=== PATIENT | female | born 1990 | race Caucasian/White ===

== ENCOUNTER → 2018-08-03 14:08 | Outpatient (CLI) | payer OTHER, SELFPAY ==
[2018-08-03 19:04] LABS: Chlamydia Trachomatis by PCR Negative (Negative); Neisserai gonorrhoeae by PCR Negative (Negative); Probe Check PASS; Sample Adequacy Control PASS; Specimen Processing Control PASS
[2018-08-06 15:42] LABS: HPV Reflexed? NOT INDICATED
== END ==
PROVIDERS: Visit Provider Obstetrics & Gynecology
DX: Z12.4 Encounter for screening for malignant neoplasm of cervix (principal); Z11.3 Encounter for screening for infections with a predominantly sexual mode of transmission; Z32.01 Encounter for pregnancy test, result positive
CPT/HCPCS: 87491; 87591; 88175; G0145

== ENCOUNTER → 2018-08-17 | Outpatient (CLI) | payer OTHER, SELFPAY ==
[2018-08-17 17:42] LABS: Absolute Lymphocyte Count 2.14 X10^3/ul (0.83-4.51); Absolute Neutrophil Count 7.2 X10^3/uL (2.0-7.7); Basophil# 0.02 X10^3/uL; Basophil% 0.2 % (0-1); Eosinophil# 0.11 X10^3/uL; Eosinophils% 1.1 % (0-5); Hematocrit 40.8 % (37-47); Hemoglobin 13.2 g/dl (12.0-15.0); Lymphocyte # 2.14 X10^3/ul (4.0); Lymphocyte % 21.1 % (19-41); Mean Corp Hgb Conc 32.4 g/gl (32-36); Mean Corpuscular Hgb 25.4 pg (27.0-32.0); Mean Corpuscular Volume 78.5 fL (81-99); Monocyte# 0.65 X10^3/uL; Monocyte% 6.4 % (0-10); Neutrophil # 7.22 X10^3/uL (2.7-7.7); Platelet Count 295 K/mm3 (150-450); RBC Distribution Width CV 13.6 % (11.6-14.6); RBC Distribution Width SD 38.3 fl (35.1-43.9); White Blood Count 10.2 K/mm3 (4.4-11.0)
[2018-08-17 17:46] LABS: POSITIVE COUNT NO; POSITIVE DIFFERENTIAL NO; POSITIVE MORPHOLOGY NO
[2018-08-17 17:52] LABS: Amphetamine Urine VISTA NEGATIVE (<1000 ng/mL); Barbiturate Urine VISTA NEGATIVE (< 200 ng/mL); Benzodiazepine Urine VISTA NEGATIVE (< 200 ng/mL); Cocaine Urine VISTA NEGATIVE (< 300 ng/mL); Ecstacy Urine VISTA NEGATIVE (< 500 ng/mL); Methadone Urine VISTA NEGATIVE (< 300 ng/mL); PCP Urine VISTA NEGATIVE (< 25 ng/mL); THC Urine VISTA NEGATIVE (< 50 ng/mL); Vista UDS pH Range 6
[2018-08-17 17:57] LABS: Thyroid Stim Hormone (TSH) 2.07 uIU/mL (0.358-3.74)
[2018-08-17 18:07] LABS: Color, Urine Yellow (Yellow); Glucose, Dipstick Normal (Normal); Ketone-Dipstick Negative (Negative); Leukocyte Esterase-Dipstick Negative /ul (Negative); Nitrite-Dipstick Negative (Negative); Occult Blood-Urine Negative /ul (Negative); Protein-Dipstick Negative (Negative); Specific Gravity, Urine 1.005 (1.002-1.030); Urine Bilirubin Dipstick Negative (Negative); Urine Clarity Clear (Clear); Urine Urobilinogen Normal (Normal); Urine pH 6.5 (5.0 - 8.0)
[2018-08-17 18:38] LABS: HIV - WCH Non-Reactive (Nonreactive)
[2018-08-20 08:37] LABS: Anti-Cardiolipin Ab, IgG, Qn < 9 GPL U/mL (0-14); Anti-Cardiolipin Ab, IgM, Qn 31 MPL U/mL (0-12); HEPATITIS B SURFACE AG Negative (Negative); Hep C Antibodies <0.1 s/co ratio (0.0-0.9)
[2018-08-24 07:50] LABS: Prenatal RPR REACTIVE (NONREACTIVE)
== END | disposition home or self-care (01) ==
LOC: LABSPEC 15:37
PROVIDERS: Visit Provider Obstetrics & Gynecology
DX: Z34.81 Encounter for supervision of other normal pregnancy, first trimester (principal)
CPT/HCPCS: 36415; 80307; 81002; 84443; 85025; 86147; 86703; 86762; 86803; 87340

== ENCOUNTER → 2019-01-05 14:28 | Outpatient (CLI) | payer OTHER, SELFPAY ==
[2019-01-05 15:41] LABS: Hematocrit 36.6 % (37-47); Hemoglobin 11.4 g/dL (12.0-15.0); Mean Corp Hgb Conc 31.1 g/dL (32-36); Mean Corpuscular Hgb 26.3 pg (27.0-32.0); Mean Corpuscular Volume 84.3 fL (81-99); Mean Platelet Vol. 9.5 fl (6.2-12.0); Platelet Count 257 K/mm3 (150-450); RBC Distribution Width CV 13.7 % (11.6-14.6); RBC Distribution Width SD 42.5 fl (35.1-43.9); Red Blood Count 4.34 M/mm3 (4.2-5.4); White Blood Count 9.2 K/mm3 (4.4-11.0)
[2019-01-05 15:47] LABS: Glucose Challenge Gest 1H 50g 106 mg/dL (70-140)
== END ==
PROVIDERS: Visit Provider Obstetrics & Gynecology
DX: Z34.82 Encounter for supervision of other normal pregnancy, second trimester (principal)
CPT/HCPCS: 36415; 82950; 85027

== ENCOUNTER → 2019-03-08 16:20 | Outpatient (CLI) | payer OTHER, SELFPAY ==
[2016-09-26 19:23] VITALS: BMI 27.8
== END ==
PROVIDERS: Visit Provider Obstetrics & Gynecology
DX: Z34.83 Encounter for supervision of other normal pregnancy, third trimester (principal); Z36.85 Encounter for antenatal screening for Streptococcus B
CPT/HCPCS: 87081

== ENCOUNTER 2019-03-30 00:05 | Inpatient (IN) | payer OTHER, SELFPAY ==
[2016-09-26 19:23] VITALS: BMI 27.8
[2019-03-29 21:34] VITALS: BMI 29.4
--- NOTE | 2019-03-29 22:24 | OB.TRI.NOTE ---
History of Present Illness Date of Service: 03/29/19 Was patient seen by the physician?: Yes Reason For Visit: R/O Labor Final LINA Source: US <20 weeks Allergies amoxicillin trihydrate [From Amoxil] Allergy (Verified 03/29/19 21:34) Rash Physical Exam Cervix Dilation (cm): 1.5 - Exam per RN at 2140 Station: -3 Effacement (%): 50
[2019-03-30] MEDS: Lactated Ringers 1,000 ML 50 ML IV (00:25)
--- NOTE | 2019-03-30 00:41 | HP.PCM_ITS ---
History and Physical Date of Admission: 03/30/19 ACOG ANTEPARTUM RECORD - HISTORY AND PHYSICAL (03/30/2019) Name: KENDALL RICE OB Physician: [facility] Physician: PED SLOT TECHNICIAN and then to Charo Bland ...................................................................... : 1990 Age: 28 Address: [address] [place] [address] Phone: H) [phone] (O) [phone] Insurance Carrier: [employer] [id number] Emergency Contact: ONEYDA RICE [phone] ...................................................................... Kendall is a 28kyo admitted for labor at 39w6d gestation by 7w5d US; she states she began antonia yesterday afternoon about every 15 minutes. Contractions became stronger over time and interval decreased to approximately 10 minutes, and she was unable to walk or talk through them; after speaking with this provider over the telephone, she decided to come in to triage for evaluation; upon her arrival around 2130 last night her cervix was 1/50/-2; two hours later she had progressed to 3/75/-2; both exams were performed by the same RN;this has been remarkable for a positive RPR which was negative upon FTA testing; She is group B negative and O pos; she is planning an epidural, and prefers an MD for delivery. Final LINA: 03/31/19 By Ultrasound: 7w5d PARITY: (G-Total Pregnancies P-Fullterm,Premature,Induced AB,Spont AB, Ectopics, Multiple,Living) LINA CONFIRMATION: By LMP: 06/15/18 Final LINA: 03/31/19 OB PROBLEM LIST: O Positive Declines genetic and CF testing Epidural planned ECHO wnl Had Tdap and Influenza, 02/02 Prefers MD for delivery RPR positive, FTA negative ALLERGIES: No Known Drug Allergies MEDICATIONS: aspirin 81 mg chewable tablet 1 tab PO daily 28 mg-800 mcg tablet 1 PO QD SOCIAL HISTORY: Smoking - denies smoking Alcohol Use - RARELY not while Diet - balanced Diet Lifestyle - Exercise - minimal Employer - [employer] 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, 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 Illicit Drug Use - denies use of street drugs Sexual Activity - single sexual partner Residence - owns a home Hours Worked - 40 hours per week Spouse-Sig Other Name - Panfilo Rice Spouse-Sig Other Occupation - [employer] Spouse-Sig Other Phone No - [phone] Children Name(s) - Azam PRIOR DELIVERY HISTORY ___ DEL DATE GEST LAB WT LB WT OZ TYPE ANES LABOR TX 14 Sep 30 40 24 7 7 Vag Epidural No ANTEPARTUM FLOW CHART VISIT GE RTC FU F F CA U U DATE WK MD WKS HT PN HR M SS BP ED WT CA GL D EF ST __ ____ ___ __ __ ___ __ __ __ ___ __ __ __ ___ __ 09 Mar SHM 2 37 V + + 130/86 sl 206 - - Mar SHM 1 36 V + + 114/70 sl 204 tr - 1+ 50 -3 Feb SHM 1 35 V + + 110/70 sl 203 tr - 0 0 -5 Feb ELB 1 35 V + + 112/66 0 201 Jan SHM 3 32 V + + 114/66 0 196 - - Feb 13 SHM 2 30 + + 110/72 0 195 tr - Jan 10 SHM 4 28 V + + 110/60 0 190 - - Dec 07 SHM 4 23 ? + + 120/62 0 182 tr - Nov 02 SHM 4 19 ? + + 102/64 0 175 tr - Oct 31 SHM 2 17 ? + + 108/60 0 170 - tr Sep 28 SHM 4 15 + + 114/70 0 166 - - Sep 24 ELB 4 - - U+ O 110/70 0 164 - - Aug 21 ELB 4 - - U+ O 112/60 0 160 - - ANTEPARTUM NOTE(S): Mar 25 2019: none Mar 19 2019: feeling well. Cervix check. Mar 08 2019: achy in am, GBS today Feb 26 2019: GBS next visit. EB Feb 09 2019: doing well Jan 26 2019: see note Jan 05 2019: doing well, glucola today Dec 07 2019: doing well, glucola inst given and reviewed Nov 10 2019: comp u/s today Oct 26 2019: see note Oct 12 2018: doing well, declines AFP. jlb Sep 14 2018: feeling well, still having nausea. Aug 17 2018: 7w5d sono EDC COMPREHENSIVE ANTEPARTUM NOTE(S): Mar 25 2019: Kendall is here for a appt. She is feeling good with slight edema in hands and feet. Urine --. No complaints. Thinking about names for her baby boy. MK Mar 19 2019: Reports decreased FM x 3 days. BPP 8/10 (-2 for gross movement). Kick counts reviewed. Mar 15 2019: H taken to OB. tkg Mar 11 2019: GBS NEGATIVE. EB Mar 08 2019: Kendall reports more aches in the am. Hands slightly swollen in am. Reviewed normal changes at this point in . FM, SROM, and labor reviewed. LARC declined, GBS today. LMT Mar 08 2019: GBS obtained, reviewed labor, ROM, FM precautions. LARC declined. Fetus CEPHALIC on US. Feb 26 2019: Kendall is here for visit at 35.2 weeks. Continues to have some nausea. Taking Pepcid with moderate relief. Concerned about weight gain- 40 # today. Trying to make good food choices. Talking about first baby being transferred to [facility] for 7 days due to cyanosis during a feed with no etiology found. States knows what questions to ask this time. DRC. Jan 26 2019: Discussed epidural r/b. Jan 26 2019: Kendall is here for vist. She has several concerns today. She is having nausea q pm. Asking for nausea med. She was advised prior to try Pepcid and strongly encouraged her to start this as directed. Stay upright after eating for at least 30 minutes after eating, avoid fried, spicy foods. She also notes this terrible taste in her mouth and throws up with the toothpaste taste. Advised to try just using water and Biotene mouth rinse. FM, PTL reviewed. Had Infuenza and Tdap injections. LMT Jan 05 2019: PTL, ROM, FM precautions. APLS studies with MFM negative initially. Dec 07 2018: Long dip of urine done in office today leuk, nitrite, urobilingen-neg, protein-trace, pH-5, blood-neg, sp gravity-1025, ketones-+, bilirubin-neg, glucose-neg. jlb Nov 10 2018: Kendall is here for comp u/s. Wants to discuss Anticardiolipin AB. LMT Nov 10 2018: MFM consultation next week. Will f/u. Reviewed with her my suspicion is low however important to complete w/u. Anatomy scan wnl, MALE. Oct 26 2018: Kendall called nurse web applications architect over the weekend with a rash that is very itchy, it is on jawline and on lower abdomen and legs. She states it started 5 days ago and a week prior to that she started a baby aspirin. AM Oct 26 2018: Urticaria with linear cicatrix in patches on neck, abdomen, thig hs. Denies chest pain, SOB, wheezing, cough. Rx hydrocortisone topical. ASA discontinued over weekend. Following discussion, pt with concern about risks for APLS and inquires about risk modification in absence of ASA. Will refer to MFM. Oct 12 2018: Declines msAFP, Quad screen. Discussed movement, round ligament pain. Reviewed slightly high Anticardiolipin IgM at 31 (APLS usually dx'd at 40). In 2016, slightly high Anti-beta 2 glycoprotein Ab at 28 with normal Anticardiolipin. Following discussion, pt to take ASA 81mg PO daily and will repeat APLS studies in 12 weeks with 28w labs. Aug 21 2018: RPR positive FTA to be checked. Anticardiolipin antibodies sl high IgM at 31 (Low-Med Positive: >20 - 80 ) EB Aug 18 2018: O positive RI, Hgb 13.2 g/dl. EB Aug 17 2018: Pap wnl. EDC by 7w5d sveta is 03/31/2019 EDC changed by sveta today. Advised of this. She states had FP RPR with last . Advised will recheck this today and possible to have repeat FP.. if positive RPR, then to FTAbs. States father had a stroke requiring surgery and PT/OT to recover on his honeymoon. Thrombophilia? NOT sure if he had a dx given.. She was testing for coagulopathies. Only Anticardiolipin IgM showed... 26 then 20 on recheck. Will add this Anticardiolipin ABs, IgG and IgM to labs to be done today. EB Aug 17 2018: Kendall is a 28 yr old Gr2, P1 here for US, PNV and NOB today. Prior VAVD Induction Post Dates @ 40 wks 6 days. She is and lives w/her and their son. Some nausea, no vomiting, some constipation and intermittent looser stools. Offered antiemetic, Colace. She does not like to take meds. Tolerating po fluids well. Reviewed importance of hydration. Recommended eating small amounts including protein apprx q 3-4 hrs. Rather than Colace, can eat prunes, which she likes, and take Miralax if needed. Reviewed importance of avoiding constipation. Taking a daily PNV. Non-smoker. No use of street drugs and has never been a smoker. No STD's. No abdominal surgeries. Hx Depression in her early 20's--she feels this has resolved. PHQ-9 completed today showing . Re: genetics -- states her father had a stroke in his 20's. She is not sure what caused this; she will ask if he was Dx'd w/any clotting disorders. Kendall is not interested in CF or genetics testing. Plans delivery @ [facility], Epidural and Breast Feeding. Aug 03 2018: Kendall is here today for missed menses appointment. Patient is a . Positive upt in office today. She states that lmp is 06/15/2018 making her 7 wks with Lina of 03/22/2019. Patient states that she has had no bleeding or spotting since lmp. She states that she has mild nausea, breast tenderness, and fatigue. She will try the vitamin B6 with Unisom for nausea. Patient has h/o normal pap's with most recent pap in 2016. Pap and Gc/Ct cultures today. Patient denies any other questions or concerns at this time. jlb Aug 03 2018: GC and chlamydia cultures NEG EB REVIEW OF SYSTEMS: GENERAL - Denies fever, or chills SKIN - Denies rash, new skin lesions, or change in moles EYES - Denies blurred vision, or change in visual acuity EARS - Denies ear pain, or difficulty hearing NOSE - Denies nasal congestion, discharge, or bleeding MOUTH - Denies sore throat, or difficulty swallowing NECK - Denies pain or swelling RESPIRATORY - Denies shortness of breath, cough, wheezing CARDIOVASCULAR - Denies palpitations, chest pain, orthopnea, PND, peripheral edema, syncope or claudication GASTROINTESTINAL - Denies nausea, vomiting, diarrhea, constipation, Denies abdominal pain, melena and or bright red blood GENITOURINARY - Denies dysuria, frequency of urination, urgency, or hesitancy MUSCULOSKELETAL - Denies joint or muscle pain, or back pain NEUROLOGICAL - Denies localized numbness, weakness, or tingling PSYCHIATRIC - Denies depression, anxiety, substance abuse or suicide attempts ENDOCRINE - Denies heat or cold intolerance, weight loss or gain, increasing thirst HEMATO-IMMUNOLOGIC - Denies easy bruising, bleeding, oral ulcerations or recurrent infections GENETICS SCREENING: Age 35+ years: No Thalassemia: No Neural Tube Defect: No Down Syndrome: No MEGHAN-SACHS: No Sickle Cell Disease: No Hemophilia: No Musc. Dystrophy: No Cystic Fibrosis: No-declines screening [place] Chorea: No Mental Retardation: No Fragile X: No Other genetic: No Other defects: No SABs/still births: No Drugs since LMP: No INFECTION HISTORY: High risk AIDS: No High risk Hepatitis: No Exposed to TB: No Exposed to Herpes: No Rash/viral illness since LMP: No History of STD: No MENSTRUAL HISTORY: *Menses Amount/Duration: 5 daysMenses Regularity: regularFrequency: monthlyMenarche (Age Onset): 13* PAST SUMMARY: PARITY: 1. Total Pregnancies............ 2 2. Full Term Pregnancies........ 1 3. Premature.................... 0 4. Abortions - Induced.......... 0 5. Abortions - Spontaneous...... 0 6. Ectopics..................... 0 7. Multiple Births.............. 0 8. Living Children.............. 1 PAST #1: Date of :.................. 07/14/17 Gestation Weeks:................ 40 Length of labor(hours):......... 24 Sex:............................ M Weight-lbs:............... 7 Weight-oz:................ 7 Type of Delivery:............... Vag Type of Anesthesia:............. Epidural Place of Delivery:.............. [place] Treatment of Labor?:.... No Comment: INDUCTION 40 WKS 6 DAYS Labs for : KENDALL RICE since 07/04/2018 ORDER DATEIN DESCRIPTION VALUE UNITS RANGE A+ COMMENT CULTURE, GROUP B STREPTOCOCCUS 03/08/19 NOTE Original Ordering Provider: Kai Aguilar Comments: VAGINAL/RECTAL JOHN Culture Group B Beta Streptococcus is not isolated. Reviewed by JANET GLUCOSE CHALLENGE GEST 1H 50G 01/05/19 NOTE Original Ordering Provider: Kai Aguilar GLU GEST 50G 1H 106 mg/dL 70-140 Reviewed by KAI CBC-COMPLETE BLOOD CNT NO DIFF 01/05/19 NOTE Original Ordering Provider: Kai Aguilar WBC 9.2 K/mm3 4.4-11.0 RBC 4.34 M/mm3 4.2-5.4 HGB 11.4 g/dL 12.0-15.0 L HCT 36.6 % 37-47 L w MCV 84.3 fL 81-99 MCH 26.3 pg 27.0-32.0 L MCHC 31.1 g/dL 32-36 L RDW CV 13.7 % 11.6-14.6 RDW SD 42.5 fl 35.1-43.9 PLT 257 K/mm3 150-450 MPV 9.5 fl 6.2-12.0 Reviewed by KAI [facility] 08/17/18 NOTE Original Ordering Provider: Janet Goode [facility] LAB TEST TEST RESULT UNITS REF INTERVAL RPR, Rfx Qn RPR/Confirm TP RPR REACTIVE ABNORMAL NON REACTIVE RPR, Quant 1:2 HIGH NONREA <1:1 Treponema Pallidum Antibodies NEGATIVE NEGATIVE TESTING PERFORMED AT [facility]. ORIGINAL REPORT ON FILE IN LAB CONTAINS ADDITIONAL TEST SITE INFORMATION. Reviewed by JANET DALTON RPR 08/17/18 NOTE Original Ordering Provider: Janet Goode RPR REACTIVE NONREACTIVE H Reviewed by JANET ANTICARDIOLIPIN IGG, IGM 08/17/18 NOTE Original Ordering Provider: Janet Goode ANTICARDIO IGG < 9 GPL U/mL 0-14 Negative: <15 Indeterminate: 15 - 20 Low-Med Positive: >20 - 80 High Positive: >80 ANTICARDIO IGM 31 MPL U/mL 0-12 H Negative: <13 Indeterminate: 13 - 20 Low-Med Positive: >20 - 80 High Positive: >80 Reviewed by JANET HEPATITIS C ANTIBODIES 08/17/18 NOTE Original Ordering Provider: Janet Goode HEP C AB <0.1 s/co ratio 0.0-0.9 Negative: < 0.8 Indeterminate: 0.8 - 0.9 Positive: > 0.9 The CDC recommends that a positive HCV antibody result be followed up with a HCV Nucleic Acid Amplification test (466699). Reviewed by JANET mcmanus HEPATITIS B SURFACE AG 08/17/18 NOTE Original Ordering Provider: Janet Goode HB SURF AG Negative Negative Performed at: [address] [id number] Machine Filler Servicer: Joel Box PhD, Phone: [phone] Reviewed by JANET DALTON T AND S-NO CHARGE W/PNP 08/17/18 Reason for Type AND Screen/Red Cells: Surgery? N [facility]~[address] [place], [address]~ BLOOD TYPE GEL O POSITIVE N AB SCREEN GEL NEGATIVE N Reviewed by JANET HIV - H 08/17/18 NOTE Original Ordering Provider: Janet Goode HIV - [facility] Non-Reactive Nonreactive Reviewed by JANET RUBELLA IGG 08/17/18 NOTE Original Ordering Provider: Janet Goode RUBELLA IGG 33.0 IU/mL Antibody results Interpretation of Immune Status < 5 IU/ml Presumed Non-immune 5 - < 10 IU/ml Equivocal > or = 10 IU/ml Presumed Immune Reviewed by JANET URINALYSIS, ROUTINE (DIPSTICK) 08/17/18 NOTE Original Ordering Provider: Janet Goode COLOR Yellow Yellow CLARITY Clear Clear GLUCOSE, UR Normal mg/dl Normal BILIRUBIN URINE Negative mg/dL Negative KETONE UR Negative mg/dl Negative SP.GR. DIPSTX 1.005 1.002-1.030 PH UR 6.5 5.0 - 8.0 PROT DIPSTX Negative mg/dl Negative UROBILI Normal mg/dl Normal NITRITE UR Negative Negative OCCULT BLOOD-UR Negative /ul Negative LEUK ESTERASE Negative /ul Negativew Reviewed by JANET THYROID STIM HORMONE (TSH) 08/17/18 NOTE Original Ordering Provider: Janet Goode TSH 2.07 uIU/mL 0.358-3.74 Reviewed by JANET URINE DRUG SCREEN (VISTA) 08/17/18 NOTE Original Ordering Provider: Janet Goode TO BE CONFIRMED CONFIRMATORY TESTING FOR ALL POSITIVE URINE DRUG SCREEN RESULTS WILL ONLY BE SENT OUT UPON PHYSICIAN ORDER. VISTA Urine Drug Screen methods provide only preliminary analytical test results. A more specific alternate chemical method must be used in order to obtain a confirmed analytical result. Gas chromatography/mass spectrometery (GC/MS) is the preferred confirmatory method. Clinical consideration and professional judgement should be applied to any drug of abuse test result, particularly when preliminary positive results are used. URINE TCA TESTING MUST BE ORDERED SEPARATELY. USE TEST MNEMONIC: [facility]IST[facility] UDS PH 6 AMPHETAMINES NEGATIVE <1000 ng/mL BARBITIURATES NEGATIVE < 200 ng/mL BENZODIAZIPINE NEGATIVE < 200 ng/mL COCAINE NEGATIVE < 300 ng/mL ECSTACY NEGATIVE < 500 ng/mL METHADONE NEGATIVE < 300 ng/mL OPIATES NEGATIVE < 300 ng/mL PCP NEGATIVE < 25 ng/mL THC NEGATIVE < 50 ng/mL Reviewed by JANET CBC W/DIFF, AUTOMATED 08/17/18 NOTE Original Ordering Provider: Janet Goode WBC 10.2 K/mm3 4.4-11.0 RBC 5.20 M/mm3 4.2-5.4 HGB 13.2 g/dl 12.0-15.0 HCT 40.8 % 37-47 MCV 78.5 fL 81-99 L MCH 25.4w pg 27.0-32.0 L MCHC 32.4 g/gl 32-36 RDW CV 13.6 % 11.6-14.6 RDW SD 38.3 fl 35.1-43.9 PLT 295 K/mm3 150-450 MPV 9.0 fl 6.2-12.0 NEUT% 71.0 % 47-70 H LY% 21.1 % 19-41 MONO% 6.4 % 0-10 EO% 1.1 % 0-5 BASO% 0.2 % 0-1 IM GRAN % 0.200 % 0.0-0.9 IG% - Immature Granulocytes (promyelocytes, myelocytes and metamyelocytes) > 1% indicates that a LEFT SHIFT is Present. ABSOLUTE NEUT 7.2 X10 3/uL 2.0-7.7 ABSOLUTE LYMPH 2.14 X10 3/ul 0.83-4.51 Reviewed by JANET Reviewed by JANET PAP I-G W/RFX HRHPV 08/03/18 NOTE Original Ordering Provider: Janet Goode DIAGN . NEGATIVE FOR INTRAEPITHELIAL LESION OR MALIGNANCY. ADEQ . Satisfactory for evaluation. Endocervical and/or squamous metaplastic cells (endocervical component) are present. w PERFORM . Kendrick Crum Sailing Instructor (ASCP) TEST METHOD . This liquid based ThinPrep(R) pap test was screened with the use of an image guided system. COMM . . PAPSMR . The Pap smear is a screening test designed to aid in the detection of premalignant and malignant conditions of the uterine cervix. It is not a diagnostic procedure and should not be used as the sole means of detecting cervical cancer. Both false-positive and false-negative reports do occur. HPV RFLX . The HPV DNA reflex criteria were not met with this specimen result therefore, no HPV testing was performed. Performed at: [address], [place] [id number] Machine Filler Servicer: Asha Olsen MD, Phone: [phone] Reviewed by JANET SCALES/SEKOU [facility] BY PCR 08/03/18 NOTE Original Ordering Provider: Janet MIGUEL [facility] PCR Negative Negative NG BY PCR Negative Negative Reviewed by JANET PROVIDER SIGNATURE ( REQUIRED) PHYSICAL EXAMINATION General Appearence: 28 yo female in no acute distress Vital Signs: AF, VSS Heart: RRR without rubs or gallops Lungs: CTA x 2 Breasts: deferred Abdomen: gravid Pelvis: Cervix: 3/75/-2 per RN at 2358 03/29/2019 Presentation: cephalic Fetus: Size: AGA per Leopolds Movement: present Heart: 135 baseline, mod variability, + accels, no decels UCs: Q 3-4 minutes Impression: 28yo admitted for labor at 39w6d gestation by 7w5d US Latent vs. Early labor with cervical change Group B neg, O pos blood type Cat 1 FHTs Plan: Admit for labor Expectant management Call MD for delivery Anticipate vaginal delivery
[2019-03-30 00:42] LABS: Absolute Lymphocyte Count 2.12 X10^3/uL (0.83-4.51); Absolute Neutrophil Count 7.5 X10^3/uL (2.0-7.7); Basophil# 0.01 X10^3/uL; Basophil% 0.1 % (0-1); Eosinophils% 0.9 % (0-5); Hematocrit 33.2 % (37-47); Hemoglobin 10.6 g/dL (12.0-15.0); Lymphocyte # 2.12 X10^3/ul (4.0); Lymphocyte % 19.7 % (19-41); Mean Corp Hgb Conc 31.9 g/dL (32-36); Mean Corpuscular Hgb 25.5 pg (27.0-32.0); Mean Platelet Vol. 9.9 fl (6.2-12.0); Monocyte# 1.04 X10^3/uL; Monocyte% 9.6 % (0-10); NRBC Flagged by Analyzer 0 % (0-5); Neutrophil # 7.45 X10^3/uL (2.7-7.7); Neutrophil % 69.1 % (47-70); Platelet Count 217 K/mm3 (150-450); RBC Distribution Width CV 14.9 % (11.6-14.6); Red Blood Count 4.15 M/mm3 (4.2-5.4); White Blood Count 10.8 K/mm3 (4.4-11.0)
[2019-03-30] MEDS: Lactated Ringers 500 ML 999 ML IV (03:43)
[2019-03-30] MEDS: fentaNYL-bupivacaine (epidural) 100 ML BAG EPIDURAL ×2 (04:45→10:50)
[2019-03-30] MEDS: Ondansetron 4 MG/2 ML Vial IV (06:04)
--- NOTE | 2019-03-30 06:35 | PCM.PN.BLA ---
Progress Note S: Chay comfortably with epidural; did experience a drop in blood pressure after epidural and became symptomatic O: Hypotensive post epidural FHTs: 130 baseline with moderate variability after a 7 minute deceleration down to 70bpm over 3 minutes then back to baseline over 5 minutes UCs: Approx Q 8 minutes per palpation by RN, tracing inconsistent A: Early labor Cat 2 FHTs P: Anesthesia notified and at bedside to address epidural related hypotension Dr. Aguilar updated Close observation Anticipate AROM/IUPC/Pitocin augmentation, Dr. Aguilar to determine and discuss w/patient
[2019-03-30] MEDS: Lactated Ringers 1,000 ML 200 ML IV ×2 (06:45→10:48)
[2019-03-30] MEDS: Oxytocin 30 units/NS 500 ml 30 UNITS/500 ML IV.SOLN IV (09:19)
--- NOTE | 2019-03-30 12:23 | PCM.PN.BLA ---
Progress Note LABOR PROGRESS NOTE no complaints. Comfortable with epidural. AVSS GEN - NAD, AAO x 3 FHR 135, moderate variability, + accelerations, no decelerations TOCO 4/10 min SVE FD/+1 station, cephalic A/P: 28yo @ 39 6/7wga in labor, Cat I FHR -Anticipate -Maternal and statuses reassuring
[2019-03-30] MEDS: Oxytocin 30 units/NS 500 ml 30 UNITS/500 ML IV.SOLN 334 UNITS IV (12:40)
--- NOTE | 2019-03-30 12:49 | PCM.OPRPT ---
Problem List (1) 39 weeks gestation of Status: Acute (2) (spontaneous vaginal delivery) Status: Acute Report of Operation Date of Procedure: 03/30/19 Pre-Operative Diagnosis: 39 6/7wga, labor Post-Operative Diagnosis: 39 6/7wga, labor Surgery/Procedure Performed:: Type of Anesthesia:: Epidural Anesthesiologist: Rodolfo Zheng Estimated Blood Loss (mL): 250 Vaginal Delivery Maternal Presentation: Active Labor Method of Induction: Pitocin, Amniotomy Amniotic Membrane Rupture Type: Artificial Rupture of Membrane time: 03/30/19 0809h Amniotic Fluid Description: Clear Final LINA: 03/31/19 Gestational age: 39 Weeks and 6 Days Date of Procedure: 03/30/19 Surgery/ Procedure Performed: Spontaneous Vaginal Delivery Type of Anesthesia: Epidural Description of Procedure: Patient was FD/+3 station and pushed to deliver vigorous male infant over and intact perineum. The infant was placed on the maternal abdomen and further attended by nursery personnel. Cord blood specimen was obtained. The placenta delivered spontaneously and appeared intact on inspection. IV pitocin started. Perineum intact. Sponge count correct x 2. Presentation: Vertex Placental Delivery Description: Spontaneous Placenta Disposition: [facility] Cord Vessel Description: 3 Vessels Nuchal Cord Compression: Without compression Cord Entanglement: None Drain: Gamez to straight drain Estimated Blood Loss: 250 A gender: Male (1 minute): 8 (5 minute): 9 Episiotomy Description: None Laceration: None Medications given after delivery: IV Pitocin Complications: None
[2019-03-30 19:41] VITALS: BP 120/58; PULSE 78; RESP 14; TEMP 36.4; O2SAT 97
[2019-03-30] MEDS: Ibuprofen 600 MG Tablet PO (20:02)
[2019-03-30 23:05] VITALS: BP 113/63; PULSE 85; RESP 18; TEMP 36.2
[2019-03-30] MEDS: Acetaminophen 500 MG Tablet 1000 MG PO (23:34)
[2019-03-31 03:48] VITALS: BP 107/62; PULSE 73; RESP 14; TEMP 36.6
[2019-03-31] MEDS: Ibuprofen 600 MG Tablet PO (03:57)
--- NOTE | 2019-03-31 07:08 | PCM.PN.OB ---
Patient Problems: Active and Suspected Problems 39 weeks gestation of (Acute) (spontaneous vaginal delivery) (Acute) Subjective: Reports heavy lochia, but needs to change pad every 3-4 hours and it is not saturated. Has mild cramping. Appetite good. No complaints. nursing well. Objective: AVSS - Physical Exam Vitals/I&O's: Vital Signs Temp Pulse Resp BP Pulse Ox 97.8 F 73 14 107/62 97 03/31/19 03:48 03/31/19 03:48 03/31/19 03:48 03/31/19 03:48 03/30/19 19:41 Oxygen Delivery Method Room Air Weight: 92.986 kg Body Mass Index (BMI) 29.4 Intake and Output for Last 24 Hours 03/29/19 03/30/19 03/31/19 23:59 23:59 23:59 Intake Total 3199.45 / 3199.45 Output Total 1000 / 1000 Balance 2199.45 / 2199.45 General: Alert, Oriented x3, Cooperative, No apparent distress HEENT: Atraumatic, Normocephalic Lungs: Clear to auscultation, Normal air movement Cardiovascular: Regular rate, Regular Rhythm, Normal S1, Normal S2 Abdomen: Soft, Non Tender, Non-Distended, - - Fundus firm and nontender, lochia moderate Extremities: No edema, No Calf Tenderness Neurological: Neuro grossly intact Psych/Mental Status: Normal Affect, Appropriate, Alert and oriented to time, place, person, mood and affect Current Medications Acetaminophen (Tylenol) 1,000 mg PO Q8H PRN PRN PRN Reason: Pain Score 1-310 Last Admin: 03/30/19 23:34 Dose: 1,000 mg Documented by: Bisacodyl (Dulcolax) 10 mg RECTAL UD PRN PRN Reason: If no BM Dibucaine (Dibucaine) 1 applic TOPICAL TID PRN PRN; Protocol PRN Reason: Discomfort Hydrocortisone (Hytone) 1 applic TOPICAL TID PRN PRN; Protocol PRN Reason: Discomfort Ibuprofen (Motrin) 600 mg PO Q6H PRN PRN PRN Reason: Pain Score 1-310 Last Admin: 03/31/19 03:57 Dose: 600 mg Documented by: Methylergonovine Maleate (Methergine) 0.2 mg IM X1 PRN PRN Reason: Excess bleeding/uterine atony Ondansetron HCl (Zofran) 4 mg IV Q4H PRN PRN PRN Reason: NAUSEA Last Admin: 03/30/19 06:04 Dose: 4 mg Documented by: Multivit/Folic Acid/Iron (Prenatabs Fa) 1 tablet PO DAILY@1200 LAUREANO Senna/Docusate Sodium (Senokot-S, Siobhan-Colace) 1 - 2 tablet PO DAILY PRN PRN PRN Reason: Constipation Simethicone (Mylicon) 80 mg PO PCHS PRN PRN Reason: Indigestion/Stomach pain Sodium Chloride () 5 - 15 ml IV UD PRN PRN Reason: SALINE FLUSH Medical Necessity - Tobacco Use Smoking Status: Never smoker Assessment/Plan All Active Problems 39 weeks gestation of (Acute) (spontaneous vaginal delivery) (Acute) 40 weeks gestation of (Acute) 28yo PPD#1 s/p doing well. -O positive, Rubella immune -Routine care - -Male for circ -Plan for dc home later today
--- NOTE | 2019-03-31 07:16 | DCINST_ITS ---
Discharge Diet: No Restrictions Discharge Activity: Return to Normal Activity May resume sexual activity in: 6 weeks Additional Instructions: If you experience any of the following, contact your healthcare provider. * Bleeding that soaks a pad every hour for 2 hours * Fever 100.4 or higher * Unrelieved incision or abdominal pain * Swelling, redness, discharge or bleeding from your incision or episiotomy site * Your incision begins to separate * Problems urinating (including inability to urinate or burning while urinating). * Visual changes * Severe headache * Flu-like symptoms * Pain or redness in one of both of your breasts * Pain, warmth, tenderness or swelling in your legs, especially the calf area * Frequent nausea and vomiting * Symptoms of depression or anxiety If you experience any of the following, call 911 or go to the nearest Emergency Room. * Chest pain * Problems breathing * Seizure activity * Partial or complete paralysis of a body part, slurred speech, weakness or drooping of the face, or a sudden inability to walk or hold your balance Allergies/Adverse Reactions: Allergies amoxicillin trihydrate [From Amoxil] Allergy (Verified 03/29/19 21:34) Rash Medications to take at Discharge RX: Vits [Prenatabs FA ] 1 tablet PO DAILY 09/26/16 RX: Docusate Sodium [Colace] 100 mg PO BID PRN PRN #60 capsule 09/27/16 RX: Ferrous Sulfate 325 mg PO BID #60 tab 03/31/19 RX: Ibuprofen [Motrin] 600 mg PO Q8H PRN PRN #30 tab 03/31/19 The following prescriptions were given: RX: Ferrous Sulfate 325 mg PO BID #60 tab Transmission Status: Pending to [facility] RX: Ibuprofen [Motrin] 600 mg PO Q8H PRN PRN #30 tab PRN Reason: Pain Or Fever Transmission Status: Pending to [facility] Please Follow Up With: Starla Aguilar MD When: 6 weeks Primary Care Physician: Keyon Arias DO [Primary Care Provider] - Test Results: Test results from this visit will be discussed in further detail at your follow- up appointment, if applicable.
--- NOTE | 2019-03-31 07:16 | PCM.DCVAG ---
Discharge Diet: No Restrictions Discharge Activity: Return to Normal Activity May resume sexual activity in: 6 weeks Additional Instructions: If you experience any of the following, contact your healthcare provider. Bleeding that soaks a pad every hour for 2 hours Fever 100.4 or higher Unrelieved incision or abdominal pain Swelling, redness, discharge or bleeding from your incision or episiotomy site Your incision begins to separate Problems urinating (including inability to urinate or burning while urinating). Visual changes Severe headache Flu-like symptoms Pain or redness in one of both of your breasts Pain, warmth, tenderness or swelling in your legs, especially the calf area Frequent nausea and vomiting Symptoms of depression or anxiety If you experience any of the following, call 911 or go to the nearest Emergency Room. Chest pain Problems breathing Seizure activity Partial or complete paralysis of a body part, slurred speech, weakness or drooping of the face, or a sudden inability to walk or hold your balance Allergies/Adverse Reactions: Allergies amoxicillin trihydrate [From Amoxil] Allergy (Verified 03/29/19 21:34) Rash Medications to take at Discharge RX: Vits [Prenatabs FA ] 1 tablet PO DAILY 09/26/16 RX: Docusate Sodium [Colace] 100 mg PO BID PRN PRN #60 capsule 09/27/16 RX: Ferrous Sulfate 325 mg PO BID #60 tab 03/31/19 RX: Ibuprofen [Motrin] 600 mg PO Q8H PRN PRN #30 tab 03/31/19 The following prescriptions were given: RX: Ferrous Sulfate 325 mg PO BID #60 tab Transmission Status: Pending to [facility] RX: Ibuprofen [Motrin] 600 mg PO Q8H PRN PRN #30 tab PRN Reason: Pain Or Fever Transmission Status: Pending to [facility] Please Follow Up With: Starla Aguilar MD When: 6 weeks Primary Care Physician: Keyon Arias DO [Primary Care Provider] - Test Results: Test results from this visit will be discussed in further detail at your follow-up appointment, if applicable.
[2019-03-31 08:21] VITALS: BP 121/75; PULSE 83; RESP 16; TEMP 36.3
[2019-03-31 15:14] VITALS: BP 125/66; PULSE 88; RESP 16; TEMP 36.9
--- NOTE | 2019-03-31 16:37 | CASEMGMT ---
Social Work - Brief Assessment Labor and Delivery Unit Patient Address: [address] [place] [address] Phone number:[phone] Date of Referral/Notification: 03.30.2019 Time of Referral: 2241 Referred By: Dr. Aguilar Reason for Referral: Maternal history of depression in early 20?s. Date of Intervention: 03.31.2019 Time of Intervention: 145 Informant: Medical record and mother of baby (MOB) Marielle Rice; father of baby (FOB) Saurabhmaddy Rice also present. History: LAINA is a 28-year-old female, to FOB. They now have 2 children together: Azam (born 09.[birth year].2016) and Sohan (born 03.[birth year].2019). MOB with adequate care which started in the first trimester. Sohan delivered weighing 7 pounds 3 ounces. Apgars 8 and 9. MOB reports this delivery went much smoother compared to first delivery. First child had was transferred to [place] for several days after delivery. 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 FOB works as [employer]. MOB reports FOB is helpful at home and then has support from MOB's mother and sister. MOB reports her [id number] would be another support as well, if able to come to the house (she is [place] and does not drive). No reports of or indication of any safety issues or abuse at home. No reports of any substance use issues. LAINA with history of some depression in her early 20?s. Endorses the thought that may have had the baby blues after Azam was born, reports crying for a couple of weeks and then this just went away. Assessment: MOB and FOB both engaging in conversation. MOB with bright and smiling affect, pleasant, good eye contact. MOB denies any depression or anxiety currently. Did become tearful a few times but were appropriate to discussion at hand and quickly resolved. MOB reports to love the baby and that she feels she is getting to know the baby, is excited to go home. FOB will be off work for the next week to help and then MOB reports will have help available from family. MOB and FOB listened attentively to discussion on depression and anxiety. MOB asked appropriate questions and seemed interested in having the information. At this time however, no needs are requested or identified. No concerns have been voiced by the nursing staff. Observed MOB to handle baby well. MOB reports to have needed baby supplies and adequate support at home. Plan: MOB and baby to home with support from FOB. depression packet given which includes local, national, online, and texting support options for mood and anxiety issues. No further needs requested or indicated. -STEVEN Preston, PEARL MAKER
== END 2019-03-31 15:30 | disposition home or self-care (01) | DRG 806 ==
LOC: WPOUT 00:16 → WP 00:16
PROVIDERS: Advanced Practice Midwife; Admitting Provider Obstetrics & Gynecology; Family Provider Preventive Medicine Occupational Medicine; PCP Preventive Medicine Occupational Medicine; Referring Provider Obstetrics & Gynecology; Visit Provider Obstetrics & Gynecology
DX: O26.53 Maternal hypotension syndrome, third trimester (principal); O99.12 Other diseases of the blood and blood-forming organs and certain disorders involving the immune mechanism complicating childbirth; D68.61 Antiphospholipid syndrome; Z37.0 Single live birth; Z3A.39 39 weeks gestation of pregnancy; Z82.3 Family history of stroke; Z79.82 Long term (current) use of aspirin
CPT/HCPCS: 59025; 59050; 85025; 86850; 86900; 86901; 99218; J7120; G0378; J2405

== ENCOUNTER → 2019-04-03 09:30 | Outpatient (CLI) | payer OTHER, SELFPAY ==
[2019-03-29 21:34] VITALS: BMI 29.4
== END ==
PROVIDERS: PCP Preventive Medicine Occupational Medicine; Referring Provider Obstetrics & Gynecology; Visit Provider Obstetrics & Gynecology
DX: Z39.1 Encounter for care and examination of lactating mother (principal)
CPT/HCPCS: 96152

== ENCOUNTER → 2019-08-02 19:45 | Outpatient (CLI) | payer OTHER, SELFPAY ==
[2019-03-29 21:34] VITALS: BMI 29.4
== END ==
PROVIDERS: PCP Preventive Medicine Occupational Medicine; Referring Provider Obstetrics & Gynecology; Visit Provider Obstetrics & Gynecology
DX: Z39.1 Encounter for care and examination of lactating mother (principal)
CPT/HCPCS: 96158

== ENCOUNTER → 2020-07-18 13:10 | Outpatient (CLI) | payer OTHER, SELFPAY ==
[2019-03-29 21:34] VITALS: BMI 29.4
[2020-07-20 03:07] LABS: Chlamydia By Nucleic Acid AMP Negative (Negative)
[2020-07-20 09:27] LABS: Gonococcus By Nucleic Acid AMP Negative (Negative)
== END ==
PROVIDERS: PCP Preventive Medicine Occupational Medicine; Visit Provider Student in an Organized Health Care Education/Training Program
DX: Z11.3 Encounter for screening for infections with a predominantly sexual mode of transmission (principal); Z32.01 Encounter for pregnancy test, result positive
CPT/HCPCS: 87491; 87591

== ENCOUNTER → 2020-07-24 15:32 | Outpatient (CLI) | payer OTHER, SELFPAY ==
[2019-03-29 21:34] VITALS: BMI 29.4
[2020-07-24 16:52] LABS: Absolute Lymphocyte Count 1.69 X10^3/uL (0.83-4.51); Basophil# 0.03 X10^3/uL; Basophil% 0.3 % (0-1); Eosinophil# 0.07 X10^3/uL; Eosinophils% 0.7 % (0-5); Hematocrit 43.3 % (37-47); Hemoglobin 13.7 g/dL (12.0-15.0); Lymphocyte # 1.69 X10^3/ul (0.83-4.51); Lymphocyte % 17.7 % (19-41); Mean Corp Hgb Conc 31.6 g/dL (32-36); Mean Corpuscular Hgb 25.7 pg (27.0-32.0); Mean Corpuscular Volume 81.2 fL (81-99); Mean Platelet Vol. 9.4 fl (6.2-12.0); Monocyte# 0.75 X10^3/uL; Monocyte% 7.9 % (0-10); NRBC Flagged by Analyzer 0 % (0-5); Neutrophil # 6.95 X10^3/uL (2.7-7.7); Platelet Count 303 K/mm3 (150-450); RBC Distribution Width CV 13.4 % (11.6-14.6); RBC Distribution Width SD 39.3 fl (35.1-43.9); Red Blood Count 5.33 M/mm3 (4.2-5.4); White Blood Count 9.5 K/mm3 (4.4-11.0)
[2020-07-25 08:52] LABS: HIV - WCH Non-Reactive (Nonreactive); Hepatitis B Surface Antigen Non-Reactive (Nonreactive); Hepatitis C Antibody Non-Reactive (Nonreactive); Rubella IgG Reactive (Nonreactive); Syphilis Antibodies Non-reactive
== END ==
PROVIDERS: PCP Preventive Medicine Occupational Medicine; Visit Provider Student in an Organized Health Care Education/Training Program
DX: Z34.81 Encounter for supervision of other normal pregnancy, first trimester (principal)
CPT/HCPCS: 85025; 86703; 86762; 86780; 86803; 87086; 87088; 87340

== ENCOUNTER → 2020-11-14 14:44 | Outpatient (CLI) | payer OTHER, SELFPAY ==
[2020-11-14 17:50] LABS: Hematocrit 39.8 % (37-47); Hemoglobin 12.5 g/dL (12.0-15.0); Mean Corp Hgb Conc 31.4 g/dL (32-36); Mean Corpuscular Hgb 26.5 pg (27.0-32.0); Mean Corpuscular Volume 84.3 fL (81-99); Mean Platelet Vol. 9.7 fl (6.2-12.0); Platelet Count 258 K/mm3 (150-450); RBC Distribution Width CV 13.8 % (11.6-14.6); RBC Distribution Width SD 42.9 fl (35.1-43.9); Red Blood Count 4.72 M/mm3 (4.2-5.4); White Blood Count 9.4 K/mm3 (4.4-11.0)
[2020-11-14 18:10] LABS: Glucose Challenge Gest 1H 50g 96 mg/dL (70-140)
== END ==
PROVIDERS: PCP Preventive Medicine Occupational Medicine; Visit Provider Obstetrics & Gynecology
DX: Z34.82 Encounter for supervision of other normal pregnancy, second trimester (principal)
CPT/HCPCS: 36415; 82950; 85027

== ENCOUNTER → 2021-02-02 11:58 | Outpatient (CLI) | payer OTHER, SELFPAY ==
[2021-02-05 22:06] LABS: Chlamydia By Nucleic Acid AMP Negative (Negative)
[2021-02-06 07:37] LABS: Gonococcus By Nucleic Acid AMP Negative (Negative)
== END ==
PROVIDERS: PCP Preventive Medicine Occupational Medicine; Visit Provider Obstetrics & Gynecology
DX: Z36.85 Encounter for antenatal screening for Streptococcus B (principal)
CPT/HCPCS: 87491; 87591

== ENCOUNTER → 2021-02-14 15:48 | Outpatient (CLI) | payer OTHER, SELFPAY | PROVIDERS: PCP Preventive Medicine Occupational Medicine; Visit Provider Obstetrics & Gynecology | DX: Z36.85 Encounter for antenatal screening for Streptococcus B (principal) | CPT/HCPCS: 87081 ==

== ENCOUNTER 2021-02-18 16:25 | Inpatient (IN) | payer OTHER, SELFPAY ==
[2021-02-18] VITALS (27 sets, daily range): BP systolic 117–137; BP diastolic 69–88; PULSE 70–82; TEMP 36.7–37.1; O2SAT 97–100; BMI 29.1
[2021-02-18] MEDS: Lactated Ringers 1,000 ML 50 ML IV (17:50)
[2021-02-18 18:34] LABS: Absolute Lymphocyte Count 1.67 X10^3/uL (0.83-4.51); Absolute Neutrophil Count 5.7 X10^3/uL (2.0-7.7); Basophil# 0.02 X10^3/uL; Basophil% 0.2 % (0-1); Eosinophil# 0.05 X10^3/uL; Eosinophils% 0.6 % (0-5); Hematocrit 40.7 % (37-47); Lymphocyte # 1.67 X10^3/ul (0.83-4.51); Lymphocyte % 20.7 % (19-41); Mean Corp Hgb Conc 31.9 g/dL (32-36); Mean Corpuscular Hgb 26.1 pg (27.0-32.0); Mean Corpuscular Volume 81.6 fL (81-99); Mean Platelet Vol. 9.8 fl (6.2-12.0); Monocyte# 0.61 X10^3/uL; Monocyte% 7.6 % (0-10); NRBC Flagged by Analyzer 0 % (0-5); Neutrophil # 5.67 X10^3/uL (2.7-7.7); Neutrophil % 70.5 % (47-70); Platelet Count 234 K/mm3 (150-450); RBC Distribution Width CV 14.2 % (11.6-14.6); RBC Distribution Width SD 41.2 fl (35.1-43.9); Red Blood Count 4.99 M/mm3 (4.2-5.4); White Blood Count 8.1 K/mm3 (4.4-11.0)
[2021-02-18] MEDS: Oxytocin 30 units/NS 500 ml 30 UNITS/500 ML IV.SOLN IV (19:28)
--- NOTE | 2021-02-18 20:53 | PCM.HP.BLA ---
History and Physical Date of Admission: 02/18/21 HPI: at 39/0w, LINA 02/25/21 by 9w US, admitted for term induction of labor. Patient arrived to labor and delivery with decreased movement. Upon arrival she felt some movement however was still not normal for her. Denies regular contractions, leakage of fluid, vaginal bleeding. Denies headache, vision changes, chest pain, shortness of breath, nausea or vomiting, fevers or chills, diarrhea or constipation. 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 Vacuum delivery (Male) G2: 03/30/2019 (Male) Medical History: Denies Surgical History: WTE Medications: PNV Allergies: Amoxicillin (rash) Family History: noncontributory Social History: denies tobacco, alcohol, drug use ROS: negative aside from otherwise stated above Physical Exam: Vitals: BP 128/75 //pulse 76 //temperature 98.7 ?F//pulse ox 99% on room air General: No acute distress, on peanut ball at bedside HEENT: Normocephalic/atraumatic, pupils equally round reactive to light and accommodation Cardiorespiratory: No increased effort, regular heart rate Abdomen: Soft, nontender, gravid Extremities: Minimal edema Neurological: Cranial nerves II through XII grossly intact Cervical exam: 3/50/-3, AROM clear fluid heart rate: 145/mod yvan/+accel/no decel [place]: q3 Labs: WBC 8.1//hemoglobin 13//hematocrit 40.7//platelets 234 panel: Blood type O+ GBS neg 02/14 HIV/hepatitis B/hepatitis C negative/negative/negative Syphilis nonreactive Gonorrhea/chlamydia negative Assessment/Plan: at 39/0w, LINA 02/25/21 by 9w US, admitted for term induction of labor. Plan for induction based on decreased movement at term. uncomplicated. -Admit to labor and delivery -GBS negative -Pitocin induction with AROM Assessment & Plan Assessment/Plan (1) 39 weeks gestation of :
[2021-02-18] MEDS: Lactated Ringers 500 ML 999 ML IV ×2 (22:18→22:55)
[2021-02-18] MEDS: fentaNYL-bupivacaine (epidural) 100 ML BAG EPIDURAL (23:40)
[2021-02-19] VITALS (76 sets, daily range): BP systolic 84–133; BP diastolic 51–84; PULSE 63–102; RESP 16–18; TEMP 36.1–37; O2SAT 90–100
[2021-02-19] MEDS: Lactated Ringers 500 ML 999 ML IV (01:05)
[2021-02-19] MEDS: Lactated Ringers 1,000 ML 200 ML IV (02:13)
[2021-02-19] MEDS: Ondansetron 4 MG/2 ML Vial IV (03:10)
[2021-02-19] MEDS: 0.9% Saline Lock 10 ML Syringe IV (03:11)
[2021-02-19] MEDS: Oxytocin 30 units/NS 500 ml 30 UNITS/500 ML IV.SOLN 334 UNITS IV (06:07)
--- NOTE | 2021-02-19 06:18 | EX.PCM.OBRPT ---
Maternal Data Information Final LINA: 02/25/21 Final LINA Source: US <20 weeks Vaginal Delivery Operative Information Date of Procedure: 02/19/21 Pre-Operative Diagnosis: Lee intrauterine Post-Operative Diagnosis: Lee intrauterine Surgery / Procedure Performed: Spontaneous Vaginal Delivery Type of Anesthesia: Epidural Estimated Blood Loss: 250cc Findings Description of Procedure: Spontaneous vaginal delivery viable infant male. Nuchal cord x1, loose. Not reduced due to FSE being in place. Baby to mom. Cord clamped and cut. 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 Baby back to mom. Spontaneous delivery of placenta. Periurethral abrasion, perineal abrasion. Hemostatic. Venous cord gases sent. Apgars pending per nursery team.
--- NOTE | 2021-02-19 12:54 | NURSING ---
1230:Report given to GRABIEL Woodward. Kaylan assuming care at this time.
[2021-02-19] MEDS: Acetaminophen 500 MG Tablet 1000 MG PO (20:13)
--- NOTE | 2021-02-19 23:00 | PCM.DC ---
Discharge Instructions Diet Discharge Diet: No restrictions Activity Discharge Activity: Return to Normal Activity and May Shower May resume sexual activity in: 4-6 weeks Weight Bearing Status: Weight bearing as tolerated Lifting Restrictions: No greater than 25 pounds Dressing / Incision Call your doctor if you observe: Fever of 101 or Higher, Change in Color, Inability to urinate, Using more than 1 pad per hour, Shortness of breath, Dizziness, Swelling in the ankles, Chest pain and Calf discomfort Follow Up Care Please Follow Up With: Starla Quiroga MD When: 2-week telehealth appointment and 6-week visit Test Results: Test results from this visit will be discussed in further detail at your follow-up appointment, if applicable. Discharge Plan Admission Admit Date/Time: 02/18/21 16:25 Primary Reason for Your Visit: Labor Attending Provider: Megan Roy Primary Care Provider: Keyon Arias Instructions Forms: Information Patient Instructions: After a Vaginal Discharge Orders/Prescriptions Prescriptions: No Action Prenatabs FA 1 TABLET tablet 1 tab PO DAILY RF: 0 Referrals / Follow Up: Keyon Arias DO [Primary Care Provider] - Disposition Disposition (needs filled in before D/C Order can be placed): Home, Self Care
--- NOTE | 2021-02-19 23:01 | PN.OBGYN_ITS ---
Subjective Subjective day 0 status post . Patient feeling well, lochia minimal. Pain controlled. Baby is being transported to [place] and patient desires discharge at this time. Objective Data Objective Data Vital Signs: Vital Signs Temp Pulse Resp BP Pulse Ox 97.6 F L 75 16 121/57 H 98 02/19/21 19:59 02/19/21 20:00 02/19/21 19:59 02/19/21 20:00 02/19/21 08:42 Oxygen Delivery Method Room Air Weight: 92.2 kg Body Mass Index (BMI) 29.1 Intake & Output: Intake and Output for Last 24 Hours 02/17/21 02/18/21 02/19/21 23:59 23:59 23:59 Intake Total 1249.43 / 1249.43 2741.73 / 2741.73 Output Total 1700 / 1700 Balance 1249.43 / 1249.43 1041.73 / 1041.73 Lab / Micro Data Result Diagrams: 02/18/21 17:55 Micro: Microbiology 02/18/21 17:25 Nasal Secretion SARS-CoV-2 Antigen (Rapid) - Final Physical Exam Const alert, oriented x3 and no apparent distress HEENT normocephalic Head and Scalp: atraumatic Neck full ROM Resp normal respiratory effort Cardio regular rate GI normal to inspection, nondistended, normoactive bowel sounds GI Narrative: Uterus 2 cm below umbilicus Back/Spine normal ROM Extremity normal to inspection Extremity Narrative: Minimal pedal edema Neuro no focal motor deficits and no sensory deficits noted Psych mental status grossly normal and affect normal Assessment & Plan (1) Vaginal delivery: PLAN: day 0. Patient is greater than 12 hours . Vitals are stable. Baby is being transported to [place] patient desires discharge home. Precautions reviewed. Will discharge home. 2-week telehealth and 6-week visit.
[2021-02-20] MEDS: Ibuprofen 600 MG Tablet PO (00:15)
== END 2021-02-20 01:40 | disposition home or self-care (01) | DRG 807 ==
LOC: WPOUT 02-20 10:09
PROVIDERS: Admitting Provider Student in an Organized Health Care Education/Training Program; PCP Preventive Medicine Occupational Medicine; Visit Provider Student in an Organized Health Care Education/Training Program
DX: O36.8130 Decreased fetal movements, third trimester, not applicable or unspecified (principal); Z37.0 Single live birth; O69.81X0 Labor and delivery complicated by cord around neck, without compression, not applicable or unspecified; S30.814A Abrasion of vagina and vulva, initial encounter; Z3A.39 39 weeks gestation of pregnancy
CPT/HCPCS: 59025; 59050; 85025; 86850; 86900; 86901; 87426; 99218; J7120; A4216; G0378; J2405

== ENCOUNTER 2021-04-06 13:53 | Outpatient (CLI) | payer OTHER, SELFPAY ==
[2021-04-11 12:09] LABS: Chlamydia By Nucleic Acid AMP Negative (Negative)
[2021-04-11 12:51] LABS: Gonococcus By Nucleic Acid AMP Negative (Negative)
[2021-04-12 21:59] LABS: HPV Reflexed? NOT INDICATED
== END 2021-04-06 23:59 | disposition short-term general hospital (02) ==
LOC: LABSPEC 14:01
PROVIDERS: PCP Preventive Medicine Occupational Medicine; Visit Provider Obstetrics & Gynecology
DX: Z12.4 Encounter for screening for malignant neoplasm of cervix (principal)
CPT/HCPCS: 87491; 87591; 88142

== ENCOUNTER 2022-08-16 09:03 | Emergency (ER) | payer OTHER, SELFPAY ==
[2022-08-16 09:03] VITALS: BP 114/74; PULSE 65; RESP 16; TEMP 36.4; O2SAT 100; BMI 23.3
[2022-08-16 09:07] VITALS: BP 115/73; PULSE 62; RESP 12
--- NOTE | 2022-08-16 09:11 | EKG12_ITS ---
Test Reason : CP Blood Pressure : / mmHG Vent. Rate : 063 BPM Atrial Rate : 063 BPM P-R Int : 152 ms QRS Dur : 082 ms QT Int : 394 ms P-R-T Axes : 073 073 067 degrees QTc Int : 403 ms Normal sinus rhythm Normal ECG Confirmed by LUPE GOULD, LUCY ([id number]), acquisitions editor HAL HASSAN ([id number]) on 08/20/2022 8:42:26 AM Referred By: CYN Confirmed By:LUCY ANDRADE MD
--- NOTE | 2022-08-16 09:11 | RAD_ITS ---
STUDY: X-RAY CHEST REASON FOR EXAM: Female, 32 years old. Central chest pain . History of asthma. TECHNIQUE: PA and lateral views of the chest. COMPARISON: None. FINDINGS: EKG electrodes are seen. The lungs are clear and expanded. There is no demonstrated pleural abnormality. Normal size heart. Normal mediastinum and ondina. Normal visualized pulmonary arteries. Normal visualized aortic arch and descending thoracic aorta. Normal visualized thoracic spine. Normal visualized ribs, clavicles, and shoulders. There is no demonstrated abnormality of the visualized soft tissue structures of the upper abdomen. RAD/Chest PA and Lateral IMPRESSION: Normal x-ray examination of the chest. Electronically Signed: Garcia Padilla MD at 10:00 EDT ,
--- NOTE | 2022-08-16 09:15 | ED.VIS.CHEST ---
HPI History of Present Illness Chief Complaint: Chest Pain Detail of Chief Complaint: Central chest pain Informant: patient Onset/Context/Timing Onset: Today and Hours (0630) Activity at onset: sudden Timing: Continuous Quality: Positive for - (Pain unable to describe) Location: - (Anterior structural upper chest) Current Severity: Mild Maximum Severity: Moderate Worsened By: Nothing Relieved By: Nothing Associated Symptoms: Positive for - (There is no radiation); Negative for Nausea, Vomiting, Diaphoresis, Dyspnea, Cough, Fever, Lightheadedness, Acid Reflux or Palpitations Narrative Narrative: Patient presents with anterior central upper chest pain. She is unable to describe. There is no radiation. There is no associated symptoms. There is no alleviating, precipitating or exacerbating factors. There is no history of VTE. She denies leg pain, swelling discoloration. She has no risk factors for VTE. She has not been well since May. Initially started with sore throat and fatigue and aches. Patient's primary care provider recently performed blood work on her that would indicate she has mononucleosis and lupus. She states her renal function was normal. Father had a stroke in his 20s. There is a strong family history of cholelithiasis; however, she denies intolerance to greasy or fried foods. Prior Similar Symptoms: Yes Recent Illness/Hospitalization: Yes (Per HPI) CVD Risk Factors: Negative for Hypertension, Diabetes, Hypercholesterolemia, Family History 1' </=55 or Smoking PE Risk Factors: Negative for Recent Travel/Surgery, Recent Immobilization, Prior DVT or PE, Cancer or OCP + Smoking + >/=35 TAD Risk Factors: Negative for Marfan's Syndrome, Hypertension or Family History PFSH PFS Home Medications vits,calcium no.78-iron fumarate-folic acid 29 mg-1 mg tablet (Prenatabs FA) 1 tab PO DAILY 09/26/16 [History Last Taken 02/18/21 06:00] Allergy/AdvReac Type Severity Reaction Status Date / Time amoxicillin trihydrate Allergy Rash Verified 08/16/22 09:05 [From Amoxil] Family History (Updated 08/16/22 @ 09:[address] Bryson Diaz MD) Other Cholelithiasis Surgical History [place] teeth removed Social History (Updated 08/16/22 @ 09:[address] Bryson Diaz MD) household members: spouse and children Smoking Status: Never smoker substance use type: does not use ROS ROS ED Constitutional Constitutional ED: Denies chills, fever(s), subjective, sweats or weight loss Eyes Eyes: Reports none ENT ENT ED: Denies ear pain, rhinorrhea or sore throat Cardiovascular Cardiovascular: Reports as per HPI; Denies orthopnea or paroxysmal nocturnal dyspnea Respiratory/Chest Respiratory/Chest: Denies cough, dyspnea, dyspnea on exertion, orthopnea or paroxysmal nocturnal dyspnea Gastrointestinal Gastrointestinal: Denies abdominal pain, nausea or vomiting Genitourinary Genitourinary ED: Denies dysuria, hematuria or urinary frequency Musculoskeletal Musculoskeletal: Reports arthralgias; Denies back pain, myalgias or neck pain Integumentary Denies rash Neurologic Neurologic: Denies headache(s), paresthesias or other Psychiatric Psychiatric: Reports anxiety Endocrine Endocrinology: Denies cold intolerance or heat intolerance Hematologic/Lymphatic Hematologic/Lymphatic: Denies easy bleeding or easy bruising EXAM Physical Exam Const Vital Signs: 08/16/22 09:03 08/16/22 09:07 08/16/22 09:09 Temperature 97.6 F L Temperature Source Temporal Pulse Rate 65 62 Respiratory Rate 16 12 Respiratory Pattern Normal Blood Pressure 114/74 115/73 Blood Pressure Mean 87 87 Pulse Ox 100 Oxygen Delivery Method Room Air Positive well nourished and well developed Constitutional Narrative: Patient is slightly anxious. General Appearance ED: well developed; Negative for pallor HEENT Reports moist mucous membranes HEENT Narrative: Nares patent. Posterior pharynx out erythema or exudate. Uvula is midline. normocephalic and atraumatic Eyes PERRL and EOMs intact bilaterally General Eye ED: Negative for pale conjunctiva or scleral icterus Neck no lymphadenopathy, supple and no JVD Chest Wall palpation of chest normal Resp normal respiratory effort Cardio regular rate, regular rhythm, S1 normal heart sound and S2 normal heart sound GI normal to inspection, nondistended, normoactive bowel sounds, soft to palpation, non-tender, non-distended and no masses; Negative for hepatosplenomegaly GI Narrative: Negative Vann sign Back/Spine no CVA tenderness Extremity normal to inspection Extremity Narrative: There is no asymmetry, swelling, discoloration, leg vein distention, palpable cords or tenderness along the distribution of the deep venous system. Neuro oriented x3, CN's II-XII intact bilaterally, no sensory deficits noted and gait normal Sensorium / Orientation: awake and alert Psych Mood & Affect: anxious Skin no rashes or lesions noted and no wounds General Skin Exam: Negative for jaundice or pallor Heart Score History: Slightly/Non-Suspicious ECG: Normal Age: </= 45 years Risk Factors: No Risk Factors Score: 0 MDM MDM MDM Narrative Medical decision making narrative: Patient presents with anterior central chest pain. She had several episodes of the past week. Pain is nondescript and no associated symptoms or radiation. This may be related to lupus or mononucleosis. EKG was obtained to assess for ischemia as well as as well as evidence of pericarditis. Chest x-ray to assess cardiac silhouette and size as well as lung parenchyma. Troponin was ordered. With the 9 number of incidents that occurred over the past week in duration if this is cardiac would suspect the first troponin to be elevated. CBC was obtained to assess for anemia since she complains of fatigue suspect this is most likely due to the fact that she has mononucleosis. History & Record Review Discussion w/independent historian: Patient Additional record(s) reviewed:: Prior labs Lab Data Attestation: I reviewed the patient's lab results. Lab results narrative: CBC is unremarkable. Troponin is less than 3. With troponin less than 3 days of pain cardiac etiology has been ruled out. Labs: Laboratory Results - last 24 hr 08/16/22 08/16/22 09:20 09:20 WBC 4.8 RBC 5.18 Hgb 13.1 Hct 41.3 MCV 79.7 L MCH 25.3 L MCHC 31.7 L RDW Std Deviation 40.4 RDW Coeff of Jim 13.9 Plt Count 262 MPV 8.5 Immature Gran % (Auto) 0.200 Neut % (Auto) 48.4 Lymph % (Auto) 37.4 Becker % (Auto) 11.3 H Eos % (Auto) 2.1 Baso % (Auto) 0.6 Absolute Neuts (auto) 2.3 Absolute Lymphs (auto) 1.79 Nucleated RBC % 0 Troponin I High Sens < 3 L Radiography Chest X-Ray - ED: 2 View and Read by ED Physician (Chest x-ray is normal. Cardiac silhouette and size normal. Perihilar region normal. Lung parenchyma is normal. Osseous structures are normal. There is no evidence of hiatal hernia.) EKG Initial EKG: Attestation: I personally reviewed and interpreted this EKG as follows: Interpretation: Sinus Rhythm (Rate is 63 and the EKG is normal. NC interval is 102 ms. Cures duration 82 ms. QT duration 394 ms. 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, pneumonia Reason(s) pneumonia less likely: Positive for no infiltrate on CXR, no elevation in WBC count, no noted fever and symptoms not consistent with acute infection, aortic dissection Reason(s) Aortic dissection less likely:: Positive for normal vascular exam, no history of HTN, normal neurological exam, no significant risk factors for dissection, no widened mediastinum on CXR, pain not sudden onset, no ripping/tearing pain, no pain to back and blood pressure appropriate in ED and COPD Reason(s) COPD less likely: Positive for no significant wheezing on exam, no tachypnea, no conversational dyspnea, normal air movement noted on auscultation on lungs and other (Does not smoke and no history of COPD) Treatment and Re-Evaluation :: Patient was informed of her results. She was instructed to follow-up with her doctor. Discharge Plan Triage Chief Complaint: Chest Pain ED Provider: Bryson Diaz Dx/Rx/DC Orders Clinical Impression: Anterior chest wall pain, Mononucleosis, SLE (systemic lupus erythematosus related syndrome) Instructions: ED Chest Pain, Noncardiac Prescriptions: No Action Prenatabs FA 1 TABLET tablet 1 tab PO DAILY Primary Care Provider: Keyon Arias Referrals: Keyon Arias DO [Primary Care Provider] - As Needed Disposition Disposition: Home, Self Care
[2022-08-16 09:27] LABS: Absolute Lymphocyte Count 1.79 X10^3/uL (0.83-4.51); Absolute Neutrophil Count 2.3 X10^3/uL (2.0-7.7); Basophil# 0.03 X10^3/uL; Basophil% 0.6 % (0-1); Eosinophils% 2.1 % (0-5); Hematocrit 41.3 % (37-47); Hemoglobin 13.1 g/dL (12.0-15.0); Lymphocyte # 1.79 X10^3/ul (0.83-4.51); Lymphocyte % 37.4 % (19-41); Mean Corp Hgb Conc 31.7 g/dL (32-36); Mean Corpuscular Hgb 25.3 pg (27.0-32.0); Mean Corpuscular Volume 79.7 fL (81-99); Mean Platelet Vol. 8.5 fl (6.2-12.0); Monocyte# 0.54 X10^3/uL; Monocyte% 11.3 % (0-10); NRBC Flagged by Analyzer 0 % (0-5); Neutrophil # 2.32 X10^3/uL (2.7-7.7); Neutrophil % 48.4 % (47-70); Platelet Count 262 K/mm3 (150-450); RBC Distribution Width CV 13.9 % (11.6-14.6); RBC Distribution Width SD 40.4 fl (35.1-43.9); Red Blood Count 5.18 M/mm3 (4.2-5.4); White Blood Count 4.8 K/mm3 (4.4-11.0)
[2022-08-16 09:45] LABS: Troponin-I HS < 3 pg/mL (3.0-54.0)
[2022-08-16 10:08] VITALS: PULSE 68; RESP 12
== END 2022-08-16 10:08 | disposition home or self-care (01) ==
PROVIDERS: Emergency Provider Emergency Medicine; PCP Preventive Medicine Occupational Medicine; Visit Provider Emergency Medicine
DX: R07.89 Other chest pain (principal); M32.9 Systemic lupus erythematosus, unspecified
CPT/HCPCS: 71046; 84484; 85025; 93005; 99284; A4216

== ENCOUNTER → 2022-08-21 | Outpatient (CLI) | payer OTHER, SELFPAY ==
[2022-08-21 10:59] LABS: EXAGEN MAILED SPECIMEN
[2022-08-21 12:57] LABS: Absolute Lymphocyte Count 1.72 X10^3/uL (0.83-4.51); Basophil# 0.04 X10^3/uL; Basophil% 0.7 % (0-1); Eosinophil# 0.09 X10^3/uL; Eosinophils% 1.7 % (0-5); Hematocrit 43.9 % (37-47); Hemoglobin 13.7 g/dL (12.0-15.0); Lymphocyte # 1.72 X10^3/ul (0.83-4.51); Lymphocyte % 32.2 % (19-41); Mean Corp Hgb Conc 31.2 g/dL (32-36); Mean Corpuscular Hgb 25.5 pg (27.0-32.0); Mean Corpuscular Volume 81.6 fL (81-99); Monocyte# 0.53 X10^3/uL; Monocyte% 9.9 % (0-10); NRBC Flagged by Analyzer 0 % (0-5); Neutrophil # 2.95 X10^3/uL (2.7-7.7); Neutrophil % 55.3 % (47-70); Platelet Count 297 K/mm3 (150-450); RBC Distribution Width CV 14.1 % (11.6-14.6); RBC Distribution Width SD 41.7 fl (35.1-43.9); Red Blood Count 5.38 M/mm3 (4.2-5.4); White Blood Count 5.3 K/mm3 (4.4-11.0)
[2022-08-21 13:07] LABS: Prothrombin Time (Protime)PT. 13.6 SECONDS (11.7-14.9)
[2022-08-21 13:11] LABS: ALB/GLOB Ratio 1.1 RATIO (0.9-2.4); AST(SGOT) 14 U/L (15-37); Alanine Aminotransfer ALT/SGPT 21 U/L (13-56); Albumin, Serum 4.2 g/dL (3.2-5.0); Alkaline Phosphatase 53 U/L (45-117); Anion Gap 5 (5-15); BUN 10 mg/dL (7-18); BUN/Creat Ratio 13.3 RATIO (10-20); Calcium,Total 9.4 mg/dL (8.5-10.1); Chloride 108 mmol/L (98-107); Creatinine, Serum 0.75 mg/dL (0.55-1.02); EST Glomerular Filtration Rate 95 mL/min (>60); Est Glom Filt Rate - Afr Amer 116 mL/min (>60); Globulin 3.7 g/dL (2.2-4.2); Glucose 83 mg/dL (74-106); Potassium 4.1 mmol/L (3.5-5.1); Protein, Total 7.9 g/dL (6.4-8.2); Sodium Level 139 mmol/L (136-145)
[2022-08-21 13:13] LABS: Protein, Urine (Random) 10.2 mg/dL (<11.9); Protein:Creat Ratio 59 mg/g CRE (0-200)
[2022-08-21 13:31] LABS: Color, Urine Yellow (Yellow); Glucose, Dipstick Normal (Normal); Ketone-Dipstick Negative (Negative); Leukocyte Esterase-Dipstick 100 /ul (Negative); Nitrite-Dipstick Negative (Negative); Occult Blood-Urine 10 /ul (Negative); Protein-Dipstick Negative (Negative); Urine Bilirubin Dipstick Negative (Negative); Urine Clarity Clear (Clear); Urine Urobilinogen Normal (Normal)
[2022-08-21 13:49] LABS: Hepatitis B Surface Antibody Non-Reactive; Hepatitis B Surface Antigen Non-Reactive (Nonreactive); Hepatitis C Antibody Non-Reactive (Nonreactive)
[2022-08-23 16:09] LABS: Thrombin Time 17.8 sec (0.0-23.0)
[2022-08-24 02:07] LABS: Dilute Prothrombin Time (dPT) 44.9 sec (0.0-47.6); Dilute Russell Viper Venom 35.9 sec (0.0-47.0); Hexagonal Phase Phospholipid 6 sec (0-11); Interpretation Comment: (.); PTT-LA 38.6 sec (0.0-43.5); Thrombin Time 16.4 sec (0.0-23.0); dPT Confirm Ratio 1.03 Ratio (0.00-1.34)
== END | disposition home or self-care (01) ==
PROVIDERS: PCP Preventive Medicine Occupational Medicine; Referring Provider Internal Medicine Rheumatology; Visit Provider Internal Medicine Rheumatology
DX: M06.4 Inflammatory polyarthropathy (principal); R76.8 Other specified abnormal immunological findings in serum; G43.909 Migraine, unspecified, not intractable, without status migrainosus; J45.909 Unspecified asthma, uncomplicated; F41.9 Anxiety disorder, unspecified
CPT/HCPCS: 36415; 80053; 81002; 82570; 84156; 85025; 85598; 85610; 85670; 85730; 86706; 86803; 87340

== ENCOUNTER → 2022-11-08 | Outpatient (CLI) | payer OTHER, SELFPAY ==
[2022-11-11 20:07] LABS: Chlamydia By Nucleic Acid AMP Negative (Negative); Gonococcus By Nucleic Acid AMP Negative (Negative)
== END | disposition home or self-care (01) ==
LOC: LABSPEC 16:50
PROVIDERS: PCP Preventive Medicine Occupational Medicine; Referring Provider Advanced Practice Midwife; Visit Provider Advanced Practice Midwife
DX: Z34.90 Encounter for supervision of normal pregnancy, unspecified, unspecified trimester (principal)
CPT/HCPCS: 87086; 87491; 87591

== ENCOUNTER → 2022-11-28 | Outpatient (CLI) | payer OTHER, SELFPAY ==
[2022-11-28 17:48] LABS: Absolute Lymphocyte Count 1.44 X10^3/uL (0.83-4.51); Absolute Neutrophil Count 5.5 X10^3/uL (2.0-7.7); Basophil# 0.03 X10^3/uL; Basophil% 0.4 % (0-1); Eosinophil# 0.08 X10^3/uL; Hematocrit 40.7 % (37-47); Hemoglobin 12.9 g/dL (12.0-15.0); Lymphocyte # 1.44 X10^3/ul (0.83-4.51); Lymphocyte % 18.8 % (19-41); Mean Corp Hgb Conc 31.7 g/dL (32-36); Mean Corpuscular Hgb 25.7 pg (27.0-32.0); Mean Corpuscular Volume 81.2 fL (81-99); Monocyte# 0.58 X10^3/uL; Monocyte% 7.6 % (0-10); NRBC Flagged by Analyzer 0 % (0-5); Neutrophil # 5.52 X10^3/uL (2.7-7.7); Neutrophil % 71.8 % (47-70); Platelet Count 270 K/mm3 (150-450); RBC Distribution Width CV 13.8 % (11.6-14.6); RBC Distribution Width SD 40.5 fl (35.1-43.9); Red Blood Count 5.01 M/mm3 (4.2-5.4); White Blood Count 7.7 K/mm3 (4.4-11.0)
[2022-11-28 18:22] LABS: AST(SGOT) 14 U/L (15-37); Alanine Aminotransfer ALT/SGPT 23 U/L (13-56); Albumin, Serum 3.8 g/dL (3.2-5.0); Alkaline Phosphatase 45 U/L (45-117); Anion Gap 5 (5-15); BUN 11 mg/dL (7-18); BUN/Creat Ratio 18.7 RATIO (10-20); Calcium,Total 8.9 mg/dL (8.5-10.1); Chloride 105 mmol/L (98-107); Creatinine, Serum 0.59 mg/dL (0.55-1.02); EST Glomerular Filtration Rate 126 mL/min (>60); Est Glom Filt Rate - Afr Amer 153 mL/min (>60); Glucose 100 mg/dL (74-106); Potassium 3.5 mmol/L (3.5-5.1); Protein, Total 7.8 g/dL (6.4-8.2); Sodium Level 136 mmol/L (136-145)
[2022-11-28 18:58] LABS: HIV - WCH Non-Reactive (Nonreactive); Hepatitis B Surface Antigen Non-Reactive (Nonreactive); Hepatitis C Antibody Non-Reactive (Nonreactive); Rubella IgG Reactive (Nonreactive); Syphilis Antibodies Non-reactive
[2022-12-01 17:07] LABS: Anti-Cardiolipin Ab, IgA, Qn < 9 APL U/mL (0-11); Anti-Cardiolipin Ab, IgG, Qn < 9 GPL U/mL (0-14); Anti-Cardiolipin Ab, IgM, Qn 33 MPL U/mL (0-12); Beta-2-Glycoprotein I IgA <9 (0-25); Beta-2-Glycoprotein I IgG <9 (0-20); Beta-2-Glycoprotein I IgM 54 (0-32); Dilute Prothrombin Time (dPT) 37.4 sec (0.0-47.6); Dilute Russell Viper Venom 36.3 sec (0.0-47.0); Interpretation Comment: (.); PTT-LA 33.1 sec (0.0-43.5); Thrombin Time 15.5 sec (0.0-23.0)
== END | disposition home or self-care (01) ==
LOC: MTLAB 16:31
PROVIDERS: Advanced Practice Midwife; PCP Preventive Medicine Occupational Medicine; Visit Provider Internal Medicine Rheumatology
DX: M06.4 Inflammatory polyarthropathy (principal); Z79.899 Other long term (current) drug therapy; R76.8 Other specified abnormal immunological findings in serum; G43.909 Migraine, unspecified, not intractable, without status migrainosus; J45.909 Unspecified asthma, uncomplicated; M21.41 Flat foot [pes planus] (acquired), right foot; N96 Recurrent pregnancy loss
CPT/HCPCS: 36415; 80053; 85025; 86146; 86147; 86703; 86762; 86780; 86803; 86850; 86900; 86901; 87340

== ENCOUNTER → 2023-02-27 | Outpatient (CLI) | payer OTHER, SELFPAY ==
[2023-02-27 13:12] LABS: Absolute Lymphocyte Count 1.27 X10^3/uL (0.83-4.51); Absolute Neutrophil Count 6.4 X10^3/uL (2.0-7.7); Basophil# 0.02 X10^3/uL; Basophil% 0.2 % (0-1); Eosinophil# 0.09 X10^3/uL; Eosinophils% 1.1 % (0-5); Hematocrit 36.6 % (37-47); Hemoglobin 11.8 g/dL (12.0-15.0); Lymphocyte # 1.27 X10^3/ul (0.83-4.51); Lymphocyte % 15.1 % (19-41); Mean Corp Hgb Conc 32.2 g/dL (32-36); Mean Corpuscular Hgb 26.5 pg (27.0-32.0); Mean Corpuscular Volume 82.1 fL (81-99); Mean Platelet Vol. 8.7 fl (6.2-12.0); Monocyte# 0.62 X10^3/uL; Monocyte% 7.4 % (0-10); NRBC Flagged by Analyzer 0 % (0-5); Neutrophil # 6.38 X10^3/uL (2.7-7.7); Neutrophil % 75.6 % (47-70); Platelet Count 236 K/mm3 (150-450); RBC Distribution Width CV 13.5 % (11.6-14.6); RBC Distribution Width SD 40.5 fl (35.1-43.9); Red Blood Count 4.46 M/mm3 (4.2-5.4); White Blood Count 8.4 K/mm3 (4.4-11.0)
[2023-02-27 13:31] LABS: ALB/GLOB Ratio 0.8 RATIO (0.9-2.4); AST(SGOT) 15 U/L (15-37); Alanine Aminotransfer ALT/SGPT 19 U/L (13-56); Albumin, Serum 2.9 g/dL (3.2-5.0); Alkaline Phosphatase 52 U/L (45-117); Anion Gap 7 (5-15); BUN 8 mg/dL (7-18); BUN/Creat Ratio 13.6 RATIO (10-20); Calcium,Total 8.6 mg/dL (8.5-10.1); Chloride 109 mmol/L (98-107); Creatinine, Serum 0.59 mg/dL (0.55-1.02); EST Glomerular Filtration Rate 126 mL/min (>60); Est Glom Filt Rate - Afr Amer 153 mL/min (>60); Globulin 3.8 g/dL (2.2-4.2); Glucose 113 mg/dL (74-106); Glucose Challenge Gest 1H 50g 113 mg/dL (70-140); Potassium 3.7 mmol/L (3.5-5.1); Protein, Total 6.7 g/dL (6.4-8.2); Sodium Level 139 mmol/L (136-145)
[2023-02-27 13:52] LABS: HIV - WCH Non-Reactive (Nonreactive); Syphilis Antibodies Non-reactive
== END | disposition home or self-care (01) ==
PROVIDERS: PCP Preventive Medicine Occupational Medicine; Referring Provider Obstetrics & Gynecology; Visit Provider Obstetrics & Gynecology
DX: O09.90 Supervision of high risk pregnancy, unspecified, unspecified trimester (principal); M06.4 Inflammatory polyarthropathy; Z79.899 Other long term (current) drug therapy; R76.8 Other specified abnormal immunological findings in serum; Z3A.00 Weeks of gestation of pregnancy not specified; Z13.1 Encounter for screening for diabetes mellitus
CPT/HCPCS: 36415; 80053; 82950; 85025; 86703; 86780

== ENCOUNTER → 2023-04-02 | Outpatient (CLI) | payer OTHER, SELFPAY ==
--- OUTSIDE RECORDS SUMMARY | 2023-04-02 16:22 | XMS RPT_ITS | CCD ---
Author Name Unknown Address [address] [place] [address] Organization [facility] Care Team Providers Care Break Up Worker Name Role Phone HOLLY MCGHEE Primary Care Physi teofilo HOLLY MCGHEE Attending Un available HOLLY MCGHEE Primary Care Un available ALVIN VALENCIA Referring UnavailLIDA Vang Attending Unavailable JOCELYN HARRELL Primary Care Unavailable LIDA KIRKLAND Attending Unavailable JOCELYN HARRELL Primary Care Unavailable ALVIN VALENCIA Referring UnavailLIDA Vang Attending Unavailable JOCELYN HARRELL Primary Care Unavailable ALVIN VALENCIA Referring Unavailgianfranco e Allergies Allergy Classification Reported Allergen(s) Allergy Type Date of Onset Reaction(s) Facility (1 source) Amoxicillin; Translations: [amoxicillin] Drug Allergy Eruption of skin (disorder) [facility] [place] Medications Current Medications Medication Drug Class(es) Dates Sig (Normalized) Sig (Original) diphenhydrAMINE hydrochloride 25 mg oral capsule (1 source) Histamine-1 Receptor Antagonist Start: 10-29-2018 Benadryl 25 mg oral capsule Dose : 25 mg = 1 cap(s), Oral, TID, PRN for itching, 0 Refill(s) Start Date: 10/29/18 Status: Ordered Multivitamins (1 source) Start: 09-20-2020 take 1 tablet by mouth once daily Multivitamins Dose = 1 tab(s), Oral, qDay, # 90 tab(s), 0 Refill(s) Start Date: 09/20/20 Status: Ordered Problems Problem Classification Problem Date Documented Da te Episodic/Chronic Nonspecific chest pain (1 source) Chest discomfort 07-26-2022 Episodic Other upper respiratory disease (1 source) Chronic laryngitis 07-26-2022 Chronic Other upper respiratory disease (1 source) Hoarse 07-26-2022 Episodic Other upper respiratory infections (1 source) Laryngitis 07-26-2022 Episodic Unclassified (1 source) Patient encounter status 07-26-2022 Results Test Name Value Interpretation Reference Range Facil ity Encounters Encounter Date Encounter Type Care Provider Facility Start: 03-13-2023 End: 03-13-2023 ambulatory ALVIN VALENCIA [facility] Start: 01-23-2023 End: 01-23-2023 ambulatory [facility] Start: 01-07-2023 End: 01-07-2023 ambulatory [facility] Start: 07-27-2022 End: 07-28-2022 ambulatory HOLLY THOMPSON APRN-FOOD CONCESSION MANAGER Facility:B Start: 07-27-2022 End: 07-27-2022 Patient encounter procedure HOLLY THOMPSON APRN-FOOD CONCESSION MANAGER [facility] Payers Date Payer Category Payer Unknown [id number] 1990 Unknown [id number] 1990 Unknown [id number]. [id number] 1990 Unknown [id number]. [id number] 1990 Unknown [id number] [id number]. [id number] Social History Date Type Detail Facility Start: 10-28-2018 Tobacco smoking status Never s moked tobacco (finding) [facility] Sex Assigned At Female [facility] Evaluation + Plan note 07-27-2022 Note Date & Type Note Facility 07-27-2022 Evaluation + Plan note Diagnostic Tests PendingCirculating Anticoagulants - Panel 07/27/22Antinuclear Antibody Screen, Serum 07/27/22Cardiolipin IgG Antibodies 07/27/22Beta 2 Glycoprot IgG and IgM 07/27/22 [facility] Hospital course Narrative Note Date & Type Note Facility Hospital course Narrative No data available for this section [facility] Hospital Discharge instructions Note Date & Type Note Facility Hospital Discharge instructions No data available for this section [facility] Progress note Note Date & Type Note Facility Progress note No data available for this section [facility] Summary Purpose Family History No Family History Records FoundNo Family History Records Found Advance Directives No Advanced Directives Records FoundNo Advanced Directives Records Found Additional Source Comments Patient Care team informatio n (unrecognized section and content) Care Team Personnel Name: HOLLY THOMPSON Position: P4 Advanced Cannon Pinion Adjuster Member Role: Primary Care Physician Address: Address: [address] [facility] [address] Care Team Related Persons Name: ONEYDA GONZALEZ INFORMATION SOURCE (unrecogn ized section and content) DATE CREATED AUTHOR AUTHOR'S ORGANIZ ATION 03/15/2023 [facility] FOR RECORDS PERTAINING TO PATIENTS WHO ARE OR HAVE BEEN ENROLLED IN A CHEMICAL DEPENDENCY/SUBSTANCEABUSE PROGRAM, SOME INFORMATION MAY BE OMITTED. This clinical summary was aggregated from multiple sources. Caution should be exercised in using it in the provision of clinical care. This summary normalizes information from multiple sources, and as a consequence, information in this document may materially change the coding, format and clinical context of patient data. In addition, data may be omitted in some cases. CLINICAL DECISIONS SHOULD BE BASED ON THE PRIMARY CLINICAL RECORDS. [employer] [facility]. provides no warranty or guarantee of the accuracy or completeness of information in this document.
[2023-04-04 11:08] LABS: SJOGREN'S Anti-SS-A test < 0.2 AI (0.0-0.9); SJOGREN'S Anti-SS-B test < 0.2 AI (0.0-0.9)
== END | disposition home or self-care (01) ==
LOC: LAB 16:02
PROVIDERS: Obstetrics & Gynecology; PCP Preventive Medicine Occupational Medicine; Referring Provider Obstetrics & Gynecology; Visit Provider Obstetrics & Gynecology
DX: O99.119 Other diseases of the blood and blood-forming organs and certain disorders involving the immune mechanism complicating pregnancy, unspecified trimester (principal); M32.9 Systemic lupus erythematosus, unspecified; D68.61 Antiphospholipid syndrome; O99.891 Other specified diseases and conditions complicating pregnancy; Z3A.00 Weeks of gestation of pregnancy not specified
CPT/HCPCS: 36415; 86235

== ENCOUNTER → 2023-05-12 | Outpatient (CLI) | payer OTHER, SELFPAY | END | disposition home or self-care (01) | PROVIDERS: PCP Preventive Medicine Occupational Medicine; Visit Provider Obstetrics & Gynecology | DX: O09.90 Supervision of high risk pregnancy, unspecified, unspecified trimester (principal); Z3A.00 Weeks of gestation of pregnancy not specified | CPT/HCPCS: 87081 ==

== ENCOUNTER 2023-06-01 06:50 | Inpatient (IN) | payer OTHER, SELFPAY ==
[2023-06-01] VITALS (20 sets, daily range): BP systolic 99–126; BP diastolic 54–76; PULSE 73–85; RESP 16; TEMP 36.2–37; O2SAT 98; BMI 27.9
[2023-06-01] MEDS: Lactated Ringers 1,000 ML 50 ML IV (07:45)
[2023-06-01 07:58] LABS: Absolute Lymphocyte Count 1.59 X10^3/uL (0.83-4.51); Absolute Neutrophil Count 3.6 X10^3/uL (2.0-7.7); Basophil# 0.03 X10^3/uL; Basophil% 0.5 % (0-1); Eosinophil# 0.06 X10^3/uL; Hematocrit 37.5 % (37-47); Hemoglobin 11.9 g/dL (12.0-15.0); Lymphocyte # 1.59 X10^3/ul (0.83-4.51); Lymphocyte % 26.8 % (19-41); Mean Corp Hgb Conc 31.7 g/dL (32-36); Mean Corpuscular Hgb 25.8 pg (27.0-32.0); Mean Corpuscular Volume 81.2 fL (81-99); Mean Platelet Vol. 8.8 fl (6.2-12.0); Monocyte# 0.61 X10^3/uL; Monocyte% 10.3 % (0-10); NRBC Flagged by Analyzer 0 % (0-5); Neutrophil # 3.61 X10^3/uL (2.7-7.7); Neutrophil % 60.9 % (47-70); Platelet Count 202 K/mm3 (150-450); RBC Distribution Width CV 14.3 % (11.6-14.6); RBC Distribution Width SD 41.3 fl (35.1-43.9); Red Blood Count 4.62 M/mm3 (4.2-5.4); White Blood Count 5.9 K/mm3 (4.4-11.0)
[2023-06-01 08:49] LABS: Syphilis Antibodies Non-reactive
[2023-06-01] MEDS: 0.9% Normal Saline Single 100 ML IV.SOLN. INTRA-UTER (09:14)
[2023-06-01] MEDS: Oxytocin 15 Units/NS 250ml 15 UNITS/250 ML IV.SOLN 2 UNITS IV (09:19)
--- NOTE | 2023-06-01 10:07 | HP.PCM.OB_ITS ---
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 She took her last dose of lovenox yesterday. Maternal Data Information LINA Calculator Estimated Delivery Date Method Current WG Current Estimate 06/08/23 Ultrasound #1 39w 0d Other Estimates 06/01/23 LMP (Certain) 40w 0d PFSH PFS Medical History 40 weeks gestation of COVID-19 (spontaneous vaginal delivery) Vaginal delivery Home Medications vits,calcium no.78-iron fumarate-folic acid 29 mg-1 mg tablet (Prenatabs FA) 1 tab PO DAILY 09/26/16 [History Last Taken 02/18/21 06:00] hydroxychloroquine 200 mg tablet (Plaquenil) 200 mg PO DAILY AUTO IMMUNE 11/08/22 [History Last Taken 06/01/23] pyridoxine (vitamin B6) 25 mg tablet 25 mg PO DAILY 11/08/22 [History Last Taken 05/31/23] aspirin 81 mg tablet,delayed release 81 mg PO DAILY PREVENTATIVE 03/20/23 [History Last Taken 05/31/23] enoxaparin 40 mg/0.4 mL subcutaneous syringe (Lovenox) 40 mg (0.4 mL) subcut QDAY PREVENTATIVE 30 days #12 mL 03/20/23 [Rx Last Taken 05/31/23] Allergy/AdvReac Type Severity Reaction Status Date / Time amoxicillin trihydrate Allergy Rash Verified 05/27/23 16:15 [From Amoxil] Family History Other Cholelithiasis Surgical History [place] teeth removed Social History (Updated 06/01/23 @ 07:38 by Sindy Elliott) adopted: No household members: spouse and children number of children: 3 current occupational status: unemployed current occupation: [employer] current occupational exposures/hazards: No pets and animals: No history of recent travel: No sexually active: Yes Smoking Status: Never smoker alcohol intake: never substance use type: does not use caffeine: No seatbelt use: always do you feel safe at home: Yes additional social history: -[place]wat- [employer] History 4 Elective abortions Hx Para 3 Spontaneous abortions Hx # Term Pregnancies Ectopic pregnancies Hx # Pregnancies Multiple births # of living children 3 Past Pregnancies Del. Date Name GA/Weeks Outcome Route Bth Weight Infant Gen Labor Lgth Anesthesia Del Locatn Provider FOB 09/27/16 Azam 41 live - full term 7lbs 7oz Male epidural [facility] Sharif Delgado 03/30/19 Sohan 40 live - full term 7lb 3 oz Male ep idural [facility] Sharif Delgado 02/19/21 Rad 38 live - full term 6lbs 14 oz Male [facility] Sharif Delgado Visit Details Expected Delivery Route/Plan Labor Preferences- CB/BF classes: no labor support person: Sarwat labor intervention preferences: [] pain management options preferred: Limited intervention but ok with epidural cut cord/dad catch: yes : yes PP control planned: discussed discussed possible routes of delivery and associated risks: [] special requests: [] Plans Covid status: vaccinated, not booster Flu vaccine: given Tdap vaccine: [] Rhogam: na LARC form signed: yes movement and labor precautions reviewed. Problem list reviewed and updated with the most current plan of care details and appropriate orders placed. Relevant counseling for the gestational age provided. Continue routine care and follow up unless otherwise noted in visit notes/problem list details OB Flowsheet Initial Weight: Not Recorded Date -?-?-?-?-?-?-?-?-?-?-?-?- EGA Weight BP Urine Prot -?-?-?-?-?-?-?-?-?-?-?-?- Glucose FHR FuHt Pres Dilation -?-?-?-?-?-?-?-?-?-?-?-?- Effaced St Visit Note 11/08/22 -?-?-?-?-?-?-?-?-?-?-?-?- 9w 5d 169 lb 112/72 -?-?-?-?-?-?-?-?-?-?-?-?- 185 -?-?-?-?-?-?-?-?-?-?-?-?- KW-CRL NOT cons with dates. dates changes. JV scanned 12/06/22 -?-?-?-?-?-?-?-?-?-?-?-?- 13w 5d 172 lb 2 oz 114/72 -?-?-?-?-?-?-?-?--?-?-?-?- 153 -?-?-?-?-?-?-?-?-?-?-?-?- Lc- no vb/crampi ng. discussed and declines afp. anatomy with mfm for unknow autoimmune disorder on Plaquenil. 12/31/22 -?-?-?-?-?-?-?-?-?-?-?-?- 17w 2d 178 lb 2 oz 118/74 Nega tive -?-?-?-?-?-?-?-?-?-?-?-?- Negative 151 -?-?-?-?-?-?-?-?-?-?-?-?- Mh-No VB, crampi ng. Some nausea persists. Eager for anatomy scan next week- last son with nasal defect. 01/29/23 -?-?-?-?-?-?-?-?-?-?-?-?- 21w 3d 182 lb 2 oz 110/71 Nega tive -?-?-?-?-?-?-?-?-?-?-?-?- Negative 140 -?-?-?-?-?-?-?-?-?-?-?-?- JV- no lof, vagi nal bleeding, or cramping. has low lying placenta but does not say how close to cx. recommend avoidance of intercourse until we can know more. message sent to [facility]. Rpt scan at 28 weeks 02/27/23 -?-?-?-?-?-?-?-?-?-?-?-?- 25w 4d 183 lb 4 oz 110/66 Nega tive -?-?-?-?-?-?-?-?-?-?-?-?- Negative 136 -?-?-?-?-?-?-?-?-?-?-?-?- MH-No VB, LOF. G ood FM. Patient w covid last week, will start 81mg asa daily. Fallon questionable audible PVC and Sm confirms. Will recheck 1 week. Reviewed irene cts. 03/05/23 -?-?-?-?-?-?-?-?-?-?-?-?- 26w 3d 186 lb 6 oz 108/66 Nega tive -?-?-?-?-?-?-?-?-?-?-?-?- Negative 146 -?-?-?-?-?-?-?-?-?-?-?-?- -No Vb, LOF. G ood Fm. Follow up after hearing irreg HR and this was not noted today 03/20/23 -?-?-?-?-?-?-?-?-?-?-?-?- 28w 4d 187 lb 109/69 Negative -?-?-?-?-?-?-?-?-?-?-?-?- Negative 145 29 -?-?-?-?-?-?-?-?-?-?-?-?- SM- extensive di scussion about antibodies and autoimmune history. decision to start lovenox therapy due to high risk history. denies vb lof admits good fm no regular ctx. 04/02/23 -?-?-?-?-?-?-?-?-?-?-?-?- 30w 3d 190 lb 4 oz 123/81 Nega tive -?-?-?-?-?-?-?-?-?-?-?-?- Negative 140 30 -?-?-?-?-?-?-?-?-?-?-?-?- JV- ro and la le vels ordered today. start nsts next visit. no lof, vaginal bleeding, or dec fm. JV- ro and la levels ordered today. start nsts next visit. no lof, vaginal bleeding, or dec fm. Pt has a low risk thrombophilia without a h/o VTE (antiphospholipid elevation) but has a first degree relative with a VTE. ACOG gives option to use or not to use lovenox. She has chosen to use lovenox. 04/17/23 -?-?-?-?-?-?-?-?-?-?-?-?- 32w 4d 192 lb 101/69 Negative -?-?-?-?-?-?-?-?-?-?-?-?- Negative 140 -?-?-?-?-?-?-?-?-?-?-?-?- SM- no vb lof go od fm no regular ctx nst reactive 04/23/23 -?-?-?-?-?-?-?-?-?-?-?-?- 33w 3d 193 lb 122/74 Negative -?-?-?-?-?-?-?-?-?-?-?-?- Negative 140 -?-?-?-?-?-?-?-?-?-?-?-?- MH-NST only reac tive 04/29/23 -?-?-?-?-?-?-?-?-?-?-?-?- 34w 2d 193 lb 105/70 -?-?-?-?-?-?-?-?-?-?-?-?- Negative 130 -?-?-?-?-?-?-?-?-?-?-?-?- Sm- no vb lof go od fm no regular ctx 05/12/23 -?-?-?-?-?-?-?-?-?-?-?-?- 36w 1d 196 lb 4 oz 112/68 Nega tive -?-?-?-?-?-?-?-?-?-?-?-?- Negative 130 35 Cephalic -?-?-?-?-?-?-?-?-?-?-?-?- JV- nst reactive . normal growth and normal bpp on 05/06. GBS collected but does not want exam due to varicose veins plan 39 week IOL. 05/20/23 -?-?-?-?-?-?-?-?-?-?-?-?- 37w 2d 195 lb 108/71 Negative -?-?-?-?-?-?-?-?-?-?-?-?- Negative 145 37 Cephalic -?-?-?-?-?-?-?-?-?-?-?-?- JV- NST reactive . JV- NST reactive. planning I OL 39 nweek 05/27/23 -?-?-?-?-?-?-?-?-?-?-?-?- 38w 2d 197 lb 8 oz 114/75 -?-?-?-?-?-?-?-?-?-?-?-?- 130 38 Cephalic -?-?-?-?-?-?-?-?-?-?-?-?- SM- no vb lof go od fm but moving somewhat less. reveiwed fm precautions, lovenox instructions. no regular ctx ROS Constitutional Constitutional: Denies change in weight, fatigue, fever(s), headache(s), poor appetite or weakness Eyes Eyes: Denies blurry vision, change in vision, seeing flashes or spots in vision ENT HEENT: Denies dizziness, headache(s), loss taste/smell or sore throat Cardiovascular Cardiovascular: Denies chest pain, dizziness, dyspnea, irregular heart rhythm, leg edema, palpitations, rapid heart rate or vomiting Respiratory/Chest Respiratory/Chest: Denies chest tightness, cough, dyspnea or breast pain Gastrointestinal Gastrointestinal: Denies abdominal pain, anorexia, constipation, cramping, diarrhea, hemorrhoids, vomiting or weight changes Genitourinary Genitourinary: Denies dysuria, flank pain, genital lesions, genital pain, urinary frequency or urinary urgency Musculoskeletal Musculoskeletal: Denies back pain, difficulty walking, joint pain, limited range of motion, muscle cramps or numbness Integumentary Integumentary: Denies lesions or unusual bruising Neurologic Neurologic: Denies abnormal movements, abnormal speech, dizziness, numbness, seizure-like activity or syncope Psychiatric Psychiatric: Denies anxiety, behavioral changes, change in appetite, change in libido, cognitive impairment, confusion, depression, difficulty concentrating, hallucinations or suicidal thoughts Endocrine Endocrinology: Denies excessive sweating, polydipsia or polyuria Hematologic/Lymphatic Hematologic/Lymphatic: Denies easy bleeding, easy bruising or lymphadenopathy Allergic/Immunologic Allergic/Immunologic: Denies itchy eyes, lip swelling, seasonal rhinorrhea, rhinitis, throat swelling, tongue swelling, eczemia, wheezing or asthma Vital Signs Vital Signs Vital Signs: 06/01/23 08:15 06/01/23 08:15 06/01/23 08:15 Temperature Temperature Source Temporal Pulse Rate 80 Respiratory Rate 16 Blood Pressure BP Systolic BP Diastolic Pulse Ox 06/01/23 08:15 06/01/23 08:15 06/01/23 08:16 Temperature 98.6 F Temperature Source Pulse Rate Respiratory Rate Blood Pressure 112/69 BP Systolic 112 BP Diastolic 69 Pulse Ox 98 06/01/23 08:16 Temperature Temperature Source Pulse Rate 81 Respiratory Rate Blood Pressure BP Systolic BP Diastolic Pulse Ox Weight Weight: 197 lb 8.547 oz Body Mass Index (BMI) 27.9 Physical Exam Const alert, oriented x3, no apparent distress and healthy appearing General Appearance: cooperative; Negative for anxious HEENT normocephalic Face and Sinus: normal facial exam Eyes EOMs intact bilaterally and no scleral icterus General Eye: normal appearance of both eyes Neck full ROM and supple Lymph Lymphatic: no lymphadenopathy noted Chest Chest: abnormal inspection of the chest Resp normal respiratory effort Effort and Inspection: able to speak in complete sentences Cardio regular rate GI soft to palpation and non-tender Inspection: gravid Palpation: soft; Negative for tender Manual OB Exam: other cox inserted into the cervix and inflated with 50cc ns. Back/Spine no CVA tenderness Extremity normal to inspection, full ROM and no clubbing, cyanosis or edema General Extremity: Negative for calf tenderness or edema Skin Lesions: no lesions Rashes: no rashes Psych mental status grossly normal Labs Labs Labs: Blood Type O POSITIVE Antibody Screen NEGATIVE Hct 37.5 % (37-47) Hgb 11.9 g/dL (12.0-15.0) L Syphilis Total Ab Non-reactive Rubella IgG Antibody Reactive (Nonreactive) Hep Bs Antigen Non-Reactive (Nonreactive) Hepatitis C Antibody Non-Reactive (Nonreactive) Hepatitis C Ab (EIA) <0.1 s/co ratio (0.0-0.9) Chlamydia DNA (EDILMA) Negative (Negative) N.gonorrhoeae DNA (EDILMA) Negative (Negative) HIV 1&2 Antibody Non-Reactive (Nonreactive) Glucose 1 Hr 50 gm 113 mg/dL (70-140) Group B Strep DNA Negative (Negative) Rhogam given: No Miscellaneous Test Assessment & Plan (1) Antiphospholipid antibody syndrome complicating : COMMENT: Antiphospholipid antibody syndrome is considered low risk thrombophilia. However she has a first degree relative with a h/o VTE. ACOG gives option to treat or not treat with prophylactic lovenox. Due to persistently elevated and increasing titers, (no clots or loss) but discussed risks vs benefits and decision for lovenox, ASA, and growth q 4, weekly nsts after 33. s/p mfm consult. plan 6 weeks PP anticoagulation also. (2) COVID-19: COMMENT: 81 asa daily (3) History of abnormality in previous , currently : COMMENT: 3rd son with pyriform apreture stenosis(nasal bone defect)-caused respiratory distress after , went to [facility], had surgery. (4) : QUALIFIERS: Weeks of gestation: 38 weeks Qualified Code(s): Z3A.38 - 38 weeks gestation of COMMENT: IOL scheduled for 05/31 @ 7am with JV, GBS neg, DOC ONLY. denies NIPT, carrier, and ntd screen. nl anatomy. (5) Supervision of high risk , antepartum: COMMENT: [id number] LINA 06/08/23 boy Sohan Parr Sampson. Spouse Sarwat (6) SLE (systemic lupus erythematosus related syndrome): COMMENT: RO and LA ordered 04/02/2023 related syndrome-not SLE. rheum following. hydroxychloroquine. anti ro and anti la ordered PLAN: Plan Patient presents IOL, plan management for with cox/pitocin/AROM. Pain management: plans epidural. GBS negative. Management of any complications: APL I have reviewed the [facility] and made any clinically relevant updates.
--- NOTE | 2023-06-01 12:50 | PN_ITS ---
Progress Note patient consents to AROM. Her cox has been out now for almost 2 hours. current tracing: FHT: 140 Moderate variability reactive no decelerations category I tracing [place] Ii: q 2-3 min Contractions cx: 5/80/-1, membranes ruptured and clear fluid returned. reviewed tracing abnormalities since last note:no changes A/P: continue pitocin pt undecided about epidural
[2023-06-01] MEDS: LACTATED RINGERS 500 ML 999 ML IV ×2 (14:07→15:59)
--- NOTE | 2023-06-01 16:23 | EX.PCM.OBRPT ---
Assessment & Plan (1) Antiphospholipid antibody syndrome complicating : COMMENT: Antiphospholipid antibody syndrome is considered low risk thrombophilia. However she has a first degree relative with a h/o VTE. ACOG gives option to treat or not treat with prophylactic lovenox. Due to persistently elevated and increasing titers, (no clots or loss) but discussed risks vs benefits and decision for lovenox, ASA, and growth q 4, weekly nsts after 33. s/p mfm consult. plan 6 weeks PP anticoagulation also. (2) COVID-19: COMMENT: 81 asa daily (3) History of abnormality in previous , currently : COMMENT: 3rd son with pyriform apreture stenosis(nasal bone defect)-caused respiratory distress after , went to [facility], had surgery. (4) : QUALIFIERS: Weeks of gestation: 38 weeks Qualified Code(s): Z3A.38 - 38 weeks gestation of COMMENT: IOL scheduled for 05/31 @ 7am with JV, GBS neg, DOC ONLY. denies NIPT, carrier, and ntd screen. nl anatomy. (5) Supervision of high risk , antepartum: COMMENT: [id number] LINA 06/08/23 boy Sohan Parr Sampson. Spouse Sarwat (6) SLE (systemic lupus erythematosus related syndrome): COMMENT: RO and LA ordered 04/02/2023 related syndrome-not SLE. rheum following. hydroxychloroquine. anti ro and anti la ordered Maternal Data Information LINA Calculator Estimated Delivery Date Method Current WG Current Estimate 06/08/23 Ultrasound #1 39w 0d Other Estimates 06/01/23 LMP (Certain) 40w 0d Final LINA: 06/08/23 Final LINA Source: US <20 weeks Gestational age: 39 weeks 0 days Vaginal Delivery Maternal Presentation Maternal Presentation: Medically Indicated Induction Type of Induction: Pitocin, Gamez Bulb and Amniotomy Operative Information Date of Procedure: 06/01/23 Pre-Operative Diagnosis: 33 y/o @ 39 weeks 0 days, APL syndrome Post-Operative Diagnosis: 33 y/o @ 39 weeks 0 days, APL syndrome Type of Anesthesia: None Estimated Blood Loss: 100cc Time of Delivery: 16:09 Findings Description of Procedure: Patient began pushing and delivered the head in the RADHA presentation with the patient in the hands/knees position. The head was delivered atraumatically. The anterior and posterior shoulders delivered without complication followed by the rest of the infant and the infant was placed on the maternal abdomen after she was flipped over. Delayed cord clamping was employed for approximately 60 seconds. Cord was clamped and cut and gentle traction was applied to the cord and the placenta delivered spontaneously immediately following it was noted to be intact with three-vessel cord. The perineum and vagina were inspected and noted to be intact. EBL was 100 cc. Patient and infant tolerated delivery well. Presentation: Vertex Amniotic Membrane Rupture Type: Spontaneous Amniotic Fluid Description: Clear Placental Delivery Description: Spontaneous Placenta Disposition: [facility] Cord Vessel Description: 3 Vessels Cord Entanglement: None A Gender: Male (1 minute): 8 (5 minute): 9 Delayed Cord Clamping: Yes Post Vaginal Delivery Medications Given After Delivery: IV Pitocin Episiotomy Description: None Laceration: None Complication Complications: None Multi Select Codes Urinary/Genital Urinary/Genital CPT Codes: 65026 Vaginal Delivery [facility]
--- NOTE | 2023-06-01 16:27 | DCINST_ITS ---
Discharge Instructions Diet Discharge Diet: No restrictions Activity Discharge Activity: Return to Normal Activity, May Not Drive (while taking narcotic pain medications.) and May Shower May resume sexual activity in: 4-6 weeks Dressing / Incision Call your doctor if your incision/area has: Continuous Slow Oozing, Sudden Increased Bleeding, Increased Pain/ Swelling, Increased Redness and Foul Smelling Discharge Follow Up Care Please Follow Up With: Janet Cardoza DO When: Call [phone] to make an appointment with your doctor in 6 weeks. If you had elevated blood pressure or 4th degree laceration, you will need to be seen in 2 weeks. Test Results: Test results from this visit will be discussed in further detail at your follow- up appointment, if applicable. Discharge Plan Admission Admit Date/Time: 06/01/23 06:50 Primary Reason for Your Visit: vaginal delivery Attending Provider: Janet Cardoza Primary Care Provider: Keyon Arias Discharge Orders/Prescriptions Prescriptions: Continued hydroxychloroquine [Plaquenil] 200 mg tablet 200 mg PO DAILY pyridoxine (vitamin B6) 25 mg tablet 25 mg PO DAILY enoxaparin [Lovenox] 40 mg/0.4 mL syringe 40 mg subcut QDAY 30 Days Qty: 12 12RF Prenatabs FA 1 TABLET tablet 1 tab PO DAILY Discontinued aspirin 81 mg tablet,delayed release (DR/EC) 81 mg PO DAILY Referrals / Follow Up: Keyon Arias DO [Primary Care Provider] - Disposition Disposition (needs filled in before D/C Order can be placed): Home, Self Care
[2023-06-01] MEDS: Oxytocin 15 Units/NS 250ml 15 UNITS/250 ML IV.SOLN 83 UNITS IV (16:53)
[2023-06-01] MEDS: Acetaminophen 500 MG Tablet PO (18:00)
[2023-06-01] MEDS: Ibuprofen 600 MG Tablet PO (21:11)
[2023-06-01] MEDS: Acetaminophen 500 MG Tablet 1000 MG PO (23:58)
[2023-06-01] MEDS: Enoxaparin 40 MG/0.4 ML Syringe SC (23:59)
[2023-06-02] VITALS (10 sets, daily range): BP systolic 102–118; BP diastolic 58–72; PULSE 71–83; RESP 16; TEMP 36.2–36.8; O2SAT 97–98
[2023-06-02] MEDS: Ibuprofen 600 MG Tablet PO ×2 (06:28→17:57)
[2023-06-02] MEDS: Hydroxychloroquine 200 MG Tablet PO (08:26)
--- NOTE | 2023-06-02 09:00 | PN.OBGYN_ITS ---
Subjective Subjective Patient doing well without complaints. Tolerating PO. Ambulating and voiding without difficulty. Feeding well, infant with lip tie, but latching well. Denies chest pain, shortness of breath, calf pain/swelling, fevers, chills, lightheadedness. Objective Data Objective Data Vital Signs: Vital Signs Temp Pulse Resp BP Pulse Ox O2 Del Method 97.3 F L 83 16 109/64 98 Room Air 06/02/23 08:24 06/02/23 08:24 06/02/23 08:24 06/02/23 08:24 06/02/23 04:26 06/02/23 08:24 Oxygen Delivery Method Room Air Weight: 197 lb 8.547 oz Body Mass Index (BMI) 27.9 Intake & Output: Intake and Output for Last 24 Hours 05/31/23 06/01/23 06/02/23 23:59 23:59 23:59 Intake Total 1929.17 / 1929.17 Output Total 100 / 100 Balance 1829.17 / 1829.17 Lab / Micro Data 06/01/23 07:45 Physical Exam Const alert, oriented x3 and no apparent distress Eyes PERRL Neck full ROM Lymph Lymphatic: no lymphadenopathy noted Chest inspection of chest normal Resp normal respiratory effort and normal air movement Cardio regular rate and regular rhythm Uterus Palpation: uterus fundus firm (no clots, normal lochia) Extremity normal to inspection, full ROM, no calf tenderness and no pedal edema Skin no rashes or lesions noted Psych mental status grossly normal Assessment & Plan (1) Antiphospholipid antibody syndrome complicating : COMMENT: Antiphospholipid antibody syndrome is considered low risk thrombophilia. However she has a first degree relative with a h/o VTE. ACOG gives option to treat or not treat with prophylactic lovenox. Due to persistently elevated and increasing titers, (no clots or loss) but discussed risks vs benefits and decision for lovenox, ASA, and growth q 4, weekly nsts after 32. s/p mfm consult. plan 6 weeks PP anticoagulation also. (2) History of abnormality in previous , currently : COMMENT: 3rd son with pyriform apreture stenosis(nasal bone defect)-caused respiratory distress after , went to [facility], had surgery. (3) SLE (systemic lupus erythematosus related syndrome): COMMENT: RO and LA ordered 04/02/2023 related syndrome-not SLE. rheum following. hydroxychloroquine. anti ro and anti la ordered PLAN: Plan s/p PPD # 1 1. routine post delivery care 2. breast feeding- support given 3. rh positive 4. rubella immune 5. plan d/c tomorrow, infant under bili lights. 6. has lovenox at home with refills, discussed continuing until 6 weeks pp.
[2023-06-02] MEDS: Enoxaparin 40 MG/0.4 ML Syringe SC (22:37)
[2023-06-03 02:23] VITALS: BP 103/51; PULSE 60
[2023-06-03 02:30] VITALS: BP 103/51; PULSE 60; RESP 16; TEMP 36.4; O2SAT 99
--- NOTE | 2023-06-03 08:01 | PN.OBGYN_ITS ---
Subjective Subjective Patient doing well without complaints. Tolerating PO. Ambulating and voiding without difficulty. Feeding well. Denies chest pain, shortness of breath, calf pain/swelling, fevers, chills, lightheadedness. Objective Data Objective Data Vital Signs: Vital Signs Temp Pulse Resp BP Pulse Ox O2 Del Method 97.6 F L 60 16 103/51 L 99 Room Air 06/03/23 02:30 06/03/23 02:30 06/03/23 02:30 06/03/23 02:30 06/03/23 02:30 06/03/23 02:30 Oxygen Delivery Method Room Air Weight: 197 lb 8.547 oz Body Mass Index (BMI) 27.9 Intake & Output: Intake and Output for Last 24 Hours 06/01/23 06/02/23 06/03/23 23:59 23:59 23:59 Intake Total 1929.17 / 1929.17 Output Total 100 / 100 Balance 1829.17 / 1829.17 Lab / Micro Data Attestation: I reviewed the patient's lab results. 06/01/23 07:45 ROS Constitutional Constitutional: Reports systems reviewed and no addt'l complaints, except as documented; Denies anorexia or headache(s) Cardiovascular Cardiovascular: Reports systems reviewed and no addt'l complaints, except as documented; Denies dizziness, dyspnea, nausea or tachypnea Respiratory/Chest Respiratory/Chest: Reports systems reviewed and no addt'l complaints, except as documented; Denies cough, dyspnea, shortness of breath at rest or tachypnea Gastrointestinal Gastrointestinal: Reports systems reviewed and no addt'l complaints, except as documented; Denies abdominal pain, constipation or nausea Genitourinary Genitourinary: Reports systems reviewed and no addt'l complaints, except as documented; Denies burning urination, difficulty urinating, dysuria, urinary frequency or urinary incontinence Musculoskeletal Musculoskeletal: Reports systems reviewed and no addt'l complaints, except as documented Integumentary Integumentary: Reports systems reviewed and no addt'l complaints, except as documented Neurologic Neurologic: Reports systems reviewed and no addt'l complaints, except as doc umented; Denies abnormal speech, dizziness or headache(s) Psychiatric Psychiatric: Reports systems reviewed and no addt'l complaints, except as documented Endocrine Endocrinology: Reports systems reviewed and no addt'l complaints, except as documented Hematologic/Lymphatic Hematologic/Lymphatic: Reports systems reviewed and no addt'l complaints, except as documented Physical Exam Const alert, oriented x3 and no apparent distress Neck full ROM Resp normal respiratory effort, normal air movement and no retractions Effort and Inspection: able to speak in complete sentences and symmetric chest movement GI soft to palpation Bladder / Kidney Exam: bladder normal to palpation Uterus Palpation: uterus fundus firm Extremity normal to inspection and full ROM Psych mental status grossly normal, thought process normal and cooperative Assessment & Plan (1) COVID-19: COMMENT: 81 asa daily (2) SLE (systemic lupus erythematosus related syndrome): COMMENT: RO and LA ordered 04/02/2023 related syndrome-not SLE. rheum following. hydroxychloroquine. anti ro and anti la ordered (3) Vaginal delivery: PLAN: s/p PPD # 2 1. routine post delivery care 2. breast feeding- support given 3. rh positive 4. rubella immune 5. Discharge to hotel status Charges/Coding Multi Select Codes Urinary/Genital Urinary/Genital CPT Codes: No Charge
[2023-06-03] MEDS: Ibuprofen 600 MG Tablet PO (08:04)
[2023-06-03] MEDS: Hydroxychloroquine 200 MG Tablet PO (08:04)
[2023-06-03 08:10] VITALS: BP 111/58; PULSE 68; PULSE 71; RESP 16; TEMP 36.7; O2SAT 98
[2023-06-03 11:54] VITALS: BP 125/66; PULSE 80; PULSE 81; RESP 16; TEMP 36.8; O2SAT 98
== END 2023-06-03 14:21 | disposition home or self-care (01) | DRG 806 ==
PROVIDERS: Admitting Provider Obstetrics & Gynecology; PCP Preventive Medicine Occupational Medicine; Visit Provider Obstetrics & Gynecology
DX: O9A.12 Malignant neoplasm complicating childbirth (principal); Z37.0 Single live birth; D68.61 Antiphospholipid syndrome; C92.40 Acute promyelocytic leukemia, not having achieved remission; M32.9 Systemic lupus erythematosus, unspecified; O99.12 Other diseases of the blood and blood-forming organs and certain disorders involving the immune mechanism complicating childbirth; Z79.01 Long term (current) use of anticoagulants; Z79.82 Long term (current) use of aspirin; O99.892 Other specified diseases and conditions complicating childbirth; Z86.16 Personal history of COVID-19; O26.23 Pregnancy care for patient with recurrent pregnancy loss, third trimester; Z3A.38 38 weeks gestation of pregnancy
CPT/HCPCS: 59025; 59050; 85025; 86780; 86850; 86900; 86901; 99221; J7120; G0378

== ENCOUNTER → 2023-06-20 | Outpatient (CLI) | payer OTHER, SELFPAY ==
[2023-06-20 10:16] LABS: Absolute Lymphocyte Count 1.75 X10^3/uL (0.83-4.51); Absolute Neutrophil Count 3.2 X10^3/uL (2.0-7.7); Basophil# 0.03 X10^3/uL; Basophil% 0.5 % (0-1); Eosinophils% 1.8 % (0-5); Hematocrit 43.9 % (37-47); Hemoglobin 13.6 g/dL (12.0-15.0); Lymphocyte # 1.75 X10^3/ul (0.83-4.51); Mean Corpuscular Hgb 25.5 pg (27.0-32.0); Mean Corpuscular Volume 82.4 fL (81-99); Mean Platelet Vol. 9.1 fl (6.2-12.0); Monocyte# 0.54 X10^3/uL; Monocyte% 9.6 % (0-10); NRBC Flagged by Analyzer 0 % (0-5); Neutrophil % 56.7 % (47-70); Platelet Count 294 K/mm3 (150-450); RBC Distribution Width CV 14.1 % (11.6-14.6); RBC Distribution Width SD 42.3 fl (35.1-43.9); Red Blood Count 5.33 M/mm3 (4.2-5.4); White Blood Count 5.6 K/mm3 (4.4-11.0)
[2023-06-20 10:53] LABS: AST(SGOT) 22 U/L (15-37); Alanine Aminotransfer ALT/SGPT 46 U/L (13-56); Albumin, Serum 3.8 g/dL (3.2-5.0); Alkaline Phosphatase 63 U/L (45-117); Anion Gap 5 (5-15); BUN 16 mg/dL (7-18); BUN/Creat Ratio 19.3 RATIO (10-20); Chloride 108 mmol/L (98-107); Creatinine, Serum 0.83 mg/dL (0.55-1.02); EST Glomerular Filtration Rate 85 mL/min (>60); Est Glom Filt Rate - Afr Amer 102 mL/min (>60); Globulin 3.7 g/dL (2.2-4.2); Glucose 92 mg/dL (74-106); Protein, Total 7.5 g/dL (6.4-8.2); Sodium Level 139 mmol/L (136-145)
== END | disposition home or self-care (01) ==
LOC: MTLAB 08:50
PROVIDERS: PCP Preventive Medicine Occupational Medicine; Referring Provider Internal Medicine Rheumatology; Visit Provider Internal Medicine Rheumatology
DX: M06.4 Inflammatory polyarthropathy (principal); Z79.899 Other long term (current) drug therapy; R76.8 Other specified abnormal immunological findings in serum; G43.909 Migraine, unspecified, not intractable, without status migrainosus; J45.909 Unspecified asthma, uncomplicated; M21.41 Flat foot [pes planus] (acquired), right foot
CPT/HCPCS: 36415; 80053; 85025

== ENCOUNTER → 2024-04-21 | Outpatient (CLI) | payer OTHER, SELFPAY ==
[2024-04-21 12:34] LABS: Absolute Lymphocyte Count 1.39 X10^3/uL (0.83-4.51); Absolute Neutrophil Count 2.6 X10^3/uL (2.0-7.7); Basophil# 0.04 X10^3/uL; Basophil% 0.9 % (0-1); Eosinophil# 0.09 X10^3/uL; Eosinophils% 1.9 % (0-5); Hematocrit 44.6 % (37-47); Hemoglobin 13.6 g/dL (12.0-15.0); Lymphocyte # 1.39 X10^3/ul (0.83-4.51); Lymphocyte % 29.8 % (19-41); Mean Corp Hgb Conc 30.5 g/dL (32-36); Mean Corpuscular Hgb 24.9 pg (27.0-32.0); Mean Corpuscular Volume 81.7 fL (81-99); Mean Platelet Vol. 9.1 fl (6.2-12.0); Monocyte# 0.53 X10^3/uL; Monocyte% 11.4 % (0-10); NRBC Flagged by Analyzer 0 % (0-5); Neutrophil % 55.8 % (47-70); Platelet Count 275 K/mm3 (150-450); RBC Distribution Width CV 13.6 % (11.6-14.6); RBC Distribution Width SD 40.3 fl (35.1-43.9); Red Blood Count 5.46 M/mm3 (4.2-5.4); White Blood Count 4.7 K/mm3 (4.4-11.0)
[2024-04-21 12:55] LABS: ALB/GLOB Ratio 1.2 RATIO (0.9-2.4); AST(SGOT) 16 U/L (15-37); Alanine Aminotransfer ALT/SGPT 29 U/L (13-56); Albumin, Serum 4.3 g/dL (3.2-5.0); Alkaline Phosphatase 66 U/L (45-117); Anion Gap 5 (5-15); BUN 16 mg/dL (7-18); BUN/Creat Ratio 21.3 RATIO (10-20); Calcium,Total 9.7 mg/dL (8.5-10.1); Chloride 107 mmol/L (98-107); Creatinine, Serum 0.75 mg/dL (0.55-1.02); EST Glomerular Filtration Rate 94 mL/min (>60); Est Glom Filt Rate - Afr Amer 114 mL/min (>60); Globulin 3.6 g/dL (2.2-4.2); Glucose 82 mg/dL (74-106); Potassium 4.2 mmol/L (3.5-5.1); Protein, Total 7.9 g/dL (6.4-8.2); Sodium Level 141 mmol/L (136-145)
== END | disposition home or self-care (01) ==
LOC: MTLAB 09:43
PROVIDERS: PCP Preventive Medicine Occupational Medicine; Referring Provider Internal Medicine Rheumatology; Visit Provider Internal Medicine Rheumatology
DX: M06.4 Inflammatory polyarthropathy (principal); Z79.899 Other long term (current) drug therapy
CPT/HCPCS: 36415; 80053; 85025

== ENCOUNTER → 2024-07-12 | Outpatient (CLI) | payer OTHER, SELFPAY ==
[2024-07-12 13:26] LABS: Absolute Lymphocyte Count 1.31 X10^3/uL (0.83-4.51); Absolute Neutrophil Count 2.2 X10^3/uL (2.0-7.7); Basophil# 0.03 X10^3/uL; Basophil% 0.7 % (0-1); Eosinophil# 0.07 X10^3/uL; Eosinophils% 1.7 % (0-5); Hematocrit 41.5 % (37-47); Hemoglobin 13.1 g/dL (12.0-15.0); Lymphocyte # 1.31 X10^3/ul (0.83-4.51); Lymphocyte % 32.3 % (19-41); Mean Corp Hgb Conc 31.6 g/dL (32-36); Mean Corpuscular Hgb 25.4 pg (27.0-32.0); Mean Corpuscular Volume 80.6 fL (81-99); Mean Platelet Vol. 9.3 fl (6.2-12.0); Monocyte# 0.46 X10^3/uL; Monocyte% 11.3 % (0-10); NRBC Flagged by Analyzer 0 % (0-5); Neutrophil # 2.18 X10^3/uL (2.7-7.7); Neutrophil % 53.8 % (47-70); Platelet Count 272 K/mm3 (150-450); RBC Distribution Width CV 13.2 % (11.6-14.6); RBC Distribution Width SD 38.6 fl (35.1-43.9); Red Blood Count 5.15 M/mm3 (4.2-5.4); White Blood Count 4.1 K/mm3 (4.4-11.0)
[2024-07-12 14:44] LABS: ALB/GLOB Ratio 1.6 RATIO (0.9-2.4); AST(SGOT) 24 U/L (<=31); Alanine Aminotransfer ALT/SGPT 28 U/L (<=34); Albumin, Serum 4.3 g/dL (3.5-5.0); Alkaline Phosphatase 71 U/L (35-104); Anion Gap 9 (5-15); BUN 10 mg/dL (4-19); BUN/Creat Ratio 14.1 RATIO (10-20); Calcium,Total 9.5 mg/dL (7.6-11.0); Carbon Dioxide 27.1 mmol/L (21.0-32.0); Chloride 104 mmol/L (98-108); Creatinine, Serum 0.68 mg/dL (0.70-1.20); EST Glomerular Filtration Rate 118 (>60); Globulin 2.7 g/dL (2.2-4.2); Glucose 72 mg/dL (70-99); Potassium 4.2 mmol/L (3.3-5.1); Sodium Level 141 mmol/L (133-145); Total Bilirubin 0.27 mg/dL (0.00-1.30)
== END | disposition home or self-care (01) ==
LOC: MTLAB 09:32
PROVIDERS: PCP Preventive Medicine Occupational Medicine; Referring Provider Internal Medicine Rheumatology; Visit Provider Internal Medicine Rheumatology
DX: M06.4 Inflammatory polyarthropathy (principal); Z79.899 Other long term (current) drug therapy; R76.8 Other specified abnormal immunological findings in serum
CPT/HCPCS: 36415; 80053; 85025

== ENCOUNTER → 2024-07-14 | Outpatient (CLI) | payer OTHER, SELFPAY ==
[2024-07-19 10:08] LABS: HPV APTIMA, High Risk Negative (Negative)
== END | disposition home or self-care (01) ==
LOC: LABSPEC 16:30
PROVIDERS: PCP Preventive Medicine Occupational Medicine; Referring Provider Nurse Practitioner Family; Visit Provider Nurse Practitioner Family
DX: Z12.4 Encounter for screening for malignant neoplasm of cervix (principal)
CPT/HCPCS: 87624; 88175; G0145

== ENCOUNTER → 2024-10-01 | Outpatient (CLI) | payer OTHER, SELFPAY ==
[2024-10-01 10:41] LABS: Hematocrit 40.1 % (37-47); Hemoglobin 12.6 g/dL (12.0-15.0); Immature Granulocytes Count 0.010 X10^3/uL (0.0-0.0); Mean Corp Hgb Conc 31.4 g/dL (32-36); Mean Corpuscular Volume 80.8 fL (81-99); Mean Platelet Vol. 9.0 fl (6.2-12.0); NRBC Flagged by Analyzer 0 % (0-5); Platelet Count 256 K/mm3 (150-450); RBC Distribution Width CV 13.6 % (11.6-14.6); RBC Distribution Width SD 39.8 fl (35.1-43.9); Red Blood Count 4.96 M/mm3 (4.2-5.4); White Blood Count 4.4 K/mm3 (4.4-11.0)
[2024-10-01 10:59] LABS: AST(SGOT) 19 U/L (<=31); Alanine Aminotransfer ALT/SGPT 15 U/L (<=34); Albumin, Serum 4.3 g/dL (3.5-5.0); Alkaline Phosphatase 52 U/L (35-104); Anion Gap 10 (5-15); BUN 11 mg/dL (4-19); BUN/Creat Ratio 15.2 RATIO (10-20); Calcium,Total 9.4 mg/dL (7.6-11.0); Carbon Dioxide 24.6 mmol/L (21.0-32.0); Chloride 105 mmol/L (98-108); Globulin 2.5 g/dL (2.2-4.2); Glucose 85 mg/dL (70-99); Potassium 4.2 mmol/L (3.3-5.1)
== END | disposition home or self-care (01) ==
LOC: MTLAB 08:48
PROVIDERS: PCP Preventive Medicine Occupational Medicine; Referring Provider Internal Medicine Rheumatology; Visit Provider Internal Medicine Rheumatology
DX: M06.4 Inflammatory polyarthropathy (principal); R76.8 Other specified abnormal immunological findings in serum; Z79.899 Other long term (current) drug therapy
CPT/HCPCS: 36415; 80053; 85025

== ENCOUNTER → 2024-11-19 | Outpatient (CLI) | payer OTHER, SELFPAY ==
[2024-11-19 17:16] LABS: hCG Titer Quant., Serum 7817 mIU/mL (<9 non-preg)
== END | disposition home or self-care (01) ==
PROVIDERS: PCP Preventive Medicine Occupational Medicine; Referring Provider Nurse Practitioner Family; Visit Provider Nurse Practitioner Family
DX: N91.2 Amenorrhea, unspecified (principal)
CPT/HCPCS: 36415; 84702

== ENCOUNTER → 2024-11-21 | Outpatient (CLI) | payer OTHER, SELFPAY ==
--- OUTSIDE RECORDS SUMMARY | 2024-11-21 14:42 | XMS RPT_ITS | CCD ---
Author Organization [facility] CliniSyvt Care Team Providers Care Coffee Grower Name Role Phone DONNA GAN-[employer] TESTHOLLY Primary Care Physi teofilo DONNA GAN-HOLLY CASTILLO Attending Un available HOLLY MCGHEE Primary Care Un available Dr. Jocelyn Arias Primary Care Provider Dr. Jocelyn Arias Referring Provider [phone] DAV Fonseca Attending Provider [phone] Dr. Jocelyn Arias Primary Care Provider Dr. Jocelyn Arias Referring Provider DAV Fonseca Attending Provider DAV Wong Attending Provider Rashad SHELTON, SOO Gibson Attending Provider [phone] Dr. Janet Cardoza Attending Provider [phone] Dr. Jocelyn Arias Primary Care Provider Dr. Jocelyn Arias Referring Provider [phone] Dr. Mariely Valencia Attending Provider [phone] MARIELY VALENCIA Referring UnavailJOCELYN Martinez Primary Care Unavailable LIDA KIRKLAND Attending Unavailable MARIELY VALENCIA Referring UnavailJOCELYN Martinez Primary Care Unavailable LIDA KIRKLAND Attending Unavailable JOCELYN ARIAS Primary Care Unavailable LIDA KIRKLAND Attending Unavailable MARIELY VALENCIA Referring UnavailJOCELYN Martinez Primary Care Unavailable LIDA KIRKLAND Attending Unavailable MARIELY VALENCIA Referring UnavailJOCELYN Martinez Primary Care Unavailable LIDA KIRKLAND Attending Unavailable MARIELY VALENCIA Referring UnavailJOCELYN Martinez Primary Care Unavailable LIDA KIRKLAND Attending Unavailable MARIELY VALENCIA Referring UnavailDr. Jocelyn Martinez Primary Care Provider Dr. Jocelyn Arias Referring Provider [phone] Rashad AUTO BODY REPAIR ESTIMATOR, AUTO BODY REPAIR ESTIMATOR-C Paige Attending Provider [phone] Dr. Jocelyn Arias Primary Care Provider Dr. Jocelyn Arias Referring Provider [phone] Rashad AUTO BODY REPAIR ESTIMATOR, AUTO BODY REPAIR ESTIMATOR-C Paige Attending Provider [phone] Dr. Mariely Valencia Attending Provider [phone] Dr. Janet Cardoza Attending Provider [phone] Dr. Janet Cardoza Admit Provider Dr. Janet Cardoza Other Provider DAV Wong Attending Provider [phone] DAV Fonseca Attending Provider [phone] Dr. Jocelyn Arias DO Primary Care Provider [phone] Dr. Mariana Raphael MD Attending Provider Dr. Mariana Raphael MD Referring Provider Dr. Jocelyn Arias DO Referring Provider Barbara Salomon Attending Provider [phone] Dhruv SHELTON-Barbara Conner Referring Provider Dr. Jocelyn Arias DO Primary Care Provider [phone] Dr. Mariana Raphael MD Attending Provider Dr. Mariana Raphael MD Referring Provider Jocelyn Arias Primary Care Unavailable Mariana Raphael Referring Unavailable Mariana Raphael Attending Unavailable Barbara Bartlett Referring Unavailable Barbara Bartlett Attending Unavailable Jocelyn Arias Primary Care Unavailable Mariana Raphael Referring Unavailable Mariana Raphael Attending Unavailable Jocelyn Arias Primary Care Unavailable Barbara Bartlett Attending Unavailable Jocelyn Arias Referring Unavailable Jocelyn Arias Primary Care Unavailable Mariana Raphael Referring Unavailable Mariana Raphael Attending Unavailable Jocelyn Arias Primary Care Unavailable DR CHATO WYATT DO Attending Unavailable DONNA GAN-HOLLY CASTILLO Primary Care Un available Allergies Allergy Classification Reported Allergen(s) Allergy Type Date of Onset Reaction(s) Facility (3 sources) Amoxicillin; Translations: [amoxicillin] Drug Allergy 3 Eruption of skin (disorder) [facility] (2 sources) Amoxicillin; Translations: [amoxicillin trihydrate] Drug Allergy 3 [facility] Medications Current Medications Medication Drug Class(es) Dates Sig (Normalized) Sig (Original) aspirin 81 mg delayed release oral tablet (8 sources) Platelet Aggregation Inhibitor, Nonsteroidal Anti-inflammatory Drug Start: 07-14-2023 take 1 tablet by mouth once daily Aspirin 81 mg tablet,delayed release (DR/EC) Active 81 mg PO DAILY July 14, 2023 12:00am Start: 03-20-2023 End: 06-01-2023 take 1 tablet by mouth once daily Aspirin 81 mg tablet,delayed release (DR/EC) Discontinued 81 mg PO DAILY March 20, 2023 1:00am June 01, 2023 4:26pm PREVENTATIVE diphenhydrAMINE hydrochloride 25 mg oral capsule (1 source) Histamine-1 Receptor Antagonist Start: 10-29-2018 Benadryl 25 mg oral capsule Dose : 25 mg = 1 cap(s), Oral, TID, PRN for itching, 0 Refill(s) Start Date: 10/29/18 Status: Ordered herbal/nutritional product (1 source) Start: 11-12-2024 take 1 dose by mouth once daily herbal/nutritional product Oral, qDay, 0 Refill(s) Start Date: 11/12/24 Status: Ordered Medication Dispense Status: Completed Total Allowed Fills: 1 Fills Dispensed: 0 hydroxychloroquine sulfate 200 mg oral tablet (9 sources) Antimalarial, Antirheumatic Agent Start: 11-08-2022 End: 05-14-2025 Plaquenil 200 mg oral tablet Dose : 300 mg = 1.5 tab(s), Oral, qDay, # 135 tab(s), 3 Refill(s), other reason (Rx) Start Date: 05/19/24 Stop Date: 05/14/25 Status: Ordered Medication Dispense Status: Completed Quantity: 135.0 Unit: tab(s) Total Allowed Fills: 4 Fills Dispensed: 0 Multivitamins (1 source) Start: 09-20-2020 take 1 tablet by mouth once daily Multivitamins Dose = 1 tab(s), Oral, qDay, # 90 tab(s), 0 Refill(s) Start Date: 09/20/20 Status: Ordered Vit,[id number]-Wzge-Enecc (Prenatabs Fa) 1 TABLET tablet (9 sources) Start: 09-26-2016 take 1 tablet by mouth once daily Vit,[id number]-Df lic (Prenatabs Fa) 1 TABLET tablet Active 1 {tbl} PO DAILY September 26, 2016 12:00am Start: 09-26-2016 take 1 tablet by zoey th once daily Vit,Wlan29-Vypv-Cnpdb (Prenatab s Fa) 1 TABLET tablet Active 1 {tbl} PO DAILY September 26, 2016 12:00am Start: 09-26-2016 take 1 tablet by zoey th once daily Vit,Fiij19-Vhxe-Wneet (Prenatab s Fa) 1 TABLET tablet Active 1 TABLET PO DAILY September 25, 2016 11:00pm Start: 09-26-2016 take 1 tablet by zoey th once daily Vit,Yygj32-Hmtk-Cpfda (Prenatab s Fa) 1 TABLET tablet Active 1 TABLET PO DAILY September 26, 2016 12:00am Completed/Discontinued Medications Medication Drug Class(es) Dates Sig (Normalized) Sig (Original) Aspirin, Baby (9 sources) Start: 03-29-2019 End: 03-31-2019 Aspirin, Baby Discontinued 1 {tbl} PO DAILY March 29, 2019 1:00am March 31, 2019 8:13am Start: 03-29-2019 End: 03-31-2019 Aspirin, Baby Discontinued 1 {tbl} PO DAILY March 29, 2019 1:00am March 31, 2019 8:13am Start: 03-29-2019 End: 03-31-2019 take 1 tablet by mouth once daily Aspirin, Baby Discontinued 1 TABLET PO DAILY March 29, 2019 12:00am March 31, 2019 7:13am Start: 03-29-2019 End: 03-31-2019 take 1 tablet by mouth once daily Aspirin, Baby Discontinued 1 TABLET PO DAILY March 29, 2019 1:00am March 31, 2019 8:13am cephalexin 500 mg oral capsule (2 sources) Cephalosporin Antibacterial Start: 07-02-2023 End: 07-14-2023 take 1 tablet by mouth every six hours Cephalexin 500 mg capsule Discontinued 500 mg PO EVERY 6 HOURS 40 0 July 02, 2023 12:00am July 14, 2023 3:16pm Take 1 tablet PO q 6 hours for 10 days doxylamine succinate 25 mg oral tablet (8 sources) Start: 11-08-2022 End: 06-01-2023 take 1 tablet by mouth at bedtime as needed Doxylamine Succinate (Unisom (Doxylamine)) 25 mg tablet Discontinued 25 mg PO AT BEDTIME as needed November 08, 2022 12:00am June 01, 2023 7:44am 0.4 ml enoxaparin sodium 100 mg/ml prefilled syringe (6 sources) Low Molecular Weight Heparin Start: 03-20-2023 End: 07-14-2024 Enoxaparin (Lovenox) 40 mg/0.4 mL syringe Discontinued 40 mg SC daily 03 15 12March 20, 2023 1:00am July 14, 2024 2:59pm PREVENTATIVE fluconazole 150 mg oral tablet (1 source) Azole Antifungal Start: 11-12-2024 End: 11-12-2024 Diflucan 150 mg oral tablet Dose : 150 mg = 1 tab(s), Oral, qDay, # 1 tab(s), 1 Refill(s), Pharmacy: [facility]/pharmacy #[id number], 175.7, cm, 11/12/24 14:08:00 EDT, Height, 80.4, kg, 11/12/24 14:08:00 EDT, Dosing Weight Start Date: 11/12/24 Stop Date: 11/12/24 Status: Ordered Medication Dispense Status: Completed Quantity: 1.0 Unit: tab(s) Total Allowed Fills: 2 Fills Dispensed: 0 pyridoxine hydrochloride 25 mg oral tablet (8 sources) Start: 11-08-2022 End: 07-14-2023 take 1 tablet by mouth once daily Pyridoxine (Vitamin B6) 25 mg tablet Discontinued 25 mg PO DAILY November 08, 2022 12:00am July 14, 2023 3:21pm Problems Active Problems Problem Classification Problem Date Documented Date Episodic/Chronic Coagulation and hemorrhagic disorders (1 source) Antiphospholipid syndrome 05-19-2024 Chronic Hemorrhage during ; abruptio placenta; placenta previa (20 sources) Low lying placenta; Translations: [Low lying placenta NOS or without hemorrhage, unspecified trimester] 01-31-2023 Episodic Comment on above: Repeat US at 28 wk, may resume safe intercourse placenta 1.4cm away from cervix Nonspecific chest pain (11 sources) Chest discomfort; Translations: [Anterior chest wall pain] 07-26-2022 Episodic Other complications of (8 sources) High risk ; Translations: [Supervision of high risk , unspecified, unspecified trimester] 11-08-2022 Episodic Comment on above: [id number] LINA 06/08/[birth year] boy Sohan Parr Sampson. Spouse Sarwat Other complications of (20 sources) Supervision of high risk , unspecified, unspecified trimester; Translations: [Supervision of unspecified high-risk ] 11-08-2022 Episodic Other complications of (20 sources) Supervision of with other poor reproductive or obstetric history, unspecified trimester; Translations: [History of anomaly in prior , currently ] 12-31-2022 Episodic Comment on above: 3rd son with pyrifor m apreture stenosis(nasal bone defect)- caused respiratory distress after , went to [facility], had surgery. Other complications of (6 sources) Complication of , childbirth and/or the puerperium; Translations: [Other diseases of the blood and blood-forming organs and certain disorders involving the immune mechanism complicating , unspecified trimester] 04-02-2023 Episodic Comment on above: Antiphospholipid ant ibody syndrome is considered low risk thrombophilia. However she has a first degree relative with a h/o VTE. ACOG gives option to treat or not treat with prophylactic lovenox. Due to persistently elevated and increasing titers, (no clots or loss) but discussed risks vs benefits and decision for lovenox, ASA, and growth q 4, weekly nsts after 32. s/p mfm consult. plan 6 weeks PP anticoagulation also. Other complications of (8 sources) Other diseases of the blood and blood-forming organs and certain disorders involving the immune mechanism complicating , unspecified trimester; Translations: [Other current conditions classifiable elsewhere of mother, unspecified as to episode of care or not applicable] 03-20-2023 Episodic Other female genital disorders (2 sources) Other specified noninflammatory disorders of vagina; Translations: [Other specified noninflammatory disorders of vagina] Onset: 11-12-2024 Episodic Other conditions (2 sources) dysrhythmia 03-20-2023 Episodic Comment on above: Question infrequent PVC with doppler. SM reevaluated. Recheck 1 wk:MFM eval if recurs1 week recheck and no HR irregularity notedrepeta 03/20 nl, anti ro and la ordered due to APL history Other and delivery including normal (20 sources) Vaginal delivery; Translations: [Encounter for full-term uncomplicated delivery] 02-19-2021 Episodic Comment on above: IOL scheduled for @ 7am with JV, GBS neg, DOC ONLY. denies NIPT, carrier, and ntd screen. nl anatomy. Other screening for suspected conditions (not mental disorders or infectious disease) (2 sources) Encounter for screening for malignant neoplasm of cervix; Translations: [Encounter for screening for lipoid disorders] Onset: 07-14-2024 Episodic Other upper respiratory disease (2 sources) Chronic laryngitis 07-26-2022 Chronic Other upper respiratory disease (2 sources) Hoarse 07-26-2022 Episodic Other upper respiratory infections (2 sources) Laryngitis 07-26-2022 Episodic Residual codes; unclassified (9 sources) Gestation period, 39 weeks; Translations: [39 weeks gestation of ] 02-28-2021 Episodic Residual codes; unclassified (9 sources) Gestation period, 40 weeks; Translations: [40 weeks gestation of ] 03-29-2019 Episodic Rheumatoid arthritis and related disease (2 sources) Inflammatory polyarthropathy; Translations: [Inflammatory polyarthropathy] Onset: 10-07-2024 05-19-2024 Chronic Systemic lupus erythematosus and connective tissue disorders (20 sources) Systemic lupus erythematosus-related syndrome; Translations: [Systemic lupus erythematosus, unspecified] 08-16-2022 Chronic Comment on above: RO and LA ordered 4related syndrome-not SLE. rheum following. hydroxychloroquine. anti ro and anti la ordered Unclassified (2 sources) Patient encounter status 07-26-2022 Viral infection (20 sources) Infectious mononucleosis; Translations: [Infectious mononucleosis, unspecified without complication] 08-16-2022 Episodic Comment on above: 81 asa daily Past or Other Problems Problem Classification Problem Date Documented Da te Episodic/Chronic Unclassified (18 sources) dysrhythmia; Translations: [ cardiac dysrhythmia] 02-27-2023 Results Test Name Value Interpretation Reference Range Facility BVPCRon 11-16-2024 Bacterial Vaginosis Negative Normal Negative [facility] Comment on above: Result Comment: Marlon cular methodology performed on the [employer]. Performed By: #### C VTV, BVPCR #### [place] [address] CVTVon 11-16-2024 Noemi glabrata Negative Normal Negative [facility] Comment on above: Performed By: #### C VTV, BVPCR #### [place] [address] Noemi Species Positive Abnormal Negative [facility] Comment on above: Result Comment: Mole cular methodology performed on the [employer]. Performed By: #### C VTV, BVPCR #### [place] [address] Trichomonas vaginalis Negative Normal Negative [facility] Comment on above: Performed By: #### C VTV, BVPCR #### [place] [address] LABORATORYOrdered By: SYSTEM SYSTEM on 11-12-2024 Bacterial Vaginosis Negative 2 (11/12/24 4:26 PM) Normal [facility] Comment on above: Interpretive Data: M olecular methodology performed on the [employer]. Noemi glabrata PCR Negative (11/12/24 4:26 PM) Normal AH Auto Viro/Sero SS Noemi Species Positive 1 *ABN* (11/12/24 4:26 PM) Invalid Interpretation Code AH [facility] Comment on above: Interpretive Data: M mayralar methodology performed on the [employer]. Trichomonas vaginalis Negative (11/12/24 4:26 PM) Normal Auto Viro/Sero SS Absolute lymphocyte countOrd ered By: Mariana Raphael on 10-01-2024 Lymphocytes Auto (Unsp spec) [#/Vol] 1.41 10*3/uL 0.83-4.51 [facility] Absolute neutrophil countOrd ered By: Mariana Raphael on 10-01-2024 Neutrophils (Bld) [#/Vol] 2.3 10*3/uL 2.0-7.7 [facility] Anion gap in Serum or Plasma Ordered By: Mariana Raphael on 10-01-2024 Anion gap [Moles/Vol] 10 mmol/L 5- [facility] Automated lymphocyte count a s percentage of total leukocytesOrdered By: Mariana Raphael on 10-01-2024 Lymphocytes/100 WBC Auto (Unsp spec) 31.8 % 19- [facility] BUN/creatinine ratioOrdered By: Marianaherb Raphael on 10-01-2024 Urea nitrogen/Creatinine [Mass ratio] 15.2 mg/mg 10- [facility] Basophil percentageOrdered B y: Mariana Raphael on 10-01-2024 Basophils/100 WBC (Bld) 0.9 % 0-1 [facility] Bilirubin, totalOrdered By: Mariana Raphael on 10-01-2024 Bilirubin [Mass/Vol] 0.46 mg/dL 0.00-1.30 [facility] CBC W/Diff, Automatedon 09-14 Absolute Lymph 1.41 X10 3/uL Normal 0.83-4.51 [facility] Comment on above: Performed By: #### L 500.4050, L100.0100 #### [facility] [address] [place], [place], [id number] Absolute Neut 2.3 X10 3/uL Normal 2.0-7.7 [facility] Comment on above: Performed By: #### L 500.4050, L100.0100 #### [facility] [address] [place], [address] Basophils/100 WBC (Bld) 0.9 % Normal 0-1 [facility] Comment on above: Performed By: #### L 500.4050, L100.0100 #### [facility] [address] [place], [address] Eosinophils/100 WBC (Bld) 2.5 % Normal 0-5 [facility] Comment on above: Performed By: #### L 500.4050, L100.0100 #### [facility] [address] [place], [address] Erythrocyte distribution width (RBC) [Ratio] 13.6 % Normal 11.6-14.6 [facility] Comment on above: Performed By: #### L 500.4050, L100.0100 #### [facility] [address] [place], [address] Hematocrit (Bld) [Volume fraction] 40.1 % Normal 37-47 [facility] Comment on above: Performed By: #### L 500.4050, L100.0100 #### [facility] [address] [place], [address] Hemoglobin (Bld) [Mass/Vol] 12.6 g/dL Normal 12.0-15.0 [facility] Comment on above: Performed By: #### L 500.4050, L100.0100 #### [facility] [address] [place], [address] IG% 0.200 Normal 0.0-0.9 [facility] Comment on above: Result Comment: IG% - Immature Granulocytes (promyelocytes, myelocytes and metamyelocytes) > 1% indicates that a LEFT SHIFT is Present. Performed By: #### L 500.4050, L100.0100 #### [facility] [address] [place], [address] Lymphocytes/100 WBC (Bld) 31.8 % Normal 19-41 [facility] Comment on above: Performed By: #### L 500.4050, L100.0100 #### [facility] [address] [place], [address] MCH (RBC) [Entitic mass] 25.4 pg Low 27.0-32.0 [facility] Comment on above: Performed By: #### L 500.4050, L100.0100 #### [facility] [address] [place], [address] MCHC (RBC) [Mass/Vol] 31.4 g/dL Low 32-36 [facility] Comment on above: Performed By: #### L 500.4050, L100.0100 #### [facility] [address] [place], [address] MCV (RBC) [Entitic vol] 80.8 fL Low 81-99 [facility] Comment on above: Performed By: #### L 500.4050, L100.0100 #### [facility] [address] [place], [address] Monocytes/100 WBC (Bld) 11.9 % High 0-10 [facility] Comment on above: Performed By: #### L 500.4050, L100.0100 #### [facility] [address] [place], [address] Neutrophils/100 WBC (Bld) 52.7 % Normal 47-70 [facility] Comment on above: Performed By: #### L 500.4050, L100.0100 #### [facility] [address] [place], [address] Nucleated RBC (Bld) [#/Vol] 0 10*3/uL Normal 0-5 [facility] Comment on above: Performed By: #### L 500.4050, L100.0100 #### [facility] [address] [place], [address] Platelet mean volume (Bld) [Entitic vol] 9.0 fL Normal 6.2-12.0 [facility] Comment on above: Performed By: #### L 500.4050, L100.0100 #### [facility] [address] [place], [address] Platelets (Bld) [#/Vol] 256 10*3/uL Normal 150-450 [facility] Comment on above: Performed By: #### L 500.4050, L100.0100 #### [facility] [address] [place], [address] RBC (Bld) [#/Vol] 4.96 10*6/uL Normal 4.2-5.4 [facility] Comment on above: Performed By: #### L 500.4050, L100.0100 #### [facility] [address] [place], [address] RDW SD 39.8 fl Normal 35.1-43.9 [facility] Comment on above: Performed By: #### L 500.4050, L100.0100 #### [facility] [address] [place], [address] WBC (Bld) [#/Vol] 4.4 10*3/uL Normal 4.4-11.0 [facility] Comment on above: Performed By: #### L 500.4050, L100.0100 #### [facility] [address] [place], [address] Carbon dioxide, total [Moles /volume] in Central venous bloodOrdered By: Mariana Raphael on 10-01-2024 CO2 [Moles/Vol] 24.6 mmol/L 21.0-32.0 [facility] Chloride assayOrdered By: Msoes Raphael on 10-01-2024 Chloride [Moles/Vol] 105 mmol/L 98-108 [facility] Comprehensive Metabolic Prof ilon 10-01-2024 Albumin [Mass/Vol] 4.3 g/dL Normal 3.5-5.0 [facility] Comment on above: Performed By: #### L 500.4050, L100.0100 #### [facility] [address] [place], [address] Albumin/Globulin [Mass ratio] 1.7 {ratio} Normal 0.9-2.4 [facility] Comment on above: Performed By: #### L 500.4050, L100.0100 #### [facility] [address] [place], [address] ALK PHOS 52 U/L Normal 35-104 [facility] Comment on above: Performed By: #### L 500.4050, L100.0100 #### [facility] [address] [place], [address] ALT [Catalytic activity/Vol] 15 U/L Normal <=34 [facility] Comment on above: Performed By: #### L 500.4050, L100.0100 #### [facility] [address] [place], [address] AST [Catalytic activity/Vol] 19 U/L Normal <=31 [facility] Comment on above: Performed By: #### L 500.4050, L100.0100 #### [facility] [address] [place], [address] Bilirubin [Mass/Vol] 0.46 mg/dL Normal 0.00-1.30 [facility] Comment on above: Performed By: #### L 500.4050, L100.0100 #### [facility] [address] [place], [address] BUN/CRE 15.2 RATIO Normal 10-20 [facility] Comment on above: Performed By: #### L 500.4050, L100.0100 #### [facility] [address] [place], [address] Calcium [Mass/Vol] 9.4 mg/dL Normal 7.6-11.0 [facility] Comment on above: Performed By: #### L 500.4050, L100.0100 #### [facility] [address] [place], [address] Chloride [Moles/Vol] 105 mmol/L Normal 98-108 [facility] Comment on above: Performed By: #### L 500.4050, L100.0100 #### [facility] [address] [place], [address] CO2 [Moles/Vol] 24.6 mmol/L Normal 21.0-32.0 [facility] Comment on above: Performed By: #### L 500.4050, L100.0100 #### [facility] [address] [place], [address] Creatinine [Mass/Vol] 0.72 mg/dL Normal 0.70-1.20 [facility] Comment on above: Performed By: #### L 500.4050, L100.0100 #### [facility] [address] [place], [address] GAP 10 Normal 5-15 [facility] Comment on above: Performed By: #### L 500.4050, L100.0100 #### [facility] [address] [place], [address] GFR/1.73 sq M.predicted among non-blacks MDRD (S/P/Bld) [Vol rate/Area] 113 mL/min/{1.73_m2} Normal >60 [facility] Comment on above: Result Comment: mL/m in/1.73m2 CKD-EPI Creatinine Equation (2020) Performed By: #### L 500.4050, L100.0100 #### [facility] [address] [place], [address] Globulin (S) [Mass/Vol] 2.5 g/dL Normal 2.2-4.2 [facility] Comment on above: Performed By: #### L 500.4050, L100.0100 #### [facility] [address] [place], [address] Glucose [Mass/Vol] 85 mg/dL Normal 70-99 [facility] Comment on above: Performed By: #### L 500.4050, L100.0100 #### [facility] [address] [place], [address] Potassium [Moles/Vol] 4.2 mmol/L Normal 3.3-5.1 [facility] Comment on above: Performed By: #### L 500.4050, L100.0100 #### [facility] [address] [place], [address] Sodium [Moles/Vol] 139 mmol/L Normal 133-145 [facility] Comment on above: Performed By: #### L 500.4050, L100.0100 #### [facility] [address] [place], [address] T PROT 6.8 g/dL Normal 5.9-8.4 [facility] Comment on above: Performed By: #### L 500.4050, L100.0100 #### [facility] [address] [place], [address] Urea nitrogen [Mass/Vol] 11 mg/dL Normal 4-19 [facility] Comment on above: Performed By: #### L 500.4050, L100.0100 #### [facility] [address] [place], [address] Eosinophil percentageOrdered By: Mariana Raphael on 10-01-2024 Eosinophils/100 WBC (Bld) 2.5 % 0-5 [facility] Erythrocyte distribution wid th ratioOrdered By: Mariana Raphael on 10-01-2024 Erythrocyte distribution width (RBC) [Ratio] 13.6 % 11.6-14.6 [facility] Erythrocyte distribution wid th standard deviationOrdered By: Mariana Raphael on 10-01-2024 Erythrocyte distribution width (RBC) [Ratio] 39.8 fl 35.1-43.9 [facility] Glomerular filtration rate ( GFR) estimation/1.73 sq m using serum, plasma, or whole bOrdered By: Mariana Raphael on 10-01-2024 GFR/1.73 sq M.predicted among non-blacks MDRD (S/P/Bld) [Vol rate/Area] 113 mL/min/{1.73_m2} >60 [facility] Comment on above: mL/min/1.73m2 CKD-EP I Creatinine Equation (2020) Hematocrit Auto (Bld) [Volum e fraction]Ordered By: Mariana Raphael on 10-01-2024 Hematocrit (Bld) [Volume fraction] 40.1 % 37-47 [facility] Hemoglobin measurementOrdere d By: Mariana Raphael on 10-01-2024 Hemoglobin (Bld) [Mass/Vol] 12.6 g/dL 12.0-15.0 [facility] Immature granulocytes/100 WB C Auto (Bld)Ordered By: Mariana Raphael 10-01-2024 Immature granulocytes/100 WBC (Bld) 0.200 % 0.0-0.9 [facility] Comment on above: IG% - Immature Granu locytes (promyelocytes, myelocytes and metamyelocytes) > 1% indicates that a LEFT SHIFT is Present. Laboratory - Chemistry and C hemistry - challengeOrdered By: Mariana Raphael on 10-01-2024 AST [Catalytic activity/Vol] 19 U/L <32 [facility] MCV (mean corpuscular volume ) determinationOrdered By: Mariana Raphael 10-01-2024 MCV (RBC) [Entitic vol] 80.8 fL Low 81-99 [facility] Mean corpuscular hemoglobin (MCH) determinationOrdered By: Mariana Raphael on 10-01-2024 MCH (RBC) [Entitic mass] 25.4 pg Low 27.0-32.0 [facility] Mean corpuscular hemoglobin concentration (MCHC) determinationOrdered By: Mariana Raphael on 10-01-2024 MCHC (RBC) [Mass/Vol] 31.4 g/dL Low 32-36 [facility] Mean platelet volume determi nationOrdered By: Mariana Raphael on 10-01-2024 Platelet mean volume (Bld) [Entitic vol] 9.0 fL 6.2-12.0 [facility] Monocyte percentageOrdered B y: Mariana Raphael on 10-01-2024 Monocytes/100 WBC (Bld) 11.9 % High 0-10 [facility] Neutrophil percentageOrdered By: Mariana Raphael on 10-01-2024 Neutrophils/100 WBC (Bld) 52.7 % 47-70 [facility] Nucleated red blood cell per centageOrdered By: Mariana Raphael on 10-01-2024 Nucleated RBC/100 WBC (Bld) [Ratio] 0 % 0-5 [facility] Platelet countOrdered By: Moses Raphael on 10-01-2024 Platelets (Bld) [#/Vol] 256 10*3/uL 150-450 [facility] Potassium measurement (mass/ volume)Ordered By: Mariana Raphael on 10-01-2024 Potassium (Unsp spec) [Mass/Vol] 4.2 mmol/L 3.3-5.1 [facility] RBC Auto (Bld) [#/Vol]Ordere d By: Mariana Raphael on 10-01-2024 RBC (Bld) [#/Vol] 4.96 10*6/uL 4.2-5.4 [facility] Serum creatinine measurement (mass/volume)Ordered By: Mariana Raphael on 10-01-2024 Creatinine [Mass/Vol] 0.72 mg/dL 0.70-1.20 [facility] Serum globulin measurementOr dered By: Mariana Raphael on 10-01-2024 Globulin (S) [Mass/Vol] 2.5 g/dL 2.2-4.2 [facility] Serum glucose measurement (m ass/volume)Ordered By: Mariana Raphael on 10-01-2024 Glucose [Mass/Vol] 85 mg/dL 70-99 [facility] Serum or plasma alanine temple otransferase (ALT) measurementOrdered By: Mariana Raphael on 10-01-2024 ALT [Catalytic activity/Vol] 15 U/L <35 [facility] Serum or plasma albumin andrew urement (mass/volume)Ordered By: Mariana Raphael on 10-01-2024 Albumin [Mass/Vol] 4.3 g/dL 3.5-5.0 [facility] Serum or plasma albumin/glob ulin mass ratioOrdered By: Mariana Raphael on 10-01-2024 Albumin/Globulin [Mass ratio] 1.7 {ratio} 0.9-2.4 [facility] Serum or plasma alkaline peter sphatase measurementOrdered By: Mariana Raphael on 10-01-2024 ALP [Catalytic activity/Vol] 52 U/L 35-104 [facility] Serum or plasma calcium andrew urement (mass/volume)Ordered By: Mariana Raphael on 10-01-2024 Calcium [Mass/Vol] 9.4 mg/dL 7.6-11.0 [facility] Serum or plasma urea nitroge n measurement (mass/volume)Ordered By: Mariana Raphael on 10-01-2024 Urea nitrogen [Mass/Vol] 11 mg/dL 4-19 [facility] Sodium levelOrdered By: Leah Raphael on 10-01-2024 Sodium [Moles/Vol] 139 mmol/L 133-145 [facility] Total proteinOrdered By: Laura Raphael on 10-01-2024 Protein [Mass/Vol] 6.8 g/dL 5.9-8.4 [facility] White blood cell (WBC) count Ordered By: Mariana Raphael on 10-01-2024 WBC (Bld) [#/Vol] 4.4 10*3/uL 4.4-11.0 [facility] PAP IG HPV APTIMA 16/,45on 07-19-2024 ADEQ Comment Normal . [facility] Comment on above: Order Comment: Speci men Comment: [id number] Specimen Comment: No. of containers..01 ThinPrep Vial Result Comment: Sati sfactory for evaluation. No endocervical component is identified. Performed By: #### L 7400.0280 #### [facility] [address] [place], [address] COMM . Normal . [facility] Comment on above: Order Comment: Speci men Comment: [id number] Specimen Comment: No. of containers..01 ThinPrep Vial Performed By: #### L 7400.0280 #### [facility] [address] [place], [address] COMMENT Comment Normal . [facility] Comment on above: Order Comment: Speci men Comment: [id number] Specimen Comment: No. of containers..01 ThinPrep Vial Result Comment: This liquid based ThinPrep(R) pap test was screened with the use of an image guided system. Performed By: #### L 7400.0280 #### [facility] [address] [place], [address] DIAG Comment Normal . [facility] Comment on above: Order Comment: Speci men Comment: [id number] Specimen Comment: No. of containers..01 ThinPrep Vial Result Comment: NEGA TIVE FOR INTRAEPITHELIAL LESION OR MALIGNANCY. Performed By: #### L 7400.0280 #### [facility] [address] [place], [address] HPV APTIMA, HR Negative Normal Negative [facility] Comment on above: Order Comment: Speci men Comment: [id number] Specimen Comment: No. of containers..01 ThinPrep Vial Result Comment: This nucleic acid amplification test detects fourteen high- risk HPV types (16,18,31,33,35,39,45,51,52,56,58,59,66,68) without differentiation. Performed By: #### L 7400.0280 #### [facility] [address] [place], [place], [id number] HPV Steffany Rfx Comment Normal . [facility] Comment on above: Order Comment: Speci men Comment: [id number] Specimen Comment: No. of containers..01 ThinPrep Vial Result Comment: Crit eria not met, HPV Genotype not performed. Performed at: WB - [facility] [id number] Company Controller: Asha Olsen MD, Phone: [phone] Performed at: =G - [facility] [address] [id number] Company Controller: Asha Olsne MD, Phone: [phone] Performed By: #### L 7400.0280 #### [facility] [address] [place], [place], [id number] PAPSMR Comment Normal . [facility] Comment on above: Order Comment: Speci men Comment: [id number] Specimen Comment: No. of containers..01 ThinPrep Vial Result Comment: The Pap smear is a screening test designed to aid in the detection of premalignant and malignant conditions of the uterine cervix. It is not a diagnostic procedure and should not be used as the sole means of detecting cervical cancer. Both false-positive and false-negative reports do occur. Performed By: #### L 7400.0280 #### [facility] [address] [place], [place], [address] PERFORM Comment Normal . [facility] Comment on above: Order Comment: Speci men Comment: [id number] Specimen Comment: No. of containers..01 ThinPrep Vial Result Comment: Satya Dewey Aws Software Development Engineer (ASCP) Performed By: #### L 7400.0280 #### [facility] [address] [place], [place], [address] Cervical or vaginal specimen microscopic examination by liquid based cytology (reportOrdered By: Barbara Bartlett on 07-14-2024 Cytology report Cyto stain.thin prep Doc (Cvx/Vag) Comment . [facility] Comment on above: Criteria not met, HP V Genotype not performed.Performed at: - [facility] [place], [place] [id number] Director: Asha Olsen MD, Phone: [phone] at: = - [facility] [place], [place] [id number] Director: Asha Olsen MD, Phone: [phone] Cervical or vagninal specime n microscopic examination by cytology stain (reported asOrdered By: Barbara Bartlett on 07-14-2024 Cytology report Cyto stain Doc (Cvx/Vag) Comment . [facility] Comment on above: The Pap smear is a s creening test designed to aid in thedetection of premalignant and malignant conditions of theuterine cervix. It is not a diagnostic procedure andshould not be used as the sole means of detecting cervicalcancer. Both false-positive and false-negative reports dooccur. Detection in cervical specim en of any of human papilloma virus (HPV) 16, 18, 31, 33,Ordered By: Barbara Bartlett on 07-14-2024 HPV 16+18+31+33+35+39+45+51 +52+56+58+59+66+68 DNA Probe+sig amp Ql (Cvx) Negative Negative [facility] Comment on above: This nucleic acid am plification test detects fourteen high-risk HPV types (16,18,31,33,35,39,45,51,52,56,58,59,66,68)without differentiation. Laboratory - CytologyOrdered By: Barbara Bartlett on 07-14-2024 Aws Software Development Engineer Cyto stain Nom (Cvx/Vag) [ID] Comment . [facility] Comment on above: Derek Dewey, Cyto logist (ASCP) Laboratory - Miscellaneous t estsOrdered By: Barbara Bartlett on 07-14-2024 Service comment (Unsp spec) [Interp] . . [facility] No Panel InformationOrdered By: Barbara Bartlett on 07-14-2024 Pap Smear Specimen Adequacy Comment . [facility] Comment on above: Satisfactory for stan luation. No endocervical component is identified. 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 Is patient in pain?: No Allergies amoxicillin trihydrate (From Amoxil) Allergy (Verified 07/14/24 14:40) Rash Medications ???Medication ???Instructions ???Recorded ???Confirmed ???Type vits,calcium no.78-iron 1 tab PO DAILY 09/26/16 07/14/24 History fumarate-folic acid 29 mg-1 mg tablet (Prenatabs FA) hydroxychloroquine 200 mg tablet 200 mg PO DAILY AUTO IMMUNE 07/14/24 History (Plaquenil) aspirin 81 mg tablet,delayed 81 mg PO DAILY 07/14/23 07/14/24 H istory release [facility] Medical History 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 of abnormality in previous , currently Vaginal delivery (spontaneous vaginal delivery) 40 weeks gestation of Surgical History Sayre teeth removed Family History Other Cholelithiasis Social History adopted: No household members: spouse and children number of children: 4 current occupational status: unemployed 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 Date Name GA/Weeks Outcome Route Bth Weight Infant Gen Labor Lgth Anesthesia Del Locatn Provider FOB 09/27/16 Azam 41 live - full term 7lbs 7oz Male epidural [facility] Olguin Danny 03/30/19 Sohan 40 live - full term 7lb 3 oz Male epidural [facility] olmes Danny 02/19/21 Rad 38 live - full term 6lbs 14 oz Male [facility] Olguin -Danny 06/01/23 Shadiana 39 live - full term 6lbs 15oz Male [facility] nde Ryan Fam [facility] Encounter for routine gynecological examination Details: KENDALL RICE is a 34 year old who presents for annual exam. She reports more incidence of moles showing up on her skin with skin tags. Otherwise no issues or concerns; continues to breastfeed and doing well with this. Last PAP: 2021; normal; no HPV ran History of abnormal PAP: no. Last mammogram: age 41 History of abnormal mammogram: n/a Colon cancer screening: age 46. Other preventative health care screenings: Jocelyn Arias; PCP. Female Reproductive History Associated symptoms: still . ROS Const Constitutional: Denies chills, fatigue, fever(s), headache(s) or weight loss Eyes Eyes: Denies change in vision ENT ENT: Denies dizziness Resp Resp: Denies cough GI GI: Denies abdominal pain, constipation or nausea : Denies difficulty voiding, dysuria, hematuria, pelvic pain, prolapse symptoms, urinary incontinence, vaginal discharge, vaginal dryness, vaginal odor or vaginal pruritus Skin Skin/Breast: Denies alopecia or rash Neuro Neuro: Denies dizziness Psych Psych: Denies anxiety or depression Endo Endo: Denies cold intolerance, excessive sweating or heat intolerance Exam Const General: cooperative, healthy appearing, comfortable, no acute distress, well groomed and well hydrated Nutritional Appearance: well nourished Orientation: alert, awake and oriented x3 HENMT Head: normal to inspection and normocephalic Ears: hearing grossly normal bilaterally and external ears normal Nose: external nose normal Face and sinus: normal facial exam Eyes General: appearance normal, both eyes and all related structures Neck Neck: normal visual inspection, full ROM and no lymphadenopathy Thyroid: thyroid normal Chest Chest palpation inspection: normal inspection of the chest Breast inspection: normal inspection of the breasts and normal inspection of the axillae Breast palpation: normal palpation of the breasts, normal palpation of the axillae (more content not included)... Normal [facility] Absolute lymphocyte countOrd ered By: Mariana Raphael on 07-12-2024 Lymphocytes Auto (Unsp spec) [#/Vol] 1.31 10*3/uL 0.83-4.51 [facility] Absolute neutrophil countOrd ered By: Marianaherb Raphael on 07-12-2024 Neutrophils (Bld) [#/Vol] 2.2 10*3/uL 2.0-7.7 [facility] Anion gap in Serum or Plasma Ordered By: Mariana Raphael on 07-12-2024 Anion gap [Moles/Vol] 9 mmol/L 5-15 [facility] Automated lymphocyte count a s percentage of total leukocytesOrdered By: Mariana Raphael on 07-12-2024 Lymphocytes/100 WBC Auto (Unsp spec) 32.3 % 19-41 [facility] BUN/creatinine ratioOrdered By: Mariana Raphael on 07-12-2024 Urea nitrogen/Creatinine [Mass ratio] 14.1 mg/mg 10-20 [facility] Basophil percentageOrdered B y: Mariana Raphael on 07-12-2024 Basophils/100 WBC (Bld) 0.7 % 0-1 [facility] Bilirubin, totalOrdered By: Mariana Raphael on 07-12-2024 Bilirubin [Mass/Vol] 0.27 mg/dL 0.00-1.30 [facility] CBC W/Diff, Automatedon 06-16 Absolute Lymph 1.31 X10 3/uL Normal 0.83-4.51 [facility] Comment on above: Performed By: #### L 100.0100, L500.4050 #### [facility] [address] [place], [address] Absolute Neut 2.2 X10 3/uL Normal 2.0-7.7 [facility] Comment on above: Performed By: #### L 100.0100, L500.4050 #### [facility] [address] [place], [address] Basophils/100 WBC (Bld) 0.7 % Normal 0-1 [facility] Comment on above: Performed By: #### L 100.0100, L500.4050 #### [facility] [address] [place], [address] Eosinophils/100 WBC (Bld) 1.7 % Normal 0-5 [facility] Comment on above: Performed By: #### L 100.0100, L500.4050 #### [facility] [address] [place], [address] Erythrocyte distribution width (RBC) [Ratio] 13.2 % Normal 11.6-14.6 [facility] Comment on above: Performed By: #### L 100.0100, L500.4050 #### [facility] [address] [place], [address] Hematocrit (Bld) [Volume fraction] 41.5 % Normal 37-47 [facility] Comment on above: Performed By: #### L 100.0100, L500.4050 #### [facility] [address] [place], [address] Hemoglobin (Bld) [Mass/Vol] 13.1 g/dL Normal 12.0-15.0 [facility] Comment on above: Performed By: #### L 100.0100, L500.4050 #### [facility] [address] [place], [address] IG% 0.200 Normal 0.0-0.9 [facility] Comment on above: Result Comment: IG% - Immature Granulocytes (promyelocytes, myelocytes and metamyelocytes) > 1% indicates that a LEFT SHIFT is Present. Performed By: #### L 100.0100, L500.4050 #### [facility] [address] [place], [address] Lymphocytes/100 WBC (Bld) 32.3 % Normal 19-41 [facility] Comment on above: Performed By: #### L 100.0100, L500.4050 #### [facility] [address] [place], [address] MCH (RBC) [Entitic mass] 25.4 pg Low 27.0-32.0 [facility] Comment on above: Performed By: #### L 100.0100, L500.4050 #### [facility] [address] [place], [address] MCHC (RBC) [Mass/Vol] 31.6 g/dL Low 32-36 [facility] Comment on above: Performed By: #### L 100.0100, L500.4050 #### [facility] [address] [place], [address] MCV (RBC) [Entitic vol] 80.6 fL Low 81-99 [facility] Comment on above: Performed By: #### L 100.0100, L500.4050 #### [facility] [address] [place], [address] Monocytes/100 WBC (Bld) 11.3 % High 0-10 [facility] Comment on above: Performed By: #### L 100.0100, L500.4050 #### [facility] [address] [place], [address] Neutrophils/100 WBC (Bld) 53.8 % Normal 47-70 [facility] Comment on above: Performed By: #### L 100.0100, L500.4050 #### [facility] [address] [place], [address] Nucleated RBC (Bld) [#/Vol] 0 10*3/uL Normal 0-5 [facility] Comment on above: Performed By: #### L 100.0100, L500.4050 #### [facility] [address] [place], [address] Platelet mean volume (Bld) [Entitic vol] 9.3 fL Normal 6.2-12.0 [facility] Comment on above: Performed By: #### L 100.0100, L500.4050 #### [facility] [address] [place], [address] Platelets (Bld) [#/Vol] 272 10*3/uL Normal 150-450 [facility] Comment on above: Performed By: #### L 100.0100, L500.4050 #### [facility] [address] [place], [address] RBC (Bld) [#/Vol] 5.15 10*6/uL Normal 4.2-5.4 [facility] Comment on above: Performed By: #### L 100.0100, L500.4050 #### [facility] [address] [place], [address] RDW SD 38.6 fl Normal 35.1-43.9 [facility] Comment on above: Performed By: #### L 100.0100, L500.4050 #### [facility] [address] [place], [address] WBC (Bld) [#/Vol] 4.1 10*3/uL Low 4.4-11.0 [facility] Comment on above: Performed By: #### L 100.0100, L500.4050 #### [facility] [address] [place], [address] Carbon dioxide, total [Moles /volume] in Central venous bloodOrdered By: Mariana Raphael on 07-12-2024 CO2 [Moles/Vol] 27.1 mmol/L 21.0-32.0 [facility] Chloride assayOrdered By: Moses Raphael on 07-12-2024 Chloride [Moles/Vol] 104 mmol/L 98-108 [facility] Comprehensive Metabolic Prof ilon 07-12-2024 Albumin [Mass/Vol] 4.3 g/dL Normal 3.5-5.0 [facility] Comment on above: Performed By: #### L 100.0100, L500.4050 #### [facility] [address] [place], [address] Albumin/Globulin [Mass ratio] 1.6 {ratio} Normal 0.9-2.4 [facility] Comment on above: Performed By: #### L 100.0100, L500.4050 #### [facility] [address] [place], [address] ALK PHOS 71 U/L Normal 35-104 [facility] Comment on above: Performed By: #### L 100.0100, L500.4050 #### [facility] [address] [place], [address] ALT [Catalytic activity/Vol] 28 U/L Normal <=34 [facility] Comment on above: Performed By: #### L 100.0100, L500.4050 #### [facility] [address] [place], [address] AST [Catalytic activity/Vol] 24 U/L Normal <=31 [facility] Comment on above: Performed By: #### L 100.0100, L500.4050 #### [facility] [address] [place], [address] Bilirubin [Mass/Vol] 0.27 mg/dL Normal 0.00-1.30 [facility] Comment on above: Performed By: #### L 100.0100, L500.4050 #### [facility] [address] [place], [address] BUN/CRE 14.1 RATIO Normal 10-20 [facility] Comment on above: Performed By: #### L 100.0100, L500.4050 #### [facility] [address] [place], [address] Calcium [Mass/Vol] 9.5 mg/dL Normal 7.6-11.0 [facility] Comment on above: Performed By: #### L 100.0100, L500.4050 #### [facility] [address] [place], [address] Chloride [Moles/Vol] 104 mmol/L Normal 98-108 [facility] Comment on above: Performed By: #### L 100.0100, L500.4050 #### [facility] [address] [place], [address] CO2 [Moles/Vol] 27.1 mmol/L Normal 21.0-32.0 [facility] Comment on above: Performed By: #### L 100.0100, L500.4050 #### [facility] [address] [place], [address] Creatinine [Mass/Vol] 0.68 mg/dL Low 0.70-1.20 [facility] Comment on above: Performed By: #### L 100.0100, L500.4050 #### [facility] [address] [place], [address] GAP 9 Normal 5-15 [facility] Comment on above: Performed By: #### L 100.0100, L500.4050 #### [facility] [address] [place], [address] GFR/1.73 sq M.predicted among non-blacks MDRD (S/P/Bld) [Vol rate/Area] 118 mL/min/{1.73_m2} Normal >60 [facility] Comment on above: Result Comment: mL/m in/1.73m2 CKD-EPI Creatinine Equation (2020) Performed By: #### L 100.0100, L500.4050 #### [facility] [address] [place], [address] Globulin (S) [Mass/Vol] 2.7 g/dL Normal 2.2-4.2 [facility] Comment on above: Performed By: #### L 100.0100, L500.4050 #### [facility] [address] [place], [address] Glucose [Mass/Vol] 72 mg/dL Normal 70-99 [facility] Comment on above: Performed By: #### L 100.0100, L500.4050 #### [facility] [address] [place], [address] Potassium [Moles/Vol] 4.2 mmol/L Normal 3.3-5.1 [facility] Comment on above: Performed By: #### L 100.0100, L500.4050 #### [facility] [address] [place], [address] Sodium [Moles/Vol] 141 mmol/L Normal 133-145 [facility] Comment on above: Performed By: #### L 100.0100, L500.4050 #### [facility] [address] [place], [address] T PROT 7.0 g/dL Normal 5.9-8.4 [facility] Comment on above: Performed By: #### L 100.0100, L500.4050 #### [facility] [address] [place], [place], [id number] Urea nitrogen [Mass/Vol] 10 mg/dL Normal 4-19 [facility] Comment on above: Performed By: #### L 100.0100, L500.4050 #### [facility] [address] [place], [place], [id number] Eosinophil percentageOrdered By: Mariana Raphael on 07-12-2024 Eosinophils/100 WBC (Bld) 1.7 % 0-5 [facility] Erythrocyte distribution wid th ratioOrdered By: [facility] Erythrocyte distribution width (RBC) [Ratio] 13.2 % 11.6-14.6 [facility] Erythrocyte distribution wid th standard deviationOrdered By: [facility] on 07-12-2024 Erythrocyte distribution width (RBC) [Ratio] 38.6 fl 35.1-43.9 [facility] Glomerular filtration rate ( GFR) estimation/1.73 sq m using serum, plasma, or whole bOrdered By: Marianaherb Raphael on 07-12-2024 GFR/1.73 sq M.predicted among non-blacks MDRD (S/P/Bld) [Vol rate/Area] 118 mL/min/{1.73_m2} >60 [facility] Comment on above: mL/min/1.73m2 CKD-EP I Creatinine Equation (2020) Hematocrit Auto (Bld) [Volum e fraction]Ordered By: [facility] Donavon on 07-12-2024 Hematocrit (Bld) [Volume fraction] 41.5 % 37-47 [facility] Hemoglobin measurementOrdere d By: Mariana Raphael on 07-12-2024 Hemoglobin (Bld) [Mass/Vol] 13.1 g/dL 12.0-15.0 [facility] Immature granulocytes/100 WB C Auto (Bld)Ordered By: Mariana Raphael on 07-12-2024 Immature granulocytes/100 WBC (Bld) 0.200 % 0.0-0.9 [facility] Comment on above: IG% - Immature Granu locytes (promyelocytes, myelocytes and metamyelocytes) > 1% indicates that a LEFT SHIFT is Present. Laboratory - Chemistry and C hemistry - challengeOrdered By: Mariana Raphael on 07-12-2024 AST [Catalytic activity/Vol] 24 U/L <32 [facility] MCV (mean corpuscular volume ) determinationOrdered By: Mariana Raphael on 07-12-2024 MCV (RBC) [Entitic vol] 80.6 fL Low 81-99 [facility] Mean corpuscular hemoglobin (MCH) determinationOrdered By: Mariana Raphael on 07-12-2024 MCH (RBC) [Entitic mass] 25.4 pg Low 27.0-32.0 [facility] Mean corpuscular hemoglobin concentration (MCHC) determinationOrdered By: Mariana Raphael on 07-12-2024 MCHC (RBC) [Mass/Vol] 31.6 g/dL Low 32-36 [facility] Mean platelet volume determi nationOrdered By: Mairana Raphael on 07-12-2024 Platelet mean volume (Bld) [Entitic vol] 9.3 fL 6.2-12.0 [facility] Monocyte percentageOrdered B y: Mariana Raphael on 07-12-2024 Monocytes/100 WBC (Bld) 11.3 % High 0-10 [facility] Neutrophil percentageOrdered By: Mariana Raphael on 07-12-2024 Neutrophils/100 WBC (Bld) 53.8 % 47-70 [facility] Nucleated red blood cell per centageOrdered By: Mariana Raphael on 07-12-2024 Nucleated RBC/100 WBC (Bld) [Ratio] 0 % 0-5 [facility] Platelet countOrdered By: Moses Raphael on 07-12-2024 Platelets (Bld) [#/Vol] 272 10*3/uL 150-450 [facility] Potassium measurement (mass/ volume)Ordered By: Mariana Raphael on 07-12-2024 Potassium (Unsp spec) [Mass/Vol] 4.2 mmol/L 3.3-5.1 [facility] RBC Auto (Bld) [#/Vol]Ordere d By: Mariana Raphael on 07-12-2024 RBC (Bld) [#/Vol] 5.15 10*6/uL 4.2-5.4 [facility] Serum creatinine measurement (mass/volume)Ordered By: Mariana Raphael on 07-12-2024 Creatinine [Mass/Vol] 0.68 mg/dL Low 0.70-1.20 [facility] Serum globulin measurementOr dered By: Mariana Raphael on 07-12-2024 Globulin (S) [Mass/Vol] 2.7 g/dL 2.2-4.2 [facility] Serum glucose measurement (m ass/volume)Ordered By: Mariana Raphael on 07-12-2024 Glucose [Mass/Vol] 72 mg/dL 70-99 [facility] Serum or plasma alanine temple otransferase (ALT) measurementOrdered By: Mariana Raphael on 07-12-2024 ALT [Catalytic activity/Vol] 28 U/L <35 [facility] Serum or plasma albumin andrew urement (mass/volume)Ordered By: Mariana Raphael on 07-12-2024 Albumin [Mass/Vol] 4.3 g/dL 3.5-5.0 [facility] Serum or plasma albumin/glob ulin mass ratioOrdered By: Mariana Raphael on 07-12-2024 Albumin/Globulin [Mass ratio] 1.6 {ratio} 0.9-2.4 [facility] Serum or plasma alkaline peter sphatase measurementOrdered By: Mariana Raphael on 07-12-2024 ALP [Catalytic activity/Vol] 71 U/L 35-104 [facility] Serum or plasma calcium andrew urement (mass/volume)Ordered By: Mariana Raphael on 07-12-2024 Calcium [Mass/Vol] 9.5 mg/dL 7.6-11.0 [facility] Serum or plasma urea nitroge n measurement (mass/volume)Ordered By: Mariana Raphael on 07-12-2024 Urea nitrogen [Mass/Vol] 10 mg/dL 4-19 [facility] Sodium levelOrdered By: Leah Raphale on 07-12-2024 Sodium [Moles/Vol] 141 mmol/L 133-145 [facility] Total proteinOrdered By: Laura Raphael on 07-12-2024 Protein [Mass/Vol] 7.0 g/dL 5.9-8.4 [facility] White blood cell (WBC) count Ordered By: Mariana Raphael on 07-12-2024 WBC (Bld) [#/Vol] 4.1 10*3/uL Low 4.4-11.0 [facility] Absolute lymphocyte countOrd ered By: [facility] Donavon on 04-21-2024 Lymphocytes Auto (Unsp spec) [#/Vol] 1.39 10*3/uL 0.83-4.51 [facility] Absolute neutrophil countOrd ered By: [facility] Don[facility]on on 04-21-2024 Neutrophils (Bld) [#/Vol] 2.6 10*3/uL 2.0-7.7 [facility] Albumin to globulin ratioOrd ered By: [facility] Albumin/Globulin [Mass ratio] 1.2 {ratio} 0.9-2.4 [facility] Automated lymphocyte count a s percentage of total leukocytesOrdered By: Mariana Raphael on 04-21-2024 Lymphocytes/100 WBC Auto (Unsp spec) 29.8 % 19-41 [facility] Basophil percentageOrdered B y: Mariana Raphael on 04-21-2024 Basophils/100 WBC (Bld) 0.9 % 0-1 [facility] Bilirubin, totalOrdered By: [facility] on 04-21-2024 Bilirubin [Mass/Vol] 0.60 mg/dL 0.20-1.00 [facility] Comment on above: For patients on eltr ombopag therapy, use of Dimension [place] TBIL is not recommended. Blood urea nitrogen (BUN)/cr eatinine ratioOrdered By: [facility] Don[facility] on 04-21-2024 Urea nitrogen/Creatinine [Mass ratio] 21.3 mg/mg High 10-20 [facility] CBC W/Diff, Automatedon Absolute Lymph 1.39 X10 3/uL Normal 0.83-4.51 [facility] Comment on above: Performed By: #### L 100.0100, L500.4050 #### [facility] [address] [place], [place] [address], [address] Absolute Neut 2.6 X10 3/uL Normal 2.0-7.7 [facility] Comment on above: Performed By: #### L 100.0100, L500.4050 #### [facility] [address] [place], [address] Basophils/100 WBC (Bld) 0.9 % Normal 0-1 [facility] Comment on above: Performed By: #### L 100.0100, L500.4050 #### [facility] [address] [place], [address] Eosinophils/100 WBC (Bld) 1.9 % Normal 0-5 [facility] Comment on above: Performed By: #### L 100.0100, L500.4050 #### [facility] [address] [place], [address] Erythrocyte distribution width (RBC) [Ratio] 13.6 % Normal 11.6-14.6 [facility] Comment on above: Performed By: #### L 100.0100, L500.4050 #### [facility] [address] [place], [address] Hematocrit (Bld) [Volume fraction] 44.6 % Normal 37-47 [facility] Comment on above: Performed By: #### L 100.0100, L500.4050 #### [facility] [address] [place], [address] Hemoglobin (Bld) [Mass/Vol] 13.6 g/dL Normal 12.0-15.0 [facility] Comment on above: Performed By: #### L 100.0100, L500.4050 #### [facility] [address] [place], [address] IG% 0.200 Normal 0.0-0.9 [facility] Comment on above: Result Comment: IG% - Immature Granulocytes (promyelocytes, myelocytes and metamyelocytes) > 1% indicates that a LEFT SHIFT is Present. Performed By: #### L 100.0100, L500.4050 #### [facility] [address] [place], [address] Lymphocytes/100 WBC (Bld) 29.8 % Normal 19-41 [facility] Comment on above: Performed By: #### L 100.0100, L500.4050 #### [facility] [address] [place], [address] MCH (RBC) [Entitic mass] 24.9 pg Low 27.0-32.0 [facility] Comment on above: Performed By: #### L 100.0100, L500.4050 #### [facility] [address] [place], [address] MCHC (RBC) [Mass/Vol] 30.5 g/dL Low 32-36 [facility] Comment on above: Performed By: #### L 100.0100, L500.4050 #### [facility] [address] [place], [address] MCV (RBC) [Entitic vol] 81.7 fL Normal 81-99 [facility] Comment on above: Performed By: #### L 100.0100, L500.4050 #### [facility] [address] [place], [address] Monocytes/100 WBC (Bld) 11.4 % High 0-10 [facility] Comment on above: Performed By: #### L 100.0100, L500.4050 #### [facility] [address] [place], [address] Neutrophils/100 WBC (Bld) 55.8 % Normal 47-70 [facility] Comment on above: Performed By: #### L 100.0100, L500.4050 #### [facility] [address] [place], [address] Nucleated RBC (Bld) [#/Vol] 0 10*3/uL Normal 0-5 [facility] Comment on above: Performed By: #### L 100.0100, L500.4050 #### [facility] [address] [place], [address] Platelet mean volume (Bld) [Entitic vol] 9.1 fL Normal 6.2-12.0 [facility] Comment on above: Performed By: #### L 100.0100, L500.4050 #### [facility] [address] [place], [address] Platelets (Bld) [#/Vol] 275 10*3/uL Normal 150-450 [facility] Comment on above: Performed By: #### L 100.0100, L500.4050 #### [facility] [address] [place], [address] RBC (Bld) [#/Vol] 5.46 10*6/uL High 4.2-5.4 [facility] Comment on above: Performed By: #### L 100.0100, L500.4050 #### [facility] [address] [place], [address] RDW SD 40.3 fl Normal 35.1-43.9 [facility] Comment on above: Performed By: #### L 100.0100, L500.4050 #### [facility] [address] [place], [address] WBC (Bld) [#/Vol] 4.7 10*3/uL Normal 4.4-11.0 [facility] Comment on above: Performed By: #### L 100.0100, L500.4050 #### [facility] [address] [place], [address] Carbon dioxide measurementOr dered By: Mariana Raphael on 04-21-2024 CO2 [Moles/Vol] 29.0 mmol/L 21.0-32.0 [facility] Chloride measurementOrdered By: Mariana Raphael on 04-21-2024 Chloride [Moles/Vol] 107 mmol/L 98-107 [facility] Comprehensive Metabolic Prof ilon 04-21-2024 Albumin [Mass/Vol] 4.3 g/dL Normal 3.2-5.0 [facility] Comment on above: Performed By: #### L 100.0100, L500.4050 #### [facility] [address] [place], [address] Albumin/Globulin [Mass ratio] 1.2 {ratio} Normal 0.9-2.4 [facility] Comment on above: Performed By: #### L 100.0100, L500.4050 #### [facility] [address] [place], [address] ALK P 66 U/L Normal 45-117 [facility] Comment on above: Performed By: #### L 100.0100, L500.4050 #### [facility] [address] [place], [address] ALT [Catalytic activity/Vol] 29 U/L Normal 13-56 [facility] Comment on above: Performed By: #### L 100.0100, L500.4050 #### [facility] [address] [place], [address] AST [Catalytic activity/Vol] 16 U/L Normal 15-37 [facility] Comment on above: Performed By: #### L 100.0100, L500.4050 #### [facility] [address] [place], [address] Bilirubin [Mass/Vol] 0.60 mg/dL Normal 0.20-1.00 [facility] Comment on above: Result Comment: For patients on eltrombopag therapy, use of Dimension [place] TBIL is not recommended. Performed By: #### L 100.0100, L500.4050 #### [facility] [address] [place], [address] BUN/CRE 21.3 RATIO High 10-20 [facility] Comment on above: Performed By: #### L 100.0100, L500.4050 #### [facility] [address] [place], [address] CA,Total 9.7 mg/dL Normal 8.5-10.1 [facility] Comment on above: Performed By: #### L 100.0100, L500.4050 #### [facility] [address] [place], [address] Chloride [Moles/Vol] 107 mmol/L Normal 98-107 [facility] Comment on above: Performed By: #### L 100.0100, L500.4050 #### [facility] [address] [place], [address] CO2 [Moles/Vol] 29.0 mmol/L Normal 21.0-32.0 [facility] Comment on above: Performed By: #### L 100.0100, L500.4050 #### [facility] [address] [place], [address] Creatinine [Mass/Vol] 0.75 mg/dL Normal 0.55-1.02 [facility] Comment on above: Result Comment: The validity of the calculated GFR GFRAA in patients over 70 years has not been determined. Clinical correlation is essential. Performed By: #### L 100.0100, L500.4050 #### [facility] [address] [place], [address] EST GFR - AA 114 mL/min Normal >60 [facility] Comment on above: Result Comment: Afri can Somali GFR Calc Performed By: #### L 100.0100, L500.4050 #### [facility] [address] [place], [address] GAP 5 Normal 5-15 [facility] Comment on above: Performed By: #### L 100.0100, L500.4050 #### [facility] [address] [place], [address] GFR/1.73 sq M.predicted among non-blacks MDRD (S/P/Bld) [Vol rate/Area] 94 mL/min/{1.73_m2} Normal >60 [facility] Comment on above: Result Comment: Non- GFR Calc Performed By: #### L 100.0100, L500.4050 #### [facility] [address] [place], [address] Globulin (S) [Mass/Vol] 3.6 g/dL Normal 2.2-4.2 [facility] Comment on above: Performed By: #### L 100.0100, L500.4050 #### [facility] [address] [place], [address] Glucose [Mass/Vol] 82 mg/dL Normal 74-106 [facility] Comment on above: Performed By: #### L 100.0100, L500.4050 #### [facility] [address] [place], [address] Potassium [Moles/Vol] 4.2 mmol/L Normal 3.5-5.1 [facility] Comment on above: Performed By: #### L 100.0100, L500.4050 #### [facility] [address] [place], [address] Sodium [Moles/Vol] 141 mmol/L Normal 136-145 [facility] Comment on above: Performed By: #### L 100.0100, L500.4050 #### [facility] [address] [place], [address] T PROT 7.9 g/dL Normal 6.4-8.2 [facility] Comment on above: Performed By: #### L 100.0100, L500.4050 #### [facility] [address] [place], [address] Urea nitrogen [Mass/Vol] 16 mg/dL Normal 7-18 [facility] Comment on above: Performed By: #### L 100.0100, L500.4050 #### [facility] [address] [place], [address] Eosinophil percentageOrdered By: Mariana Raphael on 04-21-2024 Eosinophils/100 WBC (Bld) 1.9 % 0-5 [facility] Erythrocyte distribution wid th ratioOrdered By: Mariana Raphael on 04-21-2024 Erythrocyte distribution width (RBC) [Ratio] 13.6 % 11.6-14.6 [facility] Erythrocyte distribution wid th standard deviationOrdered By: Mariana Raphael on 04-21-2024 Erythrocyte distribution width (RBC) [Ratio] 40.3 fl 35.1-43.9 [facility] Glomerular filtration rate ( GFR) estimationOrdered By: Mariana Raphael on 04-21-2024 GFR/1.73 sq M.predicted among non-blacks MDRD (S/P/Bld) [Vol rate/Area] 94 mL/min/{1.73_m2} >60 [facility] Comment on above: Non- GFR Calc Glucose measurementOrdered B y: Mariana Raphael on 04-21-2024 Glucose [Mass/Vol] 82 mg/dL 74-106 [facility] Hematocrit Auto (Bld) [Volum e fraction]Ordered By: Mariana Raphael on 04-21-2024 Hematocrit (Bld) [Volume fraction] 44.6 % 37-47 [facility] Hemoglobin measurementOrdere d By: Mariana Raphael on 04-21-2024 Hemoglobin (Bld) [Mass/Vol] 13.6 g/dL 12.0-15.0 [facility] Immature granulocytes/100 WB C Auto (Bld)Ordered By: Mariana Raphael on 04-21-2024 Immature granulocytes/100 WBC (Bld) 0.200 % 0.0-0.9 [facility] Comment on above: IG% - Immature Granu locytes (promyelocytes, myelocytes and metamyelocytes) > 1% indicates that a LEFT SHIFT is Present. Laboratory - Chemistry and C hemistry - challengeOrdered By: Mariana Raphael on 04-21-2024 AST [Catalytic activity/Vol] 16 U/L 15-37 [facility] MCV (mean corpuscular volume ) determinationOrdered By: Mariana Raphael on 04-21-2024 MCV (RBC) [Entitic vol] 81.7 fL 81-99 [facility] Mean corpuscular hemoglobin (MCH) determinationOrdered By: Mariana Raphael on 04-21-2024 MCH (RBC) [Entitic mass] 24.9 pg Low 27.0-32.0 [facility] Mean corpuscular hemoglobin concentration (MCHC) determinationOrdered By: Mariana Raphael on 04-21-2024 MCHC (RBC) [Mass/Vol] 30.5 g/dL Low 32-36 [facility] Mean platelet volume determi nationOrdered By: Mariana Raphael on 04-21-2024 Platelet mean volume (Bld) [Entitic vol] 9.1 fL 6.2-12.0 [facility] Monocyte percentageOrdered B y: Mariana Raphael on 04-21-2024 Monocytes/100 WBC (Bld) 11.4 % High 0-10 [facility] Neutrophil percentageOrdered By: Mariana Raphael on 04-21-2024 Neutrophils/100 WBC (Bld) 55.8 % 47-70 [facility] Nucleated red blood cell per centageOrdered By: Mariana Raphael on 04-21-2024 Nucleated RBC/100 WBC (Bld) [Ratio] 0 % 0-5 [facility] Platelet countOrdered By: Moses Raphael on 04-21-2024 Platelets (Bld) [#/Vol] 275 10*3/uL 150-450 [facility] Potassium measurementOrdered By: Mariana Raphael on 04-21-2024 Potassium [Moles/Vol] 4.2 mmol/L 3.5-5.1 [facility] RBC Auto (Bld) [#/Vol]Ordere d By: Mariana Raphael on 04-21-2024 RBC (Bld) [#/Vol] 5.46 10*6/uL High 4.2-5.4 [facility] Serum anion gap measurementO rdered By: Mariana Raphael on 04-21-2024 Anion gap [Moles/Vol] 5 mmol/L 5-15 [facility] Serum globulin measurementOr dered By: Mariana Raphael on 04-21-2024 Globulin (S) [Mass/Vol] 3.6 g/dL 2.2-4.2 [facility] Serum or plasma alanine temple otransferase (ALT) measurementOrdered By: Mariana Raphael on 04-21-2024 ALT [Catalytic activity/Vol] 29 U/L 13-56 [facility] Serum or plasma albumin andrew urement (mass/volume)Ordered By: Mariana Raphael on 04-21-2024 Albumin [Mass/Vol] 4.3 g/dL 3.2-5.0 [facility] Serum or plasma alkaline peter sphatase measurementOrdered By: Mariana Raphael on 04-21-2024 ALP [Catalytic activity/Vol] 66 U/L 45-117 [facility] Serum or plasma calcium andrew urement (mass/volume)Ordered By: Mariana Raphael on 04-21-2024 Calcium [Mass/Vol] 9.7 mg/dL 8.5-10.1 [facility] Serum or plasma creatinine m easurement (mass/volume)Ordered By: Mariana Raphael on 04-21-2024 Creatinine [Mass/Vol] 0.75 mg/dL 0.55-1.02 [facility] Comment on above: The validity of the calculated GFR & GFRAA in patients over 70 years has not been determined. Clinical correlation is essential. Serum or plasma urea nitroge n measurement (mass/volume)Ordered By: Mariana Raphael on 04-21-2024 Urea nitrogen [Mass/Vol] 16 mg/dL 7-18 [facility] Sodium levelOrdered By: Leah Raphael on 04-21-2024 Sodium [Moles/Vol] 141 mmol/L 136-145 [facility] Total proteinOrdered By: Laura Raphael on 04-21-2024 Protein [Mass/Vol] 7.9 g/dL 6.4-8.2 [facility] White blood cell (WBC) count Ordered By: Mariana Raphael on 04-21-2024 WBC (Bld) [#/Vol] 4.7 10*3/uL 4.4-11.0 [facility] Absolute lymphocyte countOrd ered By: Mariana Raphael on 06-20-2023 Lymphocytes Auto (Unsp spec) [#/Vol] 1.75 10*3/uL 0.83-4.51 [facility] Automated lymphocyte count a s percentage of total leukocytesOrdered By: Mariana Raphael on 06-20-2023 Lymphocytes/100 WBC Auto (Unsp spec) 31.0 % 19-41 [facility] Basophil percentageOrdered B y: Mariana Raphael on 06-20-2023 Basophils/100 WBC (Bld) 0.5 % 0-1 [facility] Bilirubin [Mass/Vol] 0.30 mg/dL 0.20-1.00 [facility] Comment on above: For patients on eltr ombopag therapy, use of Dimension [place] TBIL is not recommended. Chloride [Moles/Vol] 108 mmol/L 98-107 [facility] Eosinophils/100 WBC (Bld) 1.8 % 0-5 [facility] Glucose [Mass/Vol] 92 mg/dL 74-106 [facility] Hemoglobin (Bld) [Mass/Vol] 13.6 g/dL 12.0-15.0 [facility] Monocytes/100 WBC (Bld) 9.6 % 0-10 [facility] Neutrophils (Bld) [#/Vol] 3.2 10*3/uL 2.0-7.7 [facility] Neutrophils/100 WBC (Bld) 56.7 % 47-70 [facility] Potassium [Moles/Vol] 4.0 mmol/L 3.5-5.1 [facility] Protein [Mass/Vol] 7.5 g/dL 6.4-8.2 [facility] Sodium [Moles/Vol] 139 mmol/L 136-145 [facility] WBC (Bld) [#/Vol] 5.6 10*3/uL 4.4-11.0 [facility] Determination of erythrocyte mean corpuscular volume (MCV)Ordered By: Mariana Raphael on 06-20-2023 MCV (RBC) [Entitic vol] 82.4 fL 81-99 [facility] Erythrocyte distribution wid th ratioOrdered By: Mariana Raphael on 06-20-2023 Erythrocyte distribution width (RBC) [Ratio] 14.1 % 11.6-14.6 [facility] Erythrocyte distribution wid th standard deviationOrdered By: Mariana Raphael on 06-20-2023 Erythrocyte distribution width (RBC) [Entitic vol] 42.3 fL 35.1-43.9 [facility] Hematocrit Auto (Bld) [Volum e fraction]Ordered By: Mariana Raphael on 06-20-2023 Hematocrit (Bld) [Volume fraction] 43.9 % 37-47 [facility] Immature granulocytes/100 WB C Auto (Bld)Ordered By: Mariana Raphael on 06-20-2023 Immature granulocytes/100 WBC (Bld) 0.400 % 0.0-0.9 [facility] Comment on above: IG% - Immature Granu locytes (promyelocytes, myelocytes and metamyelocytes) > 1% indicates that a LEFT SHIFT is Present. Laboratory - Chemistry and C hemistry - challengeOrdered By: Mariana Raphael on 06-20-2023 Albumin/Globulin [Mass ratio] 1.0 {ratio} 0.9-2.4 [facility] ALP [Catalytic activity/Vol] 63 U/L 45-117 [facility] ALT [Catalytic activity/Vol] 46 U/L 13-56 [facility] CO2 [Moles/Vol] 26.0 mmol/L 21.0-32.0 [facility] Globulin (S) [Mass/Vol] 3.7 g/dL 2.2-4.2 [facility] Urea nitrogen/Creatinine [Mass ratio] 19.3 mg/mg 10-20 [facility] Laboratory - Hematology and Cell countsOrdered By: Mariana Raphael on 06-20-2023 MCH (RBC) [Entitic mass] 25.5 pg 27.0-32.0 [facility] MCHC (RBC) [Mass/Vol] 31.0 g/dL 32-36 [facility] Nucleated RBC/100 WBC (Bld) [Ratio] 0 % 0-5 [facility] Platelet mean volume (Bld) [Entitic vol] 9.1 fL 6.2-12.0 [facility] Platelets (Bld) [#/Vol] 294 10*3/uL 150-450 [facility] No Panel InformationOrdered By: Mariana Raphael on 06-20-2023 Estimated GFR (MDRD) Amer 102 mL/min >60 [facility] Comment on above: GFR Calc Estimated GFR (MDRD) Non-Af Amer 85 mL/min >60 [facility] Comment on above: Non- GFR Calc RBC Auto (Bld) [#/Vol]Ordere d By: Mariana Raphael on 06-20-2023 RBC (Bld) [#/Vol] 5.33 10*6/uL 4.2-5.4 [facility] Serum or plasma calcium andrew urement (mass/volume)Ordered By: Mariana Raphael on 06-20-2023 Calcium [Mass/Vol] 9.0 mg/dL 8.5-10.1 [facility] Serum or plasma creatinine m easurement (mass/volume)Ordered By: Mariana Raphael on 06-20-2023 Creatinine [Mass/Vol] 0.83 mg/dL 0.55-1.02 [facility] Comment on above: The validity of the calculated GFR & GFRAA in patients over 70 years has not been determined. Clinical correlation is essential. Serum or plasma urea nitroge n measurement (mass/volume)Ordered By: Mariana Raphael on 06-20-2023 Urea nitrogen [Mass/Vol] 16 mg/dL 7-18 [facility] Thin prep Papanicolaou smear with manual screeningOrdered By: Mariana Raphael on 06-20-2023 Thin prep Papanicolaou smear with manual screening 3.8 g/dL 3.2-5.0 [facility] Thin prep Papanicolaou smear with manual screening 22 U/L 15-37 [facility] Thin prep Papanicolaou smear with manual screening 5 5-15 [facility] Absolute lymphocyte countOrd ered By: Janet Davis on 06-01-2023 Lymphocytes Auto (Unsp spec) [#/Vol] 1.59 10*3/uL 0.83-4.51 [facility] Automated lymphocyte count a s percentage of total leukocytesOrdered By: Janet Davis on 06-01-2023 Lymphocytes/100 WBC Auto (Unsp spec) 26.8 % 19-41 [facility] Basophil percentageOrdered B y: Janet Davis on 06-01-2023 Basophils/100 WBC (Bld) 0.5 % 0-1 [facility] Eosinophils/100 WBC (Bld) 1.0 % 0-5 [facility] Hemoglobin (Bld) [Mass/Vol] 11.9 g/dL 12.0-15.0 [facility] Monocytes/100 WBC (Bld) 10.3 % 0-10 [facility] Neutrophils (Bld) [#/Vol] 3.6 10*3/uL 2.0-7.7 [facility] Neutrophils/100 WBC (Bld) 60.9 % 47-70 [facility] WBC (Bld) [#/Vol] 5.9 10*3/uL 4.4-11.0 [facility] Determination of erythrocyte mean corpuscular volume (MCV)Ordered By: Janet Davis on 06-01-2023 MCV (RBC) [Entitic vol] 81.2 fL 81-99 [facility] Erythrocyte distribution wid th ratioOrdered By: Janet Davis on 06-01-2023 Erythrocyte distribution width (RBC) [Ratio] 14.3 % 11.6-14.6 [facility] Erythrocyte distribution wid th standard deviationOrdered By: Janet Davis on 06-01-2023 Erythrocyte distribution width (RBC) [Entitic vol] 41.3 fL 35.1-43.9 [facility] Hematocrit Auto (Bld) [Volum e fraction]Ordered By: Janet Davis on 06-01-2023 Hematocrit (Bld) [Volume fraction] 37.5 % 37-47 [facility] Immature granulocytes/100 WB C Auto (Bld)Ordered By: Janet Davis on 06-01-2023 Immature granulocytes/100 WBC (Bld) 0.500 % 0.0-0.9 [facility] Comment on above: IG% - Immature Granu locytes (promyelocytes, myelocytes and metamyelocytes) > 1% indicates that a LEFT SHIFT is Present. Laboratory - Hematology and Cell countsOrdered By: Janet Davis on 06-01-2023 MCH (RBC) [Entitic mass] 25.8 pg 27.0-32.0 [facility] MCHC (RBC) [Mass/Vol] 31.7 g/dL 32-36 [facility] Nucleated RBC/100 WBC (Bld) [Ratio] 0 % 0-5 [facility] Platelet mean volume (Bld) [Entitic vol] 8.8 fL 6.2-12.0 [facility] Platelets (Bld) [#/Vol] 202 10*3/uL 150-450 [facility] RBC Auto (Bld) [#/Vol]Ordere d By: Janet Davis on 06-01-2023 RBC (Bld) [#/Vol] 4.62 10*6/uL 4.2-5.4 [facility] Serum Treponema species anti body detectionOrdered By: Janet Davis on 06-01-2023 Treponema sp Ab Ql (S) Non-Reactive [facility] Laboratory - Chemistry and C hemistry - challengeon 05-20-2023 Glucose Ql (U) Negative [facility] Laboratory - Urinalysison Protein Ql (U) Negative [facility] Laboratory - Chemistry and C hemistry - challengeon 05-12-2023 Glucose Ql (U) Negative [facility] Laboratory - Urinalysison Protein Ql (U) Negative [facility] No Panel InformationOrdered By: Janet Davis on 05-12-2023 Group B Streptococcus Culture Group B Beta Streptococcus is not isolated. [facility] Group B Streptococcus Culture Group B Beta Streptococcus is not isolated. [facility] Laboratory - Chemistry and C hemistry - challengeon 04-29-2023 Glucose Ql (U) Negative [facility] Laboratory - Chemistry and C hemistry - challengeon 04-23-2023 Glucose Ql (U) Negative [facility] Laboratory - Urinalysison Protein Ql (U) Negative [facility] Laboratory - Chemistry and C hemistry - challengeon 04-17-2023 Glucose Ql (U) Negative [facility] Laboratory - Urinalysison Protein Ql (U) Negative [facility] Progress Noteon 04-07-2023 [employer] Authentication Interface Message Text [facility] MATERNAL- MEDICINE CONSULT Referring/Requesting Provider: Mariely Valencia MD PCP: Jocelyn Arias DO This is a telemedicine video visit requested by the patient/guardian that was performed with the patient's location at home and the provider's location at remote office. INDICATION FOR CONSULT: Autoimmune disorder, possible antiphospholipid antibody syndrome HISTORY OF PRESENT ILLNESS: Patient is a 32 y.o. at 31w1d who presents for consultation regarding autoimmune disorder and possible antiphospholipid antibody syndrome (APLAS). Ms. Rice reports 3 prior full term vaginal deliveries without any complications- no prior history of preeclampsia, FGR, miscarriage, stillbirth or early delivery. She denies any personal history of thrombosis. 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 She denies any symptoms and has been doing well on her medications. In the workup of her disorder she had antiphospholipid antibodies drawn. Beta 2 glycoprotein IgM was positive on two occasions: 54 on 11/28/22 and 81 on 07/27/22. Her Anticardiolipin antibody IgM was mildly elevated at 33 on 11/28/22 but no over the threshold of 40mpL. Lupus anticoagulant is negative. In reviewing her chart, her Beta 2 Glycoprotein IgM was also positive back in 2019 but unsure why this was tested at that time. She was undergoing a workup for inherited thrombophilias at the time due to family history of VTE. She recently saw Dr. Valencia who reviewed the labs and started Lovenox 40mg daily. She is already taking bASA since early due to her autoimmune disorder for preeclampsia risk reduction. Of note, her last son was born with isolated nasal bone abnormality that required corrective surgery for airway issues. 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 Today the patient denies any OB complaints. She denies abdominal pain,vaginal bleeding, preeclampsia symptoms, leakage of fluid and reports good movement. OB History Para Term AB Living 4 3 3 3 SAB IAB Ectopic Multiple Live Births 3 # Outcome Date GA Lbr Gee/2nd Weight Sex Delivery Anes PTL Lv 4 Current 3 Term 02/19/21 38w0d 3.118 kg M Vag-Spont EPI RUSSELL Comments: IOL for DFM and nonreactive NST, baby admitted for 1.5 months at [facility] 2 Term 03/30/19 40w0d 3.26 kg M Vag-Spont EPI RUSSELL Comments: [place] 1 Term 09/27/16 40w6d 3.374 kg M Vag-Spont EPI N RUSSELL Comments: Baby in [facility] NICU for 1 week (turned blue while , all testing normal per pt) Past Medical History: Diagnosis Date Autoimmune disease Per OB noted, following with rhuematology. On Plaquenil 200mg Childhood asthma Depression Stable currently, no medications Low-lying placenta Positive RPR test RPR positive prior with a negative FTA. RPR also positive this . FTA Past Surgical History: Procedure Laterality Date WISDOM TOOTH EXTRACTION PERTINENT FAMILY HISTORY: Family History Problem Relation Age of Onset DVT Mother dvt after of pt's sister at 28 weeks;she had a C/S High Blood Pressure Mother during Stroke Father age: 20's-may have been due to a blood clot Seizures Father occurred after stroke; he was about 33 years old at first seizure;had grand mal seizures; Premature Sister 28 weeks Diabetes Mellitus II Paternal Grandmother type 2 Autism Spectrum Disorder Neg Hx Defects Neg Hx Blindness Neg Hx Hearing Loss Neg Hx Anxiety Disorder Neg Hx Anesth Problems Neg Hx Cancer Neg Hx Cystic Fibrosis Neg Hx Clotting Disorder Neg Hx Heart Disease Neg Hx Learning Disabilities Neg Hx Mental Illness Neg Hx Mental Retardation Neg Hx Miscarriages / Stillbirths Neg Hx Pulmonary Embolism Neg Hx Sickle Cell Anemia Neg Hx Spina Bifida Neg Hx Von Willebrand Disease Neg Hx Anemia Neg Hx Sudden Neg Hx Diabetes Mellitus I Neg Hx MEDS: Current Outpatient Medications Medication Sig Dispense Refill Last Dispense Assistance Program Adherence Comment aspirin 81 MG chewable tablet Unknown (patient-reported) . Refill history: . ENOXAPARIN SODIUM IJ Inject 40 mg into the skin daily Unknown (patient-reported) . Refill history: . hydroxychloroquine (PLAQUENIL) 200 MG TABS tablet Take 1.5 Tablets (300 mg) by mouth daily Pt taking 1.5 tabs of 200mg tablets Unknown (patient-reported) . Refill history: . Vit-Fe Fumarate-FA ( VITAMIN PO) Take 1 Tab by mouth daily Unknown (patient-reported) . Refill history: . UNKNOWN TO PATIENT Over the counter antifungal cream for athletes foot (Patient not taking: Reported on 04/07/2023) Unknown (patient-reported) . Refill history: . ALLERGY: Allergies Allergen Reactions Amoxicillin Hives and Rash PHYSICAL EXA (more content not included)... Normal [facility] Laboratory - Chemistry and C hemistry - challengeon 04-02-2023 Glucose Ql (U) Negative [facility] Laboratory - Urinalysison Protein Ql (U) Negative [facility] SS-B IgG antibody assayOrder ed By: Janet Davis on 04-02-2023 Sjogrens syndrome-B extractable nuclear IgG Qn (S) < 0.2 AI 0.0-0.9 [facility] Comment on above: Performed at: [address] Director: Joel Box PhD, Phone: [phone] Laboratory - Chemistry and C hemistry - challengeon 03-20-2023 Glucose Ql (U) Negative [facility] Laboratory - Urinalysison Protein Ql (U) Negative [facility] Laboratory - Chemistry and C hemistry - challengeon 03-05-2023 Glucose Ql (U) Negative [facility] Laboratory - Urinalysison Protein Ql (U) Negative [facility] Absolute lymphocyte countOrd ered By: Janet Davis on 02-27-2023 Lymphocytes Auto (Unsp spec) [#/Vol] 1.27 10*3/uL 0.83-4.51 [facility] Basophil percentageOrdered B y: Janet Davis on 02-27-2023 Basophils/100 WBC (Bld) 0.2 % 0-1 [facility] Bilirubin [Mass/Vol] 0.20 mg/dL 0.20-1.00 [facility] Comment on above: For patients on eltr ombopag therapy, use of Dimension [place] TBIL is not recommended. Chloride [Moles/Vol] 109 mmol/L 98-107 [facility] Eosinophils/100 WBC (Bld) 1.1 % 0-5 [facility] Glucose [Mass/Vol] 113 mg/dL 74-106 [facility] Comment on above: Fasting Glucose resu lt from 100 to 125 mg/dL suggests IMPAIRED HOMEOSTASIS per A.D.A. criteria. Neutrophils (Bld) [#/Vol] 6.4 10*3/uL 2.0-7.7 [facility] Neutrophils/100 WBC (Bld) 75.6 % 47-70 [facility] Potassium [Moles/Vol] 3.7 mmol/L 3.5-5.1 [facility] Protein [Mass/Vol] 6.7 g/dL 6.4-8.2 [facility] Sodium [Moles/Vol] 139 mmol/L 136-145 [facility] WBC (Bld) [#/Vol] 8.4 10*3/uL 4.4-11.0 [facility] Blood erythrocytes count (nu mber/volume)Ordered By: Janet Davis on 02-27-2023 RBC (Bld) [#/Vol] 4.46 10*6/uL 4.2-5.4 [facility] Blood hemoglobin measurement (mass/volume)Ordered By: Janet Davis on 02-27-2023 Hemoglobin (Bld) [Mass/Vol] 11.8 g/dL 12.0-15.0 [facility] Blood lymphocytes/100 leukoc ytesOrdered By: Janet Davis on 02-27-2023 Lymphocytes/100 WBC (Bld) 15.1 % 19-41 [facility] Blood monocytes/100 leukocyt esOrdered By: Janet Davis on 02-27-2023 Monocytes/100 WBC (Bld) 7.4 % 0-10 [facility] Blood platelet mean volumeOr dered By: Janet Davis on 02-27-2023 Platelet mean volume (Bld) [Entitic vol] 8.7 fL 6.2-12.0 [facility] Determination of erythrocyte mean corpuscular volume (MCV)Ordered By: Janet Davis on 02-27-2023 MCV (RBC) [Entitic vol] 82.1 fL 81-99 [facility] Gestational diabetes screen 1-hour screen with 50g oral glucose loadOrdered By: Janet Davis on 02-27-2023 Glucose 1 Hr post 50 g glucose PO [Mass/Vol] 113 mg/dL 70-140 [facility] HIV 1 and HIV-2 antibody ass ay with HIV-1 p24 antigen detectionOrdered By: Janet Davis on 02-27-2023 HIV 1+2 Ab+HIV1 p24 Ag IA Ql Non-Reactive Nonreactive [facility] Hematocrit Auto (Bld) [Volum e fraction]Ordered By: Janet Davis on 02-27-2023 Hematocrit (Bld) [Volume fraction] 36.6 % 37-47 [facility] Laboratory - Chemistry and C hemistry - challengeon 02-27-2023 Glucose Ql (U) Negative [facility] Laboratory - Chemistry and C hemistry - challengeOrdered By: Janet Davis on 02-27-2023 ALP [Catalytic activity/Vol] 52 U/L 45-117 [facility] ALT [Catalytic activity/Vol] 19 U/L 13-56 [facility] CO2 [Moles/Vol] 23.0 mmol/L 21.0-32.0 [facility] Globulin (S) [Mass/Vol] 3.8 g/dL 2.2-4.2 [facility] Urea nitrogen/Creatinine [Mass ratio] 13.6 mg/mg 10-20 [facility] Laboratory - Hematology and Cell countsOrdered By: Janet Davis on 02-27-2023 Erythrocyte distribution width (RBC) [Entitic vol] 40.5 fL 35.1-43.9 [facility] Erythrocyte distribution width (RBC) [Ratio] 13.5 % 11.6-14.6 [facility] Immature granulocytes/100 WBC (Bld) 0.600 % 0.0-0.9 [facility] Comment on above: IG% - Immature Granu locytes (promyelocytes, myelocytes and metamyelocytes) > 1% indicates that a LEFT SHIFT is Present. MCH (RBC) [Entitic mass] 26.5 pg 27.0-32.0 [facility] Nucleated RBC/100 WBC (Bld) [Ratio] 0 % 0-5 [facility] Laboratory - Urinalysison Protein Ql (U) Negative [facility] MCHC Auto (RBC) [Mass/Vol]Or dered By: Janet Davis on 02-27-2023 MCHC (RBC) [Mass/Vol] 32.2 g/dL 32-36 [facility] No Panel InformationOrdered By: Janet Davis on 02-27-2023 Estimated GFR (MDRD) Amer 153 mL/min >60 [facility] Comment on above: GFR Calc Estimated GFR (MDRD) Non-Af Amer 126 mL/min >60 [facility] Comment on above: Non- GFR Calc Platelets bldOrdered By: Anastasiya Davis on 02-27-2023 Platelets (Bld) [#/Vol] 236 10*3/uL 150-450 [facility] Serum Treponema species anti body detectionOrdered By: Janet Davis on 02-27-2023 Treponema sp Ab Ql (S) Non-Reactive [facility] Serum or plasma albumin andrew urement (mass/volume)Ordered By: Janet Davis on 02-27-2023 Albumin [Mass/Vol] 2.9 g/dL 3.2-5.0 [facility] Serum or plasma albumin/glob ulin mass ratioOrdered By: Janet Davis on 02-27-2023 Albumin/Globulin [Mass ratio] 0.8 {ratio} 0.9-2.4 [facility] Serum or plasma calcium andrew urement (mass/volume)Ordered By: Janet Davis on 02-27-2023 Calcium [Mass/Vol] 8.6 mg/dL 8.5-10.1 [facility] Serum or plasma creatinine m easurement (mass/volume)Ordered By: Janet Davis on 02-27-2023 Creatinine [Mass/Vol] 0.59 mg/dL 0.55-1.02 [facility] Comment on above: The validity of the calculated GFR & GFRAA in patients over 70 years has not been determined. Clinical correlation is essential. Serum or plasma urea nitroge n measurement (mass/volume)Ordered By: Janet Davis on 02-27-2023 Urea nitrogen [Mass/Vol] 8 mg/dL 7-18 [facility] Thin prep Papanicolaou smear with manual screeningOrdered By: Janet Davis on 02-27-2023 Thin prep Papanicolaou smear with manual screening 15 U/L 15-37 [facility] Thin prep Papanicolaou smear with manual screening 7 5-15 [facility] Laboratory - Chemistry and C hemistry - challengeon 01-29-2023 Glucose Ql (U) Negative [facility] Laboratory - Urinalysison Protein Ql (U) Negative [facility] Laboratory - Chemistry and C hemistry - challengeon 12-31-2022 Glucose Ql (U) Negative [facility] Laboratory - Urinalysison Protein Ql (U) Negative [facility] Absolute lymphocyte countOrd ered By: Yovana Fonseca on 11-28-2022 Lymphocytes Auto (Unsp spec) [#/Vol] 1.44 10*3/uL 0.83-4.51 [facility] Basophil percentageOrdered B y: Yovana Fonseca on 11-28-2022 Bilirubin [Mass/Vol] 0.20 mg/dL 0.20-1.00 [facility] Comment on above: For patients on eltr ombopag therapy, use of Dimension [place] TBIL is not recommended. Chloride [Moles/Vol] 105 mmol/L 98-107 [facility] Glucose [Mass/Vol] 100 mg/dL 74-106 [facility] Comment on above: Fasting Glucose resu lt from 100 to 125 mg/dL suggests IMPAIRED HOMEOSTASIS per A.D.A. criteria. Potassium [Moles/Vol] 3.5 mmol/L 3.5-5.1 [facility] Protein [Mass/Vol] 7.8 g/dL 6.4-8.2 [facility] Sodium [Moles/Vol] 136 mmol/L 136-145 [facility] Basophils/100 WBC (Bld) 0.4 % 0-1 [facility] Eosinophils/100 WBC (Bld) 1.0 % 0-5 [facility] Neutrophils (Bld) [#/Vol] 5.5 10*3/uL 2.0-7.7 [facility] Neutrophils/100 WBC (Bld) 71.8 % 47-70 [facility] WBC (Bld) [#/Vol] 7.7 10*3/uL 4.4-11.0 [facility] Blood erythrocytes count (nu mber/volume)Ordered By: Yovana Fonseca on 11-28-2022 RBC (Bld) [#/Vol] 5.01 10*6/uL 4.2-5.4 [facility] Blood hemoglobin measurement (mass/volume)Ordered By: Yovana Fonseca on 11-28-2022 Hemoglobin (Bld) [Mass/Vol] 12.9 g/dL 12.0-15.0 [facility] Blood lymphocytes/100 leukoc ytesOrdered By: Yovana Fonseca on 11-28-2022 Lymphocytes/100 WBC (Bld) 18.8 % 19-41 [facility] Blood monocytes/100 leukocyt esOrdered By: Yovana Fonseca on 11-28-2022 Monocytes/100 WBC (Bld) 7.6 % 0-10 [facility] Blood platelet mean volumeOr dered By: Yovana Fonseca on 11-28-2022 Platelet mean volume (Bld) [Entitic vol] 9.0 fL 6.2-12.0 [facility] Determination of erythrocyte mean corpuscular volume (MCV)Ordered By: Yovnaa Fonseca on 11-28-2022 MCV (RBC) [Entitic vol] 81.2 fL 81-99 [facility] Dilute Baldo's viper venom timeOrdered By: Yovana Fonseca on 11-28-2022 dRVVT Coag (PPP) [Time] 36.3 s 0.0-47.0 [facility] HIV 1 and HIV-2 antibody ass ay with HIV-1 p24 antigen detectionOrdered By: Yovana Fonseca on 11-28-2022 HIV 1+2 Ab+HIV1 p24 Ag IA Ql Non-Reactive Nonreactive [facility] Hematocrit Auto (Bld) [Volum e fraction]Ordered By: Yovana Fonseca on 11-28-2022 Hematocrit (Bld) [Volume fraction] 40.7 % 37-47 [facility] Laboratory - Chemistry and C hemistry - challengeOrdered By: Yovana Fonseca on 11-28-2022 ALP [Catalytic activity/Vol] 45 U/L 45-117 [facility] ALT [Catalytic activity/Vol] 23 U/L 13-56 [facility] CO2 [Moles/Vol] 26.0 mmol/L 21.0-32.0 [facility] Globulin (S) [Mass/Vol] 4.0 g/dL 2.2-4.2 [facility] Urea nitrogen/Creatinine [Mass ratio] 18.7 mg/mg 10-20 [facility] Laboratory - Hematology and Cell countsOrdered By: Yovana Fonseca on 11-28-2022 Erythrocyte distribution width (RBC) [Entitic vol] 40.5 fL 35.1-43.9 [facility] Erythrocyte distribution width (RBC) [Ratio] 13.8 % 11.6-14.6 [facility] Immature granulocytes/100 WBC (Bld) 0.400 % 0.0-0.9 [facility] Comment on above: IG% - Immature Granu locytes (promyelocytes, myelocytes and metamyelocytes) > 1% indicates that a LEFT SHIFT is Present. MCH (RBC) [Entitic mass] 25.7 pg 27.0-32.0 [facility] Nucleated RBC/100 WBC (Bld) [Ratio] 0 % 0-5 [facility] MCHC Auto (RBC) [Mass/Vol]Or dered By: Yovana Fonseca on 11-28-2022 MCHC (RBC) [Mass/Vol] 31.7 g/dL 32-36 [facility] No Panel InformationOrdered By: Yovana Fonseca on 11-28-2022 Estimated GFR (MDRD) Amer 153 mL/min >60 [facility] Comment on above: GFR Calc Estimated GFR (MDRD) Non-Af Amer 126 mL/min >60 [facility] Comment on above: Non- GFR Calc Anti-Cardiolipin IgM Antibody 33 MPL U/mL 0-12 [facility] Comment on above: Negative: <13 Indete rminate: 13 - 20 Low-Med Positive: >20 - 80 High Positive: >80 Hepatitis B Surface Antigen Non-Reactive Nonreactive [facility] Hepatitis C Antibody Non-Reactive Nonreactive [facility] Comment on above: Non Reactive: < 0.8 Equivocal: >/= 0.8 to < 1.0 Reactive: >/= 1.0The CDC recommends that a reactive/equivocal HCV antibody result be followed up by the HCV Nucleic Acid Amplificationtest (415698) Rubella IgG Antibody Reactive Nonreactive [facility] Comment on above: Antibody Results Int erpretation of Immune Status Non Reactive Presumed Non-Immune Equivocal Equivocal Reactive Presumed Immune Platelets bldOrdered By: Russ Fonseca on 11-28-2022 Platelets (Bld) [#/Vol] 270 10*3/uL 150-450 [facility] Serum Treponema species anti body detectionOrdered By: Yovana Fonseca on 11-28-2022 Treponema sp Ab Ql (S) Non-Reactive [facility] Serum beta 2 glycoprotein 1 IgA antibody detectionOrdered By: Yovana Fonseca on 11-28-2022 Beta 2 glycoprotein 1 IgA Ql (S) <9 0-25 [facility] Comment on above: Result Units: GPI Ig A unitsThe reference interval reflects a 3SD or 99th percentileinterval, which is thought to represent a potentiallyclinically significant result in accordance with theInternational Consensus Statement on the classificationcriteria for definitive antiphospholipid syndrome (APS). JThromb Haem 2006;4:295-306. Serum beta 2 glycoprotein 1 IgG antibody detectionOrdered By: Yovana Fonseca on 11-28-2022 Beta 2 glycoprotein 1 IgG Ql (S) <9 0-20 [facility] Comment on above: Result Units: GPI Ig G unitsThe reference interval reflects a 3SD or 99th percentileinterval, which is thought to represent a potentiallyclinically significant result in accordance with theInternational Consensus Statement on the classificationcriteria for definitive antiphospholipid syndrome (APS). JThromb Haem 2006;4:295-306. Serum beta 2 glycoprotein 1 IgM antibody detectionOrdered By: Yovana Fonseca on 11-28-2022 Beta 2 glycoprotein 1 IgM Ql (S) 54 0-32 [facility] Comment on above: Result Units: GPI Ig M unitsThe reference interval reflects a 3SD or 99th percentileinterval, which is thought to represent a potentiallyclinically significant result in accordance with theInternational Consensus Statement on the classificationcriteria for definitive antiphospholipid syndrome (APS). JThromb Haem 2006;4:295-306.Performed at: [place] [id number] Director: Carly Adame MD, Phone: [phone] at: [address] [id number] Director: Joel Box PhD, Phone: [phone] Serum cardiolipin IgG antibo dy assay by immunoassay (units/volume)Ordered By: Yovana Fonseca on 11-28-2022 Cardiolipin IgG IA Qn (S) < 9 GPL U/mL 0-14 [facility] Comment on above: Negative: <15 Indete rminate: 15 - 20 Low-Med Positive: >20 - 80 High Positive: >80 Serum or plasma albumin andrew urement (mass/volume)Ordered By: Yovana Fonseca on 11-28-2022 Albumin [Mass/Vol] 3.8 g/dL 3.2-5.0 [facility] Serum or plasma albumin/glob ulin mass ratioOrdered By: Yovana Fonseca on 11-28-2022 Albumin/Globulin [Mass ratio] 1.0 {ratio} 0.9-2.4 [facility] Serum or plasma calcium andrew urement (mass/volume)Ordered By: Yovana Fonseca on 11-28-2022 Calcium [Mass/Vol] 8.9 mg/dL 8.5-10.1 [facility] Serum or plasma cardiolipin IgA antibody assay (units/volume)Ordered By: Yovana Fonseca on 11-28-2022 Cardiolipin IgA Qn < 9 APL U/mL 0-11 [facility] Comment on above: Negative: <12 Indete rminate: 12 - 20 Low-Med Positive: >20 - 80 High Positive: >80 Serum or plasma creatinine m easurement (mass/volume)Ordered By: Yovana Fonseca on 11-28-2022 Creatinine [Mass/Vol] 0.59 mg/dL 0.55-1.02 [facility] Comment on above: The validity of the calculated GFR & GFRAA in patients over 70 years has not been determined. Clinical correlation is essential. Serum or plasma urea nitroge n measurement (mass/volume)Ordered By: Yovana Fonseca on 11-28-2022 Urea nitrogen [Mass/Vol] 11 mg/dL 7-18 [facility] Thin prep Papanicolaou smear with manual screeningOrdered By: Yovana Fonseca on 11-28-2022 Thin prep Papanicolaou smear with manual screening 14 U/L 15-37 [facility] Thin prep Papanicolaou smear with manual screening 5 5-15 [facility] Thin prep Papanicolaou smear with manual screening 37.4 sec 0.0-47.6 [facility] Thin prep Papanicolaou smear with manual screening 1.10 Ratio 0.00-1.34 [facility] Thin prep Papanicolaou smear with manual screening 33.1 sec 0.0-43.5 [facility] Thin prep Papanicolaou smear with manual screening Comment: . [facility] Comment on above: No lupus anticoagula nt was detected. Thrombin time in platelet po or plasmaOrdered By: Yovana Fonseca on 11-28-2022 Thrombin time Coag (PPP) [Time] 15.5 sec 0.0-23.0 [facility] Chlamydia trachomatis rRNA d etection by probe and target amplification methodOrdered By: Yovana Fonseca on 11-08-2022 C. trachomatis rRNA EDILMA+probe Ql (Unsp spec) Negative Negative [facility] Culture, urineOrdered By: Pato Fonseca on 11-08-2022 Bacteria identified Cx Nom (U) Culture exhibits no growth. [facility] Bacteria identified Cx Nom (U) Culture exhibits no growth. [facility] Laboratory - Microbiology an d Antimicrobial susceptibilityOrdered By: Yovana Fonseca on 11-08-2022 N. gonorrhoeae DNA EDILMA+probe Ql (Unsp spec) Negative Negative [facility] Comment on above: Performed at: =[address] [id number] Director: Asha Olsen MD, Phone: [phone] Absolute lymphocyte countOrd ered By: Mariana Raphael on 08-21-2022 Lymphocytes Auto (Unsp spec) [#/Vol] 1.72 10*3/uL 0.83-4.51 [facility] Basophil percentageOrdered B y: Mariana Raphael on 08-21-2022 Basophils/100 WBC (Bld) 0.7 % 0-1 [facility] Bilirubin [Mass/Vol] 0.50 mg/dL 0.20-1.00 [facility] Comment on above: For patients on eltr ombopag therapy, use of Dimension [place] TBIL is not recommended. Chloride [Moles/Vol] 108 mmol/L 98-107 [facility] Eosinophils/100 WBC (Bld) 1.7 % 0-5 [facility] Glucose [Mass/Vol] 83 mg/dL 74-106 [facility] Neutrophils (Bld) [#/Vol] 3.0 10*3/uL 2.0-7.7 [facility] Neutrophils/100 WBC (Bld) 55.3 % 47-70 [facility] Potassium [Moles/Vol] 4.1 mmol/L 3.5-5.1 [facility] Protein [Mass/Vol] 7.9 g/dL 6.4-8.2 [facility] Sodium [Moles/Vol] 139 mmol/L 136-145 [facility] WBC (Bld) [#/Vol] 5.3 10*3/uL 4.4-11.0 [facility] Bilirubin Test strip Ql (U)O rdered By: Mariana Raphael on 08-21-2022 Bilirubin Ql (U) Negative Negative [facility] Blood erythrocytes count (nu mber/volume)Ordered By: Mariana Raphael on 08-21-2022 RBC (Bld) [#/Vol] 5.38 10*6/uL 4.2-5.4 [facility] Blood hemoglobin measurement (mass/volume)Ordered By: Mariana Raphael on 08-21-2022 Hemoglobin (Bld) [Mass/Vol] 13.7 g/dL 12.0-15.0 [facility] Blood lymphocytes/100 leukoc ytesOrdered By: Mariana Raphael on 08-21-2022 Lymphocytes/100 WBC (Bld) 32.2 % 19-41 [facility] Blood monocytes/100 leukocyt esOrdered By: Mariana Raphael on 08-21-2022 Monocytes/100 WBC (Bld) 9.9 % 0-10 [facility] Blood platelet mean volumeOr dered By: Mariana Raphael on 08-21-2022 Platelet mean volume (Bld) [Entitic vol] 9.0 fL 6.2-12.0 [facility] Determination of erythrocyte mean corpuscular volume (MCV)Ordered By: Mariana Raphael on 08-21-2022 MCV (RBC) [Entitic vol] 81.6 fL 81-99 [facility] Dilute Baldo's viper venom timeOrdered By: Mariana Raphael on 08-21-2022 dRVVT Coag (PPP) [Time] 35.9 s 0.0-47.0 [facility] Hematocrit Auto (Bld) [Volum e fraction]Ordered By: Mariana Raphael on 08-21-2022 Hematocrit (Bld) [Volume fraction] 43.9 % 37-47 [facility] INR in Blood by Coagulation assayOrdered By: Mariana Raphael on 08-21-2022 INR Coag (Bld) [Relative time] 1.0 {INR} [facility] Ketones Test strip Ql (U)Ord ered By: Mariana Raphael on 08-21-2022 Ketones Ql (U) Negative Negative [facility] Laboratory - Chemistry and C hemistry - challengeOrdered By: Mariana Raphael on 08-21-2022 ALP [Catalytic activity/Vol] 53 U/L 45-117 [facility] ALT [Catalytic activity/Vol] 21 U/L 13-56 [facility] CO2 [Moles/Vol] 26.0 mmol/L 21.0-32.0 [facility] Globulin (S) [Mass/Vol] 3.7 g/dL 2.2-4.2 [facility] Urea nitrogen/Creatinine [Mass ratio] 13.3 mg/mg 10-20 [facility] Laboratory - CoagulationOrde red By: Mariana Raphael on 08-21-2022 aPTT Coag (Bld) [Time] 32.0 s 24.1-36.2 [facility] PT Coag (PPP) [Time] 13.6 s 11.7-14.9 [facility] - Hematology and Cell countsOrdered By: Mariana Raphael on 08-21-2022 Erythrocyte distribution width (RBC) [Entitic vol] 41.7 fL 35.1-43.9 [facility] Erythrocyte distribution width (RBC) [Ratio] 14.1 % 11.6-14.6 [facility] Immature granulocytes/100 WBC (Bld) 0.200 % 0.0-0.9 [facility] Comment on above: IG% - Immature Granu locytes (promyelocytes, myelocytes and metamyelocytes) > 1% indicates that a LEFT SHIFT is Present. MCH (RBC) [Entitic mass] 25.5 pg 27.0-32.0 [facility] Nucleated RBC/100 WBC (Bld) [Ratio] 0 % 0-5 [facility] - Miscellaneous t estsOrdered By: Mariana Raphael on 08-21-2022 Service comment (Unsp spec) [Interp] Comment . [facility] Comment on above: Results do not indic ate the presence of a LupusAnticoagulant: abnormal high screening results (PTT-LA,dRVVT, mixing studies), may be due to medication (heparin,warfarin, aspirin), Factor inhibitors, anticardiolipinantibodies, or poor specimen integrity.Performed at: [address] [id number] Director: Carly Adame MD, Phone: [phone] MCHC Auto (RBC) [Mass/Vol]Or dered By: Mariana Raphael on 08-21-2022 MCHC (RBC) [Mass/Vol] 31.2 g/dL 32-36 [facility] Nitrite Test strip Ql (U)Ord ered By: Mariana Raphael on 08-21-2022 Nitrite Ql (U) Negative Negative [facility] No Panel InformationOrdered By: Mariana Rapheal on 08-21-2022 Estimated GFR (MDRD) Amer 116 mL/min >60 [facility] Comment on above: GFR Calc Estimated GFR (MDRD) Non-Af Amer 95 mL/min >60 [facility] Comment on above: Non- GFR Calc Hepatitis B Surface Antigen Non-Reactive Nonreactive [facility] Hepatitis C Antibody Non-Reactive Nonreactive [facility] Comment on above: Non Reactive: < 0.8 Equivocal: >/= 0.8 to < 1.0 Reactive: >/= 1.0The CDC recommends that a reactive/equivocal HCV antibody result be followed up by the HCV Nucleic Acid Amplificationtest (912463) Miscellaneous Test Comment MAILED SPECIMEN [facility] Platelets bldOrdered By: Laura Raphael on 08-21-2022 Platelets (Bld) [#/Vol] 297 10*3/uL 150-450 [facility] Protein Test strip Ql (U)Ord ered By: Mariana Raphael on 08-21-2022 Protein Ql (U) Negative Negative [facility] Serum hepatitis B virus surf indira antibody IgG detectionOrdered By: Mariana Raphael on 08-21-2022 HBV surface IgG Ql (S) Non-Reactive [facility] Comment on above: Non Reactive: Incons istent with immunity less than <10 mIU/mL Reactive: Consistent with immunity greater than or equal to 10 mIU/mL Serum or plasma albumin andrew urement (mass/volume)Ordered By: Mariana Raphael on 08-21-2022 Albumin [Mass/Vol] 4.2 g/dL 3.2-5.0 [facility] Serum or plasma albumin/glob ulin mass ratioOrdered By: Mariana Raphael on 08-21-2022 Albumin/Globulin [Mass ratio] 1.1 {ratio} 0.9-2.4 [facility] Serum or plasma calcium andrew urement (mass/volume)Ordered By: Mariana Raphael on 08-21-2022 Calcium [Mass/Vol] 9.4 mg/dL 8.5-10.1 [facility] Serum or plasma creatinine m easurement (mass/volume)Ordered By: Mariana Raphael on 08-21-2022 Creatinine [Mass/Vol] 0.75 mg/dL 0.55-1.02 [facility] Comment on above: The validity of the calculated GFR & GFRAA in patients over 70 years has not been determined. Clinical correlation is essential. Serum or plasma urea nitroge n measurement (mass/volume)Ordered By: Mariana Raphael on 08-21-2022 Urea nitrogen [Mass/Vol] 10 mg/dL 7-18 [facility] Thin prep Papanicolaou smear with manual screeningOrdered By: Mariana Raphael on 08-21-2022 Thin prep Papanicolaou smear with manual screening 14 U/L 15-37 [facility] Thin prep Papanicolaou smear with manual screening 5 5-15 [facility] Thin prep Papanicolaou smear with manual screening 44.9 sec 0.0-47.6 [facility] Thin prep Papanicolaou smear with manual screening 1.03 Ratio 0.00-1.34 [facility] Thin prep Papanicolaou smear with manual screening 38.6 sec 0.0-43.5 [facility] Thin prep Papanicolaou smear with manual screening Comment: . [facility] Comment on above: No lupus anticoagula nt was detected. Thrombin time in platelet po or plasmaOrdered By: Mariana Raphael on 08-21-2022 Thrombin time Coag (PPP) [Time] 16.4 sec 0.0-23.0 [facility] Urine blood detectionOrdered By: Mariana Raphael on 08-21-2022 RBC Ql (U) 10 /ul Negative [facility] Urine clarityOrdered By: Laura Raphael on 08-21-2022 Clarity (U) Clear Clear [facility] Urine color determinationOrd ered By: Mariana Raphael on 08-21-2022 Color (U) Yellow Yellow [facility] Urine creatinine measurement (mass/volume)Ordered By: Mariana Raphael on 08-21-2022 Creatinine (U) [Mass/Vol] 173.00 mg/dL NO RANGE EST. [facility] Urine glucose detectionOrder ed By: Mariana Raphael on 08-21-2022 Glucose Ql (U) Normal mg/dl Normal [facility] Urine leukocyte esterase det ection by dipstickOrdered By: Mariana aRphael on 08-21-2022 Leukocyte esterase Test strip Ql (U) 100 /ul Negative [facility] Urine pHOrdered By: Mariana prabhakar on 08-21-2022 pH (U) 6.0 [pH] 5.0 - 8.0 [facility] Urine protein measurement (m ass/volume)Ordered By: Mariana Raphael on 08-21-2022 Protein (U) [Mass/Vol] 10.2 mg/dL 0.0-11.8 [facility] Urine protein/creatinine mas s ratioOrdered By: Mariana Raphael on 08-21-2022 Protein/Creatinine (U) [Mass ratio] 59 mg/g CRE 0-200 [facility] Urine specific gravity measu rementOrdered By: Mariana Raphael on 08-21-2022 Specific gravity (U) [Rel density] 1.020 1.002-1.030 [facility] Urobilinogen Auto test strip Ql (U)Ordered By: Mariana Raphael on 08-21-2022 Urobilinogen Ql (U) Normal mg/dl Normal [facility] Absolute lymphocyte countOrd ered By: Dr. Diaz on 08-16-2022 Lymphocytes Auto (Unsp spec) [#/Vol] 1.79 10*3/uL 0.83-4.51 [facility] Basophil percentageOrdered B y: Dr. Diaz on 08-16-2022 Basophils/100 WBC (Bld) 0.6 % 0-1 [facility] Eosinophils/100 WBC (Bld) 2.1 % 0-5 [facility] Neutrophils (Bld) [#/Vol] 2.3 10*3/uL 2.0-7.7 [facility] Neutrophils/100 WBC (Bld) 48.4 % 47-70 [facility] WBC (Bld) [#/Vol] 4.8 10*3/uL 4.4-11.0 [facility] Blood erythrocytes count (nu mber/volume)Ordered By: Dr. Diaz on 08-16-2022 RBC (Bld) [#/Vol] 5.18 10*6/uL 4.2-5.4 [facility] Blood hemoglobin measurement (mass/volume)Ordered By: Dr. Diaz on 08-16-2022 Hemoglobin (Bld) [Mass/Vol] 13.1 g/dL 12.0-15.0 [facility] Blood lymphocytes/100 leukoc ytesOrdered By: Dr. Diaz on 08-16-2022 Lymphocytes/100 WBC (Bld) 37.4 % 19-41 [facility] Blood monocytes/100 leukocyt esOrdered By: Dr. Diaz on 08-16-2022 Monocytes/100 WBC (Bld) 11.3 % 0-10 [facility] Blood platelet mean volumeOr dered By: Dr. Diaz on 08-16-2022 Platelet mean volume (Bld) [Entitic vol] 8.5 fL 6.2-12.0 [facility] Determination of erythrocyte mean corpuscular volume (MCV)Ordered By: Dr. Diaz on 08-16-2022 MCV (RBC) [Entitic vol] 79.7 fL 81-99 [facility] Hematocrit Auto (Bld) [Volum e fraction]Ordered By: Dr. Diaz on 08-16-2022 Hematocrit (Bld) [Volume fraction] 41.3 % 37-47 [facility] - Hematology and Cell countsOrdered By: Dr. Diaz on 08-16-2022 Erythrocyte distribution width (RBC) [Entitic vol] 40.4 fL 35.1-43.9 [facility] Erythrocyte distribution width (RBC) [Ratio] 13.9 % 11.6-14.6 [facility] Immature granulocytes/100 WBC (Bld) 0.200 % 0.0-0.9 [facility] Comment on above: IG% - Immature Granu locytes (promyelocytes, myelocytes and metamyelocytes) > 1% indicates that a LEFT SHIFT is Present. MCH (RBC) [Entitic mass] 25.3 pg 27.0-32.0 [facility] Nucleated RBC/100 WBC (Bld) [Ratio] 0 % 0-5 [facility] MCHC Auto (RBC) [Mass/Vol]Or dered By: Dr. Diaz on 08-16-2022 MCHC (RBC) [Mass/Vol] 31.7 g/dL 32-36 [facility] No Panel InformationOrdered By: Dr. Diaz on 08-16-2022 Troponin I High Sensitivity < 3 pg/mL 3.0-54.0 [facility] Comment on above: Please Note: New Vandana t Units and Gender Specific Reference Ranges. For more information see Policy Stat Procedure [place] High Sensitivity Troponin (TNIH) and attachments. Platelets bldOrdered By: Dr. Diaz on 08-16-2022 Platelets (Bld) [#/Vol] 262 10*3/uL 150-450 [facility] CIRANon 07-30-2022 Dil Baldo Viper Venom 39.4 seconds Normal 30.0-42.0 [facility] ([place]) Comment on above: Performed By: #### D IFF, APTT, CBC, LIPID, ANEU, ADIFF, GFR, TSH, FT4, CMP, MONO, MORPH, ESR, CRP #### [place] [id number] #### MCRSO, CIRAN, ADA, FRANCESCA #### [place] [address] [place] Interpretation See Below Normal [facility] ([place]) Comment on above: Result Comment: No e vidence of lupus anticoagulant. Although results may represent valid findings for Lupus Anticoagulant, DRVVT results may be affected by presence of direct thrombin inhibitors, such as argatroban, dabigatran (Pradaxa) and Bivalirudin (Angiomax),and direct Xa inhibitors, such as rivaroxaban (Xarelto) and apixaban (Eliquis). Interpret Lupus Anticoagulant results with clinical correlation. Performed By: #### D IFF, APTT, CBC, LIPID, ANEU, ADIFF, GFR, TSH, FT4, CMP, MONO, MORPH, ESR, CRP #### [place] [address] #### MCRSO, CIRAN, ADA, FRANCESCA #### [place] [address] Platelet neutraliz. Negative Normal [facility] ([place]) Comment on above: Performed By: #### D IFF, APTT, CBC, LIPID, ANEU, ADIFF, GFR, TSH, FT4, CMP, MONO, MORPH, ESR, CRP #### [place] [address] #### MCRSO, CIRAN, ADA, FRANCESCA #### [place] [address] .ANATon 07-29-2022 ADA Pattern 1 Speckled Normal [facility] ([place]) Comment on above: Result Comment: [facility] an ADA titer of 160 or greater suggests connective tissue disease but should not be considered diagnostic. The ADA result should be considered in combination with other serological results and the clinical history of the patient. SPECKLED: Suggests the following diseases: Mixed Connective Tissue Disease (MCTD), Systemic Lupus Erythematosis (SLE), CREST variant of Progressive Systemic Sclerosis (PSS) or Sjogren's Syndrome. SUPPLEMENTAL TESTS: Extractable Nuclear Antibody (CYN) which includes SM Ab (SLE), GLOVE STITCHER Ab (MCTD) and SSA and SSB (Sjogren's Syndrome); Complement C3 C4. Performed By: #### D IFF, APTT, CBC, LIPID, ANEU, ADIFF, GFR, TSH, FT4, CMP, MONO, MORPH, ESR, CRP #### [address] [address] #### MCRSO, CIRAN, ADA, FRANCESCA #### [place] [address] ADA Titer 1 160 Normal [facility] ([place]) Comment on above: Performed By: #### D IFF, APTT, CBC, LIPID, ANEU, ADIFF, GFR, TSH, FT4, CMP, MONO, MORPH, ESR, CRP #### [address] [address] #### ADRIA, CRAIGAN, ADA, FRANCESCA #### [place] [id number] ANAon 07-29-2022 ADA See Titer Normal Neg 40 [facility] ([place]) Comment on above: Result Comment: ADA Screen and Titer methodology is an immunofluorescent technique utilizing Hep2 Substrate. Performed By: #### D IFF, APTT, CBC, LIPID, ANEU, ADIFF, GFR, TSH, FT4, CMP, MONO, MORPH, ESR, CRP #### [address] [address] #### MCRSO, CIRAN, ADA, FRANCESCA #### [place] [id number] 07-29-2022 Beta2 Glycoprotein IgG <9 Normal <20 [facility] ([place]) Comment on above: Result Comment: <20 SGU Negative 20-80 SGU Low Positive >80 SGU High Positive These results were obtained with the [employer] QUANTA Lite B2 GPI IgG TYREE. B2 GPI IgG values obtained with different manufacturers' assay methods may not be used interchangeably. The magnitude of the reported IgG levels cannot be correlated to an endpoint titer. This test is used as an aid in diagnosis of anti-phospholipid syndrome and to estimate the risk of thrombosis in patients with established diagnosis of systemic lupus erythematous. Clinical correlation is required. Performed By: [address] [address] Company Controller: Mil Wilkinson III, M.D. CLIA#: [id number] Performed By: #### D IFF, APTT, CBC, LIPID, ANEU, ADIFF, GFR, TSH, FT4, CMP, MONO, MORPH, ESR, CRP #### [address] [address] #### MCRSO, CIRAN, ADA, FRANCESCA #### [place] [address] Beta2 Glycoprotein IgM 81 [facility] High <20 [facility] ([place] Comment on above: Result Comment: <20 [facility] Negative 20-80 [facility] Low Positive >80 [facility] High positive These results were obtained with the Im[employer] Lite B2 GPI IgM TYREE. B2 GPI IgM values obtained with different manufacturers' assay methods may not be used interchangeably. The magnitude of the reported IgM levels cannot be correlated to an endpoint titer. This test is used as an aid in diagnosis of anti-phospholipid syndrome and to estimate the risk of thrombosis in patients with established diagnosis of systemic lupus erythematous. Clinical correlation is required. Performed By: [address] [address] Company Controller: Mil Wilkinson III, M.D. CLIA#: [id number] Performed By: #### D IFF, APTT, CBC, LIPID, ANEU, ADIFF, GFR, TSH, FT4, CMP, MONO, MORPH, ESR, CRP #### [place] [address] #### MCRSO, CIRAN, ADA, FRANCESCA #### [address] 07-29-2022 IgG Cardiolipin Ab <9.0 Normal <15.0 [facility] ([place]) Comment on above: Result Comment: <15 GPL Negative 15-20 GPL Indeterminate >20 GPL Positive The following results were obtained with the [employer] QUANTA Lite BELINDA IgG III TYREE. Cardiolipin IgG values obtained with the different manufacturers' assay methods may not be used interchangeably. The magnitude of the reported IgG levels cannot be correlated to an endpoint titer. This test is used as an aid in diagnosis of anti-phospholipid syndrome. The test may occasionally be positive in patients with a range of underlying conditions, secondary syphilis, HIV infection, active Hepatitis C, endocarditis, among others. Clinical correlation is required. Performed By: [facility] [address] [place] [address] Company Controller: Mil Wilkinson III, M.D. CLIA#: [id number] Performed By: #### D IFF, APTT, CBC, LIPID, ANEU, ADIFF, GFR, TSH, FT4, CMP, MONO, MORPH, ESR, CRP #### [place] [address] #### MCRSO, CIRAN, ADA, FRANCESCA #### [address] [address] .Auto Diffon 07-27-2022 Basophil, Absolute 0.0 10 3/mcL Normal 0.0-0.2 [facility] ([place]) Comment on above: Performed By: #### D IFF, APTT, CBC, LIPID, ANEU, ADIFF, GFR, TSH, FT4, CMP, MONO, MORPH, ESR, CRP #### [place] [address] #### MCRSO, CIRAN, ADA, FRANCESCA #### [address] [address] Basophils/100 WBC (Bld) 0.7 % Normal 0.0-2.5 [facility] ([place]) Comment on above: Performed By: #### D IFF, APTT, CBC, LIPID, ANEU, ADIFF, GFR, TSH, FT4, CMP, MONO, MORPH, ESR, CRP #### [place] [address] #### MCRSO, CIRAN, ADA, FRANCESCA #### [address] [address] Eosinophil, Absolute 0.1 10 3/mcL Normal 0.0-0.4 [facility] ([place] Comment on above: Performed By: #### D IFF, APTT, CBC, LIPID, ANEU, ADIFF, GFR, TSH, FT4, CMP, MONO, MORPH, ESR, CRP #### [address] [address] #### BRENNAN COVINGTON, ADA, FRANCESCA #### [address] [address] Eosinophils/100 WBC (Bld) 1.8 % Normal 0.0-7.0 [facility] ([place]) Comment on above: Performed By: #### D IFF, APTT, CBC, LIPID, ANEU, ADIFF, GFR, TSH, FT4, CMP, MONO, MORPH, ESR, CRP #### [address] [address] #### BRENNAN COVINGTON, ADA, FRANCESCA #### [address] [address] Lymphocyte, Absolute 2.0 10 3/mcL Normal 0.8-3.9 [facility] ([place] Comment on above: Performed By: #### D IFF, APTT, CBC, LIPID, ANEU, ADIFF, GFR, TSH, FT4, CMP, MONO, MORPH, ESR, CRP #### [address] [address] #### BRENNAN COVINGTON, ADA, FRANCESCA #### [address] [address] Lymphocytes/100 WBC (Bld) 40.9 % Normal 10.0-50.0 [facility] ([place] Comment on above: Performed By: #### D IFF, APTT, CBC, LIPID, ANEU, ADIFF, GFR, TSH, FT4, CMP, MONO, MORPH, ESR, CRP #### [address] [address] #### MCRSO, BRENNAN, ADA, FRANCESCA #### [address] [address] Monocyte, Absolute 0.5 10 3/mcL Normal 0.2-1.0 [facility] ([place]) Comment on above: Performed By: #### D IFF, APTT, CBC, LIPID, ANEU, ADIFF, GFR, TSH, FT4, CMP, MONO, MORPH, ESR, CRP #### [address] [address] #### MCRSO, CIRAN, ADA, FRANCESCA #### [address] [address] Monocytes/100 WBC (Bld) 10.2 % Normal 1.7-13.0 [facility] ([place]) Comment on above: Performed By: #### D IFF, APTT, CBC, LIPID, ANEU, ADIFF, GFR, TSH, FT4, CMP, MONO, MORPH, ESR, CRP #### [address] [address] #### MCRSO, CIRAN, ADA, FRANCESCA #### [address] [address] Neutrophils/100 WBC (Bld) 46.4 % Normal 37.0-80.0 [facility] ([place]) Comment on above: Performed By: #### D IFF, APTT, CBC, LIPID, ANEU, ADIFF, GFR, TSH, FT4, CMP, MONO, MORPH, ESR, CRP #### [address] [address] #### MCRSO, CIRAN, ADA, FRANCESCA #### [address] [address] .GFRon 07-27-2022 GFR 100 ml/min/1.73sqm Normal [facility] ([place]) Comment on above: Result Comment: GFR Population mean for , Non- Americans Ages 20-29 = 116 mL/min/1.73 sq.m. Ages 30-39 = 107 mL/min/1.73 sq.m. Ages 40-49 = 99 mL/min/1.73 sq.m. Ages 50-59 = 93 mL/min/1.73 sq.m. Ages 60-69 = 85 mL/min/1.73 sq.m. Ages 70+ = 75 mL/min/1.73 sq.m. Chronic Kidney Disease: Less than 60 mL/min/1.73 square meters End Stage Renal Disease: Less than 15 mL/min/1.73 square meters Performed By: #### D IFF, APTT, CBC, LIPID, ANEU, ADIFF, GFR, TSH, FT4, CMP, MONO, MORPH, ESR, CRP #### [address] [address] #### BRENNAN COVINGTON ANA, FRANCESCA #### [address] [address] GFR Non- 82 ml/min/1.73sqm Normal [facility] ([place]) Comment on above: Result Comment: GFR Population mean for , Non- Americans Ages 20-29 = 116 mL/min/1.73 sq.m. Ages 30-39 = 107 mL/min/1.73 sq.m. Ages 40-49 = 99 mL/min/1.73 sq.m. Ages 50-59 = 93 mL/min/1.73 sq.m. Ages 60-69 = 85 mL/min/1.73 sq.m. Ages 70+ = 75 mL/min/1.73 sq.m. Chronic Kidney Disease: Less than 60 mL/min/1.73 square meters End Stage Renal Disease: Less than 15 mL/min/1.73 square meters Performed By: #### D IFF, APTT, CBC, LIPID, ANEU, ADIFF, GFR, TSH, FT4, CMP, MONO, MORPH, ESR, CRP #### [address] [address] #### BRENNAN COVINGTON ADA, FRANCESCA #### [address] [address] .Manual Diffon 07-27-2022 Atypical Lymphs 9.0 % High 0.0-5.0 [facility] ([place]) Comment on above: Performed By: #### D IFF, APTT, CBC, LIPID, ANEU, ADIFF, GFR, TSH, FT4, CMP, MONO, MORPH, ESR, CRP #### [address] [address] #### BRENNAN COVINGTON, ADA, FRANCESCA #### [address] [address] Bands 1.0 % Normal 0.0-5.0 [facility] ([place]) Comment on above: Performed By: #### D IFF, APTT, CBC, LIPID, ANEU, ADIFF, GFR, TSH, FT4, CMP, MONO, MORPH, ESR, CRP #### [address] [address] #### MCRSO, CIRMARTHA, ADA, FRANCESCA #### [address] [address] Basophil %, Manual 0.0 % Normal 0.0-2.5 [facility] ([place]) Comment on above: Performed By: #### D IFF, APTT, CBC, LIPID, ANEU, ADIFF, GFR, TSH, FT4, CMP, MONO, MORPH, ESR, CRP #### [address] [address] #### BALJEETSO, BRENNAN, ADA, FRANCESCA #### [address] [address] Basophil, Abs Manual 0.0 10 3/mcL Normal 0.0-0.2 [facility], [facility] ([place]) Comment on above: Performed By: #### D IFF, APTT, CBC, LIPID, ANEU, ADIFF, GFR, TSH, FT4, CMP, MONO, MORPH, ESR, CRP #### [address] [address] #### BALJEETSO, CIRAN, ADA, FRANCESCA #### [address] [address] Eosinophil %, Manual 2.0 % Normal 0.0-7.0 [facility] ([place]) Comment on above: Performed By: #### D IFF, APTT, CBC, LIPID, ANEU, ADIFF, GFR, TSH, FT4, CMP, MONO, MORPH, ESR, CRP #### [address] [address] #### MCRSO, CIRAN, ADA, FRANCESCA #### [address] [address] Eosinophil, Abs Manual 0.1 10 3/mcL Normal 0.0-0.4 [facility] ([place]) Comment on above: Performed By: #### D IFF, APTT, CBC, LIPID, ANEU, ADIFF, GFR, TSH, FT4, CMP, MONO, MORPH, ESR, CRP #### [address] [address] #### MCRSO, CIRAN, ADA, FRANCESCA #### [address] [address] Lymphocyte %, Manual 29.0 % Normal 10.0-50.0 [facility] ([place] Comment on above: Performed By: #### D IFF, APTT, CBC, LIPID, ANEU, ADIFF, GFR, TSH, FT4, CMP, MONO, MORPH, ESR, CRP #### [address] [address] #### MCRSO, CIRMARTHA, ADA, FRANCESCA #### [address] [address] Lymphocyte, Abs Manual 1.4 10 3/mcL Normal 0.8-3.9 [facility] ([place]) Comment on above: Performed By: #### D IFF, APTT, CBC, LIPID, ANEU, ADIFF, GFR, TSH, FT4, CMP, MONO, MORPH, ESR, CRP #### [address] [address] #### MCRSO, CIRAN, ADA, FRANCESCA #### [address] [address] Monocyte %, Manual 5.0 % Normal 1.7-13.0 [facility] ([place] Comment on above: Performed By: #### D IFF, APTT, CBC, LIPID, ANEU, ADIFF, GFR, TSH, FT4, CMP, MONO, MORPH, ESR, CRP #### [address] [address] #### MCRSO, CIRAN, ADA, FRANCESCA #### [address] [address] Monocyte, Abs Manual 0.2 10 3/mcL Normal 0.2-1.0 [facility] ([place] Comment on above: Performed By: #### D IFF, APTT, CBC, LIPID, ANEU, ADIFF, GFR, TSH, FT4, CMP, MONO, MORPH, ESR, CRP #### [address] [address] #### ADRIA, CRAIGAN, ADA, FRANCESCA #### [address] [address] Neutrophil %, Manual 54.0 % Normal 37.0-80.0 [facility] ([place] Comment on above: Performed By: #### D IFF, APTT, CBC, LIPID, ANEU, ADIFF, GFR, TSH, FT4, CMP, MONO, MORPH, ESR, CRP #### [address] [address] #### ADRIA, BRENNAN, ADA, FRANCESCA #### [address] [address] Neutrophil, Abs Manual 2.6 10 3/mcL Low 2.9-6.2 [facility] ([place] Comment on above: Performed By: #### D IFF, APTT, CBC, LIPID, ANEU, ADIFF, GFR, TSH, FT4, CMP, MONO, MORPH, ESR, CRP #### [place] [id number] #### BALJEETSO, CRAIGAN, ADA, FRANCESCA #### [address] [address] Nucleated RBC 0.0 /100 WBC Normal [facility] ([place]) Comment on above: Performed By: #### D IFF, APTT, CBC, LIPID, ANEU, ADIFF, GFR, TSH, FT4, CMP, MONO, MORPH, ESR, CRP #### [place] [address] #### MCRSO, CIRAN, ADA, FRANCESCA #### [place] [id number] .Morphon 07-27-2022 Platelet Estimate Normal Normal [facility] ([place]) Comment on above: Performed By: #### D IFF, APTT, CBC, LIPID, ANEU, ADIFF, GFR, TSH, FT4, CMP, MONO, MORPH, ESR, CRP #### [place] [address] #### BRENNAN COVINGTON ANA, FRANCESCA #### [address] [address] .NEUABSon 07-27-2022 Neutrophil, Absolute 2.2 10 3/mcL Low 2.9-6.2 [facility] ([place] Comment on above: Performed By: #### D IFF, APTT, CBC, LIPID, ANEU, ADIFF, GFR, TSH, FT4, CMP, MONO, MORPH, ESR, CRP #### [place] [address] #### BRENNAN COVINGTON ANA, FRANCESCA #### [place] [address] APTTon 07-27-2022 aPTT Coag (Bld) [Time] 34.5 s Normal 25.0-35.0 [facility] ([place] Comment on above: Result Comment: For Heparin anticoagulation therapy, the recommended therapeutic range is: 50.6-87.4 seconds. Patients on heparin therapy may have an extreme result. Performed By: #### D IFF, APTT, CBC, LIPID, ANEU, ADIFF, GFR, TSH, FT4, CMP, MONO, MORPH, ESR, CRP #### [place] [address] #### BRENNAN COVINGTON ANA, FRANCESCA #### [place] [address] Heparin dose (APTT) None Normal [facility] ([place]) Comment on above: Performed By: #### D IFF, APTT, CBC, LIPID, ANEU, ADIFF, GFR, TSH, FT4, CMP, MONO, MORPH, ESR, CRP #### [place] [address] #### BRENNAN COVINGTON ANA, FRANCESCA #### [address] [address] CBCon 07-27-2022 Erythrocyte distribution width (RBC) [Ratio] 14.1 % Normal 11.5-14.5 [facility] ([place]) Comment on above: Performed By: #### D IFF, APTT, CBC, LIPID, ANEU, ADIFF, GFR, TSH, FT4, CMP, MONO, MORPH, ESR, CRP #### [address] [address] #### ADRIA, BRENNAN, ADA, FRANCESCA #### [address] [address] Hematocrit (Bld) [Volume fraction] 41.0 % Normal 37.0-47.0 [facility] ([place]) Comment on above: Performed By: #### D IFF, APTT, CBC, LIPID, ANEU, ADIFF, GFR, TSH, FT4, CMP, MONO, MORPH, ESR, CRP #### [address] [address] #### BRENNAN COVINGTON, ADA, FRANCESCA #### [place] [address] Hgb 13.5 G/dL Normal 12.0-16.0 [facility] ([place] Comment on above: Performed By: #### D IFF, APTT, CBC, LIPID, ANEU, ADIFF, GFR, TSH, FT4, CMP, MONO, MORPH, ESR, CRP #### [address] [address] #### BALJEETSOBRENNAN, ADA, FRANCESCA #### [address] [address] MCH (RBC) [Entitic mass] 25.3 pg Low 27.0-31.2 [facility] ([place] Comment on above: Performed By: #### D IFF, APTT, CBC, LIPID, ANEU, ADIFF, GFR, TSH, FT4, CMP, MONO, MORPH, ESR, CRP #### [address] [address] #### MCRSO, CIRAN, ADA, FRANCESCA #### [place] [address] MCHC 32.9 G/dL Low 33.0-37.0 [facility] ([place] Comment on above: Performed By: #### D IFF, APTT, CBC, LIPID, ANEU, ADIFF, GFR, TSH, FT4, CMP, MONO, MORPH, ESR, CRP #### [address] [address] #### MCRSO, CIRAN, ADA, FRANCESCA #### [address] [address] MCV (RBC) [Entitic vol] 77.0 fL Low 80.0-94.0 [facility] ([place]) Comment on above: Performed By: #### D IFF, APTT, CBC, LIPID, ANEU, ADIFF, GFR, TSH, FT4, CMP, MONO, MORPH, ESR, CRP #### [place] [address] #### MCRSO, CIRAN, ADA, FRANCESCA #### [place] [address] Platelet 240 10 3/mcL Normal 130-400 [facility] ([place]) Comment on above: Performed By: #### D IFF, APTT, CBC, LIPID, ANEU, ADIFF, GFR, TSH, FT4, CMP, MONO, MORPH, ESR, CRP #### [address] [address] #### MCRSO, CIRAN, ADA, FRANCESCA #### [place] [address] Platelet mean volume (Bld) [Entitic vol] 6.9 fL Low 7.4-10.4 [facility] ([place]) Comment on above: Performed By: #### D IFF, APTT, CBC, LIPID, ANEU, ADIFF, GFR, TSH, FT4, CMP, MONO, MORPH, ESR, CRP #### [place] [address] #### MCRSO, CIRAN, ADA, FRANCESCA #### [place] [address] RBC 5.33 10 6/mcL Normal 4.20-5.40 [facility] ([place]) Comment on above: Performed By: #### D IFF, APTT, CBC, LIPID, ANEU, ADIFF, GFR, TSH, FT4, CMP, MONO, MORPH, ESR, CRP #### [address] [address] #### MCRSO, CIRAN, ADA, FRANCESCA #### [address] [address] WBC 4.8 10 3/mcL Normal 4.6-10.8 [facility] ([place] Comment on above: Performed By: #### D IFF, APTT, CBC, LIPID, ANEU, ADIFF, GFR, TSH, FT4, CMP, MONO, MORPH, ESR, CRP #### [address] [address] #### MCRSO, CIRMARTHA, ADA, FRANCESCA #### [address] [address] CMPon 07-27-2022 Albumin Level 4.3 G/dL Normal 3.5-5.0 [facility] ([place]) Comment on above: Performed By: #### D IFF, APTT, CBC, LIPID, ANEU, ADIFF, GFR, TSH, FT4, CMP, MONO, MORPH, ESR, CRP #### [address] [address] #### MCRSO, CIRAN, ADA, FRANCESCA #### [address] [address] Albumin/Globulin [Mass ratio] 1.4 {ratio} Normal 1.1-2.5 [facility] ([place]) Comment on above: Performed By: #### D IFF, APTT, CBC, LIPID, ANEU, ADIFF, GFR, TSH, FT4, CMP, MONO, MORPH, ESR, CRP #### [address] [address] #### MCRSO, CIRAN, ADA, FRANCESCA #### [address] [address] ALP [Catalytic activity/Vol] 55 U/L Normal 40-135 [facility] ([place]) Comment on above: Performed By: #### D IFF, APTT, CBC, LIPID, ANEU, ADIFF, GFR, TSH, FT4, CMP, MONO, MORPH, ESR, CRP #### [place] [id number] #### BRENNAN COVINGTON, ADA, FRANCESCA #### [address] [address] ALT [Catalytic activity/Vol] 21 U/L Normal 14-59 [facility] ([place] Comment on above: Performed By: #### D IFF, APTT, CBC, LIPID, ANEU, ADIFF, GFR, TSH, FT4, CMP, MONO, MORPH, ESR, CRP #### [place] [address] #### ADRIA, BRENNAN, ADA, FRANCESCA #### [address] [address] AST [Catalytic activity/Vol] 16 U/L Normal 10-40 [facility] ([place]) Comment on above: Performed By: #### D IFF, APTT, CBC, LIPID, ANEU, ADIFF, GFR, TSH, FT4, CMP, MONO, MORPH, ESR, CRP #### [place] [address] #### BRENNAN COVINGTON, ADA, FRANCESCA #### [address] [address] Bili Total 0.5 mg/dL Normal 0.2-1.0 [facility] ([place]) Comment on above: Result Comment: Use of this assay is not recommended for patients undergoing treatment with eltrombopag due to the potential for falsely elevated results. Performed By: #### D IFF, APTT, CBC, LIPID, ANEU, ADIFF, GFR, TSH, FT4, CMP, MONO, MORPH, ESR, CRP #### [place] [id number] #### MCRSO, CIRAN, ADA, FRANCESCA #### [address] [address] BUN/Creatinine Ratio 15 ratio Normal 7-27 [facility] ([place]) Comment on above: Performed By: #### D IFF, APTT, CBC, LIPID, ANEU, ADIFF, GFR, TSH, FT4, CMP, MONO, MORPH, ESR, CRP #### [address] [address] #### BRENNAN COVINGTON ANA, FRANCESCA #### [address] [address] Calcium [Mass/Vol] 9.1 mg/dL Normal 8.4-10.2 [facility] ([place]) Comment on above: Performed By: #### D IFF, APTT, CBC, LIPID, ANEU, ADIFF, GFR, TSH, FT4, CMP, MONO, MORPH, ESR, CRP #### [address] [address] #### BRENNAN COVINGTON ANA, FRANCESCA #### [address] [address] Chloride [Moles/Vol] 106 mmol/L Normal 98-107 [facility] ([place] Comment on above: Performed By: #### D IFF, APTT, CBC, LIPID, ANEU, ADIFF, GFR, TSH, FT4, CMP, MONO, MORPH, ESR, CRP #### [address] [address] #### BRENNAN COVINGTON ADA, FRANCESCA #### [address] [address] CO2 [Moles/Vol] 32 mmol/L High 22-29 [facility] ([place]) Comment on above: Performed By: #### D IFF, APTT, CBC, LIPID, ANEU, ADIFF, GFR, TSH, FT4, CMP, MONO, MORPH, ESR, CRP #### [address] [address] #### BRENNAN COVINGTON, ADA, FRANCESCA #### [address] [address] Creatinine [Mass/Vol] 0.81 mg/dL Normal 0.55-1.02 [facility] ([place]) Comment on above: Performed By: #### D IFF, APTT, CBC, LIPID, ANEU, ADIFF, GFR, TSH, FT4, CMP, MONO, MORPH, ESR, CRP #### [address] [address] #### BRENNAN COVINGTON ANA, FRANCESCA #### [address] [address] Electrolyte Balance 5.0 mEq/L Normal 4.0-15.0 [facility] ([place] Comment on above: Performed By: #### D IFF, APTT, CBC, LIPID, ANEU, ADIFF, GFR, TSH, FT4, CMP, MONO, MORPH, ESR, CRP #### [address] [address] #### BRENNAN COVINGTON ANA, FRANCESCA #### [address] [address] Globulin 3.1 G/dL Normal [facility] ([place]) Comment on above: Performed By: #### D IFF, APTT, CBC, LIPID, ANEU, ADIFF, GFR, TSH, FT4, CMP, MONO, MORPH, ESR, CRP #### [address] [address] #### BRENNAN COVINGTON ANA, FRANCESCA #### [address] [address] Glucose [Mass/Vol] 103 mg/dL Normal 70-105 [facility] ([place] Comment on above: Performed By: #### D IFF, APTT, CBC, LIPID, ANEU, ADIFF, GFR, TSH, FT4, CMP, MONO, MORPH, ESR, CRP #### [address] [address] #### BRENNAN COVINGTON ANA, FRANCESCA #### [address] [address] Potassium [Moles/Vol] 4.6 mmol/L Normal 3.5-5.1 [facility] ([place]) Comment on above: Performed By: #### D IFF, APTT, CBC, LIPID, ANEU, ADIFF, GFR, TSH, FT4, CMP, MONO, MORPH, ESR, CRP #### [address] [address] #### MCRSOBRENNAN ADA, FRANCESCA #### [address] [address] Sodium [Moles/Vol] 143 mmol/L Normal 136-145 [facility] ([place] Comment on above: Performed By: #### D IFF, APTT, CBC, LIPID, ANEU, ADIFF, GFR, TSH, FT4, CMP, MONO, MORPH, ESR, CRP #### [address] [address] #### MCRSO, CIRAN, ADA, FRANCESCA #### [address] [address] Total Protein 7.4 G/dL Normal 6.4-8.2 [facility] ([place]) Comment on above: Performed By: #### D IFF, APTT, CBC, LIPID, ANEU, ADIFF, GFR, TSH, FT4, CMP, MONO, MORPH, ESR, CRP #### [address] [address] #### MCRSO CIRMARTHA, ADA, FRANCESCA #### [address] [address] Urea nitrogen [Mass/Vol] 12 mg/dL Normal 7-18 [facility] ([place]) Comment on above: Performed By: #### D IFF, APTT, CBC, LIPID, ANEU, ADIFF, GFR, TSH, FT4, CMP, MONO, MORPH, ESR, CRP #### [address] [address] #### MCRSO, CIRAN, ADA, FRANCESCA #### [address] [address] CRPon 07-27-2022 CRP [Mass/Vol] mg/L Normal 0.0-0.9 [facility] ([place]) Comment on above: Performed By: #### D IFF, APTT, CBC, LIPID, ANEU, ADIFF, GFR, TSH, FT4, CMP, MONO, MORPH, ESR, CRP #### [address] [address] #### BRENNAN COVINGTON ADA, FRANCESCA #### [place] [address] ESRon 07-27-2022 Erythrocyte Sed Rate 4 mm/hr Normal 0-20 [facility] ([place]) Comment on above: Performed By: #### D IFF, APTT, CBC, LIPID, ANEU, ADIFF, GFR, TSH, FT4, CMP, MONO, MORPH, ESR, CRP #### [address] [address] #### ADRIA, BRENNAN, ADA, FRANCESCA #### [place] [address] FT3on 07-27-2022 Free T3 [Mass/Vol] 3.06 pg/mL Normal 2.30-4.00 [facility] ([place]) Comment on above: Performed By: #### D IFF, APTT, CBC, LIPID, ANEU, ADIFF, GFR, TSH, FT4, CMP, MONO, MORPH, ESR, CRP #### [address] [address] #### BRENNAN COVINGTON ADA, FRANCESCA #### [place] [address] FT4on 07-27-2022 Free T4 [Mass/Vol] 0.87 ng/dL Normal 0.76-1.46 [facility] ([place]) Comment on above: Performed By: #### D IFF, APTT, CBC, LIPID, ANEU, ADIFF, GFR, TSH, FT4, CMP, MONO, MORPH, ESR, CRP #### [address] [address] #### BRENNAN COVINGTON, ADA, FRANCESCA #### [place] [address] LABORATORYOrdered By: SYSTEM SYSTEM on 07-27-2022 Free T3 [Mass/Vol] 3.06 pg/mL Invalid Interpretation Code 2.30 - 4.00 pg/mL AO ADM SS Albumin BCP dye [Mass/Vol] 4.3 G/dL Invalid Interpretation Code 3.5 - 5.0 G/dL AO ADM SS Albumin/Globulin [Mass ratio] 1.4 {ratio} Invalid Interpretation Code 1.1 - 2.5 ratio AO ADM SS ALP [Catalytic activity/Vol] 55 U/L Invalid Interpretation Code 40 - 135 U/L AO ADM SS ALT With P-5'-P [Catalytic activity/Vol] 21 U/L Invalid Interpretation Code 14 - 59 U/L AO ADM SS AST With P-5'-P [Catalytic activity/Vol] 16 U/L Invalid Interpretation Code 10 - 40 U/L AO ADM SS Bilirubin [Mass/Vol] 0.5 mg/dL Invalid Interpretation Code 0.2 - 1.0 mg/dL AO ADM SS Calcium [Mass/Vol] 9.1 mg/dL Invalid Interpretation Code 8.4 - 10.2 mg/dL AO ADM SS Chloride [Moles/Vol] 106 mmol/L Invalid Interpretation Code 98 - 107 mmol/L AO ADM SS CO2 [Moles/Vol] 32 mmol/L Invalid Interpretation Code 22 - 29 mmol/L AO ADM SS Creatinine [Mass/Vol] 0.81 mg/dL Invalid Interpretation Code 0.55 - 1.02 mg/dL AO ADM SS Electrolyte Balance 5.0 mEq/L Invalid Interpretation Code 4.0 - 15.0 mEq/L AO ADM SS Free T4 [Mass/Vol] 0.87 ng/dL Invalid Interpretation Code 0.76 - 1.46 ng/dL AO ADM SS GFR/1.73 sq M.predicted among blacks MDRD (S/P/Bld) [Vol rate/Area] 100 ml/min/1.73sqm Invalid Interpretation Code AO Chemistry S GFR/1.73 sq M.predicted among non-blacks MDRD (S/P/Bld) [Vol rate/Area] 82 ml/min/1.73sqm Invalid Interpretation Code AO Chemistry S Globulin 3.1 G/dL Invalid Interpretation Code AO ADM SS Glucose [Mass/Vol] 103 mg/dL Invalid Interpretation Code 70 - 105 mg/dL AO ADM SS Potassium [Moles/Vol] 4.6 mmol/L Invalid Interpretation Code 3.5 - 5.1 mmol/L AO ADM SS Protein [Mass/Vol] 7.4 G/dL Invalid Interpretation Code 6.4 - 8.2 G/dL AO ADM SS Sodium [Moles/Vol] 143 mmol/L Invalid Interpretation Code 136 - 145 mmol/L AO ADM SS TPO Ab IA Qn unit/mL Invalid Interpretation Code 0 - 60 unit/mL AH ADM SS TSH Qn 2.27 m[IU]/L Invalid Interpretation Code 0.36 - 3.74 mcIU/mL AO ADM SS Urea nitrogen [Mass/Vol] 12 mg/dL Invalid Interpretation Code 7 - 18 mg/dL AO ADM SS Urea nitrogen/Creatinine [Mass ratio] 15 ratio Invalid Interpretation Code 7 - 27 ratio AO ADM SS LABORATORYOrdered By: Morenita Calvin on 07-27-2022 aPTT Coag (PPP) [Time] 34.5 s Invalid Interpretation Code 25.0 - 35.0 seconds AO HemoHub SS Bands 1.0 1 Invalid Interpretation Code 0.0 - 5.0 % AO Workflow SS Basophil %, Manual 0.0 1 Invalid Interpretation Code 0.0 - 2.5 % AO Workflow SS Basophil, Abs Manual 0.0 103/mcL Invalid Interpretation Code 0.0 - 0.2 10^3/mcL AO Workflow SS Basophil, Absolute 0.0 103/mcL Invalid Interpretation Code 0.0 - 0.2 10^3/mcL AO Workflow SS Basophils/100 WBC (Bld) 0.7 % Invalid Interpretation Code 0.0 - 2.5 % AO Workflow SS Cholesterol [Mass/Vol] 147 mg/dL Invalid Interpretation Code 0 - 200 mg/dL AO ADM SS Cholesterol in HDL [Mass/Vol] 56 mg/dL Invalid Interpretation Code 40 - 60 mg/dL AO ADM SS Cholesterol in LDL [Mass/Vol] 81 mg/dL Invalid Interpretation Code 0 - 130 mg/dL AO ADM SS CRP [Mass/Vol] mg/dL Invalid Interpretation Code 0.0 - 0.9 mg/dL AO Chemistry S Eosinophil %, Manual 2.0 1 Invalid Interpretation Code 0.0 - 7.0 % AO Workflow SS Eosinophil, Absolute 0.1 103/mcL Invalid Interpretation Code 0.0 - 0.4 10^3/mcL AO Workflow SS Eosinophils (Bld) [#/Vol] 0.1 103/mcL Invalid Interpretation Code 0.0 - 0.4 10^3/mcL AO Workflow SS Eosinophils/100 WBC (Bld) 1.8 % Invalid Interpretation Code 0.0 - 7.0 % AO Workflow SS Erythrocyte distribution width (RBC) [Ratio] 14.1 % Invalid Interpretation Code 11.5 - 14.5 % AO Workflow SS ESR Photometric method (Bld) [Velocity] 4 mm/hr Invalid Interpretation Code 0 - 20 mm/hr AO Man Heme SS Hematocrit (Bld) [Volume fraction] 41.0 % Invalid Interpretation Code 37.0 - 47.0 % AO Workflow SS Hemoglobin (Bld) [Mass/Vol] 13.5 G/dL Invalid Interpretation Code 12.0 - 16.0 G/dL AO Workflow SS Heparin dose (APTT) None Invalid Interpretation Code AO HemoHub SS Heterophile Ab LA Ql (S) Positive (07/27/22 7:37 AM) Invalid Interpretation Code Negative AO Rapid Testing SS Lymphocyte %, Manual 29.0 1 Invalid Interpretation Code 10.0 - 50.0 % AO Workflow SS Lymphocyte, Abs Manual 1.4 103/mcL Invalid Interpretation Code 0.8 - 3.9 10^3/mcL AO Workflow SS Lymphocyte, Absolute 2.0 103/mcL Invalid Interpretation Code 0.8 - 3.9 10^3/mcL AO Workflow SS Lymphocytes/100 WBC (Bld) 40.9 % Invalid Interpretation Code 10.0 - 50.0 % AO Workflow SS MCH (RBC) [Entitic mass] 25.3 pg Invalid Interpretation Code 27.0 - 31.2 pg AO Workflow SS MCHC 32.9 G/dL Invalid Interpretation Code 33.0 - 37.0 G/dL AO Workflow SS MCV (RBC) [Entitic vol] 77.0 fL Invalid Interpretation Code 80.0 - 94.0 fL AO Workflow SS Monocyte %, Manual 5.0 1 Invalid Interpretation Code 1.7 - 13.0 % AO Workflow SS Monocyte, Abs Manual 0.2 103/mcL Invalid Interpretation Code 0.2 - 1.0 10^3/mcL AO Workflow SS Monocyte, Absolute 0.5 103/mcL Invalid Interpretation Code 0.2 - 1.0 10^3/mcL AO Workflow SS Monocytes/100 WBC (Bld) 10.2 % Invalid Interpretation Code 1.7 - 13.0 % AO Workflow SS Neutrophil %, Manual 54.0 1 Invalid Interpretation Code 37.0 - 80.0 % AO Workflow SS Neutrophil, Abs Manual 2.6 103/mcL Invalid Interpretation Code 2.9 - 6.2 10^3/mcL AO Workflow SS Neutrophil, Absolute 2.2 103/mcL Invalid Interpretation Code 2.9 - 6.2 10^3/mcL AO Workflow SS Neutrophils/100 WBC (Bld) 46.4 % Invalid Interpretation Code 37.0 - 80.0 % AO Workflow SS Nucleated RBC 0.0 /100 WBC Invalid Interpretation Code AO Workflow SS Platelet Estimate Normal *NA* (07/27/22 7:37 AM) Invalid Interpretation Code AO Workflow SS Platelet mean volume (Bld) [Entitic vol] 6.9 fL Invalid Interpretation Code 7.4 - 10.4 fL AO Workflow SS Platelets (Bld) [#/Vol] 240 103/mcL Invalid Interpretation Code 130 - 400 10^3/mcL AO Workflow SS RBC (Bld) [#/Vol] 5.33 106/mcL Invalid Interpretation Code 4.20 - 5.40 10^6/mcL AO Workflow SS Triglyceride [Mass/Vol] 49 mg/dL Invalid Interpretation Code 0 - 150 mg/dL AO ADM SS Variant lymphocytes/100 WBC (Bld) 9.0 % Invalid Interpretation Code 0.0 - 5.0 % AO Workflow SS WBC (Bld) [#/Vol] 4.8 103/mcL Invalid Interpretation Code 4.6 - 10.8 10^3/mcL AO Workflow SS LIPIDon 07-27-2022 Cholesterol [Mass/Vol] 147 mg/dL Normal 0-200 [facility] ([place]) Comment on above: Result Comment: Chol esterol Reference Interval: Less than 200 Desirable 200-239 Borderline high risk 240 and above High risk Performed By: #### D IFF, APTT, CBC, LIPID, ANEU, ADIFF, GFR, TSH, FT4, CMP, MONO, MORPH, ESR, CRP #### [address] [address] #### BRENNAN COVINGTON ANA, FRANCESCA #### [address] [address] Cholesterol in HDL [Mass/Vol] 56 mg/dL Normal 40-60 [facility] ([place]) Comment on above: Performed By: #### D IFF, APTT, CBC, LIPID, ANEU, ADIFF, GFR, TSH, FT4, CMP, MONO, MORPH, ESR, CRP #### [address] [address] #### BRENNAN COVINGTON ANA, FRANCESCA #### [address] [address] Cholesterol in LDL [Mass/Vol] 81 mg/dL Normal 0-130 [facility] ([place]) Comment on above: Performed By: #### D IFF, APTT, CBC, LIPID, ANEU, ADIFF, GFR, TSH, FT4, CMP, MONO, MORPH, ESR, CRP #### [address] [address] #### ADRIA, BRENNAN, ADA, FRANCESCA #### [place] [address] Triglyceride [Mass/Vol] 49 mg/dL Normal 0-150 A [facility] ([place]) Comment on above: Result Comment: Trig lyceride Reference Interval: Less than 150 Normal 150-199 Borderline high risk 200-499 High risk 500 or higher Very high risk Performed By: #### D IFF, APTT, CBC, LIPID, ANEU, ADIFF, GFR, TSH, FT4, CMP, MONO, MORPH, ESR, CRP #### [place] [address] #### BRENNAN COVINGTON, ADA, FRANCESCA #### [place] [address] MONOon 07-27-2022 Mononucleosis Positive Normal Negative [facility] ([place]) Comment on above: Performed By: #### D IFF, APTT, CBC, LIPID, ANEU, ADIFF, GFR, TSH, FT4, CMP, MONO, MORPH, ESR, CRP #### [place] [address] #### BRENNAN COVINGTON, ADA, FRANCESCA #### [place] [address] TSHon 07-27-2022 TSH Qn 2.27 m[IU]/L Normal 0.36-3.74 [facility] ([place]) Comment on above: Performed By: #### D IFF, APTT, CBC, LIPID, ANEU, ADIFF, GFR, TSH, FT4, CMP, MONO, MORPH, ESR, CRP #### [place] [address] #### MCRSO, CIRAN, ADA, FRANCESCA #### [facility] [address] [place] [id number] aTPOon 07-27-2022 anti-Thyroid Peroxidase <28 Normal 0-60 A [facility] ([place]) Comment on above: Result Comment: No te - New Reference Range in effect 19 Performed By: #### D IFF, APTT, CBC, LIPID, ANEU, ADIFF, GFR, TSH, FT4, CMP, MONO, MORPH, ESR, CRP #### [facility] [address] [place], [place] [address] #### MCRSO, BRENNAN, ADA, FRANCESCA #### [facility] - [place] [address] [place] [id number] Vital Signs Date Time Vital Sign Value Performing Clinician Andie paez 07-14-2024 14:41-0400 Body height 179.[address] Jocelyn Arias DO Work Phone: [facility] 07-14-2024 14:40-0400 Body mass index (BMI) [Ratio] 24.3 kg/m2 Dr. Jocelyn Arias DO Work Phone: [facility] 07-14-2024 14:40-0400 Body weight 78.[address] Jocelyn Arias DO Work Phone: [facility] 07-14-2024 14:40-0400 Diastolic blood pressure 64 mm[Hg] Dr. Jocelyn Arias DO Work Phone: [facility] 07-14-2024 14:40-0400 Systolic blood pressure 100 mm[Hg] Dr. Jocelyn Arias DO Work Phone: [facility] 06-03-2023 11:54-0400 Body temperature 98.2 [degF] Dr. Jocelyn Arias Work Phone: [facility] 06-03-2023 11:54-0400 Diastolic blood pressure 66 mm[Hg] Dr. Jocelyn Arias Work Phone: [facility] 06-03-2023 11:54-0400 Heart rate 81 /min Dr. Jocelyn Arias Work Phone: [facility] 06-03-2023 11:54-0400 Respiratory rate 16 /min Dr. Jocelyn Arias Work Phone: [facility] 06-03-2023 11:54-0400 SaO2% (BldA) [Mass fraction] 98 % Dr. Jocelyn Arias Work Phone: [facility] 06-03-2023 11:54-0400 Systolic blood pressure 125 mm[Hg] Dr. Jocelyn Arias Work Phone: [facility] 06-01-2023 07:11-0400 Body height 179.[address] Jocelyn Arias Work Phone: [facility] 06-01-2023 07:11-0400 Body mass index (BMI) [Ratio] 27.9 kg/m2 Dr. Jocelyn Arias Work Phone: [facility] 06-01-2023 07:11-0400 Body weight 89.[address] Jocelyn Arias Work Phone: [facility] 05-27-2023 16:14-0400 Body mass index (BMI) [Ratio] 28.3 kg/m2 Dr. Jocelyn Arias Work Phone: [facility] 05-27-2023 16:14-0400 Body weight 89.[address] Jocelyn Arias Work Phone: [facility] 05-27-2023 16:14-0400 Diastolic blood pressure 75 mm[Hg] Dr. Jocelyn Arias Work Phone: [facility] 05-27-2023 16:14-0400 Systolic blood pressure 114 mm[Hg] Dr. Jocelyn Arias Work Phone: [facility] 05-20-2023 13:46-0500 Body mass index (BMI) [Ratio] 27.9 kg/m2 Dr. Jocelyn Arias Work Phone: [facility] 05-20-2023 13:46-0500 Body weight 88.[address] Jocelyn Arias Work Phone: [facility] 05-20-2023 13:46-0500 Diastolic blood pressure 71 mm[Hg] Dr. Jocelyn Arias Work Phone: [facility] 05-20-2023 13:46-0500 Systolic blood pressure 108 mm[Hg] Dr. Jocelyn Arias Work Phone: [facility] 05-12-2023 13:45-0500 Body height 177.[address] Jocelyn Arias Work Phone: [facility] 05-12-2023 13:45-0500 Body mass index (BMI) [Ratio] 28.1 kg/m2 Dr. Jocelyn Arias Work Phone: [facility] 05-12-2023 13:45-0500 Body weight 89.[address] Jocelyn Arias Work Phone: [facility] 05-12-2023 13:45-0500 Diastolic blood pressure 68 mm[Hg] Dr. Jocelyn Arias Work Phone: [facility] 05-12-2023 13:45-0500 Systolic blood pressure 112 mm[Hg] Dr. Jocelyn Arias Work Phone: [facility] 04-29-2023 14:51-0500 Body mass index (BMI) [Ratio] 27.6 kg/m2 Dr. Jocelyn Arias Work Phone: [facility] 04-29-2023 14:51-0500 Body weight 87.[address] Jocelyn Arias Work Phone: [facility] 04-29-2023 14:51-0500 Diastolic blood pressure 70 mm[Hg] Dr. Jocelyn Arias Work Phone: [facility] 04-29-2023 14:51-0500 Systolic blood pressure 105 mm[Hg] Dr. Jocelyn Arias Work Phone: [facility] 04-23-2023 11:08-0500 Body mass index (BMI) [Ratio] 27.6 kg/m2 Dr. Jocelyn Arias Work Phone: [facility] 04-23-2023 11:08-0500 Body weight 87.[address] Jocelyn Arias Work Phone: [facility] 04-23-2023 11:08-0500 Diastolic blood pressure 74 mm[Hg] Dr. Jocelyn Arias Work Phone: [facility] 04-23-2023 11:08-0500 Systolic blood pressure 122 mm[Hg] Dr. Jocelyn Arias Work Phone: [facility] 04-17-2023 14:16-0500 Body mass index (BMI) [Ratio] 27.5 kg/m2 Dr. Jocelyn Arias Work Phone: [facility] 04-17-2023 14:16-0500 Body weight 87.[address] Jocelyn Arias Work Phone: [facility] 04-17-2023 14:16-0500 Diastolic blood pressure 69 mm[Hg] Dr. Jocelyn Arias Work Phone: [facility] 04-17-2023 14:16-0500 Systolic blood pressure 101 mm[Hg] Dr. Jocelyn Arias Work Phone: [facility] 04-02-2023 15:09-0500 Body height 177.[address] Jocelyn Arias Work Phone: [facility] 04-02-2023 15:09-0500 Body mass index (BMI) [Ratio] 27.3 kg/m2 Dr. Jocelyn Arias Work Phone: [facility] 04-02-2023 15:09-0500 Body weight 86.[address] Jocelyn Arias Work Phone: [facility] 04-02-2023 15:09-0500 Diastolic blood pressure 81 mm[Hg] Dr. Jocelyn Arias Work Phone: [facility] 04-02-2023 15:09-0500 Systolic blood pressure 123 mm[Hg] Dr. Jocelyn Arias Work Phone: [facility] 03-20-2023 14:22-0500 Body mass index (BMI) [Ratio] 26.8 kg/m2 Dr. Jocelyn Arias Work Phone: [facility] 03-20-2023 14:22-0500 Body weight 84.[address] Jocelyn Arias Work Phone: [facility] 03-20-2023 14:22-0500 Diastolic blood pressure 69 mm[Hg] Dr. Jocelyn Arias Work Phone: [facility] 03-20-2023 14:22-0500 Systolic blood pressure 109 mm[Hg] Dr. Jocelyn Arias Work Phone: [facility] 03-05-2023 14:05-0500 Body mass index (BMI) [Ratio] 26.7 kg/m2 Dr. Jocelyn Arias Work Phone: [facility] 03-05-2023 14:05-0500 Body weight 84.[address] Jocleyn Arias Work Phone: [facility] 03-05-2023 14:05-0500 Diastolic blood pressure 66 mm[Hg] Dr. Jocelyn Arias Work Phone: [facility] 03-05-2023 14:05-0500 Systolic blood pressure 108 mm[Hg] Dr. Jocelyn Arias Work Phone: [facility] 02-27-2023 13:11-0500 Body height 177.[address] Jocelyn Arias Work Phone: [facility] 02-27-2023 13:11-0500 Body mass index (BMI) [Ratio] 26.2 kg/m2 Dr. Jocelyn Arias Work Phone: [facility] 02-27-2023 13:11-0500 Body weight 83.[address] Jocelyn Arias Work Phone: [facility] 02-27-2023 13:11-0500 Diastolic blood pressure 66 mm[Hg] Dr. Jocelyn Arias Work Phone: [facility] 02-27-2023 13:11-0500 Systolic blood pressure 110 mm[Hg] Dr. Jocelyn Arias Work Phone: [facility] 01-29-2023 14:27-0500 Body mass index (BMI) [Ratio] 26.1 kg/m2 Dr. Jocelyn Arias Work Phone: [facility] 01-29-2023 14:27-0500 Body weight 82.[address] Jocelyn Arias Work Phone: [facility] 01-29-2023 14:27-0500 Diastolic blood pressure 71 mm[Hg] Dr. Jocelyn Arias Work Phone: [facility] 01-29-2023 14:27-0500 Systolic blood pressure 110 mm[Hg] Dr. Jocelyn Arias Work Phone: [facility] 12-31-2022 15:18-0400 Body mass index (BMI) [Ratio] 25.5 kg/m2 Dr. Jocelyn Arias Work Phone: [facility] 12-31-2022 15:18-0400 Body weight 80.[address] Jocelyn Arias Work Phone: [facility] 12-31-2022 15:18-0400 Diastolic blood pressure 74 mm[Hg] Dr. Jocelyn Arias Work Phone: [facility] 12-31-2022 15:18-0400 Systolic blood pressure 118 mm[Hg] Dr. Jocelyn Arias Work Phone: [facility] 12-06-2022 14:37-0400 Body mass index (BMI) [Ratio] 24.7 kg/m2 Dr. Jocelyn Arias Work Phone: [facility] 12-06-2022 14:37-0400 Body weight 78.[address] Jocelyn Arias Work Phone: [facility] 12-06-2022 14:37-0400 Diastolic blood pressure 72 mm[Hg] Dr. Jocelyn Arias Work Phone: [facility] 12-06-2022 14:37-0400 Systolic blood pressure 114 mm[Hg] Dr. Jocelyn Arias Work Phone: [facility] 11-08-2022 10:53-0400 Body height 177.[address] Jocelyn Arias Work Phone: [facility] 11-08-2022 10:53-0400 Body mass index (BMI) [Ratio] 24.2 kg/m2 Dr. Jocelyn Arias Work Phone: [facility] 11-08-2022 10:53-0400 Body weight 76.[address] Jocelyn Arias Work Phone: [facility] 11-08-2022 10:53-0400 Diastolic blood pressure 72 mm[Hg] Dr. Jocelyn Arias Work Phone: [facility] 11-08-2022 10:53-0400 Systolic blood pressure 112 mm[Hg] Dr. Jocelyn Arias Work Phone: [facility] 08-16-2022 10:08-0400 Heart rate 68 /min [facility] 08-16-2022 10:08-0400 Respiratory rate 12 /min [facility] 08-16-2022 09:07-0400 Diastolic blood pressure 73 mm[Hg] [facility] 08-16-2022 09:07-0400 Systolic blood pressure 115 mm[Hg] [facility] 08-16-2022 09:03-0400 Body height 177.8 cm [facility] 08-16-2022 09:03-0400 Body mass index (BMI) [Ratio] 23.3 kg/m2 [facility] 08-16-2022 09:03-0400 Body temperature 97.6 [degF] [facility] 08-16-2022 09:03-0400 Body weight 73.93 kg [facility] 08-16-2022 09:03-0400 SaO2% (BldA) [Mass fraction] 100 % [facility] Encounters Encounter Date Encounter Type Care Provider Facility Start: 11-12-2024 End: 11-16-[address] CHATO WYATT DO Facility:[facility] Start: 11-12-2024 End: 11-16-[address] CHATO WYATT DO [facility] Start: 10-01-2024 End: 10-01-[address] Jocelyn Arias DO Work Phone: [facility] [place] Start: 10-01-2024 End: 10-01-[address] Mariana Raphael MD -[facility] [place] Work Phone: Start: 10-01-2024 End: 10-01-2024 ambulatory Jocelyn Arias Facility:[facility] Start: 07-14-2024 End: 07-14-[address] Jocelyn Arias DO Work Phone: [facility] Work Phone: Start: 07-14-2024 End: 07-14-2024 Patient encounter procedure Barbara VANN -[facility] Work Phone: Start: 07-14-2024 End: 07-14-2024 Patient encounter procedure Barbara VANN -[facility] Work Phone: Start: 07-14-2024 End: 07-14-2024 Patient encounter status Barbara GASPARC [facility] Start: 07-14-2024 End: 07-14-2024 ambulatory Barbara Bartlett Facility:[facility] Start: 07-14-2024 End: 07-14-2024 ambulatory Barbara Bartlett Facility:[facility] Start: 07-12-2024 End: 07-12-[address] Mariana Raphael MD -Labor[facility], [place] Work Phone: Start: 07-12-2024 End: 07-12-2024 ambulatory Mariana Raphael Facility:[facility] Start: 04-21-2024 End: 04-21-[address] Mariana Raphael MD -Labor[facility], [place] Work Phone: Start: 04-21-2024 End: 04-21-2024 ambulatory Mariana Raphael Facility:[facility] Start: 06-20-2023 End: 06-20-[address] Jocelyn Arias Work Phone: [facility] Work Phone: Start: 06-20-2023 End: 06-20-[address] Jocelyn Arias Work Phone: [facility] [place] Work Phone: Start: 06-03-2023 Non-patient / Non-visit Dr. Jocelyn Arias Work Phone: [facility] Start: 06-02-2023 Non-patient / Non-visit Dr. Jocelyn Arias Work Phone: [facility] Start: 06-01-2023 Non-patient / Non-visit Dr. Jocelyn Arias Work Phone: [facility] Start: 06-01-2023 End: 06-03-2023 Evaluation and management of inpatient Dr. Jocelyn Arias Work Phone: [facility] Work Phone: Start: 05-27-2023 End: 05-27-[address] Jocelyn Arias Work Phone: [facility] Work Phone: Start: 05-20-2023 End: 05-20-[address] Jocelyn Arias Work Phone: [facility] Work Phone: Start: 05-12-2023 End: 05-12-[address] Jocelyn Arias Work Phone: [facility] Work Phone: Start: 05-12-2023 End: 05-12-[address] Jocelyn Arias Work Phone: [facility] Work Phone: Start: 05-12-2023 End: 05-12-[address] Jocelyn Arias Work Phone: [facility] Work Phone: Start: 05-06-2023 End: 05-06-2023 ambulatory [facility] Start: 04-29-2023 End: 04-29-[address] Jocelyn Arias Work Phone: [facility] Work Phone: Start: 04-23-2023 End: 04-23-[address] Jocelyn Arias Work Phone: [facility] Work Phone: Start: 04-17-2023 End: 04-17-[address] Jocelyn Arias Work Phone: [facility] Work Phone: Start: 04-07-2023 End: 04-07-2023 ambulatory [facility] Start: 04-07-2023 End: 04-07-2023 ambulatory [facility] Start: 04-02-2023 End: 04-02-[address] Jocelyn Arias Work Phone: [facility] Work Phone: Start: 04-02-2023 End: 04-02-[address] Jocelyn Arias Work Phone: [facility] Work Phone: Start: 04-02-2023 End: 04-02-[address] Jocelyn Arias Work Phone: [facility] Work Phone: Start: 03-20-2023 End: 03-20-[address] Jocelyn Arias Work Phone: [facility] Work Phone: Start: 03-13-2023 End: 03-13-2023 ambulatory JOCELYN PIMENTELSAY [facility] Start: 03-05-2023 End: 03-05-[address] Jocelyn Arias Work Phone: [facility] Work Phone: Start: 02-27-2023 End: 02-27-[address] Jocelyn Arias Work Phone: [facility] Work Phone: Start: 02-27-2023 End: 02-27-[address] Jocelyn Arias Work Phone: [facility] Work Phone: Start: 01-29-2023 End: 01-29-[address] Jocelyn Arias Work Phone: [facility] Work Phone: Start: 01-23-2023 End: 01-23-2023 ambulatory [facility] Start: 01-07-2023 End: 01-07-2023 ambulatory [facility] Start: 12-31-2022 End: 12-31-[address] Jocelyn Arias Work Phone: [facility] Work Phone: Start: 12-06-2022 End: 12-06-[address] Jocelyn Arias Work Phone: [facility] Work Phone: Start: 11-28-2022 End: 11-28-[address] [facility] Start: 11-08-2022 End: 11-08-[address] Jocelyn Arias Work Phone: [facility] Work Phone: Start: 11-08-2022 End: 11-08-[address] [facility] Work [facility] Start: 11-08-2022 End: 11-08-[address] Jocelyn Arias Work Phone: [facility] Work Phone: Start: 08-21-2022 End: 08-21-[address] Jocelyn Arias Work Phone: [facility] Work Phone: Start: 08-16-2022 End: 08-16-2022 Emergency department patient visit [facility] Start: 07-27-2022 End: 07-28-2022 ambulatory HOLLY THOMPSON APRN-MECHANIC GENERAL OPERATIONAL TEST Facility:[facility] Start: 07-27-2022 End: 07-27-2022 Patient encounter procedure HOLLY THOMPSON APRN-MECHANIC GENERAL OPERATIONAL TEST [facility] Procedures Date Procedure Procedure Detail Performing Clinician Start: 07-14-2024 Liquid based cervica l cytology screening Dr. Jocelyn Arias DO Work Phone: Comment on above: NEGATIVE FOR INTRAEP ITHELIAL LESION OR MALIGNANCY. This liquid based Th inPrep(R) pap test was screened withthe use of an image guided system. Start: 04-21-2024 Measurement of renal function Dr. Jocelyn Arias DO Work Phone: Comment on above: GFR Calc Start: 05-12-2023 Group B Streptococcu s Culture Dr. Jocelyn Arias Work Phone: Start: 11-08-[address] Christopher Arias Work Phone: Start: 08-16-2022 Plain chest X-ray Plan of Treatment Date Care Activity Detail Author Start: 06-03-2023 Patient discharge [facility] Start: 06-01-2023 Administration of medication [facility] Start: 06-01-2023 Application of ice collar, cap or bag [facility] Start: 06-01-2023 Catheterization of vein [facility] Start: 06-01-2023 Introduction of urinary catheter [facility] Start: 06-01-2023 Measuring intake and output [facility] Start: 06-01-2023 Notification of physician [facility] Start: 06-01-2023 Procedure discontinued [facility] Start: 06-01-2023 Provision of activity privileges [facility] Start: 06-01-2023 Vital signs measurements [facility] Start: 06-01-2023 End: 06-01-2023 [facility] Start: 06-01-2023 Documentation procedure [facility] Start: 06-01-2023 [facility] Start: 06-01-2023 Notification of physician [facility] Start: 06-01-2023 [facility] Start: 06-01-2023 Notification of physician [facility] Start: 06-01-2023 [facility] Start: 06-01-2023 Admission procedure [facility] Beta 2 glycoprotein 1 Ab IgA and IgG and IgM panel - Serum [facility] Cardiolipin IgA and IgG and IgM panel - Serum [facility] Cardiolipin IgG and IgM panel - Serum [facility] CBC W Auto Different ial panel - Blood [facility] Hepatitis B surface antigen measurement [facility] Hepatitis C antibody measurement [facility] HIV 1+2 Ab+HIV1 p24 Ag [Presence] in Serum or Plasma by Immunoassay [facility] Lipid 1996 panel - S todd or Plasma [facility] Lupus anticoagulant assay [facility] Patient Education ED Chest Pain, Noncardiac [facility] Work Phone: Patient referral [facility] Work Phone: Rubella IgG measurement [facility] Treponema sp Ab [Pre sence] in Serum [facility] Immunizations Immunization Date Immunization Notes Care Provider Fa cili 12-25-2023 influenza virus vaccine, unspecified formulation DR CHATO WYATT DO [facility] 03-20-2023 tetanus toxoid, redu brianda diphtheria toxoid, and acellular pertussis vaccine, adsorbed Dr. Jocelyn Arias Work Phone: [facility] 12-06-2022 influenza virus vaccine, unspecified formulation DR CHATO WYATT DO [facility] 12-06-2022 influenza, injectabl e, quadrivalent, preservative free Dr. Jocelyn Arias Work Phone: [facility] 12-28-2021 influenza virus vaccine, unspecified formulation DR CHATO WYATT DO [facility] 01-21-2021 influenza virus vaccine, unspecified formulation DR CHATO WYATT DO [facility] 01-21-2021 tetanus toxoid, redu brianda diphtheria toxoid, and acellular pertussis vaccine, adsorbed DR CHATO WYATT DO [facility] 01-15-2021 Influenza virus vaccine [facility] 01-15-2021 tetanus toxoid, redu brianda diphtheria toxoid, and acellular pertussis vaccine, adsorbed [facility] 12-20-2020 SARS-CoV-2 mRNA (tozinameran) vaccine DR CHATO WYATT DO [facility] Comment on above: Result Comment: 2024: TPVAL 12-06-2020 Covid (Pfizer) [facility] 11-29-2020 SARS-CoV-2 mRNA (tozinameran) vaccine DR CHATO WYATT DO [facility] Comment on above: Result Comment: 2024: TPVAL 11-15-2020 Covid (Pfizer) [facility] 12-30-2019 influenza virus vaccine, unspecified formulation DR CHATO WYATT DO [facility] 01-01-2018 influenza virus vaccine, unspecified formulation DR CHATO WYATT DO [facility] 04-27-2013 tetanus toxoid, redu brianda diphtheria toxoid, and acellular pertussis vaccine, adsorbed DR CHATO WYATT DO [facility] 03-17-2012 tetanus and diphther ia toxoids, adsorbed, preservative free, for adult use (5 Lf of tetanus toxoid and 2 Lf of diphtheria toxoid) DR CHATO WYATT DO [facility] 03-27-2004 hepatitis B pediatri c vaccine DR CHATO WYATT DO [facility] 10-25-2003 hepatitis B pediatri c vaccine DR CHATO WYATT DO [facility] 09-23-2003 hepatitis B pediatri c vaccine DR CHATO WYATT DO [facility] 09-23-2003 measles/mumps/rubell a virus vaccine DR CHATO WYATT DO [facility] 09-27-1992 haemophilus influenz ae type b vaccine, PRP-T conjugate DR CHATO WYATT DO [facility] 09-27-1992 measles/mumps/rubell a virus vaccine DR CHATO WYATT DO [facility] 1991 haemophilus influenz ae type b vaccine, PRP-T conjugate DR CHATO WYATT DO [facility] 1991 haemophilus influenz ae type b vaccine, PRP-T conjugate DR CHATO WYATT DO [facility] Payers Date Payer Category Payer Private Health Insurance [id number] 2024 Self-pay [id number] 2022 Unknown [id number] 2016 Unknown [facility] [id number] 2062 [id number] 2016 Unknown [id number] 1991 Unknown [id number] 1991 Unknown [id number] 1991 Unknown [id number] 1991 Unknown [id number] 1991 Unknown [id number] 1991 Unknown [id number] 1991 Unknown [id number] 1991 Unknown [id number] Unknown [id number] Unknown [id number] Unknown [id number] Unknown [id number] Unknown [id number] Social History Date Type Detail Facility Start: 10-28-2018 End: 07-14-2023 Tobacco smoking status Never smoked tobacco (finding) [facility] Start: 1990 Sex Assigned At Female A [facility] Start: 08-16-2022 End: 06-01-2023 Tobacco smoking status NHIS Unknown if ever smoked [facility] Sexual Orientation [facility] henrietta [facility] Start: 03-18-2018 Sex Female (finding) [facility] Goals Date Patient Goal Desired Activity /State Mental Status Date Assessment Result Facility 08-16-2022 Cognitive function Level Of Cons ciousness Awake;Alert;Appropriate;Follow s Commands [facility] Work Phone: Clinical Notes 07-27-2022 to 07-14-2024 Note Date & Type Note Facility 07-14-2024 Evaluation note Diagnosis Onset Date Resolution Encounter for routine gynecological examination noneactive July 14, 2024 2:34pm [facility] Work Phone: 1(752) 955-364003-19-2024 Progress note Author Yovana Fonseca [facility] June 03, 2023 8:02am Note Date/Time June 03, 2023 8:0 2am [facility] Medical Records Department [address] [place] [address] Progress Note - OBGYN 06/03/23 0801 MR#: [id number] Acct: [id number] Name: KENDALL RICE Rep #:[id number] : 1990 33 From: Yovana Fonseca CNM PCP: Dr. Jocelyn Arias, DO Status:ADM IN Location: [address] Subjective Subjective Patient doing well without complaints. Tolerating PO. Ambulating and voiding without difficulty. Feeding well. Denies chest pain, shortness of breath, calf pain/swelling, fevers, chills, lightheadedness. Objective Data Objective Data Vital Signs: Vital Signs Temp Pulse Resp BP Pulse Ox O2 Del Method 97.6 F L 60 16 103/51 L 99 Room Air 06/03/23 02:30 06/03/23 02:30 06/03/23 02:30 06/03/23 02:30 06/03/23 02:30 06/03/23 02:30 Oxygen Delivery Method Room Air Weight: 197 lb 8.547 oz Body Mass Index (BMI) 27.9 Intake & Output: Intake and Output for Last 24 Hours 06/01/23 06/02/23 06/03/23 23:59 23:59 23:59 Intake Total 1929.17 / 1929.17 Output Total 100 / 100 Balance 1829.17 / 1829.17 Lab / Micro Data Attestation: I reviewed the patient's lab results. 06/01/23 07:45 ROS Constitutional Constitutional: Reports systems reviewed and no addt'l complaints, except as documented; Denies anorexia or headache(s) Cardiovascular Cardiovascular: Reports systems reviewed and no addt'l complaints, except as documented; Denies dizziness, dyspnea, nausea or tachypnea Respiratory/Chest Respiratory/Chest: Reports systems reviewed and no addt'l complaints, except as documented; Denies cough, dyspnea, shortness of breath at rest or tachypnea Gastrointestinal Gastrointestinal: Reports systems reviewed and no addt'l complaints, except as documented; Denies abdominal pain, constipation or nausea Genitourinary Genitourinary: Reports systems reviewed and no addt'l complaints, except as documented; Denies burning urination, difficulty urinating, dysuria, urinary frequency or urinary incontinence Musculoskeletal Musculoskeletal: Reports systems reviewed and no addt'l complaints, except as documented Integumentary Integumentary: Reports systems reviewed and no addt'l complaints, except as documented Neurologic Neurologic: Reports systems reviewed and no addt'l complaints, except as documented; Denies abnormal speech, dizziness or headache(s) Psychiatric Psychiatric: Reports systems reviewed and no addt'l complaints, except as documented Endocrine Endocrinology: Reports systems reviewed and no addt'l complaints, except as documented Hematologic/Lymphatic Hematologic/Lymphatic: Reports systems reviewed and no addt'l complaints, exceptas documented Physical Exam Const alert, oriented x3 and no apparent distress Neck full ROM Resp normal respiratory effort, normal air movement and no retractions Effort and Inspection: able to speak in complete sentences and symmetric chest movement GI soft to palpation Bladder / Kidney Exam: bladder normal to palpation Uterus Palpation: uterus fundus firm Extremity normal to inspection and full ROM Psych mental status grossly normal, thought process normal and cooperative Assessment & Plan (1) COVID-19: COMMENT: 81 asa daily (2) SLE (systemic lupus erythematosus related syndrome): COMMENT: RO and LA ordered 04/02/2023 related syndrome-not SLE. rheum following. hydroxychloroquine. anti ro and anti la ordered (3) Vaginal delivery: PLAN: s/p PPD # 2 1. routine post delivery care 2. breast feeding- support given 3. rh positive 4. rubella immune 5. Discharge to hotel status Charges/Coding Multi Select Codes Urinary/Genital Urinary/Genital CPT Codes: No Charge 06/03/23 0802 <Electronically signed by Yovana Fonseca CNM> Cosigner Signature (if applicable): CC: ~ Signed [facility] Work Phone: 1(124) 624-327003-18-2024 Progress note Author Julio Cesar Wong [facility] June 02, 2023 9:03am Note Date/Time June 02, 2023 9:0 3am [facility] Medical Records Department [address] [place] [id number] Progress Note - OBGYN 06/02/23 0900 MR#: [id number] Acct: [id number] Name: KENDALL RICE Rep #:[id number] : 1990 33 From: Julio Cesar Wong CNM PCP: Dr. Jocelyn Arias, DO Status:ADM IN Location: UC994-4 Subjective Subjective Patient doing well without complaints. Tolerating PO. Ambulating and voiding without difficulty. Feeding well, infant with lip tie, but latching well. Denieschest pain, shortness of breath, calf pain/swelling, fevers, chills, lightheadedness. Objective Data Objective Data Vital Signs: Vital Signs Temp Pulse Resp BP Pulse Ox O2 Del Method 97.3 F L 83 16 109/64 98 Room Air 06/02/23 08:24 06/02/23 08:24 06/02/23 08:24 06/02/23 08:24 06/02/23 04:26 06/02/23 08:24 Oxygen Delivery Method Room Air Weight: 197 lb 8.547 oz Body Mass Index (BMI) 27.9 Intake & Output: Intake and Output for Last 24 Hours 05/31/23 06/01/23 06/02/23 23:59 23:59 23:59 Intake Total 1929.17 / 1929.17 Output Total 100 / 100 Balance 1829.17 / 1829.17 Lab / Micro Data 06/01/23 07:45 Physical Exam Const alert, oriented x3 and no apparent distress Eyes PERRL Neck full ROM Lymph Lymphatic: no lymphadenopathy noted Chest inspection of chest normal Resp normal respiratory effort and normal air movement Cardio regular rate and regular rhythm Uterus Palpation: uterus fundus firm (no clots, normal lochia) Extremity normal to inspection, full ROM, no calf tenderness and no pedal edema Skin no rashes or lesions noted Psych mental status grossly normal Assessment & Plan (1) Antiphospholipid antibody syndrome complicating : COMMENT: Antiphospholipid antibody syndrome is considered low risk thrombophilia. However she has a first degree relative with a h/o VTE. ACOG gives option to treat or not treat with prophylactic lovenox. Due to persistently elevated and increasing titers, (no clots or loss)but discussed risks vs benefits and decision for lovenox, ASA, and growth q 4, weekly nsts after 32. s/p mfm consult. plan 6 weeks PP anticoagulation also. (2) History of abnormality in previous , currently : COMMENT: 3rd son with pyriform apreture stenosis(nasal bone defect)- causedrespiratory distress after , went to [facility], had surgery. (3) SLE (systemic lupus erythematosus related syndrome): COMMENT: RO and LA ordered 04/02/2023 related syndrome-not SLE. rheum following. hydroxychloroquine. anti ro and anti la ordered PLAN: Plan s/p PPD # 1 1. routine post delivery care 2. breast feeding- support given 3. rh positive 4. rubella immune 5. plan d/c tomorrow, infant under bili lights. 6. has lovenox at home with refills, discussed continuing until 6 weeks pp. 06/02/23 0903 <Electronically signed by Julio Cesar Wong CNM> Cosigner Signature (if applicable): CC: ~ Signed [facility] Work Phone: 1(664) 759-189003-17-2024 Discharge summary Author Janet Davis [facility] June 01, 2023 4:27pm Note Date/Time June 01, 2023 4:2 7pm [facility] Medical Records Department [address] [place] [address] Instructions for Home/Discharge Instructions 06/01/23 1627 MR#: [id number] Acct: [id number] Name: KENDALL RICE Rep #:[id number] : 1990 33 From: Janet Cardoza DO PCP: Dr. Jocelyn Arias DO Status:ADM IN Discharge Instructions Diet Discharge Diet: No restrictions Activity Discharge Activity: Return to Normal Activity, May Not Drive (while taking narcotic pain medications.) and May Shower May resume sexual activity in: 4-6 weeks Dressing / Incision Call your doctor if your incision/area has: Continuous Slow Oozing, Sudden Increased Bleeding, Increased Pain/ Swelling, Increased Redness and Foul Smelling Discharge Follow Up Care Please Follow Up With: Janet Cardoza DO When: Call [phone] to make an appointment with your doctor in 6 weeks. If you had elevated blood pressure or 4th degree laceration, you will need to be seen in 2 weeks. Test Results: Test results from this visit will be discussed in further detail at your follow- up appointment, if applicable. Discharge Plan Admission Admit Date/Time: 06/01/23 06:50 Primary Reason for Your Visit: vaginal delivery Attending Provider: Janet Cardoza Primary Care Provider: Jocelyn Arias Discharge Orders/Prescriptions Prescriptions: Continued hydroxychloroquine [Plaquenil] 200 mg tablet 200 mg PO DAILY pyridoxine (vitamin B6) 25 mg tablet 25 mg PO DAILY enoxaparin [Lovenox] 40 mg/0.4 mL syringe 40 mg subcut QDAY 30 Days Qty: 12 12RF Prenatabs FA 1 TABLET tablet 1 tab PO DAILY Discontinued aspirin 81 mg tablet,delayed release (DR/EC) 81 mg PO DAILY Referrals / Follow Up: Jocelyn Arias DO [Primary Care Provider] - Disposition Disposition (needs filled in before D/C Order can be placed): Home, Self Care 06/01/23 1627<Electronically signed by Janet Cardoza DO>Janet Cardoza DO CC: Dr. Jocelyn Arias DO ~ Signed [facility] Work Phone: 1(159) 407-355203-17-2024 Procedure [facility] 06-01-2023 Progress note Author Janetmeg Davis [facility] June 01, 2023 12:53pm Note Date/Time June 01, 2023 12: 53pm [facility] Medical Records Department [address] [place] [address] Progress Note 06/01/23 1250 MR#: [id number] Acct: [id number] Name: KENDALL RICE Rep #:[id number] : 1990 33 From: Janet Cardoza DO PCP: Dr. Jocelyn Arias DO Status:ADM IN Location: MY791-2 Progress Note patient consents to AROM. Her cox has been out now for almost 2 hours. current tracing: FHT: 140 Moderate variability reactive no decelerations category I tracing [place]: q 2-3 min Contractions cx: 5/80/-1, membranes ruptured and clear fluid returned. 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 Jocelyn Arias, Status:ADM IN Location: PR700-6 HPI - General General Date of Admission: 06/01/23 HPI Narrative KENDALL RICE, is a 33 y/o who presents to L&D for IOL due to APL syndrome at 39 weeks. She took her last dose of lovenox yesterday. Maternal Data Information LINA Calculator Estimated Delivery Date Method Current WG Current Estimate 06/08/23 Ultrasound #1 39w 0d Other Estimates 06/01/23 LMP (Certain) 40w 0d PFSH PFSH Medical History 40 weeks gestation of COVID-19 (spontaneous vaginal delivery) Vaginal delivery Home Medications vits,calcium no.78-iron fumarate-folic acid 29 mg-1 mg tablet (Prenatabs FA) 1 tab PO DAILY 09/26/16 [History Last Taken 02/18/21 06:00] hydroxychloroquine 200 mg tablet (Plaquenil) 200 mg PO DAILY AUTO IMMUNE 11/08/22 [History Last Taken 06/01/23] pyridoxine (vitamin B6) 25 mg tablet 25 mg PO DAILY 11/08/22 [History Last Taken 05/31/23] aspirin 81 mg tablet,delayed release 81 mg PO DAILY PREVENTATIVE 03/20/23 [History Last Taken 05/31/23] enoxaparin 40 mg/0.4 mL subcutaneous syringe (Lovenox) 40 mg (0.4 mL) subcut QDAY PREVENTATIVE 30 days #12 mL 03/20/23 [Rx Last Taken 05/31/23] Allergy/AdvReac Type Severity Reaction Status Date / Time amoxicillin trihydrate Allergy Rash Verified 05/27/23 16:15 [From Amoxil] Family History Other Cholelithiasis Surgical History Sayre teeth removed Social History (Updated 06/01/23 @ 07:38 by Sindy Elliott) adopted: No household members: spouse and children number of children: 3 current occupational status: unemployed current occupation: [employer] current occupational exposures/hazards: No pets and animals: No history of recent travel: No sexually active: Yes Smoking Status: Never smoker alcohol intake: never substance use type: does not use caffeine: No seatbelt use: always do you feel safe at home: Yes additional social history: -Sarwat- [employer] History 4 Elective abortions Hx Para 3 Spontaneous abortions Hx # Term Pregnancies Ectopic pregnancies Hx # Pregnancies Multiple births # of living children 3 Past Pregnancies Del. Date Name GA/Weeks Outcome Route Bth Weight Infant Gen Labor Lgth Anesthesia Del Locatn Provider FOB 09/27/16 Azam 41 live - full term 7lbs 7oz Male epidural [facility] 03/30/19 Sohan 40 live - full term 7lb 3 oz Male ep idural [facility] 02/19/21 Rad 38 live - full term 6lbs 14 oz Male [facility] Visit Details Expected Delivery Route/Plan Labor Preferences- CB/BF classes: no labor support person: Sarwat labor intervention preferences: [] pain management options preferred: Limited intervention but ok with epidural cut cord/dad catch: yes : yes PP control planned: discussed discussed possible routes of delivery and associated risks: [] special requests: [] Plans Covid status: vaccinated, not booster Flu vaccine: given Tdap vaccine: [] Rhogam: na LARC form signed: yes movement and labor precautions reviewed. Problem list reviewed and updated with the most current plan of care details and appropriate orders placed. Relevant counseling for the gestational age provided. Continue routine care and follow up unless otherwise noted in visit notes/problem list details OB Flowsheet Initial Weight: Not Recorded Date -?-?-?-?-?-?-?-?-?-?-?-?- EGA Weight BP Urine Prot -?-?-?-?-?-?-?-?-?-?-?-?- Glucose FHR FuHt Pres Dilation -?-?-?-?-?-?-?-?-?-?-?-?- Effaced St Visit Note 11/08/22 -?-?-?-?-?-?-?-?-?-?-?-?- 9w 5d 169 lb 112/72 -?-?-?-?-?-?-?-?-?-?-?-?- 185 -?-?--?-?-?-?-?-?-?-?-?-?- KW-CRL NOT cons with dates. dates changes. JV scanned 12/06/22 -?-?-?-?-?-?-?-?-?-?-?-?- 13w 5d 172 lb 2 oz 114/72 -?-?-?-?-?-?-?-?-?-?-?-?- 153 -?-?-?-?-?-?-?-?-?-?-?-?- Lc- no vb/crampi ng. discussed and declines afp. anatomy with mfm for unknow autoimmune disorder on Plaquenil. 12/31/22 -?-?-?-?-?-?-?-?-?-?-?-?- 17w 2d 178 lb 2 oz 118/74 Nega tive -?-?-?-?-?-?-?-?-?-?-?-?- Negative 151 -?-?-?-?-?-?-?-?-?-?-?-?- Mh-No VB, crampi ng. Some nausea persists. Eager for anatomy scan next week- last son with nasal defect. 01/29/23 -?-?-?-?-?-?-?-?-?-?-?-?- 21w 3d 182 lb 2 oz 110/71 Nega tive -?-?-?-?-?-?-?-?-?-?-?-?- Negative 140 -?-?-?-?-?-?-?-?-?-?-?-?- JV- no lof, vagi nal bleeding, or cramping. has low lying placenta but does not say how close to cx. recommend avoidance of intercourse until we can know more. message sent to [facility]. Rpt scan at 28 weeks 02/27/23 -?-?-?-?-?-?-?-?-?-?-?-?- 25w 4d 183 lb 4 oz 110/66 Nega tive -?-?-?-?-?-?-?-?-?-?-?-?- Negative 136 -?-?-?-?-?-?-?-?-?-?-?-?- MH-No VB, LOF. G ood FM. Patient w covid last week, will start 81mg asa daily. Yolo questionable audible PVC and Sm confirms. Will recheck 1 week. Reviewed kichelsea cts. 03/05/23 -?-?-?-?-?-?-?-?-?-?-?-?- 26w 3d 186 lb 6 oz 108/66 Nega tive -?-?-?-?-?-?-?-?-?-?-?-?- Negative 146 -?-?-?-?-?-?-?-?-?-?-?-?- MH-No Vb, LOF. G ood Fm. Follow up after hearing irreg HR and this was not noted today 03/20/23 -?-?-?-?-?-?-?-?-?-?-?-?- 28w 4d 187 lb 109/69 Negative -?-?-?-?-?-?-?-?-?-?-?-?- Negative 145 29 -?-?-?-?-?-?-?-?-?-?-?-?- SM- extensive di scussion about antibodies and autoimmune history. decision to start lovenox therapy due to high risk history. denies vb lof admits good fm no regular ctx. 04/02/23 -?-?-?-?-?-?-?-?-?-?-?-?- 30w 3d 190 lb 4 oz 123/81 Nega tive -?-?-?-?-?-?-?-?-?-?-?-?- Negative 140 30 -?-?-?-?-?-?-?-?-?-?-?-?- JV- ro and la le vels ordered today. start nsts next visit. no lof, vaginal bleeding, or dec fm. JV- ro and la levels ordered today. start nsts next visit. no lof, vaginal bleeding, or dec fm. Pt has a low risk thrombophilia without a h/o VTE (antiphospholipid elevation) but has a first degree relative with a VTE. ACOG gives option to use or not to use lovenox. She has chosen to use lovenox. 04/17/23 -?-?-?-?-?-?-?-?-?-?-?-?- 32w 4d 192 lb 101/69 Negative -?-?-?-?-?-?-?-?-?-?-?-?- Negative 140 -?-?-?-?-?-?-?-?-?-?-?-?- SM- no vb lof go od fm no regular ctx nst reactive 04/23/23 -?-?-?-?-?-?-?-?-?-?-?-?- 33w 3d 193 lb 122/74 Negative -?-?-?-?-?-?-?-?-?-?-?-?- Negative 140 -?-?-?-?-?-?-?-?-?-?-?-?- MH-NST only reac tive 04/29/23 -?-?-?-?-?-?-?-?-?-?-?-?- 34w 2d 193 lb 105/70 -?-?-?-?-?-?-?-?-?-?-?-?- Negative 130 -?-?-?-?-?-?-?-?-?-?-?-?- Sm- no vb lof go od fm no regular ctx 05/12/23 -?-?-?-?-?-?-?-?-?-?-?-?- 36w 1d 196 lb 4 oz 112/68 Nega tive -?-?-?-?-?-?-?-?-?-?-?-?- Negative 130 35 Cephalic -?-?-?-?-?-?-?-?-?-?-?-?- JV- nst reactive . normal growth and normal bpp on 05/06. GBS collected but does not want exam due to varicose veins plan 39 week IOL. 05/20/23 -?-?-?-?-?-?-?-?-?-?-?-?- 37w 2d 195 lb 108/71 Negative -?-?-?-?-?-?-?-?-?-?-?-?- Negative 145 37 Cephalic -?-?-?-?-?-?-?-?-?-?-?-?- JV- NST reactive . JV- NST reactive. planning I OL 39 nweek 05/27/23 -?-?-?-?-?-?-?-?-?-?-?-?- 38w 2d 197 lb 8 oz 114/75 -?-?-?-?-?-?-?-?-?-?-?-?- 130 38 Cephalic -?-?-?-?-?-?-?-?-?-?-?-?- SM- no vb lof go od fm but moving somewhat less. reveiwed fm precautions, lovenox instructions. no regular ctx ROS Constitutional Constitutional: Denies change in weight, fatigue, fever(s), headache(s), poor appetite or weakness Eyes Eyes: Denies blurry vision, change in vision, seeing flashes or spots in vision ENT HEENT: Denies dizziness, headache(s), loss taste/smell or sore throat Cardiovascular Cardiovascular: Denies chest pain, dizziness, dyspnea, irregular heart rhythm, leg edema, palpitations, rapid heart rate or vomiting Respiratory/Chest Respiratory/Chest: Denies chest tightness, cough, dyspnea or breast pain Gastrointestinal Gastrointestinal: Denies abdominal pain, anorexia, constipation, cramping, diarrhea, hemorrhoids, vomiting or weight changes Genitourinary Genitourinary: Denies dysuria, flank pain, genital lesions, genital pain, urinary frequency or urinary urgency Musculoskeletal Musculoskeletal: Denies back pain, difficulty walking, joint pain, limited range of motion, muscle cramps or numbness Integumentary Integumentary: Denies lesions or unusual bruising Neurologic Neurologic: Denies abnormal movements, abnormal speech, dizziness, numbness, seizure-like activity or syncope Psychiatric Psychiatric: Denies anxiety, behavioral changes, change in appetite, change in libido, cognitive impairment, confusion, depression, difficulty concentrating, hallucinations or suicidal thoughts Endocrine Endocrinology: Denies excessive sweating, polydipsia or polyuria Hematologic/Lymphatic Hematologic/Lymphatic: Denies easy bleeding, easy bruising or lymphadenopathy Allergic/Immunologic Allergic/Immunologic: Denies itchy eyes, lip swelling, seasonal rhinorrhea, rhinitis, throat swelling, tongue swelling, eczemia, wheezing or asthma Vital Signs Vital Signs Vital Signs: 06/01/23 08:15 06/01/23 08:15 06/01/23 08:15 Temperature Temperature Source Temporal Pulse Rate 80 Respiratory Rate 16 Blood Pressure BP Systolic BP Diastolic Pulse Ox 06/01/23 08:15 06/01/23 08:15 06/01/23 08:16 Temperature 98.6 F Temperature Source Pulse Rate Respiratory Rate Blood Pressure 112/69 BP Systolic 112 BP Diastolic 69 Pulse Ox 98 06/01/23 08:16 Temperature Temperature Source Pulse Rate 81 Respiratory Rate Blood Pressure BP Systolic BP Diastolic Pulse Ox Weight Weight: 197 lb 8.547 oz Body Mass Index (BMI) 27.9 Physical Exam Const alert, oriented x3, no apparent distress and healthy appearing General Appearance: cooperative; Negative for anxious HEENT normocephalic Face and Sinus: normal facial exam Eyes EOMs intact bilaterally and no scleral icterus General Eye: normal appearance of both eyes Neck full ROM and supple Lymph Lymphatic: no lymphadenopathy noted Chest Chest: abnormal inspection of the chest Resp normal respiratory effort Effort and Inspection: able to speak in complete sentences Cardio regular rate GI soft to palpation and non-tender Inspection: gravid Palpation: soft; Negative for tender Manual OB Exam: other cox inserted into the cervix and inflated with 50cc ns. Back/Spine no CVA tenderness Extremity normal to inspection, full ROM and no clubbing, cyanosis or edema General Extremity: Negative for calf tenderness or edema Skin Lesions: no lesions Rashes: no rashes Psych mental status grossly normal Labs Labs Labs: Blood Type O POSITIVE Antibody Screen NEGATIVE Hct 37.5 % (37-47) Hgb 11.9 g/dL (12.0-15.0) L Syphilis Total Ab Non-reactive Rubella IgG Antibody Reactive (Nonreactive) Hep Bs Antigen Non-Reactive (Nonreactive) Hepatitis C Antibody Non-Reactive (Nonreactive) Hepatitis C Ab (EIA) <0.1 s/co ratio (0.0-0.9) Chlamydia DNA (EDILMA) Negative (Negative) N.gonorrhoeae DNA (EDILMA) Negative (Negative) HIV 1&2 Antibody Non-Reactive (Nonreactive) Glucose 1 Hr 50 gm 113 mg/dL (70-140) Group B Strep DNA Negative (Negative) Rhogam given: No Miscellaneous Test Assessment & Plan (1) Antiphospholipid antibody syndrome complicating : COMMENT: Antiphospholipid antibody syndrome is considered low risk thrombophilia. However she has a first degree relative with a h/o VTE. ACOG gives option to treat or not treat with prophylactic lovenox. Due to persistently elevated and increasing titers, (no clots or loss) but discussed risks vs benefits and decision for lovenox, ASA, and growth q 4, weekly nsts after 33. s/p mfm consult. plan 6 weeks PP anticoagulation also. (2) COVID-19: COMMENT: 81 asa daily (3) History of abnormality in previous , currently : COMMENT: 3rd son with pyriform apreture stenosis(nasal bone defect)-caused respiratory distress after , went to [facility], had surgery. (4) : QUALIFIERS: Weeks of gestation: 38 weeks Qualified Code(s): Z3A.38 - 38 weeks gestation of COMMENT: IOL scheduled for 05/31 @ 7am with JV, GBS neg, DOC ONLY. denies NIPT, carrier, and ntd screen. nl anatomy. (5) Supervision of high risk , antepartum: COMMENT: [id number] LINA 06/08/23 boy Sohan Parr Sampson. Spouse Sarwat (6) SLE (systemic lupus erythematosus related syndrome): COMMENT: RO and LA ordered 04/02/2023 related syndrome-not SLE. rheum following. hydroxychloroquine. anti ro and anti la ordered PLAN: Plan Patient presents IOL, plan management for with cox/pitocin/AROM. Pain management: plans epidural. GBS negative. Management of any complications: APL I have reviewed the [facility] and made any clinically relevant updates. 06/01/23 1010 <Electronically signed by Janet Cardoza DO> Cosigner Signature (if applicable): CC: Dr. Janet Cardoza DO; Dr. Jocelyn Arias DO~ Signed [facility] Work Phone: 1(332) 791-191605-13-2023 Evaluation + Plan note Diagnostic Tests Pending * Circulating Anticoagulants - Panel 07/27/22 * Antinuclear Antibody Screen, Serum 07/27/22 * Cardiolipin IgG Antibodies 07/27/22 * Beta 2 Glycoprot IgG and IgM 07/27/22 [facility] Discharge summary Author Dr. Diaz [facility] August 16, 2022 10:02am Note Date/Time August 16, 2022 9:23a [facility] Medical Records Department [address] [place] [address] Emergency Department Summary 08/16/22 MR#: [id number] Acct: [id number] Name: KENDALL RICE Rep #:[id number] : 1990 32 From: Bryson Diaz MD PCP: Dr. Jocelyn Arias DO Status:REG ER Location: ED HPI History of Present Illness Chief Complaint: Chest Pain Detail of Chief Complaint: Central chest pain Informant: patient Onset/Context/Timing Onset: Today and Hours (0630) Activity at onset: sudden Timing: Continuous Quality: Positive for - (Pain unable to describe) Location: - (Anterior structural upper chest) Current Severity: Mild Maximum Severity: Moderate Worsened By: Nothing Relieved By: Nothing Associated Symptoms: Positive for - (There is no radiation); Negative for Nausea, Vomiting, Diaphoresis, Dyspnea, Cough, Fever, Lightheadedness, Acid Reflux or Palpitations Narrative Narrative: Patient presents with anterior central upper chest pain. She is unable to describe. There is no radiation. There is no associated symptoms. There is noalleviating, precipitating or exacerbating factors. There is no history of VTE. She denies leg pain, swelling discoloration. She has no risk factors for VTE. She has not been well since May. Initially started with sore throat and fatigue and aches. Patient's primary care provider recently performed blood work on her that would indicate she has mononucleosis and lupus. She states herrenal function was normal. Father had a stroke in his 20s. There is a strong family history of cholelithiasis; however, she denies intolerance to greasy or fried foods. Prior Similar Symptoms: Yes Recent Illness/Hospitalization: Yes (Per HPI) CVD Risk Factors: Negative for Hypertension, Diabetes, Hypercholesterolemia, Family History 1' </=55 or Smoking PE Risk Factors: Negative for Recent Travel/Surgery, Recent Immobilization, Prior DVT or PE, Cancer or OCP + Smoking + >/=35 TAD Risk Factors: Negative for Marfan's Syndrome, Hypertension or Family History PFSH PFSH Home Medications vits,calcium no.78-iron fumarate-folic acid 29 mg-1 mg tablet (Prenatabs FA) 1 tab PO DAILY 09/26/16 [History Last Taken 02/18/21 06:00] Allergy/AdvReac Type Severity Reaction Status Date / Time amoxicillin trihydrate Allergy Rash Verified 08/16/22 09:05 [From Amoxil] Family History (Updated 08/16/22 @ 09:[address] Bryson Diaz MD) Other Cholelithiasis Surgical History [place] teeth removed Social History (Updated 08/16/22 @ 09:[address] Bryson Diaz MD) household members: spouse and children Smoking Status: Never smoker substance use type: does not use ROS ROS ED Constitutional Constitutional ED: Denies chills, fever(s), subjective, sweats or weight loss Eyes Eyes: Reports none ENT ENT ED: Denies ear pain, rhinorrhea or sore throat Cardiovascular Cardiovascular: Reports as per HPI; Denies orthopnea or paroxysmal nocturnal dyspnea Respiratory/Chest Respiratory/Chest: Denies cough, dyspnea, dyspnea on exertion, orthopnea or paroxysmal nocturnal dyspnea Gastrointestinal Gastrointestinal: Denies abdominal pain, nausea or vomiting Genitourinary Genitourinary ED: Denies dysuria, hematuria or urinary frequency Musculoskeletal Musculoskeletal: Reports arthralgias; Denies back pain, myalgias or neck pain Integumentary Denies rash Neurologic Neurologic: Denies headache(s), paresthesias or other Psychiatric Psychiatric: Reports anxiety Endocrine Endocrinology: Denies cold intolerance or heat intolerance Hematologic/Lymphatic Hematologic/Lymphatic: Denies easy bleeding or easy bruising EXAM Physical Exam Const Vital Signs: 08/16/22 09:03 08/16/22 09:07 08/16/22 09:09 Temperature 97.6 F L Temperature Source Temporal Pulse Rate 65 62 Respiratory Rate 16 12 Respiratory Pattern Normal Blood Pressure 114/74 115/73 Blood Pressure Mean 87 87 Pulse Ox 100 Oxygen Delivery Method Room Air Positive well nourished and well developed Constitutional Narrative: Patient is slightly anxious. General Appearance ED: well developed; Negative for pallor HEENT Reports moist mucous membranes HEENT Narrative: Nares patent. Posterior pharynx out erythema or exudate. Uvula is midline. normocephalic and atraumatic Eyes PERRL and EOMs intact bilaterally General Eye ED: Negative for pale conjunctiva or scleral icterus Neck no lymphadenopathy, supple and no JVD Chest Wall palpation of chest normal Resp normal respiratory effort Cardio regular rate, regular rhythm, S1 normal heart sound and S2 normal heart sound GI normal to inspection, nondistended, normoactive bowel sounds, soft to palpation,non-tender, non-distended and no masses; Negative for hepatosplenomegaly GI Narrative: Negative Vann sign Back/Spine no CVA tenderness Extremity normal to inspection Extremity Narrative: There is no asymmetry, swelling, discoloration, leg vein distention, palpable cords or tenderness along the distribution of the deep venous system. Neuro oriented x3, CN's II-XII intact bilaterally, no sensory deficits noted and gait normal Sensorium / Orientation: awake and alert Psych Mood & Affect: anxious Skin no rashes or lesions noted and no wounds General Skin Exam: Negative for jaundice or pallor Heart Score History: Slightly/Non-Suspicious ECG: Normal Age: </= 45 years Risk Factors: No Risk Factors Score: 0 MDM MDM MDM Narrative Medical decision making narrative: Patient presents with anterior central chest pain. She had several episodes of the past week. Pain is nondescript and no associated symptoms or radiation. This may be related to lupus or mononucleosis. EKG was obtained to assess for ischemia as well as as well as evidence of pericarditis. Chest x-ray to assess cardiac silhouette and size as well as lung parenchyma. Troponin was ordered. With the 9 number of incidents that occurred over the past week in duration if this is cardiac would suspect the first troponin to be elevated. CBC was obtained to assess for anemia since she complains of fatigue suspect this is most likely due to the fact that she has mononucleosis. History & Record Review Discussion w/independent historian: Patient Additional record(s) reviewed:: Prior labs Lab Data Attestation: I reviewed the patient's lab results. Lab results narrative: CBC is unremarkable. Troponin is less than 3. With troponin less than 3 days of pain cardiac etiology has been ruled out. Labs: Laboratory Results - last 24 hr 08/16/22 08/16/22 09:20 09:20 WBC 4.8 RBC 5.18 Hgb 13.1 Hct 41.3 MCV 79.7 L MCH 25.3 L MCHC 31.7 L RDW Std Deviation 40.4 RDW Coeff of Jim 13.9 Plt Count 262 MPV 8.5 Immature Gran % (Auto) 0.200 Neut % (Auto) 48.4 Lymph % (Auto) 37.4 [place] % (Auto) 11.3 H Eos % (Auto) 2.1 Baso % (Auto) 0.6 Absolute Neuts (auto) 2.3 Absolute Lymphs (auto) 1.79 Nucleated RBC % 0 Troponin I High Sens < 3 L Radiography Chest X-Ray - ED: 2 View and Read by ED Physician (Chest x-ray is normal. Cardiac silhouette and size normal. Perihilar region normal. Lung parenchyma is normal. Osseous structures are normal. There is no evidence of hiatal hernia.) EKG Initial EKG: Attestation: I personally reviewed and interpreted this EKG as follows: Interpretation: Sinus Rhythm (Rate is 63 and the EKG is normal. [place] interval is 102 ms. Cures duration 82 ms. QT duration 394 ms. [place] is normal.) Differential Diagnosis Chest pain/SOB: pulmonary embolism Reason(s) PE less likely: Positive for PERC negative, not tachycardic and not hypoxic, pneumothorax Reason(s) pneumothorax less likely: Positive for bilateral breath sounds and [employer] withhout PTX, pneumonia Reason(s) pneumonia less likely: Positive for no infiltrate on CXR, noelevation in WBC count, no noted fever and symptoms not consistent with acute infection, aortic dissection Reason(s) Aortic dissection less likely:: Positive for normal vascular exam, no history of HTN, normal neurological exam, no significant risk factors for dissection, no widened mediastinum on CXR, pain notsudden onset, no ripping/tearing pain, no pain to back and blood pressure appropriate in ED and COPD Reason(s) COPD less likely: Positive for no significant wheezing on exam, no tachypnea, no conversational dyspnea, normal air movement noted on auscultation on lungs and other (Does not smoke and no history of COPD) Treatment and Re-Evaluation :: Patient was informed of her results. She was instructed to follow-up with her doctor. Discharge Plan Triage Chief Complaint: Chest Pain ED Provider: Bryson Diaz Dx/Rx/DC Orders Clinical Impression: Anterior chest wall pain, Mononucleosis, SLE (systemic lupus erythematosus related syndrome) Instructions: ED Chest Pain, Noncardiac Prescriptions: No Action Prenatabs FA 1 TABLET tablet 1 tab PO DAILY Primary Care Provider: Jocelyn Arias Referrals: Jocelyn Arias DO [Primary Care Provider] - As Needed Disposition Disposition: Home, Self Care What to do if you have Problems For any increased pain, shortness of breath, bleeding, nausea or vomiting, chestpain, or any unexpected problems, contact your Primary Care Provider. Call [facility] ([phone]) or report to the closest Emergency Room. Call 911 if necessary. 08/16/22 1002 <Electronically signed by Bryson Diaz MD> Cosigner Signature (if applicable): CC: Dr. Jocelyn Arias DO ~ Signed [facility] Work Phone: Evaluation noteNo assessment information available [facility] Work Phone: Evaluation note* Diagnosis Onset Date Resolution Status acute SLE (systemic lupus erythematosus related syndrome) acute Supervision of high risk , antepartum acute [facility] Work Phone: Evaluation note* Diagnosis Onset Date Resolution Status acute SLE (systemic lupus erythematosus related syndrome) acute Supervision of high risk , antepartum acute Mononucleosis acute acute SLE (systemic lupus erythematosus related syndrome) acute Supervision of high risk , antepartum acute History of abnormality in previous , currently acute acute SLE (systemic lupus erythematosus related syndrome) acute Supervision of high risk , antepartum acute History of abnormality in previous , currently acute Low-lying placenta acute Mononucleosis acute acute SLE (systemic lupus erythematosus related syndrome) acute Supervision of high risk , antepartum acute COVID-19 acute cardiac arrhythmia acu te History of abnormality in previous , currently acute Low-lying placenta acute acute SLE (systemic lupus erythematosus related syndrome) acute Supervision of high risk , antepartum acute [facility] Work Phone: Evaluation note* Diagnosis Onset Date Resolution Status History of abnormality in previous , currently acute acute SLE (systemic lupus erythematosus related syndrome) acute Supervision of high risk , antepartum acute History of abnormality in previous , currently acute Low-lying placenta acute acute SLE (systemic lupus erythematosus related syndrome) acute Supervision of high risk , antepartum acute Mononucleosis resolved COVID-19 acute History of abnormality in previous , currently acute Low-lying placenta acute acute SLE (systemic lupus erythematosus related syndrome) acute Supervision of high risk , antepartum acute cardiac arrhythmia res olved COVID-19 acute History of abnormality in previous , currently acute Low-lying placenta acute acute SLE (systemic lupus erythematosus related syndrome) acute Supervision of high risk , antepartum acute cardiac arrhythmia res olved Antiphospholipid antibody sy ndrome complicating acute COVID-19 acute History of abnormality in previous , currently acute Low-lying placenta acute acute SLE (systemic lupus erythematosus related syndrome) acute Supervision of high risk , antepartum acute cardiac arrhythmia res olved Antiphospholipid antibody sy ndrome complicating acute COVID-19 acute History of abnormality in previous , currently acute Low-lying placenta acute acute SLE (systemic lupus erythematosus related syndrome) acute Supervision of high risk , antepartum acute [facility] Work Phone: Evaluation note* Diagnosis Onset Date Resolution Status History of abnormality in previous , currently acute acute SLE (systemic lupus erythematosus related syndrome) acute Supervision of high risk , antepartum acute Low-lying placenta resolved Mononucleosis resolved COVID-19 acute History of abnormality in previous , currently acute acute SLE (systemic lupus erythematosus related syndrome) acute Supervision of high risk , antepartum acute cardiac arrhythmia res olved Low-lying placenta resolved COVID-19 acute History of abnormality in previous , currently acute acute SLE (systemic lupus erythematosus related syndrome) acute Supervision of high risk , antepartum acute cardiac arrhythmia res olved Low-lying placenta resolved Antiphospholipid antibody sy ndrome complicating acute COVID-19 acute History of abnormality in previous , currently acute acute SLE (systemic lupus erythematosus related syndrome) acute Supervision of high risk , antepartum acute cardiac arrhythmia res olved Low-lying placenta resolved Antiphospholipid antibody sy ndrome complicating acute COVID-19 acute History of abnormality in previous , currently acute acute SLE (systemic lupus erythematosus related syndrome) acute Supervision of high risk , antepartum acute Low-lying placenta resolved Antiphospholipid antibody sy ndrome complicating acute COVID-19 acute History of abnormality in previous , currently acute acute SLE (systemic lupus erythematosus related syndrome) acute Supervision of high risk , antepartum acute Low-lying placenta resolved Antiphospholipid antibody sy ndrome complicating acute COVID-19 acute History of abnormality in previous , currently acute acute SLE (systemic lupus erythematosus related syndrome) acute Supervision of high risk , antepartum acute Antiphospholipid antibody sy ndrome complicating acute COVID-19 acute History of abnormality in previous , currently acute acute SLE (systemic lupus erythematosus related syndrome) acute Supervision of high risk , antepartum acute Antiphospholipid antibody sy ndrome complicating acute COVID-19 acute History of abnormality in previous , currently acute acute SLE (systemic lupus erythematosus related syndrome) acute Supervision of high risk , antepartum acute [facility] Work Phone: Evaluation note* Diagnosis Onset Date Resolution Status COVID-19 acute SLE (systemic lupus erythematosus related syndrome) acute cardiac arrhythmia res olved Low-lying placenta resolved resolved Supervision of high risk , antepartum resolved COVID-19 acute SLE (systemic lupus erythematosus related syndrome) acute cardiac arrhythmia res olved Low-lying placenta resolved resolved Supervision of high risk , antepartum resolved COVID-19 acute SLE (systemic lupus erythematosus related syndrome) acute cardiac arrhythmia res olved Low-lying placenta resolved resolved Supervision of high risk , antepartum resolved COVID-19 acute SLE (systemic lupus erythematosus related syndrome) acute Low-lying placenta resolved resolved Supervision of high risk , antepartum resolved COVID-19 acute SLE (systemic lupus erythematosus related syndrome) acute Low-lying placenta resolved resolved Supervision of high risk , antepartum resolved COVID-19 acute SLE (systemic lupus erythematosus related syndrome) acute resolved Supervision of high risk , antepartum resolved COVID-19 acute SLE (systemic lupus erythematosus related syndrome) acute resolved Supervision of high risk , antepartum resolved COVID-19 acute SLE (systemic lupus erythematosus related syndrome) acute resolved Supervision of high risk , antepartum resolved COVID-19 acute SLE (systemic lupus erythematosus related syndrome) acute resolved Supervision of high risk , antepartum resolved COVID-19 acute SLE (systemic lupus erythematosus related syndrome) acute resolved Supervision of high risk , antepartum resolved COVID-19 acute SLE (systemic lupus erythematosus related syndrome) acute resolved Supervision of high risk , antepartum resolved [facility] Work Phone: Evaluation note* Diagnosis Onset Date Resolution Status SLE (systemic lupus erythematosus related syndrome) acute COVID-19 resolved cardiac arrhythmia res olved Low-lying placenta resolved resolved Supervision of high risk , antepartum resolved SLE (systemic lupus erythematosus related syndrome) acute COVID-19 resolved cardiac arrhythmia res olved Low-lying placenta resolved resolved Supervision of high risk , antepartum resolved SLE (systemic lupus erythematosus related syndrome) acute COVID-19 resolved cardiac arrhythmia res olved Low-lying placenta resolved resolved Supervision of high risk , antepartum resolved SLE (systemic lupus erythematosus related syndrome) acute COVID-19 resolved Low-lying placenta resolved resolved Supervision of high risk , antepartum resolved SLE (systemic lupus erythematosus related syndrome) acute COVID-19 resolved Low-lying placenta resolved resolved Supervision of high risk , antepartum resolved SLE (systemic lupus erythematosus related syndrome) acute COVID-19 resolved resolved Supervision of high risk , antepartum resolved SLE (systemic lupus erythematosus related syndrome) acute COVID-19 resolved resolved Supervision of high risk , antepartum resolved SLE (systemic lupus erythematosus related syndrome) acute COVID-19 resolved resolved Supervision of high risk , antepartum resolved SLE (systemic lupus erythematosus related syndrome) acute COVID-19 resolved resolved Supervision of high risk , antepartum resolved SLE (systemic lupus erythematosus related syndrome) acute COVID-19 resolved resolved Supervision of high risk , antepartum resolved SLE (systemic lupus erythematosus related syndrome) acute COVID-19 resolved resolved Supervision of high risk , antepartum resolved [facility] Work Phone: Hospital course Narrative No data available for this section [facility] Hospital Discharge instructions No data available for this section [facility] Progress note No data available for this section [facility] Reason for referral (narrative)No reason for [facility] Purpose Family History No Family History Records Found Relationship Condition Age at Onset Recorded Date/T gabe Not Specified Cholelithiasis Unknown Advance Directives No Advanced Directives Records Found Advance Directive Response Recorded Date/ Time Advance Directives No March 26, 2016 7:52pm Living Will No August 16, 2022 9 :13am Power of Hatch Boss No August 16, 2022 9:13am Advance Directive Response Recorded Date/ Time Advance Directives No March 26, 2016 6:52pm Living Will No August 16, 2022 8 :13am Power of [employer] No August 16, 2022 8:13am Advance Directive Response Recorded Date/ Time Advance Directives No March 26, 2016 7:52pm Living Will No June 01, 2023 7:24am Power of [employer] Boss No May 31 7:24am Advance Directive Response Recorded Date/ Time Advance Directives No March 26, 2016 7:52pm Chief Complaint and Reason for Visit Chief Complaint Admit Date PAIN- COPY PCP July 12, 2024 9:3 1am 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) July 14, 2024 2:3 4pm Reason for Visit Admit Date Encounter for routine gynecological exam ination July 14, 2024 2:34pm Chief Complaint CP Chief Complaint CP AVISE BOX NOB Reason for Visit SLE (systemic lupus erythematosus related syndrome) Supervision of high risk , antepartum Chief Complaint NOB 2 ORDERS 2 DIFF DOCTOR 14 WK OB, needs new ob book & folder 17 WK OB 21 WK OB 25 WK OB Reason for Visit SLE (systemic lupus erythematosus related syndrome) Supervision of high risk , antepartum Mononucleosis SLE (systemic lupus erythematosus related syndrome) Supervision of high risk , antepartum History of abnormality in previous , currently SLE (systemic lupus erythematosus related syndrome) Supervision of high risk , antepartum History of abnormality in previous , currently Low-lying placenta Mononucleosis SLE (systemic lupus erythematosus related syndrome) Supervision of high risk , antepartum COVID-19 cardiac arrhythmia History of abnormality in previous , currently Low-lying placenta SLE (systemic lupus erythematosus related syndrome) Supervision of high risk , antepartum Chief Complaint 17 WK OB 21 WK OB 25 WK OB 26 WK OB 28 WK OB *doc only* 30 WK OB *doc only* Reason for Visit History of abn ormality in previous , currently SLE (systemic lupus erythematosus related syndrome) Supervision of high risk , antepartum History of abnormality in previous , currently Low-lying placenta SLE (systemic lupus erythematosus related syndrome) Supervision of high risk , antepartum Mononucleosis COVID-19 History of abnormality in previous , currently Low-lying placenta SLE (systemic lupus erythematosus related syndrome) Supervision of high risk , antepartum cardiac arrhythmia COVID-19 History of abnormality in previous , currently Low-lying placenta SLE (systemic lupus erythematosus related syndrome) Supervision of high risk , antepartum cardiac arrhythmia 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 of abnormality in previous , currently Low-lying placenta SLE (systemic lupus erythematosus related syndrome) Supervision of high risk , antepartum cardiac arrhythmia 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 of abnormality in previous , currently Low-lying placenta SLE (systemic lupus erythematosus related syndrome) Supervision of high risk , antepartum Chief Complaint 21 WK OB 25 WK OB 26 WK OB 28 WK OB *doc only* 30 WK OB *doc only* 32 WK OB/NST *doc only* 33 WK NST 34 WK OB/NST *doc only* 36 WK OB/NST *doc only* Reason for Visit History of abn ormality in previous , currently SLE (systemic lupus erythematosus related syndrome) Supervision of high risk , antepartum Low-lying placenta Mononucleosis COVID-19 History of abnormality in previous , currently SLE (systemic lupus erythematosus related syndrome) Supervision of high risk , antepartum cardiac arrhythmia Low-lying placenta COVID-19 History of abnormality in previous , currently SLE (systemic lupus erythematosus related syndrome) Supervision of high risk , antepartum cardiac arrhythmia Low-lying placenta 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 of abnormality in previous , currently SLE (systemic lupus erythematosus related syndrome) Supervision of high risk , antepartum cardiac arrhythmia Low-lying placenta 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 of abnormality in previous , currently SLE (systemic lupus erythematosus related syndrome) Supervision of high risk , antepartum Low-lying placenta 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 of abnormality in previous , currently SLE (systemic lupus erythematosus related syndrome) Supervision of high risk , antepartum Low-lying placenta 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 of abnormality in previous , currently SLE (systemic lupus erythematosus related syndrome) Supervision of high risk , antepartum 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 of abnormality in previous , currently SLE (systemic lupus erythematosus related syndrome) Supervision of high risk , antepartum 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 of abnormality in previous , currently SLE (systemic lupus erythematosus related syndrome) Supervision of high risk , antepartum Chief Complaint 25 WK OB 26 WK OB 28 WK OB *doc only* 30 WK OB *doc only* 32 WK OB/NST *doc only* 33 WK NST 34 WK OB/NST *doc only* 36 WK OB/NST *doc only* 37 WK OB/NST *doc only* 38 WK OB/NST *doc only* INDUCTION INDUCTION INDUCTION INDUCTION Reason for Visit COVID-19 SLE (systemic lupus erythematosus related syndrome) cardiac arrhythmia Low-lying placenta Supervision of high risk , antepartum COVID-19 SLE (systemic lupus erythematosus related syndrome) cardiac arrhythmia Low-lying placenta Supervision of high risk , antepartum COVID-19 SLE (systemic lupus erythematosus related syndrome) cardiac arrhythmia Low-lying placenta Supervision of high risk , antepartum COVID-19 SLE (systemic lupus erythematosus related syndrome) Low-lying placenta Supervision of high risk , antepartum COVID-19 SLE (systemic lupus erythematosus related syndrome) Low-lying placenta Supervision of high risk , antepartum COVID-19 SLE (systemic lupus erythematosus related syndrome) Supervision of high risk , antepartum COVID-19 SLE (systemic lupus erythematosus related syndrome) Supervision of high risk , antepartum COVID-19 SLE (systemic lupus erythematosus related syndrome) Supervision of high risk , antepartum COVID-19 SLE (systemic lupus erythematosus related syndrome) Supervision of high risk , antepartum COVID-19 SLE (systemic lupus erythematosus related syndrome) Supervision of high risk , antepartum COVID-19 SLE (systemic lupus erythematosus related syndrome) Supervision of high risk , antepartum Chief Complaint 25 WK OB 26 WK OB 28 WK OB *doc only* 30 WK OB *doc only* 32 WK OB/NST *doc only* 33 WK NST 34 WK OB/NST *doc only* 36 WK OB/NST *doc only* 37 WK OB/NST *doc only* 38 WK OB/NST *doc only* INDUCTION INDUCTION INDUCTION INDUCTION PAIN- COPY PCP Reason for Visit SLE (systemic lupus erythematosus related syndrome) COVID-19 cardiac arrhythmia Low-lying placenta Supervision of high risk , antepartum SLE (systemic lupus erythematosus related syndrome) COVID-19 cardiac arrhythmia Low-lying placenta Supervision of high risk , antepartum SLE (systemic lupus erythematosus related syndrome) COVID-19 cardiac arrhythmia Low-lying placenta Supervision of high risk , antepartum SLE (systemic lupus erythematosus related syndrome) COVID-19 Low-lying placenta Supervision of high risk , antepartum SLE (systemic lupus erythematosus related syndrome) COVID-19 Low-lying placenta Supervision of high risk , antepartum SLE (systemic lupus erythematosus related syndrome) COVID-19 Supervision of high risk , antepartum SLE (systemic lupus erythematosus related syndrome) COVID-19 Supervision of high risk , antepartum SLE (systemic lupus erythematosus related syndrome) COVID-19 Supervision of high risk , antepartum SLE (systemic lupus erythematosus related syndrome) COVID-19 Supervision of high risk , antepartum SLE (systemic lupus erythematosus related syndrome) COVID-19 Supervision of high risk , antepartum SLE (systemic lupus erythematosus related syndrome) COVID-19 Supervision of high risk , antepartum Chief Complaint Admit Date PAIN- COPY PCP April 21, 2024 9 :43am PAIN- COPY PCP July 12, 2024 9:3 1am 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 Jocelyn Arias DO Family Provider Active Dr. Jocelyn Arias DO Primary Care Provider Active Team Status: Inactive Member Role Status Dates Dr. Jocelyn Arias DO Primary Care Provider Active Dr. Bryson Diaz MD Emergency Provider Active Team Status: Inactive Member Role Status Dates Dr. Jocelyn Arias DO Primary Care Provider, Referri ng Provider Active Yovana Fonseca CNM Attending Provider Active Team Status: Inactive Member Role Status Dates Dr. Jocelyn Arias DO Primary Care Provider Active Dr. Bryson Diaz MD Attending Provider, Emergency Provi jamie Active Team Status: Inactive Member Role Status Dates Dr. Jocelyn Arias DO Primary Care Provider Active Dr. Mariana Raphael MD Attending Provider, Referring Provider Active Team Status: Inactive Member Role Status Dates Dr. Jocelyn Arias DO Primary Care Provider Active Yovana Fonseca CNM Attending Provider, Referring Pro vider Active Team Status: Inactive Member Role Status Dates Dr. Jocelyn Arias DO Primary Care Provider, Referri ng Provider Active Julio Cesar Wong CNM Attending Provider Active Team Status: Inactive Member Role Status Dates Dr. Jocelyn Arias DO Primary Care Provider, Referri ng Provider Active Paige Solorzano AUTO BODY REPAIR ESTIMATOR, AUTO BODY REPAIR ESTIMATOR-C Attending Provider Active Team Status: Inactive Member Role Status Dates Dr. Jocelyn Arias DO Primary Care Provider, Referri ng Provider Active Dr. Janet Cardoza DO Attending Provider Activ e Team Status: Inactive Member Role Status Dates Dr. Jocelyn Arais DO Primary Care Provider Active Dr. Janet Cardoza DO Attending Provider, Refe rring Provider Active Team Status: Inactive Member Role Status Dates Dr. Jocelyn Julio Cesar , DO Primary Care Provider Active Dr. Mariana Raphael MD Attending Provider Active Julio Cesar Wong CNM Other Provider Active Team Status: Inactive Member Role Status Dates Dr. Jocelyn Arias , DO Primary Care Provider, Referri ng Provider Active Dr. Mariely Valencia MD Attending Provider Active Team Status: Inactive Member Role Status Dates Dr. Jocelyn Arias , DO Primary Care Provider Active Dr. Mariely Valencia MD Attending Provider, Referr ing Provider Active Team Status: Inactive Member Role Status Dates Dr. Jocelyn Arias , DO Primary Care Provider Active Dr. Janet Cardoza DO Attending Provider Activ e Team Status: Active Member Role Status Dates Dr. Jocelyn Arias DO Primary Care Provider Active Dr. Janet Cardoza , DO Admit Prov ider, Attending Provider, Other Provider Active Team Status: Active Member Role Status Dates Dr. Jocelyn Arias DO Primary Care Provider Active Dr. Janet Cardoza DO Admit Provider, Other Pr ovider Active Julio Cesar Wong CNM Attending Provider Active Team Status: Active Member Role Status Dates Dr. Jocelyn Arias DO Primary Care Provider Active Dr. Janet Cardoza DO Admit Provider, Other Pr ovider Active Yovana Fonseca CNM Attending Provider Active Team Status: Inactive Member Role Status Dates Dr. Jocelyn Arias DO Primary Care Provider Active Dr. Janet Cardoza DO Admit Provider, Attendin g Provider Active Team Status: Active Member Role Status Dates Dr. Jocelyn Arias DO Primary Care Provider Active Team Status: Inactive Member Role Status Dates Dr. Jocelyn Arias DO Primary Care Provider Active Start: April 21, 2024 End: April 21, 2024 Dr. Mariana Raphael MD Attending Provider Active Start: April 21, 2024 End: April 21, 2024 Dr. Mariana Raphael MD Referring Provider Active Start: April 21, 2024 End: April 21, 2024 Team Status: Inactive Member Role Status Dates Dr. Jocelyn Arias DO Primary Care Provider Active Start: July 12, 2024 End: July 12, 2024 Dr. Mariana Raphael MD Attending Provider Active Start: July 12, 2024 End: July 12, 2024 Dr. Mariana Raphael MD Referring Provider Active Start: July 12, 2024 End: July 12, 2024 Team Status: Inactive Member Role Status Dates Dr. Jocelyn Arias DO Primary Care Provider Active Start: July 14, 2024 End: July 14, 2024 Dr. Jocelyn Arias DO Referring Provider Active Start: July 14, 2024 End: July 14, 2024 SOO Gonzales Attending Provider Active Start: July 14, 2024 End: July 14, 2024 Team Status: Inactive Member Role Status Dates Dr. Jocelyn Arias DO Primary Care Provider Active Start: July 14, 2024 End: July 14, 2024 SOO Gonzales Attending Provider Active Start: July 14, 2024 End: July 14, 2024 SOO Gonzales Referring Provider Active Start: July 14, 2024 End: July 14, 2024 Team Status: Active Member Role/Relationship Status Dates Dr. Jocelyn Arias DO Primary Care Provider Active Team Status: Inactive Member Role/Relationship Status Dates Dr. Jocelyn Arias DO Primary Care Provider Active Start: July 12, 2024 End: July 12, 2024 Dr. Mariana Raphael MD Attending Provider Active Start: July 12, 2024 End: July 12, 2024 Dr. Mariana Raphael MD Referring Provider Active Start: July 12, 2024 End: July 12, 2024 Team Status: Inactive Member Role/Relationship Status Dates Dr. Jocelny Arias DO Primary Care Provider Active Start: July 14, 2024 End: July 14, 2024 Dr. Jocelyn Arias DO Referring Provider Active Start: July 14, 2024 End: July 14, 2024 SOO Gonzales Attending Provider Active Start: July 14, 2024 End: July 14, 2024 Team Status: Inactive Member Role/Relationship Status Dates Dr. Jocelyn Arias DO Primary Care Provider Active Start: July 14, 2024 End: July 14, 2024 SOO Gonzales Attending Provider Active Start: July 14, 2024 End: July 14, 2024 SOO Gonzales Referring Provider Active Start: July 14, 2024 End: July 14, 2024 Team Status: Inactive Member Role/Relationship Status Dates Dr. Jocelyn Arias DO Primary Care Provider Active Start: October 01, 2024 End: October 01, 2024 Dr. Mariana Raphael MD Attending Provider Active Start: October 01, 2024 End: October 01, 2024 Dr. Mariana Raphael MD Referring Provider Active Start: October 01, 2024 End: October 01, 2024 INFORMATION SOURCE (unrecogn ized section and content) DATE CREATED AUTHOR 07/31/2022 [facility] ([place] DATE CREATED AUTHOR AUTHOR'S ORGANIZ ATION 05/13/2023 [facility] DATE CREATED AUTHOR AUTHOR'S ORGANIZ ATION 10/09/2024 [facility] DATE CREATED AUTHOR AUTHOR'S ORGANIZ ATION 11/17/2024 [facility] Goals (unrecognized section and content) Goals may be documented in a n alternate section FOR RECORDS PERTAINING TO PATIENTS WHO ARE [...] BE BASED ON THE PRIMARY CLINICAL RECORDS. [employer] [facility]. provides no warranty or guarantee of the accuracy or completeness of information in this document.
[2024-11-21 16:04] LABS: hCG Titer Quant., Serum 13485 mIU/mL (<9 non-preg)
== END | disposition home or self-care (01) ==
LOC: LAB 14:39
PROVIDERS: PCP Preventive Medicine Occupational Medicine; Visit Provider Nurse Practitioner Family
DX: N91.2 Amenorrhea, unspecified (principal)
CPT/HCPCS: 36415; 84702

== ENCOUNTER → 2024-11-26 | Outpatient (CLI) | payer OTHER, SELFPAY ==
--- NOTE | 2024-11-26 16:36 | US_ITS ---
PROCEDURE: TRANSVAGINAL W/PREG US 11/26/2024 REASON FOR EXAM: DATING TECHNIQUE: Procedure Code: [id number] Modality: US Procedure: TRANSVAGINAL W/PREG US COMPARISON: None FINDINGS: Comments: LMP: September 22, 2024. Number of Gestational Sacs: 1 Gestational Sac Shape: Normal Number of Fetuses: 1 Heart Rate: 133 beats per minute (average) Yolk Sac: Present and unremarkable. Placenta: Presently not well-visualized Amniotic Fluid Volume: Subjectively normal for gestational age. Uterine Abnormalities: Maternal uterus is unremarkable. Ovaries / Adnexa: Both maternal ovaries are visualized and unremarkable. DIMENSIONS: Parameter Measurement / EGA [place] Rump Length: 9 mm/7 weeks and 0 days. Gestational Sac: 1.9 cm/6 weeks and 6 days Yolk Sac: 3 mm/ ESTIMATED GESTATIONAL AGE: By Ultrasound: 7 weeks and 0 days By LMP: 9 weeks and 2 days ESTIMATED DATE OF DELIVERY: By Ultrasound: July 15, 2025 By LMP: June 29, 2025 US/Transvaginal w/Preg US IMPRESSION: Single live intrauterine gestation with a mean gestational age of 7 weeks. Reading Location: [place] [id number]
== END | disposition home or self-care (01) ==
LOC: US 16:31
PROVIDERS: PCP Preventive Medicine Occupational Medicine; Referring Provider Nurse Practitioner Family; Visit Provider Nurse Practitioner Family
DX: Z36.87 Encounter for antenatal screening for uncertain dates (principal)
CPT/HCPCS: 76817

== ENCOUNTER → 2024-12-07 | Outpatient (CLI) | payer OTHER, SELFPAY ==
[2024-12-07 17:32] LABS: Hematocrit 39.3 % (37-47); Hemoglobin 12.8 g/dL (12.0-15.0); Immature Granulocytes Count 0.030 X10^3/uL (0.0-0.0); Mean Corp Hgb Conc 32.6 g/dL (32-36); Mean Corpuscular Volume 80.0 fL (81-99); Mean Platelet Vol. 9.0 fl (6.2-12.0); NRBC Flagged by Analyzer 0 % (0-5); Platelet Count 315 K/mm3 (150-450); RBC Distribution Width CV 13.2 % (11.6-14.6); RBC Distribution Width SD 37.7 fl (35.1-43.9); Red Blood Count 4.91 M/mm3 (4.2-5.4); White Blood Count 8.6 K/mm3 (4.4-11.0)
[2024-12-07 17:33] LABS: HIV Nonreactive (Nonreactive); Hepatitis B Surface Antigen Nonreactive (Nonreactive); Hepatitis C Antibody Nonreactive (Nonreactive); Syphilis Antibodies Nonreactive (Nonreactive)
[2024-12-09 20:08] LABS: Chlamydia By Nucleic Acid AMP Negative (Negative); Gonococcus By Nucleic Acid AMP Negative (Negative)
== END | disposition home or self-care (01) ==
PROVIDERS: PCP Preventive Medicine Occupational Medicine; Visit Provider Obstetrics & Gynecology
DX: O09.90 Supervision of high risk pregnancy, unspecified, unspecified trimester (principal); Z3A.00 Weeks of gestation of pregnancy not specified
CPT/HCPCS: 36415; 83021; 85025; 85660; 86703; 86762; 86780; 86803; 86850; 86900; 86901; 87086; 87088; 87340; 87491; 87591

== ENCOUNTER → 2024-12-08 | Outpatient (CLI) | payer OTHER, SELFPAY ==
[2024-12-11 07:07] LABS: Anti-Cardiolipin Ab, IgG, Qn < 9 GPL U/mL (0-14); Anti-Cardiolipin Ab, IgM, Qn 25 MPL U/mL (0-12); Beta-2-Glycoprotein I IgA <9 (0-25); Beta-2-Glycoprotein I IgG <9 (0-20); Beta-2-Glycoprotein I IgM 48 (0-32); Dilute Russell Viper Venom 42.4 sec (0.0-47.0); Interpretation Comment: (.); PTT-LA 36.8 sec (0.0-43.5)
== END | disposition home or self-care (01) ==
LOC: BWCLAB 09:11
PROVIDERS: PCP Preventive Medicine Occupational Medicine; Referring Provider Obstetrics & Gynecology; Visit Provider Obstetrics & Gynecology
DX: N96 Recurrent pregnancy loss (principal); R76.0 Raised antibody titer
CPT/HCPCS: 86146; 86147

== ENCOUNTER → 2024-12-27 | Outpatient (CLI) | payer OTHER, SELFPAY ==
[2024-12-27 10:46] LABS: Hematocrit 39.5 % (37-47); Hemoglobin 12.6 g/dL (12.0-15.0); Immature Granulocytes Count 0.020 X10^3/uL (0.0-0.0); Mean Corp Hgb Conc 31.9 g/dL (32-36); Mean Corpuscular Volume 80.4 fL (81-99); Mean Platelet Vol. 9.1 fl (6.2-12.0); NRBC Flagged by Analyzer 0 % (0-5); Platelet Count 243 K/mm3 (150-450); RBC Distribution Width CV 13.6 % (11.6-14.6); RBC Distribution Width SD 39.4 fl (35.1-43.9); Red Blood Count 4.91 M/mm3 (4.2-5.4); White Blood Count 6.3 K/mm3 (4.4-11.0)
[2024-12-27 10:56] LABS: AST(SGOT) 18 U/L (<=31); Alanine Aminotransfer ALT/SGPT 17 U/L (<=34); Albumin, Serum 4.2 g/dL (3.5-5.0); Alkaline Phosphatase 41 U/L (35-104); Anion Gap 10 (5-15); BUN 8 mg/dL (4-19); BUN/Creat Ratio 14.6 RATIO (10-20); Calcium,Total 9.4 mg/dL (7.6-11.0); Carbon Dioxide 24.1 mmol/L (21.0-32.0); Chloride 103 mmol/L (98-108); Globulin 2.7 g/dL (2.2-4.2); Glucose 80 mg/dL (70-99); Potassium 3.9 mmol/L (3.3-5.1)
== END | disposition home or self-care (01) ==
LOC: MTLAB 08:47
PROVIDERS: PCP Preventive Medicine Occupational Medicine; Referring Provider Internal Medicine Rheumatology; Visit Provider Internal Medicine Rheumatology
DX: M06.4 Inflammatory polyarthropathy (principal); Z79.899 Other long term (current) drug therapy; R76.81 Abnormal rheumatoid factor and anti-citrullinated protein antibody without rheumatoid arthritis
CPT/HCPCS: 36415; 80053; 85025

== ENCOUNTER → 2025-03-11 | Outpatient (CLI) | payer OTHER, SELFPAY ==
--- OUTSIDE RECORDS SUMMARY | 2025-03-11 14:10 | XMS RPT_ITS | CCD ---
Author Organization [facility] CliniSynj Care Team Providers Care Salesperson Sheet Music Name Role Phone DONNA GAN-TECHNICAL SALES REPRESENTATIVESHOLLY Primary Care Physi teofilo DONNA GAN-JONATHAN, HOLLY Kumar Attending Un available HOLLY MCGHEE Primary Care Un available Dr. Jocelyn Harrell Primary Care Provider Dr. Jocelyn Harrell Referring Provider [phone] DAV Fonseca Attending Provider [phone] Dr. Jocelyn Harrell Primary Care Provider Dr. Jocelyn Harrell Referring Provider [phone] DAV Fonseca Attending Provider [phone] DAV Wong Attending Provider [phone] aRshad [employer], SOO Gibson Attending Provider [phone] Dr. Janet Cardoza Attending Provider [phone] Dr. Jocelyn Harrell Primary Care Provider Dr. Jocelyn Harrell Referring Provider [phone] Dr. Mariely Valencia Attending Provider [phone] MARIELY VALENCIA Referring UnavailJOCELYN Martin Primary Care Unavailable MARITA, LIDA F Attending Unavailable MARIELY VALENCIA Referring UnavailJOCELYN Martin Primary Care Unavailable KIRKLAND, LIDA F Attending Unavailable JOCELYN HARRELL Primary Care Unavailable KIRKLAND, LIDA F Attending Unavailable MARIELY VALENCIA Referring Unavailabl JOCELYN Austin Primary Care Unavailable KIRKLAND, LIDA F Attending Unavailable MARIELY VALENCIA Referring Unavailabl e JULIO CESAR, JOCELYN F Primary Care Unavailable KIRKLAND, LIDA F Attending Unavailable MARIELY VALENCIA Referring UnavailJOCELYN Martin Primary Care Unavailable LIDA KIRKLAND Attending Unavailable MARIELY VALENCIA Referring UnavailDr. Jocelyn Martin Primary Care Provider Dr. Jocelyn Harrell Referring Provider [phone] Rashad [employer], [employer] Paige Attending Provider [phone] Dr. Jocelyn Harrell Primary Care Provider Dr. Jocelyn Harrell Referring Provider [phone] Rashad [employer], [employer] Paige Attending Provider [phone] Dr. Mariely Valencia Attending Provider [phone] Dr. Janet Cardoza Attending Provider [phone] Dr. Janet Cardoza Admit Provider Dr. Janet Cardoza Other Provider DAV Wong Attending Provider [phone] DAV Fonseca Attending Provider [phone] Dr. Jocelyn Harrell DO Primary Care Provider [phone] Dr. Mariana Raphael MD Attending Provider Dr. Mariana Raphael MD Referring Provider Dr. Jocelyn Harrell DO Referring Provider Barbara Salomon Attending Provider [phone] Barbara Salomon Referring Provider Dr. Jocelyn Harrell DO Primary Care Provider [phone] Dr. Mariana Raphael MD Attending Provider Dr. Mariana Raphael MD Referring Provider DR CHATO WYATT DO Attending Unavailable DONNA GAN-TECHNICAL SALES REPRESENTATIVES, HOLLY Kumar Primary Care Un available Dr. Jocelyn Harrell DO Primary Care Provider [phone] Dr. Mariana Raphael MD Attending Provider Dr. Mariana Raphael MD Referring Provider Dhruv [employer]-CBarbara Attending Provider [phone] Dhruv [employer]-CBarbara Referring Provider [phone] Julio Cesar MCCLURE, Dr. Ta Primary Care Physician Dr. Mariana Raphael MD Attending Physician [phone] Dhruv CURATOR HORTICULTURAL MUSEUMBarbara Pinzon Attending Physician [phone] Julio Cesar MCCLURE, Dr. Ta Referring Provider Jaren GOULD, Dr. Schuster Attending Physician Jaren GOULD, Dr. Schuster Referring Provider Julio Cesar, Jocelyn Primary Care Unavailable Mariely Valencia Attending Unavailable Julio Cesar, Jocelyn Referring Unavailable Janet Cardoza Attending Unavailabl e Julio Cesar, Jocelyn Referring Unavailable Julio Cesar, Jocelyn Primary Care Unavailable Julio Cesar, Jocelyn Primary Care Unavailable Julio Cesar, Jocelyn Referring Unavailable BarkBarbara davalos Attending Unavailable Mariely Valencia Attending Unavailable Mariely Valencia Referring Unavailable Julio Cesar, Jocelyn Primary Care Unavailable Vellanki, Mariana Attending Unavailable Julio Cesar, Jocelyn Primary Care Unavailable Vellanki, Mariana Referring Unavailable Vellanki, Mariana Referring Unavailable Julio Cesar, Jocelyn Primary Care Unavailable Vellanki, Mariana Attending Unavailable Vellanki, Mariana Referring Unavailable Julio Cesar, Jocelyn Primary Care Unavailable Vellanki, Mariana Attending Unavailable Julio Cesar, Jocelyn Primary Care Unavailable Barbara Bartlett Attending Unavailable Barkman Barbara Referring Unavailable Julio Cesar, Jocelyn Primary Care Unavailable BarkmanBarbara Attending Unavailable Julio Cesar, Jocelyn Primary Care Unavailable Vellanki, Mariana Attending Unavailable Vellanki, Mariana Referring Unavailable Julio Cesar, Jocelyn Primary Care Unavailable Barbara Bartlett Attending Unavailable Barbara Bartlett Referring Unavailable Julio Cesar, Jocelyn Primary Care Unavailable BarkBarbara davalos Referring Unavailable BarkBarbara davalos Attending Unavailable Mariely Valencia Attending Unavailable Julio Cesar, Jocelyn Primary Care Unavailable Julio Cesar MCCLURE, Dr. Ta Primary Care Physician Donavon GOULD, Dr. Peña Attending Physician [phone] Dr. Mariana Raphael MD Referring Provider Barbara Salomon Attending Physician [phone] Barbara aSlomon Referring Provider [phone] Jocelyn Harrell DO Referring Provider Dr. Mariely Valencia MD Attending Physician Dr. Mariely Valencia MD Referring Provider Dr. Janet Cardoza DO Attending Physician Allergies Allergy Classification Reported Allergen(s) Allergy Type Date of Onset Reaction(s) Facility (3 sources) Amoxicillin; Translations: [amoxicillin] Drug Allergy 3 Eruption of skin (disorder) [facility] (2 sources) Amoxicillin; Translations: [amoxicillin trihydrate] Drug Allergy 3 [facility] Medications Current Medications Medication Drug Class(es) Dates Sig (Normalized) Sig (Original) aspirin 81 mg delayed release oral tablet (20 sources) Platelet Aggregation Inhibitor, Nonsteroidal Anti-inflammatory Drug Start: 07-14-2023 take 1 tablet by mouth once daily Aspirin 81 mg tablet,delayed release (DR/EC) Active 81 mg PO DAILY July 13, 2023 11:00pm Complies with drug therapy Start: 03-20-2023 End: 06-01-2023 take 1 tablet by mouth once daily Aspirin 81 mg tablet,delayed release (DR/EC) Discontinued 81 mg PO DAILY March 20, 2023 12:00am June 01, 2023 3:26pm PREVENTATIVE diphenhydrAMINE hydrochloride 25 mg oral capsule (1 source) Histamine-1 Receptor Antagonist Start: 10-29-2018 Benadryl 25 mg oral capsule Dose : 25 mg = 1 cap(s), Oral, TID, PRN for itching, 0 Refill(s) Start Date: 10/29/18 Status: Ordered 0.4 ml enoxaparin sodium 100 mg/ml prefilled syringe (19 sources) Low Molecular Weight Heparin Start: 12-06-2024 Enoxaparin (Lovenox) 40 mg/0.4 mL syringe Active 40 mg SC daily 03 15 12December 06, 2024 11:32am PREVENTATIVE Complies with drug therapy Start: 12-06-2024 Start: 03-20-2023 End: 07-14-2024 Enoxaparin (Lovenox) 40 mg/0 .4 mL syringe Discontinued 40 mg SC daily 03 15 12March 20, 2023 12:00am July 14, 2024 1:59pm PREVENTATIVE herbal/nutritional product (1 source) Start: 11-12-2024 take 1 dose by mouth once daily herbal/nutritional product Oral, qDay, 0 Refill(s) Start Date: 11/12/24 Status: Ordered Medication Dispense Status: Completed Total Allowed Fills: 1 Fills Dispensed: 0 hydroxychloroquine sulfate 200 mg oral tablet (16 sources) Antimalarial, Antirheumatic Agent Start: 11-08-2022 End: 05-14-2025 take 1 tablet by mouth once daily Hydroxychloroquine (Plaquenil) 200 mg tablet Active 200 mg PO DAILY November 07, 2022 11:00pm AUTO IMMUNE Complies with drug therapy Pnv No.406-Am-Ik6-Dha-Epa- Fish 400 mcg-35 mg- 25 mg-5 mg tablet,chewable (7 sources) Start: 11-30-2024 Pnv No.382-Rs-Dk3-Dha-Epa- Fish 400 mcg-35 mg- 25 mg-5 mg tablet,chewable Active {tbl} PO DAILY November 29, 2024 11:00pm Complies with drug therapy Start: 11-30-2024 Start: 11-30-2024 Pnv No.153-Fa- Tq8-Vkj-Niz-Fish 400 mcg-35 mg- 25 mg-5 mg tablet,chewable Active {tbl} PO DAILY November 30, 2024 12:00am Multivitamins (1 source) Start: 09-20-2020 take 1 tablet by mouth once daily Multivitamins Dose = 1 tab(s), Oral, qDay, # 90 tab(s), 0 Refill(s) Start Date: 09/20/20 Status: Ordered Vit,Ljbv03-Jdeq-Xcfqz (Prenatabs Fa) 1 TABLET tablet (9 sources) Start: 09-26-2016 take 1 tablet by mouth once daily Vit,Kppe71-Ypqb-Czpsh (Prenatabs Fa) 1 TABLET tablet Active 1 {tbl} PO DAILY September 26, 2016 12:00am Start: 09-26-2016 take 1 tablet by zoey th once daily Vit,Wyom86-Zoup-Riuxw (Prenatab s Fa) 1 TABLET tablet Active 1 {tbl} PO DAILY September 26, 2016 12:00am Start: 09-26-2016 take 1 tablet by zoey th once daily Vit,Vpos39-Yxdo-Snlus (Prenatab s Fa) 1 TABLET tablet Active 1 TABLET PO DAILY September 25, 2016 11:00pm Start: 09-26-2016 take 1 tablet by zoey th once daily Vit,Xffq94-Flax-Cddic (Prenatab s Fa) 1 TABLET tablet Active 1 TABLET PO DAILY September 26, 2016 12:00am Completed/Discontinued Medications Medication Drug Class(es) Dates Sig (Normalized) Sig (Original) Aspirin, Baby (16 sources) Start: 03-29-2019 End: 03-31-2019 Aspirin, Baby Discontinued 1 {tbl} PO DAILY March 29, 2019 12:00am March 31, 2019 7:13am Start: 03-29-2019 End: 03-31-2019 Aspirin, Baby Discontinued [...] 2019 8:13am cephalexin 500 mg oral capsule (9 sources) Cephalosporin Antibacterial Start: 07-02-2023 End: 07-14-2023 take 1 tablet by mouth every six hours Cephalexin 500 mg capsule Discontinued 500 mg PO EVERY 6 HOURS 40 0 July 01, 2023 11:00pm July 14, 2023 2:16pm Take 1 tablet PO q 6 hours for 10 days doxylamine succinate 25 mg oral tablet (15 sources) Start: 11-08-2022 End: 06-01-2023 take 1 tablet by mouth at bedtime as needed Doxylamine Succinate (Unisom (Doxylamine)) 25 mg tablet Discontinued 25 mg PO AT BEDTIME as needed November 07, 2022 11:00pm June 01, 2023 6:44am fluconazole 150 mg oral tablet (1 source) Azole Antifungal Start: 11-12-2024 End: 11-12-2024 Diflucan 150 mg oral tablet Dose : 150 mg = 1 tab(s), Oral, qDay, # 1 tab(s), 1 Refill(s), Pharmacy: [facility]/pharmacy #[id number], 175.7, cm, 11/12/24 14:08:00 EDT, Height, 80.4, kg, 11/12/24 14:08:00 EDT, Dosing Weight Start Date: 11/12/24 Stop Date: 11/12/24 Status: Ordered Medication Dispense Status: Completed Quantity: 1.0 Unit: tab(s) Total Allowed Fills: 2 Fills Dispensed: 0 Vit,Jerome 03-Opzo-Doecf (Prenatabs Fa) 1 TABLET tablet (7 sources) Start: 09-26-2016 End: 11-30-2024 take 1 tablet by mouth once daily Vit,Jerome 18-Fzie-Wyftw (Prenatabs Fa) 1 TABLET tablet Discontinued 1 {tbl} PO DAILY September 25, 2016 11:00pm November 30, 2024 9:10am Start: 09-26-2016 End: 11-30-2024 take 1 tablet by mouth once daily Vit,Jerome 25-Kixn-Lmmdl (Prenatabs Fa) 1 TABLET tablet Discontinued 1 {tbl} PO DAILY September 26, 2016 12:00am November 30, 2024 10:10am pyridoxine hydrochloride 25 mg oral tablet (15 sources) Start: 11-08-2022 End: 07-14-2023 take 1 tablet by mouth once daily Pyridoxine (Vitamin B6) 25 mg tablet Discontinued 25 mg PO DAILY November 07, 2022 11:00pm July 14, 2023 2:21pm Problems Active Problems Problem Classification Problem Date Documented Date Episodic/Chronic Coagulation and hemorrhagic disorders (1 source) Antiphospholipid syndrome 05-19-2024 Chronic Hemorrhage during ; abruptio placenta; placenta previa (20 sources) Low lying placenta; Translations: [Low lying placenta NOS or without hemorrhage, unspecified trimester] 01-31-2023 Episodic Comment on above: Repeat US at 28 wk, may resume safe intercourse placenta 1.4cm away from cervix Immunizations and screening for infectious disease (14 sources) Antibody studies abnormal; Translations: [Raised antibody titer] Onset: 11-15-2024 12-13-2024 Episodic Comment on above: moderate range posit golden. no obstetric outcomes in past but due to autoimmune disease and persistent titers recommend treatment with lovenox and baby ASA. plan weekly nsts at 32 weeks and growth US in third trimester, consider delivery by 39 weeks. Menstrual disorders (8 sources) Amenorrhea; Translations: [Amenorrhea, unspecified] Onset: 12-03-2024 11-19-2024 Chronic Nonspecific chest pain (18 sources) Chest discomfort; Translations: [Anterior chest wall pain] 07-26-2022 Episodic Other circulatory disease (7 sources) H/O: varicose veins; Translations: [Personal history of other diseases of the circulatory system] 11-30-2024 Episodic Comment on above: vulva in Other complications of (20 sources) High risk ; Translations: [Supervision of high risk , unspecified, unspecified trimester] 11-08-2022 Episodic Comment on above: [id number] LINA 06/08/23 boy Sohan Parr Sampson. Spouse Sarwat , LINA 07/15/25, Sohan Parr Samson, Shad Sarwat Other complications of (20 sources) Supervision of high risk , unspecified, unspecified trimester; Translations: [Supervision of unspecified high-risk ] Onset: 12-16-2024 11-08-2022 Episodic Other complications of (20 sources) Supervision of with other poor reproductive or obstetric history, unspecified trimester; Translations: [History of anomaly in prior , currently ] 12-31-2022 Episodic Comment on above: 3rd son with pyrifor m apreture stenosis(nasal bone defect)- caused respiratory distress after , went to [facility], had surgery. 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 SM reevaluated. Recheck 1 wk:MFM eval if recurs1 week recheck and no HR irregularity notedrepeta 03/20 nl, anti ro and la ordered due to APL history Other and delivery including normal (20 sources) Vaginal delivery; Translations: [Encounter for full-term uncomplicated delivery] Onset: 12-07-2024 02-19-2021 Episodic Comment on above: IOL scheduled for @ 7am with IZA GBS neg, DOC ONLY. denies NIPT, carrier, and ntd screen. nl anatomy. declined NIPT & Cote ier testing BF 2x/day Other screening for suspected conditions (not mental disorders or infectious disease) (3 sources) Encounter for screening for uncertain dates; Translations: [Encounter for screening for malignant neoplasm of cervix] Onset: 07-14-2024 Episodic Other upper respiratory disease (2 sources) Chronic laryngitis 07-26-2022 Chronic Other upper respiratory disease (2 sources) Hoarse 07-26-2022 Episodic Other upper respiratory infections (2 sources) Laryngitis 07-26-2022 Episodic Residual codes; unclassified (16 sources) Gestation period, 39 weeks; Translations: [39 weeks gestation of ] 02-28-2021 Episodic Residual codes; unclassified (16 sources) Gestation period, 40 weeks; Translations: [40 weeks gestation of ] 03-29-2019 Episodic Residual codes; unclassified (1 source) 8 weeks gestation of ; Translations: [8 weeks gestation of ] Onset: 12-07-2024 Episodic Rheumatoid arthritis and related disease (2 sources) Inflammatory polyarthropathy; Translations: [Inflammatory polyarthropathy] Onset: 01-12-2025 05-19-2024 Chronic Systemic lupus erythematosus and connective tissue disorders (20 sources) Systemic lupus erythematosus-related syndrome; Translations: [Systemic lupus erythematosus, unspecified] Onset: 12-07-2024 08-16-2022 Chronic Comment on above: RO and [...] Test Name Value Interpretation Reference Range Facility Hemoglobinopathy Profileon 1 Hgb Solubility Normal [facility] Comment on above: Result Comment: TEST RESULTS LIMITS Hgb Fractionation [place] Hgb Fractionation by CE: Hgb F 0.0 % 0.0-2.0 Hgb A 97.5 % 96.4-98.8 Hgb A2 2.5 % 1.8-3.2 Hgb S 0.0 % 0.0 Interpretation: Normal hemoglobin present; no hemoglobin variant or beta thalassemia identified. Note: Alpha thalassemia may not be detected by the Hgb Fractionation [place] panel. If alpha thalassemia is suspected, [facility] offers Alpha-Thalassemia Analysis (#[id number]). TESTING PERFORMED AT [facility]. ORIGINAL REPORT ON FILE IN LAB CONTAINS ADDITIONAL TEST SITE INFORMATION. Performed By: #### L 100.0100, L500.4050 #### [facility] [address] [place], [address] Laboratory - Chemistry and C hemistry - challengeOrdered By: Janet Davis on 01-04-2025 Glucose Ql (U) Negative [facility] - UrinalysisOrder ed By: Janet Davis on 01-04-2025 Protein Ql (U) Negative [facility] Production Generalist Office Visit Reporton 01-04-2025 Production Generalist Office Visit Report [facility] [address], [address] [place] [address] OFFICE VISIT Date of Service: 01/04/25 MR#: [id number] Acct: [id number] Name: KENDALL RICE Rep #: [id number] : 1990 Provider: Dr. Janet Molina DO Age/Sex: 34/F [place] [facility] [place]: Signed Intake Vital Signs 07/14/24 14:41 12/07/24 13:02 01/04/25 14:51 01/04/25 14:51 Height 5 ft 10.5 in 5 ft 10.5 in 5 ft 10.5 in 5 ft 10.5 in Weight: 179 lb 3 oz BMI 25.3 BP 123/74 H Intake Visit Reasons: 12wk 4d OB *DOC ONLY Wax Machine Operator Required: No Is patient in pain?: No Allergies amoxicillin trihydrate (From Amoxil) Allergy (Verified 01/04/25 14:50) Rash Medications ???Medication ???Instructions ???Recorded ???Confirmed ???Type hydroxychloroquine 200 mg tablet 200 mg PO DAILY AUTO IMMUNE 01/04/25 History (Plaquenil) aspirin 81 mg tablet,delayed 81 mg PO DAILY 07/14/23 01/04/25 H istory release PNV 153-FA 400 mcg-om3 35 mg-dha tab PO DAILY 11/30/24 01/04/25 His tory 25 mg-epa 5 mg-fish oil chew tablet enoxaparin 40 mg/0.4 mL 40 mg (0.4 mL) subcut QDAY 5 01/04/25 Rx subcutaneous syringe (Lovenox) PREVENTATIVE 30 days #12 mL Last Menstrual Period: 09/22/24 Zika: Zika virus screening: Negative : No PFSH PFSH Medical History Asthma 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 of abnormality in previous , currently Vaginal delivery (spontaneous vaginal delivery) 40 weeks gestation of Surgical History [place] teeth removed Family History Mother Cholelithiasis Social History adopted: No household members: spouse and children housing: house number of children: 4 current occupational status: unemployed current occupation: [employer] current occupational exposures/hazards: No pets and animals: No history of recent travel: No sexually active: Yes Smoking Status: Never smoker alcohol intake: never substance use type: does not use well-balanced diet: daily or most days caffeine: No eating out: rarely or never during the past year weight has: remained stable what type of physical activity do you participate in: walking frequency: 5-6 times per week duration: 15-30 minutes/day greg/christian: [employer] seatbelt use: always do you feel safe at home: Yes additional social history: -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 Date Name GA/Weeks Outcome Route Bth Weight Infant Gen Labor Lgth Anesthesia Del Locatn Provider FOB 09/27/16 Azam 41 live - full term 7lbs 7oz Male epidural [facility] Sharif Delgado 03/30/19 Sohan 40 live - full term 7lb 3 oz Male epidural [facility] H gela Monroeon 02/19/21 Rad 38 live - full term 6lbs 14 oz Male epidural [facility] Olguin -Danny 06/01/23 Yoshi 39 live - full term 6lbs 15oz Male none [facility] Va nde Ryan Fam HPI 12wk 4d OB *DOC ONLY Details: KENDALL RICE is a 34 year old who presents for routine OB visit. OB Visit LINA Calculator Estimated Delivery Date Method Current WG Current Estimate 07/15/25 Ultrasound #1 12w 4d Expected Delivery Route/Plan Labor Preferences- CB/BF classes: [] labor support person: [] labor intervention preferences: [] pain management options preferred: [] cut cord/dad catch: [] : [] PP control planned: [] discussed possible routes of delivery and associated risks: [] special requests: [] Specific Issue/Plans Covid status: [] Flu vaccine: [] Tdap vaccine: [] Rhogam: [] LARC form signed: [] Problem list reviewed and updated with the most current plan of care details and appropriate orders placed. Relevant counseling for the gestational age provided. Continue routine care and follow up unless otherwise noted in visit notes/problem list details Initial Weight: Not Recorded Date -???-???-???-???-???-??? -???-???-???-???-???-??? - EGA Weight BP Urine Prot -???-???-???-???-???-??? -???-???-???-???-???-??? - Glucose FHR FuHt Pres Dilation -???-???-???-???-???-??? -???-???-???-???-???-??? - Effaced St Visit Note 12/07/24 -???-???-???-???-???-??? -???-???-???-???-???-??? - 8w 4d 175 lb 9 oz 112/68 -???-???-???-???-???-??? -???-???-???-???-???-??? - 170 -???-???-???-???-???-??? -???-? (more content not included)... Normal [facility] Absolute lymphocyte countOrd ered By: Mariana Raphael on 12-27-2024 Lymphocytes Auto (Unsp spec) [#/Vol] 1.41 10*3/uL 0.83-4.51 [facility] Absolute neutrophil countOrd ered By: Mariana Raphael on 12-27-2024 Neutrophils (Bld) [#/Vol] 4.1 10*3/uL 2.0-7.7 [facility] Anion gap in Serum or Plasma Ordered By: Mariana Raphael on 12-27-2024 Anion gap [Moles/Vol] 10 mmol/L 5- [facility] Automated lymphocyte count a s percentage of total leukocytesOrdered By: Mariana Raphael on 12-27-2024 Lymphocytes/100 WBC Auto (Unsp spec) 22.3 % - [facility] BUN/creatinine ratioOrdered By: Mariana Raphael on 12-27-2024 Urea nitrogen/Creatinine [Mass ratio] 14.6 mg/mg 10- [facility] Basophil percentageOrdered B y: Mariana Raphael on 12-27-2024 Basophils/100 WBC (Bld) 0.8 % 0- [facility] Bilirubin, totalOrdered By: Mariana Raphael on 12-27-2024 Bilirubin [Mass/Vol] 0.34 mg/dL 0.00-1.30 [facility] CBC W/Diff, Automatedon 12-15 Absolute Lymph 1.41 X10 3/uL Normal 0.83-4.51 [facility] Comment on above: Performed By: #### L 100.0100, L500.4050 #### [facility] [address] [place], [address] Absolute Neut 4.1 X10 3/uL Normal 2.0-7.7 [facility] Comment on above: Performed By: #### L 100.0100, L500.4050 #### [facility] [address] [place], [address] Basophils/100 WBC (Bld) 0.8 % Normal 0-1 [facility] Comment on above: Performed By: #### L 100.0100, [id number] #### [facility] [address] [place], [address] Eosinophils/100 WBC (Bld) 1.4 % Normal 0-5 [facility] Comment on above: Performed By: #### L 100.0100, [id number] #### [facility] [address] [place], [address] Erythrocyte distribution width (RBC) [Ratio] 13.6 % Normal 11.6-14.6 [facility] Comment on above: Performed By: #### L 100.0100, [id number] #### [facility] [address] [place], [address] Hematocrit (Bld) [Volume fraction] 39.5 % Normal 37-47 [facility] Comment on above: Performed By: #### L 100.0100, [id number] #### [facility] [address] [place], [address] Hemoglobin (Bld) [Mass/Vol] 12.6 g/dL Normal 12.0-15.0 [facility] Comment on above: Performed By: #### L 100.0100, [id number] #### [facility] [address] [place], [address] IG% 0.300 Normal 0.0-0.9 [facility] Comment on above: Result Comment: IG% - Immature Granulocytes (promyelocytes, myelocytes and metamyelocytes) > 1% indicates that a LEFT SHIFT is Present. Performed By: #### L 100.0100, L500.4050 #### [facility] [address] [place], [address] Lymphocytes/100 WBC (Bld) 22.3 % Normal 19-41 [facility] Comment on above: Performed By: #### L 100.0100, [id number] #### [facility] [address] [place], [address] MCH (RBC) [Entitic mass] 25.7 pg Low 27.0-32.0 [facility] Comment on above: Performed By: #### L 100.0100, [id number] #### [facility] [address] [place], [address] MCHC (RBC) [Mass/Vol] 31.9 g/dL Low 32-36 [facility] Comment on above: Performed By: #### L 100.0100, [id number] #### [facility] [address] [place], [address] MCV (RBC) [Entitic vol] 80.4 fL Low 81-[address] [facility] Comment on above: Performed By: #### L 100.0100, L500.4050 #### [facility] [address] [place], [address] Monocytes/100 WBC (Bld) 10.4 % High 0-10 [facility] Comment on above: Performed By: #### L 100.0100, L500.4050 #### [facility] [address] [place], [address] Neutrophils/100 WBC (Bld) 64.8 % Normal 47-70 [facility] Comment on above: Performed By: #### L 100.0100, L500.4050 #### [facility] [address] [place], [address] Nucleated RBC (Bld) [#/Vol] 0 10*3/uL Normal 0-5 [facility] Comment on above: Performed By: #### L 100.0100, L500.4050 #### [facility] [address] [place], [address] Platelet mean volume (Bld) [Entitic vol] 9.1 fL Normal 6.2-12.0 [facility] Comment on above: Performed By: #### L 100.0100, L500.4050 #### [facility] [address] [place], [address] Platelets (Bld) [#/Vol] 243 10*3/uL Normal 150-450 [facility] Comment on above: Performed By: #### L 100.0100, L500.4050 #### [facility] [address] [place], [address] RBC (Bld) [#/Vol] 4.91 10*6/uL Normal 4.2-5.4 [facility] Comment on above: Performed By: #### L 100.0100, L500.4050 #### [facility] [address] [place], [address] RDW SD 39.4 fl Normal 35.1-43.9 [facility] Comment on above: Performed By: #### L 100.0100, L500.4050 #### [facility] [address] [place], [address] WBC (Bld) [#/Vol] 6.3 10*3/uL Normal 4.4-11.0 [facility] Comment on above: Performed By: #### L 100.0100, L500.4050 #### [facility] [address] [place], [address] Carbon dioxide, total [Moles /volume] in Central venous bloodOrdered By: Mariana Raphael on 12-27-2024 CO2 [Moles/Vol] 24.1 mmol/L 21.0-32.0 [facility] Chloride assayOrdered By: Moses Raphael on 12-27-2024 Chloride [Moles/Vol] 103 mmol/L 98-108 [facility] Comprehensive Metabolic Prof ilon 12-27-2024 Albumin [Mass/Vol] 4.2 g/dL Normal 3.5-5.0 [facility] Comment on above: Performed By: #### L 100.0100, L500.4050 #### [facility] [address] [place], [address] Albumin/Globulin [Mass ratio] 1.6 {ratio} Normal 0.9-2.4 [facility] Comment on above: Performed By: #### L 100.0100, L500.4050 #### [facility] [address] [place], [address] ALK PHOS 41 U/L Normal 35-104 [facility] Comment on above: Performed By: #### L 100.0100, L500.4050 #### [facility] [address] [place], [address] ALT [Catalytic activity/Vol] 17 U/L Normal <=34 [facility] Comment on above: Performed By: #### L 100.0100, L500.4050 #### [facility] [address] [place], [address] AST [Catalytic activity/Vol] 18 U/L Normal <=31 [facility] Comment on above: Performed By: #### L 100.0100, L500.4050 #### [facility] [address] [place], [address] Bilirubin [Mass/Vol] 0.34 mg/dL Normal 0.00-1.30 [facility] Comment on above: Performed By: #### L 100.0100, L500.4050 #### [facility] [address] [place], [address] BUN/CRE 14.6 RATIO Normal 10-20 [facility] Comment on above: Performed By: #### L 100.0100, L500.4050 #### [facility] [address] [place], [address] Calcium [Mass/Vol] 9.4 mg/dL Normal 7.6-11.0 [facility] Comment on above: Performed By: #### L 100.0100, L500.4050 #### [facility] [address] [place], [address] Chloride [Moles/Vol] 103 mmol/L Normal 98-108 [facility] Comment on above: Performed By: #### L 100.0100, L500.4050 #### [facility] [address] [place], [address] CO2 [Moles/Vol] 24.1 mmol/L Normal 21.0-32.0 [facility] Comment on above: Performed By: #### L 100.0100, L500.4050 #### [facility] [address] [place], [address] Creatinine [Mass/Vol] 0.54 mg/dL Low 0.70-1.20 [facility] Comment on above: Performed By: #### L 100.0100, L500.4050 #### [facility] [address] [place], [address] GAP 10 Normal 5-15 [facility] Comment on above: Performed By: #### L 100.0100, L500.4050 #### [facility] [address] [place], [address] GFR/1.73 sq M.predicted among non-blacks MDRD (S/P/Bld) [Vol rate/Area] 124 mL/min/{1.73_m2} Normal >60 [facility] Comment on above: Result Comment: mL/m in/1.73m2 CKD-EPI Creatinine Equation (2020) Performed By: #### L 100.0100, L500.4050 #### [facility] [address] [place], [address] Globulin (S) [Mass/Vol] 2.7 g/dL Normal 2.2-4.[address] [facility] Comment on above: Performed By: #### L 100.0100, L500.4050 #### [facility] [address] [place], [address] Glucose [Mass/Vol] 80 mg/dL Normal 70-99 [facility] Comment on above: Performed By: #### L 100.0100, L500.4050 #### [facility] [address] [place], [address] Potassium [Moles/Vol] 3.9 mmol/L Normal 3.3-5.1 [facility] Comment on above: Performed By: #### L 100.0100, L500.4050 #### [facility] [address] [place], [address] Sodium [Moles/Vol] 137 mmol/L Normal 133-145 [facility] Comment on above: Performed By: #### L 100.0100, L500.4050 #### [facility] [address] [place], [address] T PROT 6.9 g/dL Normal 5.9-8.4 [facility] Comment on above: Performed By: #### L 100.0100, L500.4050 #### [facility] [address] [place], [address] Urea nitrogen [Mass/Vol] 8 mg/dL Normal 4-19 [facility] Comment on above: Performed By: #### L 100.0100, L500.4050 #### [facility] [address] [place], [address] Eosinophil percentageOrdered By: Mariana Raphael on 12-27-2024 Eosinophils/100 WBC (Bld) 1.4 % 0-5 [facility] Erythrocyte distribution wid th ratioOrdered By: Marianaherb Raphael on 12-27-2024 Erythrocyte distribution width (RBC) [Ratio] 13.6 % 11.6-14.6 [facility] Erythrocyte distribution wid th standard deviationOrdered By: Marianaherb Raphael on 12-27-2024 Erythrocyte distribution width (RBC) [Ratio] 39.4 fl 35.1-43.9 [facility] Glomerular filtration rate ( GFR) estimation/1.73 sq m using serum, plasma, or whole bOrdered By: Marianaherb Raphael on 12-27-2024 GFR/1.73 sq M.predicted among non-blacks MDRD (S/P/Bld) [Vol rate/Area] 124 mL/min/{1.73_m2} >60 [facility] Comment on above: mL/min/1.73m2 CKD-EP I Creatinine Equation (2020) Hematocrit Auto (Bld) [Volum e fraction]Ordered By: Mariana Raphael on 12-27-2024 Hematocrit (Bld) [Volume fraction] 39.5 % 37-47 [facility] Hemoglobin measurementOrdere d By: Mariana Raphael on 12-27-2024 Hemoglobin (Bld) [Mass/Vol] 12.6 g/dL 12.0-15.0 [facility] Immature granulocytes/100 WB C Auto (Bld)Ordered By: Mariana Raphael on 12-27-2024 Immature granulocytes/100 WBC (Bld) 0.300 % 0.0-0.9 [facility] Comment on above: IG% - Immature Granu locytes (promyelocytes, myelocytes and metamyelocytes) > 1% indicates that a LEFT SHIFT is Present. Laboratory - Chemistry and C hemistry - challengeOrdered By: Mariana Raphael on 12-27-2024 AST [Catalytic activity/Vol] 18 U/L <32 [facility] MCV (mean corpuscular volume ) determinationOrdered By: Mariana Raphael on 12-27-2024 MCV (RBC) [Entitic vol] 80.4 fL Low 81-99 [facility] Mean corpuscular hemoglobin (MCH) determinationOrdered By: Mariana Raphael on 12-27-2024 MCH (RBC) [Entitic mass] 25.7 pg Low 27.0-32.0 [facility] Mean corpuscular hemoglobin concentration (MCHC) determinationOrdered By: Mariana Raphael on 12-27-2024 MCHC (RBC) [Mass/Vol] 31.9 g/dL Low 32-36 [facility] Mean platelet volume determi nationOrdered By: Mariana Raphael on 12-27-2024 Platelet mean volume (Bld) [Entitic vol] 9.1 fL 6.2-12.0 [facility] Monocyte percentageOrdered B y: Mariana Raphael on 12-27-2024 Monocytes/100 WBC (Bld) 10.4 % High 0-10 [facility] Neutrophil percentageOrdered By: Mariana Raphael on 12-27-2024 Neutrophils/100 WBC (Bld) 64.8 % 47-70 [facility] Nucleated red blood cell per centageOrdered By: Mariana Raphael on 12-27-2024 Nucleated RBC/100 WBC (Bld) [Ratio] 0 % 0-5 [facility] Platelet countOrdered By: Moses Raphael on 12-27-2024 Platelets (Bld) [#/Vol] 243 10*3/uL 150-450 [facility] Potassium measurement (mass/ volume)Ordered By: Mariana Raphael on 12-27-2024 Potassium (Unsp spec) [Mass/Vol] 3.9 mmol/L 3.3-5.1 [facility] RBC Auto (Bld) [#/Vol]Ordere d By: Mariana Raphael on 12-27-2024 RBC (Bld) [#/Vol] 4.91 10*6/uL 4.2-5.4 [facility] Serum creatinine measurement (mass/volume)Ordered By: Mariana Raphael on 12-27-2024 Creatinine [Mass/Vol] 0.54 mg/dL Low 0.70-1.20 [facility] Serum globulin measurementOr dered By: Mariana Raphael on 12-27-2024 Globulin (S) [Mass/Vol] 2.7 g/dL 2.2-4.[address] [facility] Serum glucose measurement (m ass/volume)Ordered By: Mariana Raphael on 12-27-2024 Glucose [Mass/Vol] 80 mg/dL 70-99 [facility] Serum or plasma alanine temple otransferase (ALT) measurementOrdered By: Mariana Raphael on 12-27-2024 ALT [Catalytic activity/Vol] 17 U/L <35 [facility] Serum or plasma albumin andrew urement (mass/volume)Ordered By: Mariana Raphael on 12-27-2024 Albumin [Mass/Vol] 4.2 g/dL 3.5-5.0 [facility] Serum or plasma albumin/glob ulin mass ratioOrdered By: Mariana Raphael on 12-27-2024 Albumin/Globulin [Mass ratio] 1.6 {ratio} 0.9-2.4 [facility] Serum or plasma alkaline peter sphatase measurementOrdered By: Mariana Raphael on 12-27-2024 ALP [Catalytic activity/Vol] 41 U/L 35-104 [facility] Serum or plasma calcium andrew urement (mass/volume)Ordered By: Mariana Raphael on 12-27-2024 Calcium [Mass/Vol] 9.4 mg/dL 7.6-11.0 [facility] Serum or plasma urea nitroge n measurement (mass/volume)Ordered By: Mariana Raphael on 12-27-2024 Urea nitrogen [Mass/Vol] 8 mg/dL 4-19 [facility] Sodium levelOrdered By: Leah Raphael on 12-27-2024 Sodium [Moles/Vol] 137 mmol/L 133-145 [facility] Total proteinOrdered By: Laura Raphael on 12-27-2024 Protein [Mass/Vol] 6.9 g/dL 5.9-8.4 [facility] White blood cell (WBC) count Ordered By: Mariana Knightkiana on 12-27-2024 WBC (Bld) [#/Vol] 6.3 10*3/uL 4.4-11.0 [facility] Anticardiolipin IgG, IgMon 0 12-11-2024 ANTICARDIO IgG < 9 Normal 0-14 [facility] Comment on above: Result Comment: Nega tive: <15 Indeterminate: 15 - 20 Low-Med Positive: >20 - 80 High Positive: >80 Performed By: #### L 100.0100, L500.4050 #### [facility] [address] [place], [place], [id number] Anticardio.IgM 25 MPL U/mL High 0-12 [facility] Comment on above: Result Comment: Nega tive: <13 Indeterminate: 13 - 20 Low-Med Positive: >20 - 80 High Positive: >80 Performed at: [facility] [address] [id number] Application Processor: Carly Adame MD, Phone: [phone] Performed at: [facility] [address] [id number] Application Processor: Joel Box PhD, Phone: [phone] Performed By: #### L 100.0100, L500.4050 #### [facility] [address] [place], [place], [id number] Beta-2 Glycoprot IgG, A, 12-11-2024 B2 GLYCO I IGA <9 Normal 0-25 [facility] Comment on above: Result Comment: Resu lt Units: GPI IgA units Performed By: #### L 100.0100, L500.4050 #### [facility] [address], [address] B2 GLYCO I IGG <9 Normal 0-20 [facility] Comment on above: Result Comment: Resu lt Units: GPI IgG units Performed By: #### L 100.0100, L500.4050 #### [facility] [address] [place], [address] B2 GLYCO I IGM 48 Abnormal 0-32 [facility] Comment on above: Result Comment: Resu lt Units: GPI IgM units Performed By: #### L 100.0100, L500.4050 #### [facility] [address] [place], [address] Lupus Anticoagulant Compon 0 - aPTT Coag (Bld) [Time] 36.8 s Normal 0.0-43.5 [facility] Comment on above: Performed By: #### L 100.0100, L500.4050 #### [facility] [address] [place], [address] DILUTE PT (dPT) 35.6 sec Normal 0.0-47.6 [facility] Comment on above: Performed By: #### L 100.0100, L500.4050 #### [facility] [address] [place], [address] dPT Conf. Ratio 0.99 Ratio Normal 0.00-1.34 [facility] Comment on above: Performed By: #### L 100.0100, L500.4050 #### [facility] [address] [place], [address] DRVVT 42.4 sec Normal 0.0-47.0 [facility] Comment on above: Performed By: #### L 100.0100, L500.4050 #### [facility] [address] [place], [address] Interpretation Comment: Normal . [facility] Comment on above: Result Comment: No l upus anticoagulant was detected. Performed By: #### L 100.0100, L500.4050 #### [facility] [address] [place], [address] THROMBIN TIME 18.4 sec Normal 0.0-23.0 [facility] Comment on above: Performed By: #### L 100.0100, L500.4050 #### [facility] [address] [place], [address] Urine Cultureon 12-10-2024 [facility] Urine Culture Urine Culture Mixed Gram Positive Organisms [place] Count 50,000-80,000 MIXC Mixed contaminants. Submit a new specimen if indicated. Normal [facility] Comment on above: Performed By: #### L 100.0100, L500.4050 #### [facility] [address] [place], [address] Chlamydia/GC EDILMA aptimaon CHLAMY,NUC ACID Negative Normal Negative [facility] Comment on above: Performed By: #### L 100.0100, L500.4050 #### [facility] [address] [place], [address] GC BY NUC ACID Negative Normal Negative [facility] Comment on above: Result Comment: Perf ormed at: =G - [facility] [address] [id number] Application Processor: Asha Olsen MD, Phone: [phone] Performed By: #### L 100.0100, L500.4050 #### [facility] [address] [place], [address] Dilute Baldo's viper venom timeOrdered By: Mariely Valencia on 12-08-2024 dRVVT Coag (PPP) [Time] 42.4 s 0.0-47.0 [facility] Serum beta 2 glycoprotein 1 IgA antibody detectionOrdered By: Mariely Valencia on 12-08-2024 Beta 2 glycoprotein 1 IgA Ql (S) <9 0-25 [facility] Comment on above: Result Units: GPI Ig A units Serum beta 2 glycoprotein 1 IgG antibody detectionOrdered By: Mariely Valencia on 09-24-2025 Beta 2 glycoprotein 1 IgG Ql (S) <9 0-20 [facility] Comment on above: Result Units: GPI Ig G units Serum beta 2 glycoprotein 1 IgM antibody detectionOrdered By: Mariely Valencia on 12-08-2024 Beta 2 glycoprotein 1 IgM Ql (S) 48 High 0-32 [facility] Comment on above: Result Units: GPI Ig M units Serum cardiolipin IgG antibo dy assay by immunoassay (units/volume)Ordered By: Mariely Valencia on 12-08-2024 Cardiolipin IgG IA Qn (S) < 9 GPL U/mL 0-14 [facility] Comment on above: Negative: <15 Indete rminate: 15 - 20 Low-Med Positive: >20 - 80 High Positive: >80 Thrombin timeOrdered By: Arnaldo Valencia on 12-08-2024 Thrombin time Coag (PPP) [Time] 18.4 sec 0.0-23.0 [facility] Urine cultureOrdered By: Arnaldo Valencia on 12-08-2024 Bacteria identified Cx Nom (U) Positive Abnormal [facility] Absolute lymphocyte countOrd ered By: Mariely Valencia on 12-07-2024 Lymphocytes Auto (Unsp spec) [#/Vol] 1.50 10*3/uL 0.83-4.51 [facility] Absolute neutrophil countOrd ered By: Mariely Valencia on 12-07-2024 Neutrophils (Bld) [#/Vol] 6.2 10*3/uL 2.0-7.7 [facility] Automated lymphocyte count a s percentage of total leukocytesOrdered By: Mariely Valencia on 12-07-2024 Lymphocytes/100 WBC Auto (Unsp spec) 17.4 % Low 19-41 [facility] Basophil percentageOrdered B y: Mariely Valencia on 12-07-2024 Basophils/100 WBC (Bld) 0.6 % 0-1 [facility] Blood hemoglobin A2/total he moglobin by chromatography column (mass fraction)Ordered By: Mariely Valencia on 12-07-2024 Hemoglobin A2 Chromatography column (Bld) [Mass fraction] Not Reportable [facility] CBC W/Diff, Automatedon 11-16 Absolute Lymph 1.50 X10 3/uL Normal 0.83-4.51 [facility] Comment on above: Performed By: #### L 100.0100, L500.4050 #### [facility] [address] [place], [address] Absolute Neut 6.2 X10 3/uL Normal 2.0-7.7 [facility] Comment on above: Performed By: #### L 100.0100, L500.4050 #### [facility] [address] [place], [address] Basophils/100 WBC (Bld) 0.6 % Normal 0-1 [facility] Comment on above: Performed By: #### L 100.0100, L500.4050 #### [facility] [address] [place], [address] Eosinophils/100 WBC (Bld) 1.3 % Normal 0-5 [facility] Comment on above: Performed By: #### L 100.0100, L500.4050 #### [facility] [address] [place], [address] Erythrocyte distribution width (RBC) [Ratio] 13.2 % Normal 11.6-14.6 [facility] Comment on above: Performed By: #### L 100.0100, L500.4050 #### [facility] [address] [place], [address] Hematocrit (Bld) [Volume fraction] 39.3 % Normal 37-47 [facility] Comment on above: Performed By: #### L 100.0100, L500.4050 #### [facility] [address] [place], [address] Hemoglobin (Bld) [Mass/Vol] 12.8 g/dL Normal 12.0-15.0 [facility] Comment on above: Performed By: #### L 100.0100, L500.4050 #### [facility] [address] [place], [address] IG% 0.300 Normal 0.0-0.9 [facility] Comment on above: Result Comment: IG% - Immature Granulocytes (promyelocytes, myelocytes and metamyelocytes) > 1% indicates that a LEFT SHIFT is Present. Performed By: #### L 100.0100, L500.4050 #### [facility] [address] [place], [address] Lymphocytes/100 WBC (Bld) 17.4 % Low 19-41 [facility] Comment on above: Performed By: #### L 100.0100, L500.4050 #### [facility] [address] [place], [address] MCH (RBC) [Entitic mass] 26.1 pg Low 27.0-32.0 [facility] Comment on above: Performed By: #### L 100.0100, L500.4050 #### [facility] [address] [place], [address] MCHC (RBC) [Mass/Vol] 32.6 g/dL Normal 32-36 [facility] Comment on above: Performed By: #### L 100.0100, L500.4050 #### [facility] [address] [place], [address] MCV (RBC) [Entitic vol] 80.0 fL Low 81-99 [facility] Comment on above: Performed By: #### L 100.0100, L500.4050 #### [facility] [address] [place], [address] Monocytes/100 WBC (Bld) 8.5 % Normal 0-[address] [facility] Comment on above: Performed By: #### L 100.0100, L500.4050 #### [facility] [address] [place], [address] Neutrophils/100 WBC (Bld) 71.9 % High 47-70 [facility] Comment on above: Performed By: #### L 100.0100, L500.4050 #### [facility] [address] [place], [address] Nucleated RBC (Bld) [#/Vol] 0 10*3/uL Normal 0-5 [facility] Comment on above: Performed By: #### L 100.0100, L500.4050 #### [facility] [address] [place], [address] Platelet mean volume (Bld) [Entitic vol] 9.0 fL Normal 6.2-12.0 [facility] Comment on above: Performed By: #### L 100.0100, L500.4050 #### [facility] [address] [place], [address] Platelets (Bld) [#/Vol] 315 10*3/uL Normal 150-450 [facility] Comment on above: Performed By: #### L 100.0100, L500.4050 #### [facility] [address] [place], [address] RBC (Bld) [#/Vol] 4.91 10*6/uL Normal 4.2-5.4 [facility] Comment on above: Performed By: #### L 100.0100, L500.4050 #### [facility] [address] [place], [address] RDW SD 37.7 fl Normal 35.1-43.9 [facility] Comment on above: Performed By: #### L 100.0100, L500.4050 #### [facility] [address] [place], [address] WBC (Bld) [#/Vol] 8.6 10*3/uL Normal 4.4-11.0 [facility] Comment on above: Performed By: #### L 100.0100, L500.4050 #### [facility] [address] [place], [address] CBC, Employeeon 12-07-2024 Absolute Neut Normal 2.0-7.7 [facility] Comment on above: Result Comment: NOT NEEDED Performed By: #### L 100.0100, L500.4050 #### [facility] [address] [place], [address] HCT Normal 37-47 [facility] Comment on above: Result Comment: NOT NEEDED Performed By: #### L 100.0100, L500.4050 #### [facility] [address] [place], [address] HGB Normal 12.0-15.0 [facility] Comment on above: Result Comment: NOT NEEDED Performed By: #### L 100.0100, L500.4050 #### [facility] [address] [place], [address] MCH Normal 27.0-32.0 [facility] Comment on above: Result Comment: NOT NEEDED Performed By: #### L 100.0100, L500.4050 #### [facility] [address] [place], [address] MCHC Normal 32-36 [facility] Comment on above: Result Comment: NOT NEEDED Performed By: #### L 100.0100, L500.4050 #### [facility] [address] [place], [address] MCV Normal 81-99 [facility] Comment on above: Result Comment: NOT NEEDED Performed By: #### L 100.0100, L500.4050 #### [facility] [address] [place], [address] NEUT% Normal 47-70 [facility] Comment on above: Result Comment: NOT NEEDED Performed By: #### L 100.0100, L500.4050 #### [facility] [address] [place], [address] NRBC # Normal 0-5 [facility] Comment on above: Result Comment: NOT NEEDED Performed By: #### L 100.0100, L500.4050 #### [facility] [address] [place], [address] PLT Normal 150-450 [facility] Comment on above: Result Comment: NOT NEEDED Performed By: #### L 100.0100, L500.4050 #### [facility] [address] [place], [address] RBC Normal 4.2-5.4 [facility] Comment on above: Result Comment: NOT NEEDED Performed By: #### L 100.0100, L500.4050 #### [facility] [address] [place], [address] RDW CV Normal 11.6-14.6 [facility] Comment on above: Result Comment: NOT NEEDED Performed By: #### L 100.0100, L500.4050 #### [facility] [address] [place], [address] RDW SD Normal 35.1-43.9 [facility] Comment on above: Result Comment: NOT NEEDED Performed By: #### L 100.0100, L500.4050 #### [facility] [address] [place], [address] WBC Normal 4.4-11.0 [facility] Comment on above: Result Comment: NOT NEEDED Performed By: #### L 100.0100, L500.4050 #### [facility] [address] [place], [address] Chlamydia trachomatis rRNA d etection by probe and target amplification methodOrdered By: Mariely Valencia on 12-07-2024 C. trachomatis rRNA EDILMA+probe Ql (Unsp spec) Negative Negative [facility] Employee Profileon 5 ALB Normal 3.5-5.0 [facility] Comment on above: Result Comment: PT D OESNT WORK HERE WRONG ORDER Performed By: #### L 100.0100, L500.4050 #### [facility] [address] [place], [address] ALK PHOS Normal 35-104 [facility] Comment on above: Result Comment: PT D OESNT WORK HERE WRONG ORDER Performed By: #### L 100.0100, L500.4050 #### [facility] [address] [place], [address] ALT Normal <=34 [facility] Comment on above: Result Comment: PT D OESNT WORK HERE WRONG ORDER Performed By: #### L 100.0100, L500.4050 #### [facility] [address] [place], [address] AST Normal <=31 [facility] Comment on above: Result Comment: PT D OESNT WORK HERE WRONG ORDER Performed By: #### L 100.0100, L500.4050 #### [facility] [address] [place], [address] BUN Normal 4-19 [facility] Comment on above: Result Comment: PT D OESNT WORK HERE WRONG ORDER Performed By: #### L 100.0100, L500.4050 #### [facility] [address] [place], [address] BUN/CRE Normal 10-20 [facility] Comment on above: Result Comment: PT D OESNT WORK HERE WRONG ORDER Performed By: #### L 100.0100, L500.4050 #### [facility] [address] [place], [address] Calcium Normal 7.6-11.0 [facility] Comment on above: Result Comment: PT D OESNT WORK HERE WRONG ORDER Performed By: #### L 100.0100, L500.4050 #### [facility] [address] [place], [address] CHOL Normal <=200 [facility] Comment on above: Result Comment: PT D OESNT WORK HERE WRONG ORDER Performed By: #### L 100.0100, L500.4050 #### [facility] [address] [place], [address] CHOL:HDL Normal [facility] Comment on above: Result Comment: PT D OESNT WORK HERE WRONG ORDER Performed By: #### L 100.0100, L500.4050 #### [facility] [address] [place], [address] CL Normal 98-108 [facility] Comment on above: Result Comment: PT D OESNT WORK HERE WRONG ORDER Performed By: #### L 100.0100, L500.4050 #### [facility] [address] [place], [address] CLDL Normal [facility] Comment on above: Result Comment: PT D OESNT WORK HERE WRONG ORDER Performed By: #### L 100.0100, L500.4050 #### [facility] [address] [place], [address] CO2 Normal 21.0-32.0 [facility] Comment on above: Result Comment: PT D OESNT WORK HERE WRONG ORDER Performed By: #### L 100.0100, L500.4050 #### [facility] [address] [place], [address] CREAT,SERUM Normal 0.70-1.20 [facility] Comment on above: Result Comment: PT D OESNT WORK HERE WRONG ORDER Performed By: #### L 100.0100, L500.4050 #### [facility] [address] [place], [address] D BILI Normal 0.00-0.30 [facility] Comment on above: Result Comment: PT D OESNT WORK HERE WRONG ORDER Performed By: #### L 100.0100, L500.4050 #### [facility] [address] [place], [address] eGFR Normal >60 [facility] Comment on above: Result Comment: PT D OESNT WORK HERE WRONG ORDER Performed By: #### L 100.0100, L500.4050 #### [facility] [address] [place], [address] GAP Normal 5-15 [facility] Comment on above: Result Comment: PT D OESNT WORK HERE WRONG ORDER Performed By: #### L 100.0100, L500.4050 #### [facility] [address] [place], [address] GLU Normal 70-99 [facility] Comment on above: Result Comment: PT D OESNT WORK HERE WRONG ORDER Performed By: #### L 100.0100, L500.4050 #### [facility] [address] [place], [address] HDL Normal [facility] Comment on above: Result Comment: PT D OESNT WORK HERE WRONG ORDER Performed By: #### L 100.0100, L500.4050 #### [facility] [address] [place], [address] LDH Normal 84-246 [facility] Comment on above: Result Comment: PT D OESNT WORK HERE WRONG ORDER Performed By: #### L 100.0100, L500.4050 #### [facility] [address] [place], [address] PHOS Normal 2.7-4.5 [facility] Comment on above: Result Comment: PT D OESNT WORK HERE WRONG ORDER Performed By: #### L 100.0100, L500.4050 #### [facility] [address] [place], [address] Potassium Normal 3.3-5.1 [facility] Comment on above: Result Comment: PT D OESNT WORK HERE WRONG ORDER Performed By: #### L 100.0100, L500.4050 #### [facility] [address] [place], [address] T BILI Normal 0.00-1.30 [facility] Comment on above: Result Comment: PT D OESNT WORK HERE WRONG ORDER Performed By: #### L 100.0100, L500.4050 #### [facility] [address] [place], [address] T PROT Normal 5.9-8.4 [facility] Comment on above: Result Comment: PT D OESNT WORK HERE WRONG ORDER Performed By: #### L 100.0100, L500.4050 #### [facility] [address] [place], [address] TRIG Normal [facility] Comment on above: Result Comment: PT D OESNT WORK HERE WRONG ORDER Performed By: #### L 100.0100, L500.4050 #### [facility] [address] [place], [address] URIC Normal 2.6-6.0 [facility] Comment on above: Result Comment: PT D OESNT WORK HERE WRONG ORDER Performed By: #### L 100.0100, L500.4050 #### [facility] [address] [place], [address] VLDL Normal 5-40 [facility] Comment on above: Result Comment: PT D OESNT WORK HERE WRONG ORDER Performed By: #### L 100.0100, L500.4050 #### [facility] [address] [place], [address] Employee Profile Normal 133-145 [facility] Comment on above: Result Comment: PT D OESNT WORK HERE WRONG ORDER Performed By: #### L 100.0100, L500.4050 #### [facility] [address] [place], [place], [id number] Eosinophil percentageOrdered By: Mariely Jaren on 12-07-2024 Eosinophils/100 WBC (Bld) 1.3 % 0-5 [facility] Erythrocyte distribution wid th ratioOrdered By: Mariely Valencia on 12-07-2024 Erythrocyte distribution width (RBC) [Ratio] 13.2 % 11.6-14.6 [facility] Erythrocyte distribution wid th standard deviationOrdered By: Mariely Jaren on 12-07-2024 Erythrocyte distribution width (RBC) [Ratio] 37.7 fl 35.1-43.9 [facility] HIVon 12-07-2024 HIV Non-Reactive Normal Nonreactive [facility] Comment on above: Result Comment: Non- Reactive Reactive Repeatedly reactive samples must be confirmed according to CDC recommended confirmatory algorithms. The subresults for either HIVAG or AHIV can be used as an aid in the selection of the confirmation algorithm for reactive samples. Send out specimens with Reactive results to [facility] for confirmation. Order the HIV antibody detection and differentiation: #[id number] Performed By: #### L 100.0100, L500.4050 #### [facility] [address] [facility]. [place], [place], [address] Hematocrit Auto (Bld) [Volum e fraction]Ordered By: Mariely Valencia on 12-07-2024 Hematocrit (Bld) [Volume fraction] 39.3 % 37-47 [facility] Hemoglobin C measurementOrde red By: Mariely Valencia on 12-07-2024 Hemoglobin C (Bld) [Mass fraction] Not Reportable [facility] Hemoglobin S Solubility test Ql (Bld)Ordered By: Mariely Valencia on 12-07-2024 Hemoglobin S Ql (Bld) See comment [facility] Comment on above: TEST RESULTS LIMITSH gb Fractionation Glover Hgb Fractionation by CE: Hgb F 0.0 % 0.0-2.0 Hgb A 97.5 % 96.4-98.8 Hgb A2 2.5 % 1.8-3.2 Hgb S 0.0 % 0.0Interpretation: Normal hemoglobin present; no hemoglobin variant or beta thalassemia identified.Note: Alpha thalassemia may not be detected by the Hgb Fractionation [place] panel. If alpha thalassemia is suspected, [facility] offers Alpha-Thalassemia Analysis (#[id number]). TESTING PERFORMED AT [facility]. ORIGINAL REPORT ON FILE IN LAB CONTAINS ADDITIONAL TEST SITE INFORMATION. Hemoglobin S measurementOrde red By: Mariely Valencia on 12-07-2024 Hemoglobin S (Bld) [Mass fraction] Not Reportable [facility] Hemoglobin measurementOrdere d By: Mariely Valencia on 12-07-2024 Hemoglobin (Bld) [Mass/Vol] 12.8 g/dL 12.0-15.0 [facility] Hepatitis C Antibodyon 12-07 Hepatitis C Ab Non-Reactive Normal Nonreactive [facility] Comment on above: Result Comment: Reac tive: Presumptive evidence of antibodies to HCV. Follow CDC recommendations for supplemental testing. Non-Reactive: Antibodies to HCV were not detected; does not exclude the possibility of exposure to HCV Reactive Results are presumptive evidence of antibodies to HCV. Follow CDC recommendations for supplemental testing. Order confirmation testing: HCV Quant by PCR testing - HCVPCR #[id number] Non Reactive: < 0.8 Equivocal: >/= 0.8 to < 1.0 Reactive: >/= 1.0 The CDC requires that a reactive/equivocal HCV antibody result be sent out for confirmation. HCV Quant by PCR testing. Performed By: #### L 100.0100, L500.4050 #### [facility] [address] [place], [address] Immature granulocytes/100 WB C Auto (Bld)Ordered By: Mariely Valencia on 09-23-2025 Immature granulocytes/100 WBC (Bld) 0.300 % 0.0-0.9 [facility] Comment on above: IG% - Immature Granu locytes (promyelocytes, myelocytes and metamyelocytes) > 1% indicates that a LEFT SHIFT is Present. L3890.6102on 12-07-2024 HEP B Surf Ag Non-Reactive Normal Nonreactive [facility] Comment on above: Result Comment: Reac tive: Presumptive evidence of HBV. Repeatedly reactive samples must be confirmed using a neutralization test ([employer] HBsAg Confirmatory Test) Non-Reactive: HBsAg not detected; does not exclude the possibility of exposure to HBV Performed By: #### L 100.0100, L500.4050 #### [facility] [address] [facility] [facility] [place], [address] L509.4006on 12-07-2024 Rubella IgG REAC Normal Nonreactive [facility] Comment on above: Result Comment: Anti body Result: Interpretation Non-Reactive: Non-Immune Reactive: Immune The following results were obtained with the [employer] Rubella IgG assay. Results from assays of other manufacturers cannot be used interchangeably. Performed By: #### L 100.0100, L500.4050 #### [facility] [address] [place], [place], [id number] Laboratory - Microbiology an d Antimicrobial susceptibilityOrdered By: Mariely Valencia on 12-07-2024 HBV surface Ag Ql (S) Non-Reactive Nonreactive [facility] Comment on above: Reactive: Presumptiv e evidence of HBV. Repeatedly reactive samples must be confirmed using a neutralization test ([employer] HBsAg Confirmatory Test)Non-Reactive: HBsAg not detected; does not exclude the possibility of exposure to HBV Lipid Profileon 12-07-2024 CHOL Normal <=200 [facility] Comment on above: Result Comment: PT N OT FASTING, JUST TO DO PN BLOOD WORK Performed By: #### L 100.0100, L500.4050 #### [facility] [address] [facility] [place], [address] CHOL:HDL Normal [facility] Comment on above: Result Comment: PT N OT FASTING, JUST TO DO PN BLOOD WORK Performed By: #### L 100.0100, L500.4050 #### [facility] [address] [place], [address] CLDL Normal [facility] Comment on above: Result Comment: PT N OT FASTING, JUST TO DO PN BLOOD WORK Performed By: #### L 100.0100, L500.4050 #### [facility] [address] [place], [address] HDL Normal [facility] Comment on above: Result Comment: PT N OT FASTING, JUST TO DO PN BLOOD WORK Performed By: #### L 100.0100, L500.4050 #### [facility] [address] [place], [address] TRIG Normal [facility] Comment on above: Result Comment: PT N OT FASTING, JUST TO DO PN BLOOD WORK The drugs N-Acetylcysteine and Metamizole may falsely depress this assay. Performed By: #### L 100.0100, L500.4050 #### [facility] [address] [place], [address] VLDL Normal 5-40 [facility] Comment on above: Result Comment: PT N OT FASTING, JUST TO DO PN BLOOD WORK Performed By: #### L 100.0100, L500.4050 #### [facility] [address] [place], [address] MCV (mean corpuscular volume ) determinationOrdered By: Mariely Valencia on 12-07-2024 MCV (RBC) [Entitic vol] 80.0 fL Low 81-99 [facility] Mean corpuscular hemoglobin (MCH) determinationOrdered By: Mariely Valencia on 12-07-2024 MCH (RBC) [Entitic mass] 26.1 pg Low 27.0-32.0 [facility] Mean corpuscular hemoglobin concentration (MCHC) determinationOrdered By: Mariely Valencia on 12-07-2024 MCHC (RBC) [Mass/Vol] 32.6 g/dL 32-36 [facility] Mean platelet volume determi nationOrdered By: Mariely Valencia on 12-07-2024 Platelet mean volume (Bld) [Entitic vol] 9.0 fL 6.2-12.0 [facility] Monocyte percentageOrdered B y: Mariely Jaren on 12-07-2024 Monocytes/100 WBC (Bld) 8.5 % 0-10 [facility] Neisseria gonorrhoeae nuclei c acid detection by amplified probe techniqueOrdered By: Mariely Valencia on 12-07-2024 N. gonorrhoeae DNA EDILMA+probe Ql (Unsp spec) Negative Negative [facility] Comment on above: Performed at: =[address] [id number] Director: Asha Olsen MD, Phone: [phone] Neutrophil percentageOrdered By: Mariely Valencia on 12-07-2024 Neutrophils/100 WBC (Bld) 71.9 % High 47-70 [facility] No Panel InformationOrdered By: Mariely Valencia on 12-07-2024 HIV (1&2) Antibody Non-Reactive Nonreactive [facility] Comment on above: Non-ReactiveReactive Repeatedly reactive samples must be confirmed according to CDC recommended confirmatory algorithms. The subresults for either HIVAG or AHIV can be used as an aid in the selection of the confirmation algorithm for reactive samples.Send out specimens with Reactive results to [facility] for confirmation.Order the HIV antibody detection and differentiation: #[id number] Nucleated red blood cell per centageOrdered By: Mariely Valencia on 12-07-2024 Nucleated RBC/100 WBC (Bld) [Ratio] 0 % 0-5 [facility] Production Generalist Office Visit Reporton 12-07-2024 Production Generalist Office Visit Report [facility]'[address], [address] [place] [address] OFFICE VISIT Date of Service: 12/07/24 MR#: [id number] Acct: [id number] Name: KENDALL RICE Rep #: [id number] : 1990 Provider: Dr. 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 Operator Required: No Is patient in pain?: No Allergies amoxicillin trihydrate (From Amoxil) Allergy (Verified 12/07/24 13:03) Rash Medications ???Medication ???Instructions ???Recorded ???Confirmed ???Type hydroxychloroquine 200 mg tablet 200 mg PO DAILY AUTO IMMUNE 12/07/24 History (Plaquenil) aspirin 81 mg tablet,delayed 81 mg PO DAILY 07/14/23 12/07/24 H istory release PNV 153-FA 400 mcg-om3 35 mg-dha tab PO DAILY 11/30/24 12/07/24 His tory 25 mg-epa 5 mg-fish oil chew tablet enoxaparin 40 mg/0.4 mL 40 mg (0.4 mL) subcut QDAY 5 12/06/24 Rx subcutaneous syringe (Lovenox) PREVENTATIVE 30 days #12 mL Last Menstrual Period: 09/22/24 Zika: Zika virus screening: Negative [facility] Medical History Asthma 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 of abnormality in previous , currently Vaginal delivery (spontaneous vaginal delivery) 40 weeks gestation of Surgical History [place] teeth removed Family History Mother Cholelithiasis Social History adopted: No household members: spouse and children housing: house number of children: 4 current occupational status: unemployed current occupation: [employer] current occupational exposures/hazards: No pets and animals: No history of recent travel: No sexually active: Yes Smoking Status: Never smoker alcohol intake: never substance use type: does not use well-balanced diet: daily or most days caffeine: No eating out: rarely or never during the past year weight has: remained stable what type of physical activity do you participate in: walking frequency: 5-6 times per week duration: 15-30 minutes/day greg/christian: [employer] seatbelt use: always do you feel safe at home: Yes 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 Date Name GA/Weeks Outcome Route Bth Weight Infant Gen Labor Lgth Anesthesia Del Locatn Provider FOB 09/27/16 Azam 41 live - full term 7lbs 7oz Male epidural [facility] Olguin Danny 03/30/19 [place] 40 live - full term 7lb 3 oz Male epidural [facility] gela Danny 02/19/21 [place] 38 live - full term 6lbs 14 oz Male epidural [facility] Sharif BarnhartDanny 06/01/23 Shad 39 live - full term 6lbs 15oz Male none [facility] Va nde Ryan Fam HPI *EST* NOB US#1 LINA 07/15 Details: KENDALL RICE is a 34 year old who presents for New OB visit. OB Visit LINA Calculator Estimated Delivery Date Method Current WG Current Estimate 07/15/25 Ultrasound #1 8w 4d Comments: HIV: Urine Culture: Sequential Screen: NIPT Screen: Estimated Due Date: 07/15/25 Expected Delivery Route/Plan Labor Preferences- CB/BF classes: [] labor support person: [] labor intervention preferences: [] pain management options preferred: [] cut cord/dad catch: [] : [] PP control planned: [] discussed possible routes of delivery and associated risks: [] special requests: [] Specific Issue/Plans Covid status: [] Flu vaccine: [] Tdap vaccine: [] Rhogam: [] LARC form signed: [] Problem list reviewed and updated with the most current plan of care details and appropriate orders placed. Relevant counseling for the gestational age provided. Continue routine care and follow up unless otherwise noted in visit notes/problem list details Initial Weight: Not Recorded Date -???-???-???-???-???-??? -???-???-???-???-???-??? - EGA Weight BP Urine Prot -???-???-???-???-???-??? -???-???-???-???-???-??? - Glucose FHR FuHt Pres Dilation -???-???-???-???-???-??? -???-???-???-???-???-??? - Effaced St Visit Note 12/07/24 -???-???-???-???-???-??? -???-???-???-???-???-??? - 8w 4d 175 lb 9 oz 112/68 -???-???-???-???-???-??? -???-???-???-???-???-??? - 170 -???-???-???-???-? (more content not included)... Normal [facility] Platelet countOrdered By: Deepti Valencia on 12-07-2024 Platelets (Bld) [#/Vol] 315 10*3/uL 150-450 [facility] RBC Auto (Bld) [#/Vol]Ordere d By: Mariely Valencia on 12-07-2024 RBC (Bld) [#/Vol] 4.91 10*6/uL 4.2-5.4 [facility] Syphilis Antibodieson 2024 Syphilis Abs Non-Reactive Normal Nonreactive [facility] Comment on above: Performed By: #### L 100.4340, L500.6390 #### [facility] [place], [address] Type AND Screenon 12-07-2024 ABO and Rh group Nom (Bld) Blood group O Rh(D) positive Normal [facility] Comment on above: Order Comment: PN Performed By: #### L 100.0100, L500.4050 #### [facility] [address] [place], [place], [id number] Urine cultureOrdered By: Arnaldo Valencia on 12-07-2024 Bacteria identified Cx Nom (U) Positive Abnormal [facility] White blood cell (WBC) count Ordered By: Mariely Valencia on 12-07-2024 WBC (Bld) [#/Vol] 8.6 10*3/uL 4.4-11.0 [facility] Transvaginal w/Preg USon Transvaginal w/Preg US [facility] [address] [place], [place] [address] Transvaginal w/Preg US MR#: [id number] Acct: [id number] Name: KENDALL RICE Rep #: [id number] : 1990 F 34 From: Garcia gill MD PCP: Dr. Jocelyn Harrell, DO Status: REG CLI Study: Transvaginal w/Preg US Date of Exam: 11/26/24 Exam# [id number] Ordering Dr: Barbara Bartlett [employer]ATOR [employer]-C PROCEDURE: TRANSVAGINAL W/PREG US 11/26/2024 REASON FOR EXAM: DATING TECHNIQUE: Procedure Code: USTVAGP Modality: US Procedure: TRANSVAGINAL W/PREG US COMPARISON: None FINDINGS: Comments: LMP: September 22, 2024. Number of Gestational Sacs: 1 Gestational Sac Shape: Normal Number of Fetuses: 1 Heart Rate: 133 beats per minute (average) Yolk Sac: Present and unremarkable. Placenta: Presently not well-visualized Amniotic Fluid Volume: Subjectively normal for gestational age. Uterine Abnormalities: Maternal uterus is unremarkable. Ovaries / Adnexa: Both maternal ovaries are visualized and unremarkable. DIMENSIONS: Parameter Measurement / EGA [place] Rump Length: 9 mm/7 weeks and 0 days. Gestational Sac: 1.9 cm/6 weeks and 6 days Yolk Sac: 3 mm/ ESTIMATED GESTATIONAL AGE: By Ultrasound: 7 weeks and 0 days By LMP: 9 weeks and 2 days ESTIMATED DATE OF DELIVERY: By Ultrasound: July 15, 2025 By LMP: June 29, 2025 US/Transvaginal w/Preg US IMPRESSION: Single live intrauterine gestation with a mean gestational age of 7 weeks. Reading Location: [place] [address] CC: SOO Bartlett; Dr. Jocelyn Harrell DO Audio Technician: Signed Normal [facility] Serum human chorionic gonado tropin detection for pregnancyOrdered By: Barbara Bartlett on 11-21-2024 HCG ( test) [place]l [address] mIU/mL High <9 [facility] Comment on above: Gestational Age0.2-1 Week: 5-50 mIU/mL1-2 Weeks: 50-500 mIU/mL2-3 Weeks: 100-5000 mIU/mL3-4 Weeks: 500-10,000 mIU/mL4-5 Weeks:1000-50,000 mIU/mL5-6 Weeks: 10,000-100,000 mIU/mL6-8 Weeks: 15,000-200,000 mIU/mL2-3 Months:10,000-100,000 mIU/mL hCG Titer Quant., Serumon HCG QUANT. 02914 mIU/mL High <9 non-preg [facility] Comment on above: Result Comment: Gest ational Age 0.2-1 Week: 5-50 mIU/mL 1-2 Weeks: 50-500 mIU/mL 2-3 Weeks: 100-5000 mIU/mL 3-4 Weeks: 500-10,000 mIU/mL 4-5 Weeks:1000-50,000 mIU/mL 5-6 Weeks: 10,000-100,000 mIU/mL 6-8 Weeks: 15,000-200,000 mIU/mL 2-3 Months:10,000-100,000 mIU/mL Performed By: #### L 100.0100, L500.4050 #### [facility] [place], [address] Serum human chorionic gonado tropin detection for pregnancyOrdered By: Barbara Bartlett on 11-19-2024 HCG ( test) Ql 7817 mIU/mL High <9 [facility] Comment on above: Gestational Age0.2-1 Week: 5-50 mIU/mL1-2 Weeks: 50-500 mIU/mL2-3 Weeks: 100-5000 mIU/mL3-4 Weeks: 500-10,000 mIU/mL4-5 Weeks:1000-50,000 mIU/mL5-6 Weeks: 10,000-100,000 mIU/mL6-8 Weeks: 15,000-200,000 mIU/mL2-3 Months:10,000-100,000 mIU/mL hCG Titer Quant., Serumon HCG QUANT. 7817 mIU/mL High <9 non-preg [facility] Comment on above: Result Comment: Gest ational Age 0.2-1 Week: 5-50 mIU/mL 1-2 Weeks: 50-500 mIU/mL 2-3 Weeks: 100-5000 mIU/mL 3-4 Weeks: 500-10,000 mIU/mL 4-5 Weeks:1000-50,000 mIU/mL 5-6 Weeks: 10,000-100,000 mIU/mL 6-8 Weeks: 15,000-200,000 mIU/mL 2-3 Months:10,000-100,000 mIU/mL Performed By: #### L 700.8000 #### [facility] [address] [place], [address] BVPCRon 11-16-2024 Bacterial Vaginosis Negative Normal Negative [facility] Comment on above: Result Comment: Mole cular methodology performed on the [employer] System. Performed By: #### C VTV, BVPCR #### [address] [address] CVTVon 11-16-2024 Noemi glabrata Negative Normal Negative [facility] Comment on above: Performed By: #### C VTV, BVPCR #### [address] [address] Noemi Species Positive Abnormal Negative [facility] Comment on above: Result Comment: Mole cular methodology performed on the [employer] Epsom System. Performed By: #### C VTV, BVPCR #### [address] [address] Trichomonas vaginalis Negative Normal Negative [facility] Comment on above: Performed By: #### C VTV, BVPCR #### [address] [address] LABORATORYOrdered By: SYSTEM SYSTEM on 11-12-2024 Bacterial Vaginosis Negative 2 (11/12/24 4:26 PM) Normal Auto [facility] Comment on above: Interpretive Data: M olecular methodology performed on the [employer] Epsom System. Noemi glabrata PCR Negative (11/12/24 4:26 PM) Normal Auto Viro/Sero SS Noemi Species Positive 1 *ABN* (11/12/24 4:26 PM) Invalid Interpretation Code AH Auto [facility] Comment on above: Interpretive Data: M olecular methodology performed on the [employer] ([employer]yn[employer])her System. Trichomonas vaginalis Negative (11/12/24 4:26 PM) Normal Auto Viro[facility]Sero SS Absolute lymphocyte countOrd ered By: Mariana Raphael on 10-01-2024 Lymphocytes Auto (Unsp spec) [#/Vol] 1.41 10*3/uL 0.83-4.51 [facility] Absolute neutrophil countOrd ered By: Mariana Raphael on 10-01-2024 Neutrophils (Bld) [#/Vol] 2.3 10*3/uL 2.0-7.7 [facility] Anion gap in Serum or Plasma Ordered By: Mariana Raphael on 10-01-2024 Anion gap [Moles/Vol] 10 mmol/L 5- [facility] Automated lymphocyte count a s percentage of total leukocytesOrdered By: Mariana Raphael on 10-01-2024 Lymphocytes/100 WBC Auto (Unsp spec) 31.8 % - [facility] [facility] BUN/creatinine ratioOrdered By: Mariana Raphael on 10-01-2024 Urea nitrogen/Creatinine [Mass ratio] 15.2 mg/mg 10- [facility] Basophil percentageOrdered B y: Mariana Raphael on 10-01-2024 Basophils/100 WBC (Bld) 0.9 % 0-1 [facility] Bilirubin, totalOrdered By: Mariana Raphael on 10-01-2024 Bilirubin [Mass/Vol] 0.46 mg/dL 0.00-1.30 [facility] CBC W/Diff, Automatedon 09-14 Absolute Lymph 1.41 X10 3/uL Normal 0.83-4.51 [facility] Comment on above: Performed By: #### L 100.0100, L500.4050 #### [facility] [address] [place], [address] Absolute Neut 2.3 X10 3/uL Normal 2.0-7.7 [facility] Comment on above: Performed By: #### L 100.0100, L500.4050 #### [facility] [address] [place], [address] Basophils/100 WBC (Bld) 0.9 % Normal 0-1 [facility] Comment on above: Performed By: #### L 100.0100, L500.4050 #### [facility] [address] [place], [address] Eosinophils/100 WBC (Bld) 2.5 % Normal 0-5 [facility] Comment on above: Performed By: #### L 100.0100, L500.4050 #### [facility] [address] [place], [address] Erythrocyte distribution width (RBC) [Ratio] 13.6 % Normal 11.6-14.6 [facility] Comment on above: Performed By: #### L 100.0100, L500.4050 #### [facility] [address] [place], [address] Hematocrit (Bld) [Volume fraction] 40.1 % Normal 37-47 [facility] Comment on above: Performed By: #### L 100.0100, L500.4050 #### [facility] [address] [place], [address] Hemoglobin (Bld) [Mass/Vol] 12.6 g/dL Normal 12.0-15.0 [facility] Comment on above: Performed By: #### L 100.0100, L500.4050 #### [facility] [address] [place], [address] IG% 0.200 Normal 0.0-0.9 [facility] Comment on above: Result Comment: IG% - Immature Granulocytes (promyelocytes, myelocytes and metamyelocytes) > 1% indicates that a LEFT SHIFT is Present. Performed By: #### L 100.0100, L500.4050 #### [facility] [address] [place], [address] Lymphocytes/100 WBC (Bld) 31.8 % Normal 19-41 [facility] Comment on above: Performed By: #### L 100.0100, L500.4050 #### [facility] [address] [place], [address] MCH (RBC) [Entitic mass] 25.4 pg Low 27.0-32.0 [facility] Comment on above: Performed By: #### L 100.0100, L500.4050 #### [facility] [address] [place], [address] MCHC (RBC) [Mass/Vol] 31.4 g/dL Low 32-36 [facility] Comment on above: Performed By: #### L 100.0100, L500.4050 #### [facility] [address] [place], [address] MCV (RBC) [Entitic vol] 80.8 fL Low 81-99 [facility] Comment on above: Performed By: #### L 100.0100, L500.4050 #### [facility] [address] [place], [address] Monocytes/100 WBC (Bld) 11.9 % High 0-10 [facility] Comment on above: Performed By: #### L 100.0100, L500.4050 #### [facility] [address] [place], [address] Neutrophils/100 WBC (Bld) 52.7 % Normal 47-70 [facility] Comment on above: Performed By: #### L 100.0100, L500.4050 #### [facility] [address] [place], [address] Nucleated RBC (Bld) [#/Vol] 0 10*3/uL Normal 0-5 [facility] Comment on above: Performed By: #### L 100.0100, L500.4050 #### [facility] [address] [place], [address] Platelet mean volume (Bld) [Entitic vol] 9.0 fL Normal 6.2-12.0 [facility] Comment on above: Performed By: #### L 100.0100, L500.4050 #### [facility] [address] [place], [address] Platelets (Bld) [#/Vol] 256 10*3/uL Normal 150-450 [facility] Comment on above: Performed By: #### L 100.0100, L500.4050 #### [facility] [address] [place], [address] RBC (Bld) [#/Vol] 4.96 10*6/uL Normal 4.2-5.4 [facility] Comment on above: Performed By: #### L 100.0100, L500.4050 #### [facility] [address] [place], [address] RDW SD 39.8 fl Normal 35.1-43.9 [facility] Comment on above: Performed By: #### L 100.0100, L500.4050 #### [facility] [address] [place], [address] WBC (Bld) [#/Vol] 4.4 10*3/uL Normal 4.4-11.0 [facility] Comment on above: Performed By: #### L 100.0100, L500.4050 #### [facility] [address] [place], [address] Carbon dioxide, total [Moles /volume] in Central venous bloodOrdered By: Mariana Raphael on 10-01-2024 CO2 [Moles/Vol] 24.6 mmol/L 21.0-32.0 [facility] Chloride assayOrdered By: Moses Raphael on 10-01-2024 Chloride [Moles/Vol] 105 mmol/L 98-108 [facility] Comprehensive Metabolic Prof ilon 10-01-2024 Albumin [Mass/Vol] 4.3 g/dL Normal 3.5-5.0 [facility] Comment on above: Performed By: #### L 100.0100, L500.4050 #### [facility] [address] [place], [address] Albumin/Globulin [Mass ratio] 1.7 {ratio} Normal 0.9-2.4 [facility] Comment on above: Performed By: #### L 100.0100, L500.4050 #### [facility] [address] [place], [address] ALK PHOS 52 U/L Normal 35-104 [facility] Comment on above: Performed By: #### L 100.0100, L500.4050 #### [facility] [address] [place], [address] ALT [Catalytic activity/Vol] 15 U/L Normal <=34 [facility] Comment on above: Performed By: #### L 100.0100, L500.4050 #### [facility] [address] [place], [address] AST [Catalytic activity/Vol] 19 U/L Normal <=31 [facility] Comment on above: Performed By: #### L 100.0100, L500.4050 #### [facility] [address] [place], [address] Bilirubin [Mass/Vol] 0.46 mg/dL Normal 0.00-1.30 [facility] Comment on above: Performed By: #### L 100.0100, L500.4050 #### [facility] [address] [place], [address] BUN/CRE 15.2 RATIO Normal 10-20 [facility] Comment on above: Performed By: #### L 100.0100, L500.4050 #### [facility] [address] [place], [address] Calcium [Mass/Vol] 9.4 mg/dL Normal 7.6-11.0 [facility] Comment on above: Performed By: #### L 100.0100, L500.4050 #### [facility] [address] [place], [address] Chloride [Moles/Vol] 105 mmol/L Normal 98-108 [facility] Comment on above: Performed By: #### L 100.0100, L500.4050 #### [facility] [address] [place], [address] CO2 [Moles/Vol] 24.6 mmol/L Normal 21.0-32.0 [facility] Comment on above: Performed By: #### L 100.0100, L500.4050 #### [facility] [address] [place], [address] Creatinine [Mass/Vol] 0.72 mg/dL Normal 0.70-1.20 [facility] Comment on above: Performed By: #### L 100.0100, L500.4050 #### [facility] [address] [place], [address] GAP 10 Normal 5-15 [facility] Comment on above: Performed By: #### L 100.0100, L500.4050 #### [facility] [address] [place], [address] GFR/1.73 sq M.predicted among non-blacks MDRD (S/P/Bld) [Vol rate/Area] 113 mL/min/{1.73_m2} Normal >60 [facility] Comment on above: Result Comment: mL/m in/1.73m2 CKD-EPI Creatinine Equation (2020) Performed By: #### L 100.0100, L500.4050 #### [facility] [address] [place], [address] Globulin (S) [Mass/Vol] 2.5 g/dL Normal 2.2-4.[address] [facility] Comment on above: Performed By: #### L 100.0100, L500.4050 #### [facility] [address] [place], [address] Glucose [Mass/Vol] 85 mg/dL Normal 70-99 [facility] Comment on above: Performed By: #### L 100.0100, L500.4050 #### [facility] [address] [place], [address] Potassium [Moles/Vol] 4.2 mmol/L Normal 3.3-5.1 [facility] Comment on above: Performed By: #### L 100.0100, L500.4050 #### [facility] [address] [place], [address] Sodium [Moles/Vol] 139 mmol/L Normal 133-145 [facility] Comment on above: Performed By: #### L 100.0100, L500.4050 #### [facility] [address] [place], [address] T PROT 6.8 g/dL Normal 5.9-8.4 [facility] Comment on above: Performed By: #### L 100.0100, L500.4050 #### [facility] [address] [place], [address] Urea nitrogen [Mass/Vol] 11 mg/dL Normal 4-19 [facility] Comment on above: Performed By: #### L 100.0100, L500.4050 #### [facility] [address] [place], [address] Eosinophil percentageOrdered By: Mariana Raphael on 10-01-2024 Eosinophils/100 WBC (Bld) 2.5 % 0-5 [facility] Erythrocyte distribution wid th ratioOrdered By: Mariana Raphael on 10-01-2024 Erythrocyte distribution width (RBC) [Ratio] 13.6 % 11.6-14.6 [facility] Erythrocyte distribution wid th standard deviationOrdered By: Mariana Raphael on 10-01-2024 Erythrocyte distribution width (RBC) [Ratio] 39.8 fl 35.1-43.9 [facility] Glomerular filtration rate ( GFR) estimation/1.73 sq m using serum, plasma, or whole bOrdered By: Mariana Raphael on 10-01-2024 GFR/1.73 sq M.predicted among non-blacks MDRD (S/P/Bld) [Vol rate/Area] 113 mL/min/{1.73_m2} >60 [facility] Comment on above: mL/min/1.73m2 CKD-EP I Creatinine Equation (2020) Hematocrit Auto (Bld) [Volum e fraction]Ordered By: Mariana Raphael on 10-01-2024 Hematocrit (Bld) [Volume fraction] 40.1 % 37-47 [facility] Hemoglobin measurementOrdere d By: Mariana Raphael on 10-01-2024 Hemoglobin (Bld) [Mass/Vol] 12.6 g/dL 12.0-15.0 [facility] Immature granulocytes/100 WB C Auto (Bld)Ordered By: Mariana Raphael on 10-01-2024 Immature granulocytes/100 WBC (Bld) 0.200 % 0.0-0.9 [facility] Comment on above: IG% - Immature Granu locytes (promyelocytes, myelocytes and metamyelocytes) > 1% indicates that a LEFT SHIFT is Present. Laboratory - Chemistry and C hemistry - challengeOrdered By: Mariana Raphael on 10-01-2024 AST [Catalytic activity/Vol] 19 U/L <32 [facility] MCV (mean corpuscular volume ) determinationOrdered By: Mariana Raphael on 10-01-2024 MCV (RBC) [Entitic vol] 80.8 fL Low 81-99 [facility] Mean corpuscular hemoglobin (MCH) determinationOrdered By: Mariana Raphael on 10-01-2024 MCH (RBC) [Entitic mass] 25.4 pg Low 27.0-32.0 [facility] Mean corpuscular hemoglobin concentration (MCHC) determinationOrdered By: Mariana Raphael on 10-01-2024 MCHC (RBC) [Mass/Vol] 31.4 g/dL Low 32-36 [facility] Mean platelet volume determi nationOrdered By: Mariana Raphael on 10-01-2024 Platelet mean volume (Bld) [Entitic vol] 9.0 fL 6.2-12.0 [facility] Monocyte percentageOrdered B y: Mariana Raphael on 10-01-2024 Monocytes/100 WBC (Bld) 11.9 % High 0-10 [facility] Neutrophil percentageOrdered By: Mariana Raphael on 10-01-2024 Neutrophils/100 WBC (Bld) 52.7 % 47-70 [facility] Nucleated red blood cell per centageOrdered By: Mariana Raphael on 10-01-2024 Nucleated RBC/100 WBC (Bld) [Ratio] 0 % 0-5 [facility] Platelet countOrdered By: Moses Raphael on 10-01-2024 Platelets (Bld) [#/Vol] 256 10*3/uL 150-450 [facility] Potassium measurement (mass/ volume)Ordered By: Mariana Raphael on 10-01-2024 Potassium (Unsp spec) [Mass/Vol] 4.2 mmol/L 3.3-5.1 [facility] RBC Auto (Bld) [#/Vol]Ordere d By: Mariana Raphael on 10-01-2024 RBC (Bld) [#/Vol] 4.96 10*6/uL 4.2-5.4 [facility] Serum creatinine measurement (mass/volume)Ordered By: Mariana Raphael on 10-01-2024 Creatinine [Mass/Vol] 0.72 mg/dL 0.70-1.20 [facility] Serum globulin measurementOr dered By: Mariana Raphael on 10-01-2024 Globulin (S) [Mass/Vol] 2.5 g/dL 2.2-4.2 [facility] Serum glucose measurement (m ass/volume)Ordered By: Mariana Raphael on 10-01-2024 Glucose [Mass/Vol] 85 mg/dL 70-99 [facility] Serum or plasma alanine temple otransferase (ALT) measurementOrdered By: Mariana Raphael on 10-01-2024 ALT [Catalytic activity/Vol] 15 U/L <35 [facility] Serum or plasma albumin andrew urement (mass/volume)Ordered By: Mariana Raphael on 10-01-2024 Albumin [Mass/Vol] 4.3 g/dL 3.5-5.0 [facility] Serum or plasma albumin/glob ulin mass ratioOrdered By: Mariana Raphael on 10-01-2024 Albumin/Globulin [Mass ratio] 1.7 {ratio} 0.9-2.4 [facility] Serum or plasma alkaline peter sphatase measurementOrdered By: Mariana Raphael 10-01-2024 ALP [Catalytic activity/Vol] 52 U/L 35-104 [facility] Serum or plasma calcium andrew urement (mass/volume)Ordered By: Mariana Raphael on 10-01-2024 Calcium [Mass/Vol] 9.4 mg/dL 7.6-11.0 [facility] Serum or plasma urea nitroge n measurement (mass/volume)Ordered By: Mariana Raphael on 10-01-2024 Urea nitrogen [Mass/Vol] 11 mg/dL 4-19 [facility] Sodium levelOrdered By: Lauranicola lee ann Raphael on 10-01-2024 Sodium [Moles/Vol] 139 mmol/L 133-145 [facility] Total proteinOrdered By: Laura Raphael on 10-01-2024 Protein [Mass/Vol] 6.8 g/dL 5.9-8.4 [facility] White blood cell (WBC) count Ordered By: Mariana Raphael on 10-01-2024 WBC (Bld) [#/Vol] 4.4 10*3/uL 4.4-11.0 [facility] PAP IG HPV APTIMA ,45on 07-19-2024 ADEQ Comment Normal . [facility] Comment on above: Order Comment: Speci men Comment: [id number] Specimen Comment: No. of containers..01 ThinPrep Vial Result Comment: Sati sfactory for evaluation. No endocervical component is identified. Performed By: #### L 7400.0280 #### [facility] [address] [place], [address] COMM . Normal . [facility] Comment on above: Order Comment: Speci men Comment: [id number] Specimen Comment: No. of containers..01 ThinPrep Vial Performed By: #### L 7400.0280 #### [facility] [address] [place], [place], [address] COMMENT Comment Normal . [facility] Comment on above: Order Comment: Speci men Comment: [id number] Specimen Comment: No. of containers..01 ThinPrep Vial Result Comment: This liquid based ThinPrep(R) pap test was screened with the use of an image guided system. Performed By: #### L 7400.0280 #### [facility] [address] [place], [address] DIAG Comment Normal . [facility] Comment on above: Order Comment: Speci men Comment: [id number] Specimen Comment: No. of containers..01 ThinPrep Vial Result Comment: NEGA TIVE FOR INTRAEPITHELIAL LESION OR MALIGNANCY. Performed By: #### L 7400.0280 #### [facility] [address] [place], [place], [address] [phone] HPV APTIMA, HR Negative Normal Negative [facility] Comment on above: Order Comment: Speci men Comment: [id number] Specimen Comment: No. of containers..01 ThinPrep Vial Result Comment: This nucleic acid amplification test detects fourteen high- risk HPV types (16,18,31,33,35,39,45,51,52,56,58,59,66,68) without differentiation. Performed By: #### L 7400.0280 #### [facility] [address] [place], [place], [address] HPV Steffany Rfx Comment Normal . [facility] Comment on above: Order Comment: Speci men Comment: [id number] Specimen Comment: No. of containers..01 ThinPrep Vial Result Comment: Crit eria not met, HPV Genotype not performed. Performed at: - [facility] [id number] Application Processor: Asha Olsen MD, Phone: [phone] Performed at: = - [facility] [address] [id number] Application Processor: Asha Olsen MD, Phone: [phone] Performed By: #### L 7400.0280 #### [facility] [address] [place], [place], [address] PAPSMR Comment Normal . [facility] Comment on above: Order Comment: Speci men Comment: [id number] Specimen Comment: No. of containers..01 ThinPrep Vial Result Comment: The Pap smear is a screening test designed to aid in the detection of premalignant and malignant conditions of the uterine cervix. It is not a diagnostic procedure and should not be used as the sole means of detecting cervical cancer. Both false-positive and false-negative reports do occur. Performed By: #### L 7400.0280 #### [facility] [address] [place], [place], [address] PERFORM Comment Normal . [facility] Comment on above: Order Comment: Speci men Comment: [id number] Specimen Comment: No. of containers..01 ThinPrep Vial Result Comment: Satya Dewey Elevator Pilot (ASCP) Performed By: #### L 7400.0280 #### [facility] [address] [place], [address] Cervical or vaginal specimen microscopic examination by liquid based cytology (reportOrdered By: Barbara Bartlett on 07-14-2024 Cytology report Cyto stain.thin prep Doc (Cvx/Vag) Comment . [facility] Comment on above: Criteria not met, HP V Genotype not performed.Performed at: - [facility] [id number] Director: Asha Olsen MD, Phone: [phone] at: =[facility] [id number] Director: Asha Olsen MD, Phone: [phone] Cervical or vagninal specime n microscopic examination by cytology stain (reported asOrdered By: Barbara Bartlett on 07-14-2024 Cytology report Cyto stain Doc (Cvx/Vag) Comment . [facility] Comment on above: The Pap smear [...] DNA Probe+sig amp Ql (Cvx) Negative Negative [facility] Comment on above: This nucleic acid am plification test detects fourteen high-risk HPV types (16,18,31,33,35,39,45,51,52,56,58,59,66,68)without differentiation. Laboratory - CytologyOrdered By: Barbara Bartlett on 07-14-2024 Elevator Pilot Cyto stain Nom (Cvx/Vag) [ID] Comment . [facility] Comment on above: Derek Dewey, Cyto logist (ASCP) Laboratory - Miscellaneous t estsOrdered By: Barbara Bartlett on 07-14-2024 Service comment (Unsp spec) [Interp] . . [facility] No Panel InformationOrdered By: Barbara Bartlett on 07-14-2024 Pap Smear Specimen Adequacy Comment . [facility] Comment on above: Satisfactory for stan luation. No endocervical component is identified. 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 Is patient in pain?: No [...] PO DAILY 07/14/23 07/14/24 [facility] 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 of abnormality in previous , currently Vaginal delivery (spontaneous vaginal delivery) 40 weeks gestation of Surgical History [place] teeth removed Family History Other Cholelithiasis Social History adopted: No household members: spouse and children number of children: 4 current occupational status: unemployed current occupation: [employer] current occupational exposures/hazards: No pets and animals: No history of recent travel: No sexually active: Yes Smoking Status: Never smoker alcohol intake: never substance use type: does not use caffeine: No seatbelt use: always do you feel safe at home: Yes 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 Date Name GA/Weeks Outcome Route Bth Weight Infant Gen Labor Lgth Anesthesia Del Locatn Provider FOB 09/27/16 Azam 41 live - full term 7lbs 7oz Male epidural [facility] Olguin Danny 03/30/19 Sohan 40 live - full term 7lb 3 oz Male epidural [facility] H olmes Danny 02/19/21 Rad 38 live - full term 6lbs 14 oz Male [facility] Olguin -Danny 06/01/23 Yoshi 39 live - full term 6lbs 15oz Male [facility] Ana Fam [facility] Encounter for routine gynecological examination Details: KENDALL [...] 46. Other preventative health care screenings: Jocelyn Harrell; PCP. Female Reproductive History Associated symptoms: still [...] the axillae (more content not included)... Normal [facility] Absolute lymphocyte countOrd ered By: Mariana Raphael on 07-12-2024 Lymphocytes Auto (Unsp spec) [#/Vol] 1.31 10*3/uL 0.83-4.51 [facility] Absolute neutrophil countOrd ered By: Mariana Raphael on 07-12-2024 Neutrophils (Bld) [#/Vol] 2.2 10*3/uL 2.0-7.7 [facility] Anion gap in Serum or Plasma Ordered By: Mariana Raphael on 07-12-2024 Anion gap [Moles/Vol] 9 mmol/L 5-15 [facility] Automated lymphocyte count a s percentage of total leukocytesOrdered By: Mariana Raphael on 07-12-2024 Lymphocytes/100 WBC Auto (Unsp spec) 32.3 % 19-41 [facility] BUN/creatinine ratioOrdered By: Mariana Raphael on 07-12-2024 Urea nitrogen/Creatinine [Mass ratio] 14.1 mg/mg 10-20 [facility] Basophil percentageOrdered B y: Mariana Raphael on 07-12-2024 Basophils/100 WBC (Bld) 0.7 % 0-1 [facility] Bilirubin, totalOrdered By: Mariana Raphael on 07-12-2024 Bilirubin [Mass/Vol] 0.27 mg/dL 0.00-1.30 [facility] CBC W/Diff, Automatedon 06-16 Absolute Lymph 1.31 X10 3/uL Normal 0.83-4.51 [facility] Comment on above: Performed By: #### L 100.0100, L500.4050 #### [facility] [address] [place], [address] Absolute Neut 2.2 X10 3/uL Normal 2.0-7.7 [facility] Comment on above: Performed By: #### L 100.0100, L500.4050 #### [facility] [address] [place], [address] Basophils/100 WBC (Bld) 0.7 % Normal 0-1 [facility] Comment on above: Performed By: #### L 100.0100, L500.4050 #### [facility] [address] [place], [address] Eosinophils/100 WBC (Bld) 1.7 % Normal 0-5 [facility] Comment on above: Performed By: #### L 100.0100, L500.4050 #### [facility] [address] [place], [address] Erythrocyte distribution width (RBC) [Ratio] 13.2 % Normal 11.6-14.6 [facility] Comment on above: Performed By: #### L 100.0100, L500.4050 #### [facility] [address] [place], [address] Hematocrit (Bld) [Volume fraction] 41.5 % Normal 37-47 [facility] Comment on above: Performed By: #### L 100.0100, L500.4050 #### [facility] [address] [place], [address] Hemoglobin (Bld) [Mass/Vol] 13.1 g/dL Normal 12.0-15.0 [facility] Comment on above: Performed By: #### L 100.0100, L500.4050 #### [facility] [address] [place], [address] IG% 0.200 Normal 0.0-0.9 [facility] Comment on above: Result Comment: IG% - Immature Granulocytes (promyelocytes, myelocytes and metamyelocytes) > 1% indicates that a LEFT SHIFT is Present. Performed By: #### L 100.0100, L500.4050 #### [facility] [address] [place], [address] Lymphocytes/100 WBC (Bld) 32.3 % Normal 19-41 [facility] Comment on above: Performed By: #### L 100.0100, L500.4050 #### [facility] [address] [place], [address] MCH (RBC) [Entitic mass] 25.4 pg Low 27.0-32.0 [facility] Comment on above: Performed By: #### L 100.0100, L500.4050 #### [facility] [address] [place], [address] MCHC (RBC) [Mass/Vol] 31.6 g/dL Low 32-36 [facility] Comment on above: Performed By: #### L 100.0100, L500.4050 #### [facility] [address] [place], [address] MCV (RBC) [Entitic vol] 80.6 fL Low 81-99 [facility] Comment on above: Performed By: #### L 100.0100, L500.4050 #### [facility] [address] [place], [address] Monocytes/100 WBC (Bld) 11.3 % High 0-10 [facility] Comment on above: Performed By: #### L 100.0100, L500.4050 #### [facility] [address] [place], [address] Neutrophils/100 WBC (Bld) 53.8 % Normal 47-70 [facility] Comment on above: Performed By: #### L 100.0100, L500.4050 #### [facility] [address] [place], [address] Nucleated RBC (Bld) [#/Vol] 0 10*3/uL Normal 0-5 [facility] Comment on above: Performed By: #### L 100.0100, L500.4050 #### [facility] [address] [place], [address] Platelet mean volume (Bld) [Entitic vol] 9.3 fL Normal 6.2-12.0 [facility] Comment on above: Performed By: #### L 100.0100, L500.4050 #### [facility] [address] [place], [address] Platelets (Bld) [#/Vol] 272 10*3/uL Normal 150-450 [facility] Comment on above: Performed By: #### L 100.0100, L500.4050 #### [facility] [address] [place], [address] RBC (Bld) [#/Vol] 5.15 10*6/uL Normal 4.2-5.4 [facility] Comment on above: Performed By: #### L 100.0100, L500.4050 #### [facility] [address] [place], [address] RDW SD 38.6 fl Normal 35.1-43.9 [facility] Comment on above: Performed By: #### L 100.0100, L500.4050 #### [facility] [address] [place], [address] WBC (Bld) [#/Vol] 4.1 10*3/uL Low 4.4-11.0 [facility] Comment on above: Performed By: #### L 100.0100, L500.4050 #### [facility] [address] [place], [address] Carbon dioxide, total [Moles /volume] in Central venous bloodOrdered By: Mariana Raphael on 07-12-2024 CO2 [Moles/Vol] 27.1 mmol/L 21.0-32.0 [facility] Chloride assayOrdered By: Moses Raphael on 07-12-2024 Chloride [Moles/Vol] 104 mmol/L 98-108 [facility] Comprehensive Metabolic Prof ilon 07-12-2024 Albumin [Mass/Vol] 4.3 g/dL Normal 3.5-5.0 [facility] Comment on above: Performed By: #### L 100.0100, L500.4050 #### [facility] [address] [place], [address] Albumin/Globulin [Mass ratio] 1.6 {ratio} Normal 0.9-2.4 [facility] Comment on above: Performed By: #### L 100.0100, L500.4050 #### [facility] [address] [place], [address] ALK PHOS 71 U/L Normal 35-104 [facility] Comment on above: Performed By: #### L 100.0100, L500.4050 #### [facility] [address] [place], [address] ALT [Catalytic activity/Vol] 28 U/L Normal <=34 [facility] Comment on above: Performed By: #### L 100.0100, L500.4050 #### [facility] [address] [place], [address] AST [Catalytic activity/Vol] 24 U/L Normal <=31 [facility] Comment on above: Performed By: #### L 100.0100, L500.4050 #### [facility] [address] [place], [address] Bilirubin [Mass/Vol] 0.27 mg/dL Normal 0.00-1.30 [facility] Comment on above: Performed By: #### L 100.0100, L500.4050 #### [facility] [address] [place], [address] BUN/CRE 14.1 RATIO Normal 10-20 [facility] Comment on above: Performed By: #### L 100.0100, L500.4050 #### [facility] [address] [place], [address] Calcium [Mass/Vol] 9.5 mg/dL Normal 7.6-11.0 [facility] Comment on above: Performed By: #### L 100.0100, L500.4050 #### [facility] [address] [place], [address] Chloride [Moles/Vol] 104 mmol/L Normal 98-108 [facility] Comment on above: Performed By: #### L 100.0100, L500.4050 #### [facility] [address] [place], [address] CO2 [Moles/Vol] 27.1 mmol/L Normal 21.0-32.0 [facility] Comment on above: Performed By: #### L 100.0100, L500.4050 #### [facility] [address] [place], [address] Creatinine [Mass/Vol] 0.68 mg/dL Low 0.70-1.20 [facility] Comment on above: Performed By: #### L 100.0100, L500.4050 #### [facility] [address] [place], [address] GAP 9 Normal 5-15 [facility] Comment on above: Performed By: #### L 100.0100, L500.4050 #### [facility] [address] [place], [address] GFR/1.73 sq M.predicted among non-blacks MDRD (S/P/Bld) [Vol rate/Area] 118 mL/min/{1.73_m2} Normal >60 [facility] Comment on above: Result Comment: mL/m in/1.73m2 CKD-EPI Creatinine Equation (2020) Performed By: #### L 100.0100, L500.4050 #### [facility] [address] [place], [address] Globulin (S) [Mass/Vol] 2.7 g/dL Normal 2.2-4.[address] [facility] Comment on above: Performed By: #### L 100.0100, L500.4050 #### [facility] [address] [place], [address] Glucose [Mass/Vol] 72 mg/dL Normal 70-99 [facility] Comment on above: Performed By: #### L 100.0100, L500.4050 #### [facility] [address] [place], [address] Potassium [Moles/Vol] 4.2 mmol/L Normal 3.3-5.1 [facility] Comment on above: Performed By: #### L 100.0100, L500.4050 #### [facility] [address] [place], [address] Sodium [Moles/Vol] 141 mmol/L Normal 133-145 [facility] Comment on above: Performed By: #### L 100.0100, L500.4050 #### [facility] [address] [place], [address] T PROT 7.0 g/dL Normal 5.9-8.4 [facility] Comment on above: Performed By: #### L 100.0100, L500.4050 #### [facility] [address] [place], [address] Urea nitrogen [Mass/Vol] 10 mg/dL Normal 4-19 [facility] Comment on above: Performed By: #### L 100.0100, L500.4050 #### [facility] [address] [place], [address] Eosinophil percentageOrdered By: Mariana Raphael on 07-12-2024 Eosinophils/100 WBC (Bld) 1.7 % 0-5 [facility] Erythrocyte distribution wid th ratioOrdered By: Mariana Raphael on 07-12-2024 Erythrocyte distribution width (RBC) [Ratio] 13.2 % 11.6-14.6 [facility] Erythrocyte distribution wid th standard deviationOrdered By: Mariana Raphael on 07-12-2024 Erythrocyte distribution width (RBC) [Ratio] 38.6 fl 35.1-43.9 [facility] Glomerular filtration rate ( GFR) estimation/1.73 sq m using serum, plasma, or whole bOrdered By: Mariana Raphael on 07-12-2024 GFR/1.73 sq M.predicted among non-blacks MDRD (S/P/Bld) [Vol rate/Area] 118 mL/min/{1.73_m2} >60 [facility] Comment on above: mL/min/1.73m2 CKD-EP I Creatinine Equation (2020) Hematocrit Auto (Bld) [Volum e fraction]Ordered By: Mariana Raphael on 07-12-2024 Hematocrit (Bld) [Volume fraction] 41.5 % 37-47 [facility] Hemoglobin measurementOrdere d By: Mariana Raphael on 07-12-2024 Hemoglobin (Bld) [Mass/Vol] 13.1 g/dL 12.0-15.0 [facility] Immature granulocytes/100 WB C Auto (Bld)Ordered By: Mariana Raphael on 07-12-2024 Immature granulocytes/100 WBC (Bld) 0.200 % 0.0-0.9 [facility] Comment on above: IG% - Immature Granu locytes (promyelocytes, myelocytes and metamyelocytes) > 1% indicates that a LEFT SHIFT is Present. Laboratory - Chemistry and C hemistry - challengeOrdered By: Mariana Raphael on 07-12-2024 AST [Catalytic activity/Vol] 24 U/L <32 [facility] MCV (mean corpuscular volume ) determinationOrdered By: Marianaherb Raphael on 07-12-2024 MCV (RBC) [Entitic vol] 80.6 fL Low 81-99 [facility] Mean corpuscular hemoglobin (MCH) determinationOrdered By: Marianaherb Raphael on 07-12-2024 MCH (RBC) [Entitic mass] 25.4 pg Low 27.0-32.0 [facility] Mean corpuscular hemoglobin concentration (MCHC) determinationOrdered By: Mariana Raphael 07-12-2024 MCHC (RBC) [Mass/Vol] 31.6 g/dL Low 32-36 [facility] Mean platelet volume determi nationOrdered By: Mariana Raphael 07-12-2024 Platelet mean volume (Bld) [Entitic vol] 9.3 fL 6.2-12.0 [facility] Monocyte percentageOrdered B y: Mariana Raphael on 07-12-2024 Monocytes/100 WBC (Bld) 11.3 % High 0-10 [facility] Neutrophil percentageOrdered By: Mariana Raphael on 07-12-2024 Neutrophils/100 WBC (Bld) 53.8 % 47-70 [facility] Nucleated red blood cell per centageOrdered By: Mariana Raphael on 07-12-2024 Nucleated RBC/100 WBC (Bld) [Ratio] 0 % 0-5 [facility] Platelet countOrdered By: Moses Raphael on 07-12-2024 Platelets (Bld) [#/Vol] 272 10*3/uL 150-450 [facility] Potassium measurement (mass/ volume)Ordered By: Mariana Raphael on 07-12-2024 Potassium (Unsp spec) [Mass/Vol] 4.2 mmol/L 3.3-5.1 [facility] RBC Auto (Bld) [#/Vol]Ordere d By: Mariana Raphael on 07-12-2024 RBC (Bld) [#/Vol] 5.15 10*6/uL 4.2-5.4 [facility] Serum creatinine measurement (mass/volume)Ordered By: Mariana Raphael on 07-12-2024 Creatinine [Mass/Vol] 0.68 mg/dL Low 0.70-1.20 [facility] Serum globulin measurementOr dered By: Mariana Raphael on 07-12-2024 Globulin (S) [Mass/Vol] 2.7 g/dL 2.2-4.[address] [facility] Serum glucose measurement (m ass/volume)Ordered By: Mariana Raphael on 07-12-2024 Glucose [Mass/Vol] 72 mg/dL 70-99 [facility] Serum or plasma alanine temple otransferase (ALT) measurementOrdered By: Mariana Raphael on 07-12-2024 ALT [Catalytic activity/Vol] 28 U/L <35 [facility] Serum or plasma albumin andrew urement (mass/volume)Ordered By: Mariana Raphael on 07-12-2024 Albumin [Mass/Vol] 4.3 g/dL 3.5-5.0 [facility] Serum or plasma albumin/glob ulin mass ratioOrdered By: Mariana Raphael on 07-12-2024 Albumin/Globulin [Mass ratio] 1.6 {ratio} 0.9-2.4 [facility] Serum or plasma alkaline peter sphatase measurementOrdered By: Mariana Raphael on 07-12-2024 ALP [Catalytic activity/Vol] 71 U/L 35-104 [facility] Serum or plasma calcium andrew urement (mass/volume)Ordered By: Mariana Raphael on 07-12-2024 Calcium [Mass/Vol] 9.5 mg/dL 7.6-11.0 [facility] Serum or plasma urea nitroge n measurement (mass/volume)Ordered By: Mariana Raphael on 07-12-2024 Urea nitrogen [Mass/Vol] 10 mg/dL 4-19 [facility] Sodium levelOrdered By: Leah Raphael on 07-12-2024 Sodium [Moles/Vol] 141 mmol/L 133-145 [facility] Total proteinOrdered By: Laura Raphael on 07-12-2024 Protein [Mass/Vol] 7.0 g/dL 5.9-8.4 [facility] White blood cell (WBC) count Ordered By: Mariana Raphael on 07-12-2024 WBC (Bld) [#/Vol] 4.1 10*3/uL Low 4.4-11.0 [facility] Absolute lymphocyte countOrd ered By: Mariana Raphael on 04-21-2024 Lymphocytes Auto (Unsp spec) [#/Vol] 1.39 10*3/uL 0.83-4.51 [facility] Absolute neutrophil countOrd ered By: Mariana Raphael on 04-21-2024 Neutrophils (Bld) [#/Vol] 2.6 10*3/uL 2.0-7.7 [facility] Albumin to globulin ratioOrd ered By: Mariana Raphael on 04-21-2024 Albumin/Globulin [Mass ratio] 1.2 {ratio} 0.9-2.4 [facility] Automated lymphocyte count a s percentage of total leukocytesOrdered By: Mariana Raphael on 04-21-2024 Lymphocytes/100 WBC Auto (Unsp spec) 29.8 % 19-41 [facility] Basophil percentageOrdered B y: Mariana Raphael on 04-21-2024 Basophils/100 WBC (Bld) 0.9 % 0-1 [facility] Bilirubin, totalOrdered By: Mariana Raphael on 04-21-2024 Bilirubin [Mass/Vol] 0.60 mg/dL 0.20-1.00 [facility] Comment on above: For patients on eltr ombopag therapy, use of Dimension [place] TBIL is not recommended. Blood urea nitrogen (BUN)/cr eatinine ratioOrdered By: Mariana Raphael on 04-21-2024 Urea nitrogen/Creatinine [Mass ratio] 21.3 mg/mg High 10-20 [facility] CBC W/Diff, Automatedon Absolute Lymph 1.39 X10 3/uL Normal 0.83-4.51 [facility] Comment on above: Performed By: #### L 500.4050, L100.0100 #### [facility] [address] [place], [address] Absolute Neut 2.6 X10 3/uL Normal 2.0-7.7 [facility] Comment on above: Performed By: #### L 500.4050, L100.0100 #### [facility] [address] [place], [address] Basophils/100 WBC (Bld) 0.9 % Normal 0-1 [facility] Comment on above: Performed By: #### L 500.4050, L100.0100 #### [facility] [address] [place], [address] Eosinophils/100 WBC (Bld) 1.9 % Normal 0-5 [facility] Comment on above: Performed By: #### L 500.4050, L100.0100 #### [facility] [address] [place], [address] Erythrocyte distribution width (RBC) [Ratio] 13.6 % Normal 11.6-14.6 [facility] Comment on above: Performed By: #### L 500.4050, L100.0100 #### [facility] [address] [place], [address] Hematocrit (Bld) [Volume fraction] 44.6 % Normal 37-47 [facility] Comment on above: Performed By: #### L 500.4050, L100.0100 #### [facility] [address] [place], [address] Hemoglobin (Bld) [Mass/Vol] 13.6 g/dL Normal 12.0-15.0 [facility] Comment on above: Performed By: #### L 500.4050, L100.0100 #### [facility] [address] [place], [address] IG% 0.200 Normal 0.0-0.9 [facility] Comment on above: Result Comment: IG% - Immature Granulocytes (promyelocytes, myelocytes and metamyelocytes) > 1% indicates that a LEFT SHIFT is Present. Performed By: #### L 500.4050, L100.0100 #### [facility] [address] [place], [address] Lymphocytes/100 WBC (Bld) 29.8 % Normal 19-41 [facility] Comment on above: Performed By: #### L 500.4050, L100.0100 #### [facility] [address] [place], [address] MCH (RBC) [Entitic mass] 24.9 pg Low 27.0-32.0 [facility] Comment on above: Performed By: #### L 500.4050, L100.0100 #### [facility] [address] [place], [address] MCHC (RBC) [Mass/Vol] 30.5 g/dL Low 32-36 [facility] Comment on above: Performed By: #### L 500.4050, L100.0100 #### [facility] [address] [place], [address] MCV (RBC) [Entitic vol] 81.7 fL Normal 81-99 [facility] Comment on above: Performed By: #### L 500.4050, L100.0100 #### [facility] [address] [place], [address] Monocytes/100 WBC (Bld) 11.4 % High 0-10 [facility] Comment on above: Performed By: #### L 500.4050, L100.0100 #### [facility] [address] [place], [address] Neutrophils/100 WBC (Bld) 55.8 % Normal 47-70 [facility] Comment on above: Performed By: #### L 500.4050, L100.0100 #### [facility] [address] [place], [address] Nucleated RBC (Bld) [#/Vol] 0 10*3/uL Normal 0-5 [facility] Comment on above: Performed By: #### L 500.4050, L100.0100 #### [facility] [address] [place], [address] Platelet mean volume (Bld) [Entitic vol] 9.1 fL Normal 6.2-12.0 [facility] Comment on above: Performed By: #### L 500.4050, L100.0100 #### [facility] [address] [place], [address] Platelets (Bld) [#/Vol] 275 10*3/uL Normal 150-450 [facility] Comment on above: Performed By: #### L 500.4050, L100.0100 #### [facility] [address] [place], [address] RBC (Bld) [#/Vol] 5.46 10*6/uL High 4.2-5.4 [facility] Comment on above: Performed By: #### L 500.4050, L100.0100 #### [facility] [address] [place], [address] RDW SD 40.3 fl Normal 35.1-43.9 [facility] Comment on above: Performed By: #### L 500.4050, L100.0100 #### [facility] [address] [place], [address] WBC (Bld) [#/Vol] 4.7 10*3/uL Normal 4.4-11.0 [facility] Comment on above: Performed By: #### L 500.4050, L100.0100 #### [facility] [address] [place], [address] Carbon dioxide measurementOr dered By: Mariana Raphael on 04-21-2024 CO2 [Moles/Vol] 29.0 mmol/L 21.0-32.0 [facility] Chloride measurementOrdered By: Mariana Raphael on 04-21-2024 Chloride [Moles/Vol] 107 mmol/L 98-107 [facility] Comprehensive Metabolic Prof ilon 04-21-2024 Albumin [Mass/Vol] 4.3 g/dL Normal 3.2-5.0 [facility] Comment on above: Performed By: #### L 500.4050, L100.0100 #### [facility] [address] [place], [address] Albumin/Globulin [Mass ratio] 1.2 {ratio} Normal 0.9-2.4 [facility] Comment on above: Performed By: #### L 500.4050, L100.0100 #### [facility] [address] [place], [address] ALK P 66 U/L Normal 45-117 [facility] Comment on above: Performed By: #### L 500.4050, L100.0100 #### [facility] [address] [place], [address] ALT [Catalytic activity/Vol] 29 U/L Normal 13-56 [facility] Comment on above: Performed By: #### L 500.4050, L100.0100 #### [facility] [address] [place], [address] AST [Catalytic activity/Vol] 16 U/L Normal 15-37 [facility] Comment on above: Performed By: #### L 500.4050, L100.0100 #### [facility] [address] [place], [address] Bilirubin [Mass/Vol] 0.60 mg/dL Normal 0.20-1.00 [facility] Comment on above: Result Comment: For patients on eltrombopag therapy, use of Dimension [place] TBIL is not recommended. Performed By: #### L 500.4050, L100.0100 #### [facility] [address] [place], [address] BUN/CRE 21.3 RATIO High 10-20 [facility] Comment on above: Performed By: #### L 500.4050, L100.0100 #### [facility] [address] [place], [address] CA,Total 9.7 mg/dL Normal 8.5-10.1 [facility] Comment on above: Performed By: #### L 500.4050, L100.0100 #### [facility] [address] [place], [address] Chloride [Moles/Vol] 107 mmol/L Normal 98-107 [facility] Comment on above: Performed By: #### L 500.4050, L100.0100 #### [facility] [address] [place], [address] CO2 [Moles/Vol] 29.0 mmol/L Normal 21.0-32.0 [facility] Comment on above: Performed By: #### L 500.4050, L100.0100 #### [facility] [address] [place], [address] Creatinine [Mass/Vol] 0.75 mg/dL Normal 0.55-1.02 [facility] Comment on above: Result Comment: The validity of the calculated GFR GFRAA in patients over 70 years has not been determined. Clinical correlation is essential. Performed By: #### L 500.4050, L100.0100 #### [facility] [address] [place], [address] EST GFR - AA 114 mL/min Normal >60 [facility] Comment on above: Result Comment: Afri can [place]ronesian GFR Calc Performed By: #### L 500.4050, L100.0100 #### [facility] [address] [place], [address] GAP 5 Normal 5-15 [facility] Comment on above: Performed By: #### L 500.4050, L100.0100 #### [facility] [address] [place], [address] GFR/1.73 sq M.predicted among non-blacks MDRD (S/P/Bld) [Vol rate/Area] 94 mL/min/{1.73_m2} Normal >60 [facility] Comment on above: Result Comment: Non- GFR Calc Performed By: #### L 500.4050, L100.0100 #### [facility] [address] [place], [address] Globulin (S) [Mass/Vol] 3.6 g/dL Normal 2.2-4.[address] [facility] Comment on above: Performed By: #### L 500.4050, L100.0100 #### [facility] [address] [place], [address] Glucose [Mass/Vol] 82 mg/dL Normal 74-106 [facility] Comment on above: Performed By: #### L 500.4050, L100.0100 #### [facility] [address] [place], [address] Potassium [Moles/Vol] 4.2 mmol/L Normal 3.5-5.1 [facility] Comment on above: Performed By: #### L 500.4050, L100.0100 #### [facility] [address] [place], [address] Sodium [Moles/Vol] 141 mmol/L Normal 136-145 [facility] Comment on above: Performed By: #### L 500.4050, L100.0100 #### [facility] [address] [place], [address] T PROT 7.9 g/dL Normal 6.4-8.2 [facility] Comment on above: Performed By: #### L 500.4050, L100.0100 #### [facility] [address] [place], [address] Urea nitrogen [Mass/Vol] 16 mg/dL Normal 7-18 [facility] Comment on above: Performed By: #### L 500.4050, L100.0100 #### [facility] [address] [place], [address] Eosinophil percentageOrdered By: Mariana Raphael on 04-21-2024 Eosinophils/100 WBC (Bld) 1.9 % 0-5 [facility] Erythrocyte distribution wid th ratioOrdered By: Mariana Raphael on 04-21-2024 Erythrocyte distribution width (RBC) [Ratio] 13.6 % 11.6-14.6 [facility] Erythrocyte distribution wid th standard deviationOrdered By: Mariana Raphael on 04-21-2024 Erythrocyte distribution width (RBC) [Ratio] 40.3 fl 35.1-43.9 [facility] Glomerular filtration rate ( GFR) estimationOrdered By: Mariana Raphael on 02-05-2025 GFR/1.73 sq M.predicted among non-blacks MDRD (S/P/Bld) [Vol rate/Area] 94 mL/min/{1.73_m2} >60 [facility] Comment on above: Non- GFR Calc Glucose measurementOrdered B y: Mariana Raphael on 04-21-2024 Glucose [Mass/Vol] 82 mg/dL 74-106 [facility] Hematocrit Auto (Bld) [Volum e fraction]Ordered By: Mariana Raphael on 04-21-2024 Hematocrit (Bld) [Volume fraction] 44.6 % 37-47 [facility] Hemoglobin measurementOrdere d By: Mariana Raphael on 04-21-2024 Hemoglobin (Bld) [Mass/Vol] 13.6 g/dL 12.0-15.0 [facility] Immature granulocytes/100 WB C Auto (Bld)Ordered By: Mariana Raphael on 04-21-2024 Immature granulocytes/100 WBC (Bld) 0.200 % 0.0-0.9 [facility] Comment on above: IG% - Immature Granu locytes (promyelocytes, myelocytes and metamyelocytes) > 1% indicates that a LEFT SHIFT is Present. Laboratory - Chemistry and C hemistry - challengeOrdered By: Mariana Raphael on 04-21-2024 AST [Catalytic activity/Vol] 16 U/L 15-37 [facility] MCV (mean corpuscular volume ) determinationOrdered By: Mariana Raphael on 04-21-2024 MCV (RBC) [Entitic vol] 81.7 fL 81-99 [facility] Mean corpuscular hemoglobin (MCH) determinationOrdered By: Mariana Raphael on 04-21-2024 MCH (RBC) [Entitic mass] 24.9 pg Low 27.0-32.0 [facility] Mean corpuscular hemoglobin concentration (MCHC) determinationOrdered By: Mariana Raphael on 04-21-2024 MCHC (RBC) [Mass/Vol] 30.5 g/dL Low 32-36 [facility] Mean platelet volume determi nationOrdered By: Mariana Raphael on 04-21-2024 Platelet mean volume (Bld) [Entitic vol] 9.1 fL 6.2-12.0 [facility] Monocyte percentageOrdered B y: Mariana Raphael on 04-21-2024 Monocytes/100 WBC (Bld) 11.4 % High 0-10 [facility] Neutrophil percentageOrdered By: Mariana Raphael on 04-21-2024 Neutrophils/100 WBC (Bld) 55.8 % 47-70 [facility] Nucleated red blood cell per centageOrdered By: Mariana Raphael on 04-21-2024 Nucleated RBC/100 WBC (Bld) [Ratio] 0 % 0-5 [facility] Platelet countOrdered By: Moses Raphael on 04-21-2024 Platelets (Bld) [#/Vol] 275 10*3/uL 150-450 [facility] Potassium measurementOrdered By: Mariana Raphael on 04-21-2024 Potassium [Moles/Vol] 4.2 mmol/L 3.5-5.1 [facility] RBC Auto (Bld) [#/Vol]Ordere d By: Mariana Raphael on 04-21-2024 RBC (Bld) [#/Vol] 5.46 10*6/uL High 4.2-5.4 [facility] Serum anion gap measurementO rdered By: Mariana Raphael on 04-21-2024 Anion gap [Moles/Vol] 5 mmol/L 5-15 [facility] Serum globulin measurementOr dered By: Mariana Raphael on 04-21-2024 Globulin (S) [Mass/Vol] 3.6 g/dL 2.2-4.[address] [facility] Serum or plasma alanine temple otransferase (ALT) measurementOrdered By: Mariana Raphael on 04-21-2024 ALT [Catalytic activity/Vol] 29 U/L 13-56 [facility] Serum or plasma albumin andrew urement (mass/volume)Ordered By: Mariana Raphael on 04-21-2024 Albumin [Mass/Vol] 4.3 g/dL 3.2-5.0 [facility] Serum or plasma alkaline peter sphatase measurementOrdered By: Mariana Raphael on 04-21-2024 ALP [Catalytic activity/Vol] 66 U/L 45-117 [facility] Serum or plasma calcium andrew urement (mass/volume)Ordered By: Mariana Raphael on 04-21-2024 Calcium [Mass/Vol] 9.7 mg/dL 8.5-10.1 [facility] Serum or plasma creatinine m easurement (mass/volume)Ordered By: Mariana Raphael on 04-21-2024 Creatinine [Mass/Vol] 0.75 mg/dL 0.55-1.02 [facility] Comment on above: The validity of the calculated GFR & GFRAA in patients over 70 years has not been determined. Clinical correlation is essential. Serum or plasma urea nitroge n measurement (mass/volume)Ordered By: Mariana Raphael on 04-21-2024 Urea nitrogen [Mass/Vol] 16 mg/dL 7-18 [facility] Sodium levelOrdered By: Leah Raphael on 04-21-2024 Sodium [Moles/Vol] 141 mmol/L 136-145 [facility] Total proteinOrdered By: Laura Raphael on 04-21-2024 Protein [Mass/Vol] 7.9 g/dL 6.4-8.2 [facility] White blood cell (WBC) count Ordered By: Mariana Raphael on 04-21-2024 WBC (Bld) [#/Vol] 4.7 10*3/uL 4.4-11.0 [facility] Absolute lymphocyte countOrd ered By: Mariana Raphael on 06-20-2023 Lymphocytes Auto (Unsp spec) [#/Vol] 1.75 10*3/uL 0.83-4.51 [facility] Automated lymphocyte count a s percentage of total leukocytesOrdered By: Mariana Raphael on 06-20-2023 Lymphocytes/100 WBC Auto (Unsp spec) 31.0 % 19-41 [facility] Basophil percentageOrdered B y: Mariana Raphael on 06-20-2023 Basophils/100 WBC (Bld) 0.5 % 0-[address] [facility] Bilirubin [Mass/Vol] 0.30 mg/dL 0.20-1.00 [facility] Comment on above: For patients on eltr ombopag therapy, use of Dimension [place] TBIL is not recommended. Chloride [Moles/Vol] 108 mmol/L 98-107 [facility] Eosinophils/100 WBC (Bld) 1.8 % 0-5 [facility] Glucose [Mass/Vol] 92 mg/dL 74-106 [facility] Hemoglobin (Bld) [Mass/Vol] 13.6 g/dL 12.0-15.0 [facility] Monocytes/100 WBC (Bld) 9.6 % 0-10 [facility] Neutrophils (Bld) [#/Vol] 3.2 10*3/uL 2.0-7.7 [facility] Neutrophils/100 WBC (Bld) 56.7 % 47-70 [facility] Potassium [Moles/Vol] 4.0 mmol/L 3.5-5.1 [facility] Protein [Mass/Vol] 7.5 g/dL 6.4-8.2 [facility] Sodium [Moles/Vol] 139 mmol/L 136-145 [facility] WBC (Bld) [#/Vol] 5.6 10*3/uL 4.4-11.0 [facility] Determination of erythrocyte mean corpuscular volume (MCV)Ordered By: Mariana Raphael on 06-20-2023 MCV (RBC) [Entitic vol] 82.4 fL 81-99 [facility] Erythrocyte distribution wid th ratioOrdered By: Mariana Raphael on 06-20-2023 Erythrocyte distribution width (RBC) [Ratio] 14.1 % 11.6-14.6 [facility] Erythrocyte distribution wid th standard deviationOrdered By: Mariana Raphael on 06-20-2023 Erythrocyte distribution width (RBC) [Entitic vol] 42.3 fL 35.1-43.9 [facility] Hematocrit Auto (Bld) [Volum e fraction]Ordered By: Mariana Raphael on 06-20-2023 Hematocrit (Bld) [Volume fraction] 43.9 % 37-47 [facility] Immature granulocytes/100 WB C Auto (Bld)Ordered By: Mariana Raphael on 06-20-2023 Immature granulocytes/100 WBC (Bld) 0.400 % 0.0-0.9 [facility] Comment on above: IG% - Immature Granu locytes (promyelocytes, myelocytes and metamyelocytes) > 1% indicates that a LEFT SHIFT is Present. Laboratory - Chemistry and C hemistry - challengeOrdered By: Mariana Raphael on 06-20-2023 Albumin/Globulin [Mass ratio] 1.0 {ratio} 0.9-2.4 [facility] ALP [Catalytic activity/Vol] 63 U/L 45-117 [facility] ALT [Catalytic activity/Vol] 46 U/L 13-56 [facility] CO2 [Moles/Vol] 26.0 mmol/L 21.0-32.0 [facility] Globulin (S) [Mass/Vol] 3.7 g/dL 2.2-4.2 [facility] Urea nitrogen/Creatinine [Mass ratio] 19.3 mg/mg 10-20 [facility] Laboratory - Hematology and Cell countsOrdered By: Mariana Raphael on 06-20-2023 MCH (RBC) [Entitic mass] 25.5 pg 27.0-32.0 [facility] MCHC (RBC) [Mass/Vol] 31.0 g/dL 32-36 [facility] Nucleated RBC/100 WBC (Bld) [Ratio] 0 % 0-5 [facility] Platelet mean volume (Bld) [Entitic vol] 9.1 fL 6.2-12.0 [facility] Platelets (Bld) [#/Vol] 294 10*3/uL 150-450 [facility] No Panel InformationOrdered By: Mariana Raphael on 06-20-2023 Estimated GFR (MDRD) Amer 102 mL/min >60 [facility] Comment on above: GFR Calc Estimated GFR (MDRD) Non-Af Amer 85 mL/min >60 [facility] Comment on above: Non- GFR Calc RBC Auto (Bld) [#/Vol]Ordere d By: Mariana Raphael on 06-20-2023 RBC (Bld) [#/Vol] 5.33 10*6/uL 4.2-5.4 [facility] Serum or plasma calcium andrew urement (mass/volume)Ordered By: Mariana Raphael on 06-20-2023 Calcium [Mass/Vol] 9.0 mg/dL 8.5-10.1 [facility] Serum or plasma creatinine m easurement (mass/volume)Ordered By: Mariana Raphael on 06-20-2023 Creatinine [Mass/Vol] 0.83 mg/dL 0.55-1.02 [facility] Comment on above: The validity of the calculated GFR & GFRAA in patients over 70 years has not been determined. Clinical correlation is essential. Serum or plasma urea nitroge n measurement (mass/volume)Ordered By: Mariana Raphael on 06-20-2023 Urea nitrogen [Mass/Vol] 16 mg/dL 7-18 [facility] Thin prep Papanicolaou smear with manual screeningOrdered By: Marianaherb Raphael on 06-20-2023 Thin prep Papanicolaou smear with manual screening 3.8 g/dL 3.2-5.0 [facility] Thin prep Papanicolaou smear with manual screening 22 U/L 15-37 [facility] Thin prep Papanicolaou smear with manual screening 5 5-15 [facility] Absolute lymphocyte countOrd ered By: Janet Davis on 06-01-2023 Lymphocytes Auto (Unsp spec) [#/Vol] 1.59 10*3/uL 0.83-4.51 [facility] Automated lymphocyte count a s percentage of total leukocytesOrdered By: Janet Davis on 06-01-2023 Lymphocytes/100 WBC Auto (Unsp spec) 26.8 % 19-41 [facility] Basophil percentageOrdered B y: Janet Davis on 06-01-2023 Basophils/100 WBC (Bld) 0.5 % 0-1 [facility] Eosinophils/100 WBC (Bld) 1.0 % 0-5 [facility] Hemoglobin (Bld) [Mass/Vol] 11.9 g/dL 12.0-15.0 [facility] Monocytes/100 WBC (Bld) 10.3 % 0-[address] [facility] Neutrophils (Bld) [#/Vol] 3.6 10*3/uL 2.0-7.7 [facility] Neutrophils/100 WBC (Bld) 60.9 % 47-70 [facility] WBC (Bld) [#/Vol] 5.9 10*3/uL 4.4-11.0 [facility] Determination of erythrocyte mean corpuscular volume (MCV)Ordered By: Janet Davis on 06-01-2023 MCV (RBC) [Entitic vol] 81.2 fL 81-99 [facility] Erythrocyte distribution wid th ratioOrdered By: Janet Davis on 06-01-2023 Erythrocyte distribution width (RBC) [Ratio] 14.3 % 11.6-14.6 [facility] Erythrocyte distribution wid th standard deviationOrdered By: Janet Davis on 06-01-2023 Erythrocyte distribution width (RBC) [Entitic vol] 41.3 fL 35.1-43.9 [facility] Hematocrit Auto (Bld) [Volum e fraction]Ordered By: Janet Davis on 06-01-2023 Hematocrit (Bld) [Volume fraction] 37.5 % 37-47 [facility] Immature granulocytes/100 WB C Auto (Bld)Ordered By: Janet Davis on 06-01-2023 Immature granulocytes/100 WBC (Bld) 0.500 % 0.0-0.9 [facility] Comment on above: IG% - Immature Granu locytes (promyelocytes, myelocytes and metamyelocytes) > 1% indicates that a LEFT SHIFT is Present. Laboratory - Hematology and Cell countsOrdered By: Janet Davis on 06-01-2023 MCH (RBC) [Entitic mass] 25.8 pg 27.0-32.0 [facility] MCHC (RBC) [Mass/Vol] 31.7 g/dL 32-36 [facility] Nucleated RBC/100 WBC (Bld) [Ratio] 0 % 0-5 [facility] Platelet mean volume (Bld) [Entitic vol] 8.8 fL 6.2-12.0 [facility] Platelets (Bld) [#/Vol] 202 10*3/uL 150-450 [facility] RBC Auto (Bld) [#/Vol]Ordere d By: Janet Davis on 06-01-2023 RBC (Bld) [#/Vol] 4.62 10*6/uL 4.2-5.4 [facility] Serum Treponema species anti body detectionOrdered By: Janet Davis on 06-01-2023 Treponema sp Ab Ql (S) Non-Reactive [facility] Laboratory - Chemistry and C hemistry - challengeon 05-20-2023 Glucose Ql (U) Negative [facility] Laboratory - Urinalysison Protein Ql (U) Negative [facility] Laboratory - Chemistry and C hemistry - challengeon 05-12-2023 Glucose Ql (U) Negative [facility] Laboratory - Urinalysison Protein Ql (U) Negative [facility] No Panel InformationOrdered By: Janet Davis on 05-12-2023 Group B Streptococcus Culture Group B Beta Streptococcus is not isolated. [facility] Group B Streptococcus Culture Group B Beta Streptococcus is not isolated. [facility] Laboratory - Chemistry and C hemistry - challengeon 04-29-2023 Glucose Ql (U) Negative [facility] Laboratory - Chemistry and C hemistry - challengeon 04-23-2023 Glucose Ql (U) Negative [facility] Laboratory - Urinalysison Protein Ql (U) Negative [facility] Laboratory - Chemistry and C hemistry - challengeon 04-17-2023 Glucose Ql (U) Negative [facility] Laboratory - Urinalysison Protein Ql (U) Negative [facility] Progress Noteon 04-07-2023 Technology Sales Specialist Authentication Interface Message Text [facility] MATERNAL- MEDICINE CONSULT Referring/Requesting Provider: Mariely Valencia MD PCP: Jocelyn Harrell DO This is a telemedicine video visit [...] NST, baby admitted for 1.5 months at [facility] 2 Term 03/30/19 40w0d 3.26 kg M Vag-Spont EPI RUSSELL Comments: Cora 1 Term 09/27/16 40w6d 3.374 kg M Vag-Spont EPI N RUSSELL Comments: Baby in [facility] for 1 week (turned blue while [...] PHYSICAL EXA (more content not included)... Normal [facility] Laboratory - Chemistry and C hemistry - challengeon 04-02-2023 Glucose Ql (U) Negative [facility] Laboratory - Urinalysison Protein Ql (U) Negative [facility] SS-B IgG antibody assayOrder ed By: Janet Davis on 04-02-2023 Sjogrens syndrome-B extractable nuclear IgG Qn (S) < 0.2 AI 0.0-0.9 [facility] Comment on above: Performed at: [facility] [address] [id number] Director: Joel Box PhD, Phone: [phone] Laboratory - Chemistry and C hemistry - challengeon 03-20-2023 Glucose Ql (U) Negative [facility] Laboratory - Urinalysison Protein Ql (U) Negative [facility] Laboratory - Chemistry and C hemistry - challengeon 03-05-2023 Glucose Ql (U) Negative [facility] Laboratory - Urinalysison Protein Ql (U) Negative [facility] Absolute lymphocyte countOrd ered By: Janet Davis on 02-27-2023 Lymphocytes Auto (Unsp spec) [#/Vol] 1.27 10*3/uL 0.83-4.51 [facility] Basophil percentageOrdered B y: Janet Davis on 02-27-2023 Basophils/100 WBC (Bld) 0.2 % 0-1 [facility] Bilirubin [Mass/Vol] 0.20 mg/dL 0.20-1.00 [facility] Comment on above: For patients on eltr ombopag therapy, use of Dimension [place] TBIL is not recommended. Chloride [Moles/Vol] 109 mmol/L 98-107 [facility] Eosinophils/100 WBC (Bld) 1.1 % 0-5 [facility] Glucose [Mass/Vol] 113 mg/dL 74-106 [facility] Comment on above: Fasting Glucose resu lt from 100 to 125 mg/dL suggests IMPAIRED HOMEOSTASIS per A.D.A. criteria. Neutrophils (Bld) [#/Vol] 6.4 10*3/uL 2.0-7.7 [facility] Neutrophils/100 WBC (Bld) 75.6 % 47-70 [facility] Potassium [Moles/Vol] 3.7 mmol/L 3.5-5.1 [facility] Protein [Mass/Vol] 6.7 g/dL 6.4-8.2 [facility] Sodium [Moles/Vol] 139 mmol/L 136-145 [facility] WBC (Bld) [#/Vol] 8.4 10*3/uL 4.4-11.0 [facility] Blood erythrocytes count (nu mber/volume)Ordered By: Janet Davis on 02-27-2023 RBC (Bld) [#/Vol] 4.46 10*6/uL 4.2-5.4 [facility] Blood hemoglobin measurement (mass/volume)Ordered By: Janet Davis on 02-27-2023 Hemoglobin (Bld) [Mass/Vol] 11.8 g/dL 12.0-15.0 [facility] Blood lymphocytes/100 leukoc ytesOrdered By: Janet Davis on 02-27-2023 Lymphocytes/100 WBC (Bld) 15.1 % 19-41 [facility] Blood monocytes/100 leukocyt esOrdered By: Janet Davis on 02-27-2023 Monocytes/100 WBC (Bld) 7.4 % 0-[address] [facility] Blood platelet mean volumeOr dered By: Janet Davis on 02-27-2023 Platelet mean volume (Bld) [Entitic vol] 8.7 fL 6.2-12.0 [facility] Determination of erythrocyte mean corpuscular volume (MCV)Ordered By: Janet Davis on 02-27-2023 MCV (RBC) [Entitic vol] 82.1 fL 81-99 [facility] Gestational diabetes screen 1-hour screen with 50g oral glucose loadOrdered By: Janet Davis on 02-27-2023 Glucose 1 Hr post 50 g glucose PO [Mass/Vol] 113 mg/dL 70-140 [facility] HIV 1 and HIV-2 antibody ass ay with HIV-1 p24 antigen detectionOrdered By: Janet Davis on 02-27-2023 HIV 1+2 Ab+HIV1 p24 Ag IA Ql Non-Reactive Nonreactive [facility] Hematocrit Auto (Bld) [Volum e fraction]Ordered By: Janet Davis on 02-27-2023 Hematocrit (Bld) [Volume fraction] 36.6 % 37-47 [facility] Laboratory - Chemistry and C hemistry - challengeon 02-27-2023 Glucose Ql (U) Negative [facility] Laboratory - Chemistry and C hemistry - challengeOrdered By: Janet Davis on 02-27-2023 ALP [Catalytic activity/Vol] 52 U/L 45-117 [facility] ALT [Catalytic activity/Vol] 19 U/L 13-56 [facility] CO2 [Moles/Vol] 23.0 mmol/L 21.0-32.0 [facility] Globulin (S) [Mass/Vol] 3.8 g/dL 2.2-4.2 [facility] Urea nitrogen/Creatinine [Mass ratio] 13.6 mg/mg 10-20 [facility] Laboratory - Hematology and Cell countsOrdered By: Janet Davis on 02-27-2023 Erythrocyte distribution width (RBC) [Entitic vol] 40.5 fL 35.1-43.9 [facility] Erythrocyte distribution width (RBC) [Ratio] 13.5 % 11.6-14.6 [facility] Immature granulocytes/100 WBC (Bld) 0.600 % 0.0-0.9 [facility] Comment on above: IG% - Immature Granu locytes (promyelocytes, myelocytes and metamyelocytes) > 1% indicates that a LEFT SHIFT is Present. MCH (RBC) [Entitic mass] 26.5 pg 27.0-32.0 [facility] Nucleated RBC/100 WBC (Bld) [Ratio] 0 % 0-5 [facility] Laboratory - Urinalysison Protein Ql (U) Negative [facility] MCHC Auto (RBC) [Mass/Vol]Or dered By: Janet Davis on 02-27-2023 MCHC (RBC) [Mass/Vol] 32.2 g/dL 32-36 [facility] No Panel InformationOrdered By: Janet Davis on 02-27-2023 Estimated GFR (MDRD) Amer 153 mL/min >60 [facility] Comment on above: GFR Calc Estimated GFR (MDRD) Non-Af Amer 126 mL/min >60 [facility] Comment on above: Non- GFR Calc Platelets bldOrdered By: Anastasiya Davis on 02-27-2023 Platelets (Bld) [#/Vol] 236 10*3/uL 150-450 [facility] Serum Treponema species anti body detectionOrdered By: Janet Davis on 02-27-2023 Treponema sp Ab Ql (S) Non-Reactive [facility] Serum or plasma albumin andrew urement (mass/volume)Ordered By: Janet Davis on 02-27-2023 Albumin [Mass/Vol] 2.9 g/dL 3.2-5.0 [facility] Serum or plasma albumin/glob ulin mass ratioOrdered By: Janet Davis on 02-27-2023 Albumin/Globulin [Mass ratio] 0.8 {ratio} 0.9-2.4 [facility] Serum or plasma calcium andrew urement (mass/volume)Ordered By: Janet Davis on 02-27-2023 Calcium [Mass/Vol] 8.6 mg/dL 8.5-10.1 [facility] Serum or plasma creatinine m easurement (mass/volume)Ordered By: Janet Davis on 02-27-2023 Creatinine [Mass/Vol] 0.59 mg/dL 0.55-1.02 [facility] Comment on above: The validity of the calculated GFR & GFRAA in patients over 70 years has not been determined. Clinical correlation is essential. Serum or plasma urea nitroge n measurement (mass/volume)Ordered By: Janet Davis on 02-27-2023 Urea nitrogen [Mass/Vol] 8 mg/dL 7-18 [facility] Thin prep Papanicolaou smear with manual screeningOrdered By: Janet Davis on 02-27-2023 Thin prep Papanicolaou smear with manual screening 15 U/L 15-37 [facility] Thin prep Papanicolaou smear with manual screening 7 5-15 [facility] Laboratory - Chemistry and C hemistry - challengeon 01-29-2023 Glucose Ql (U) Negative [facility] Laboratory - Urinalysison Protein Ql (U) Negative [facility] Laboratory - Chemistry and C hemistry - challengeon 12-31-2022 Glucose Ql (U) Negative [facility] Laboratory - Urinalysison Protein Ql (U) Negative [facility] Absolute lymphocyte countOrd ered By: Yovana Fonseca on 11-28-2022 Lymphocytes Auto (Unsp spec) [#/Vol] 1.44 10*3/uL 0.83-4.51 [facility] Basophil percentageOrdered B y: Yovana Fonseca on 11-28-2022 Bilirubin [Mass/Vol] 0.20 mg/dL 0.20-1.00 [facility] Comment on above: For patients on eltr ombopag therapy, use of Dimension [place] TBIL is not recommended. Chloride [Moles/Vol] 105 mmol/L 98-107 [facility] Glucose [Mass/Vol] 100 mg/dL 74-106 [facility] Comment on above: Fasting Glucose resu lt from 100 to 125 mg/dL suggests IMPAIRED HOMEOSTASIS per A.D.A. criteria. Potassium [Moles/Vol] 3.5 mmol/L 3.5-5.1 [facility] Protein [Mass/Vol] 7.8 g/dL 6.4-8.2 [facility] Sodium [Moles/Vol] 136 mmol/L 136-145 [facility] Basophils/100 WBC (Bld) 0.4 % 0-1 [facility] Eosinophils/100 WBC (Bld) 1.0 % 0-5 [facility] Neutrophils (Bld) [#/Vol] 5.5 10*3/uL 2.0-7.7 [facility] Neutrophils/100 WBC (Bld) 71.8 % 47-70 [facility] WBC (Bld) [#/Vol] 7.7 10*3/uL 4.4-11.0 [facility] Blood erythrocytes count (nu mber/volume)Ordered By: Yovana Fonseca on 11-28-2022 RBC (Bld) [#/Vol] 5.01 10*6/uL 4.2-5.4 [facility] Blood hemoglobin measurement (mass/volume)Ordered By: Yovana Fonseca on 11-28-2022 Hemoglobin (Bld) [Mass/Vol] 12.9 g/dL 12.0-15.0 [facility] Blood lymphocytes/100 leukoc ytesOrdered By: Yovana Fonseca on 11-28-2022 Lymphocytes/100 WBC (Bld) 18.8 % 19-41 [facility] Blood monocytes/100 leukocyt esOrdered By: Yovana Fonseca on 11-28-2022 Monocytes/100 WBC (Bld) 7.6 % 0-[address] [facility] Blood platelet mean volumeOr dered By: Yovana Fonseca on 11-28-2022 Platelet mean volume (Bld) [Entitic vol] 9.0 fL 6.2-12.0 [facility] Determination of erythrocyte mean corpuscular volume (MCV)Ordered By: Yovana Fonseca on 11-28-2022 MCV (RBC) [Entitic vol] 81.2 fL 81-99 [facility] Dilute Baldo's viper venom timeOrdered By: Yovana Fonseca on 11-28-2022 dRVVT Coag (PPP) [Time] 36.3 s 0.0-47.0 [facility] HIV 1 and HIV-2 antibody ass ay with HIV-1 p24 antigen detectionOrdered By: Yovana Fonseca on 11-28-2022 HIV 1+2 Ab+HIV1 p24 Ag IA Ql Non-Reactive Nonreactive [facility] Hematocrit Auto (Bld) [Volum e fraction]Ordered By: Yovana Fonseca on 11-28-2022 Hematocrit (Bld) [Volume fraction] 40.7 % 37-47 [facility] Laboratory - Chemistry and C hemistry - challengeOrdered By: Yovana Fonseca on 11-28-2022 ALP [Catalytic activity/Vol] 45 U/L 45-117 [facility] ALT [Catalytic activity/Vol] 23 U/L 13-56 [facility] CO2 [Moles/Vol] 26.0 mmol/L 21.0-32.0 [facility] Globulin (S) [Mass/Vol] 4.0 g/dL 2.2-4.2 [facility] Urea nitrogen/Creatinine [Mass ratio] 18.7 mg/mg 10-20 [facility] Laboratory - Hematology and Cell countsOrdered By: Yovana Fonseca on 11-28-2022 Erythrocyte distribution width (RBC) [Entitic vol] 40.5 fL 35.1-43.9 [facility] Erythrocyte distribution width (RBC) [Ratio] 13.8 % 11.6-14.6 [facility] Immature granulocytes/100 WBC (Bld) 0.400 % 0.0-0.9 [facility] Comment on above: IG% - Immature Granu locytes (promyelocytes, myelocytes and metamyelocytes) > 1% indicates that a LEFT SHIFT is Present. MCH (RBC) [Entitic mass] 25.7 pg 27.0-32.0 [facility] Nucleated RBC/100 WBC (Bld) [Ratio] 0 % 0-5 [facility] MCHC Auto (RBC) [Mass/Vol]Or dered By: Yovana Fonseca on 11-28-2022 MCHC (RBC) [Mass/Vol] 31.7 g/dL 32-36 [facility] No Panel InformationOrdered By: Yovana Fonseca on 11-28-2022 Estimated GFR (MDRD) Amer 153 mL/min >60 [facility] Comment on above: GFR Calc Estimated GFR (MDRD) Non-Af Amer 126 mL/min >60 [facility] Comment on above: Non- GFR Calc Anti-Cardiolipin IgM Antibody 33 MPL U/mL 0-12 [facility] Comment on above: Negative: <13 Indete rminate: 13 - 20 Low-Med Positive: >20 - 80 High Positive: >80 Hepatitis B Surface Antigen Non-Reactive Nonreactive [facility] Hepatitis C Antibody Non-Reactive Nonreactive [facility] Comment on above: Non Reactive: < 0.8 Equivocal: >/= 0.8 to < 1.0 Reactive: >/= 1.0The CDC recommends that a reactive/equivocal HCV antibody result be followed up by the HCV Nucleic Acid Amplificationtest (829974) Rubella IgG Antibody Reactive Nonreactive [facility] Comment on above: Antibody Results Int erpretation of Immune Status Non Reactive Presumed Non-Immune Equivocal Equivocal Reactive Presumed Immune Platelets bldOrdered By: Russ Fonseca on 11-28-2022 Platelets (Bld) [#/Vol] 270 10*3/uL 150-450 [facility] Serum Treponema species anti body detectionOrdered By: Yovana Fonseca on 11-28-2022 Treponema sp Ab Ql (S) Non-Reactive [facility] Serum beta 2 glycoprotein 1 IgA antibody detectionOrdered By: Yovana Fonseca on 11-28-2022 Beta 2 glycoprotein 1 IgA Ql (S) <9 0-25 [facility] Comment on above: Result Units: GPI [...] glycoprotein 1 IgG Ql (S) <9 0-20 [facility] Comment on above: Result Units: GPI [...] glycoprotein 1 IgM Ql (S) 54 0-32 [facility] Comment on above: Result Units: GPI Ig M unitsThe reference interval reflects a 3SD or 99th percentileinterval, which is thought to represent a potentiallyclinically significant result in accordance with theInternational Consensus Statement on the classificationcriteria for definitive antiphospholipid syndrome (APS). JThromb Haem 2006;4:295-306.Performed at: [facility] [employer] [facility] [address] [id number] Director: Carly Adame MD, Phone: [phone] at: [employer] [address] [id number] Director: Joel Box PhD, Phone: [phone] Serum cardiolipin IgG antibo dy assay by immunoassay (units/volume)Ordered By: Yovana Fonseca on 11-28-2022 Cardiolipin IgG IA Qn (S) < 9 GPL U/mL 0-14 [facility] Comment on above: Negative: <15 Indete rminate: 15 - 20 Low-Med Positive: >20 - 80 High Positive: >80 Serum or plasma albumin andrew urement (mass/volume)Ordered By: Yovana Fonseca on 11-28-2022 Albumin [Mass/Vol] 3.8 g/dL 3.2-5.0 [facility] Serum or plasma albumin/glob ulin mass ratioOrdered By: Yovana Fonseca on 11-28-2022 Albumin/Globulin [Mass ratio] 1.0 {ratio} 0.9-2.4 [facility] Serum or plasma calcium andrew urement (mass/volume)Ordered By: Yovana Fonseca on 11-28-2022 Calcium [Mass/Vol] 8.9 mg/dL 8.5-10.1 [facility] Serum or plasma cardiolipin IgA antibody assay (units/volume)Ordered By: Yovana Fonseca on 11-28-2022 Cardiolipin IgA Qn < 9 APL U/mL 0-11 [facility] Comment on above: Negative: <12 Indete rminate: 12 - 20 Low-Med Positive: >20 - 80 High Positive: >80 Serum or plasma creatinine m easurement (mass/volume)Ordered By: Yovana Fonseca on 11-28-2022 Creatinine [Mass/Vol] 0.59 mg/dL 0.55-1.02 [facility] Comment on above: The validity of the calculated GFR & GFRAA in patients over 70 years has not been determined. Clinical correlation is essential. Serum or plasma urea nitroge n measurement (mass/volume)Ordered By: Yovana Fonseca on 11-28-2022 Urea nitrogen [Mass/Vol] 11 mg/dL 7-18 [facility] Thin prep Papanicolaou smear with manual screeningOrdered By: Yovana Fonseca on 11-28-2022 Thin prep Papanicolaou smear with manual screening 14 U/L 15-37 [facility] Thin prep Papanicolaou smear with manual screening 5 5-15 [facility] Thin prep Papanicolaou smear with manual screening 37.4 sec 0.0-47.6 [facility] Thin prep Papanicolaou smear with manual screening 1.10 Ratio 0.00-1.34 [facility] Thin prep Papanicolaou smear with manual screening 33.1 sec 0.0-43.5 [facility] Thin prep Papanicolaou smear with manual screening Comment: . [facility] Comment on above: No lupus anticoagula nt was detected. Thrombin time in platelet po or plasmaOrdered By: Yovana Fonseca on 11-28-2022 Thrombin time Coag (PPP) [Time] 15.5 sec 0.0-23.0 [facility] Chlamydia trachomatis rRNA d etection by probe and target amplification methodOrdered By: Yovana Fonseca on 11-08-2022 C. trachomatis rRNA EDILMA+probe Ql (Unsp spec) Negative Negative [facility] Culture, urineOrdered By: Pato Fonseca on 11-08-2022 Bacteria identified Cx Nom (U) Culture exhibits no growth. [facility] Bacteria identified Cx Nom (U) Culture exhibits no growth. [facility] - Microbiology an d Antimicrobial susceptibilityOrdered By: Yovana Fonseca on 11-08-2022 N. gonorrhoeae DNA EDILMA+probe Ql (Unsp spec) Negative Negative [facility] Comment on above: Performed at: =[facility] Jose Enrique [address]omez[address] [place] [id number] Director: Asha Olsen MD, Phone: [phone] Absolute lymphocyte countOrd ered By: Mariana Raphael on 08-21-2022 Lymphocytes Auto (Unsp spec) [#/Vol] 1.72 10*3/uL 0.83-4.51 [facility] Basophil percentageOrdered B y: Mariana Raphael on 08-21-2022 Basophils/100 WBC (Bld) 0.7 % 0-[address] [facility] Bilirubin [Mass/Vol] 0.50 mg/dL 0.20-1.00 [facility] Comment on above: For patients on eltr ombopag therapy, use of Dimension [place] TBIL is not recommended. Chloride [Moles/Vol] 108 mmol/L 98-107 [facility] Eosinophils/100 WBC (Bld) 1.7 % 0-5 [facility] Glucose [Mass/Vol] 83 mg/dL 74-106 [facility] Neutrophils (Bld) [#/Vol] 3.0 10*3/uL 2.0-7.7 [facility] Neutrophils/100 WBC (Bld) 55.3 % 47-70 [facility] Potassium [Moles/Vol] 4.1 mmol/L 3.5-5.1 [facility] Protein [Mass/Vol] 7.9 g/dL 6.4-8.2 [facility] Sodium [Moles/Vol] 139 mmol/L 136-145 [facility] WBC (Bld) [#/Vol] 5.3 10*3/uL 4.4-11.0 [facility] Bilirubin Test strip Ql (U)O rdered By: Mariana Raphael on 08-21-2022 Bilirubin Ql (U) Negative Negative [facility] Blood erythrocytes count (nu mber/volume)Ordered By: Mariana Raphael on 08-21-2022 RBC (Bld) [#/Vol] 5.38 10*6/uL 4.2-5.4 [facility] Blood hemoglobin measurement (mass/volume)Ordered By: Mariana Raphael on 08-21-2022 Hemoglobin (Bld) [Mass/Vol] 13.7 g/dL 12.0-15.0 [facility] Blood lymphocytes/100 leukoc ytesOrdered By: Mariana Raphael on 08-21-2022 Lymphocytes/100 WBC (Bld) 32.2 % 19-41 [facility] Blood monocytes/100 leukocyt esOrdered By: Mariana Raphael on 08-21-2022 Monocytes/100 WBC (Bld) 9.9 % 0-10 [facility] Blood platelet mean volumeOr dered By: Mariana Raphael on 08-21-2022 Platelet mean volume (Bld) [Entitic vol] 9.0 fL 6.2-12.0 [facility] Determination of erythrocyte mean corpuscular volume (MCV)Ordered By: Mariana Raphael on 08-21-2022 MCV (RBC) [Entitic vol] 81.6 fL 81-99 [facility] Dilute Baldo's viper venom timeOrdered By: Mariana Raphael on 08-21-2022 dRVVT Coag (PPP) [Time] 35.9 s 0.0-47.0 [facility] Hematocrit Auto (Bld) [Volum e fraction]Ordered By: Mariana Raphael on 08-21-2022 Hematocrit (Bld) [Volume fraction] 43.9 % 37-47 [facility] INR in Blood by Coagulation assayOrdered By: Mariana Raphael on 08-21-2022 INR Coag (Bld) [Relative time] 1.0 {INR} [facility] Ketones Test strip Ql (U)Ord ered By: Mariana Rpahael on 08-21-2022 Ketones Ql (U) Negative Negative [facility] - Chemistry and C hemistry - challengeOrdered By: Mariana Raphael on 08-21-2022 ALP [Catalytic activity/Vol] 53 U/L 45-117 [facility] ALT [Catalytic activity/Vol] 21 U/L 13-56 [facility] CO2 [Moles/Vol] 26.0 mmol/L 21.0-32.0 [facility] Globulin (S) [Mass/Vol] 3.7 g/dL 2.2-4.2 [facility] Urea nitrogen/Creatinine [Mass ratio] 13.3 mg/mg 10-20 [facility] - CoagulationOrde red By: Mariana Raphael on 08-21-2022 aPTT Coag (Bld) [Time] 32.0 s 24.1-36.2 [facility] PT Coag (PPP) [Time] 13.6 s 11.7-14.9 [facility] Laboratory - Hematology and Cell countsOrdered By: Mariana Raphael on 08-21-2022 Erythrocyte distribution width (RBC) [Entitic vol] 41.7 fL 35.1-43.9 [facility] Erythrocyte distribution width (RBC) [Ratio] 14.1 % 11.6-14.6 [facility] Immature granulocytes/100 WBC (Bld) 0.200 % 0.0-0.9 [facility] Comment on above: IG% - Immature Granu locytes (promyelocytes, myelocytes and metamyelocytes) > 1% indicates that a LEFT SHIFT is Present. MCH (RBC) [Entitic mass] 25.5 pg 27.0-32.0 [facility] Nucleated RBC/100 WBC (Bld) [Ratio] 0 % 0-5 [facility] - Miscellaneous t estsOrdered By: Mariana Raphael on 08-21-2022 Service comment (Unsp spec) [Interp] Comment . [facility] Comment on above: Results do not indic ate the presence of a LupusAnticoagulant: abnormal high screening results (PTT-LA,dRVVT, mixing studies), may be due to medication (heparin,warfarin, aspirin), Factor inhibitors, anticardiolipinantibodies, or poor specimen integrity.Performed at: [facility] Lab[address] [id number] Director: Carly Adame MD, Phone: [phone] MCHC Auto (RBC) [Mass/Vol]Or dered By: Mariana Raphael on 08-21-2022 MCHC (RBC) [Mass/Vol] 31.2 g/dL 32-36 [facility] Nitrite Test strip Ql (U)Ord ered By: Mariana Raphael on 08-21-2022 Nitrite Ql (U) Negative Negative [facility] No Panel InformationOrdered By: Mariana Raphael on 08-21-2022 Estimated GFR (MDRD) Amer 116 mL/min >60 [facility] Comment on above: GFR Calc Estimated GFR (MDRD) Non-Af Amer 95 mL/min >60 [facility] Comment on above: Non- GFR Calc Hepatitis B Surface Antigen Non-Reactive Nonreactive [facility] Hepatitis C Antibody Non-Reactive Nonreactive [facility] Comment on above: Non Reactive: < 0.8 Equivocal: >/= 0.8 to < 1.0 Reactive: >/= 1.0The CDC recommends that a reactive/equivocal HCV antibody result be followed up by the HCV Nucleic Acid Amplificationtest (738494) Miscellaneous Test Comment MAILED SPECIMEN [facility] Platelets bldOrdered By: Laura Raphael on 08-21-2022 Platelets (Bld) [#/Vol] 297 10*3/uL 150-450 [facility] Protein Test strip Ql (U)Ord ered By: Mariana Raphael on 08-21-2022 Protein Ql (U) Negative Negative [facility] Serum hepatitis B virus surf indira antibody IgG detectionOrdered By: Mariana Raphael on 08-21-2022 HBV surface IgG Ql (S) Non-Reactive [facility] Comment on above: Non Reactive: Incons istent with immunity less than <10 mIU/mL Reactive: Consistent with immunity greater than or equal to 10 mIU/mL Serum or plasma albumin andrew urement (mass/volume)Ordered By: Mariana Raphael on 08-21-2022 Albumin [Mass/Vol] 4.2 g/dL 3.2-5.0 [facility] Serum or plasma albumin/glob ulin mass ratioOrdered By: Mariana Raphael on 08-21-2022 Albumin/Globulin [Mass ratio] 1.1 {ratio} 0.9-2.4 [facility] Serum or plasma calcium andrew urement (mass/volume)Ordered By: Mariana Raphael on 08-21-2022 Calcium [Mass/Vol] 9.4 mg/dL 8.5-10.1 [facility] Serum or plasma creatinine m easurement (mass/volume)Ordered By: Mariana Raphael on 08-21-2022 Creatinine [Mass/Vol] 0.75 mg/dL 0.55-1.02 [facility] Comment on above: The validity of the calculated GFR & GFRAA in patients over 70 years has not been determined. Clinical correlation is essential. Serum or plasma urea nitroge n measurement (mass/volume)Ordered By: Mariana Raphael on 08-21-2022 Urea nitrogen [Mass/Vol] 10 mg/dL 7-18 [facility] Thin prep Papanicolaou smear with manual screeningOrdered By: Mariana Raphael on 08-21-2022 Thin prep Papanicolaou smear with manual screening 14 U/L 15-37 [facility] Thin prep Papanicolaou smear with manual screening 5 5-15 [facility] Thin prep Papanicolaou smear with manual screening 44.9 sec 0.0-47.6 [facility] Thin prep Papanicolaou smear with manual screening 1.03 Ratio 0.00-1.34 [facility] Thin prep Papanicolaou smear with manual screening 38.6 sec 0.0-43.5 [facility] Thin prep Papanicolaou smear with manual screening Comment: . [facility] Comment on above: No lupus anticoagula nt was detected. Thrombin time in platelet po or plasmaOrdered By: Mariana Raphael on 08-21-2022 Thrombin time Coag (PPP) [Time] 16.4 sec 0.0-23.0 [facility] Urine blood detectionOrdered By: Mariana Raphael on 08-21-2022 RBC Ql (U) 10 /ul Negative [facility] Urine clarityOrdered By: Laura Raphael on 08-21-2022 Clarity (U) Clear Clear [facility] Urine color determinationOrd ered By: Mariana Raphael on 08-21-2022 Color (U) Yellow Yellow [facility] Urine creatinine measurement (mass/volume)Ordered By: Mariana Raphael on 08-21-2022 Creatinine (U) [Mass/Vol] 173.00 mg/dL NO RANGE EST. [facility] Urine glucose detectionOrder ed By: Mariana Raphael on 08-21-2022 Glucose Ql (U) Normal mg/dl Normal [facility] Urine leukocyte esterase det ection by dipstickOrdered By: Mariana Raphael on 08-21-2022 Leukocyte esterase Test strip Ql (U) 100 /ul Negative [facility] Urine pHOrdered By: Mariana prabhakar on 08-21-2022 pH (U) 6.0 [pH] 5.0 - 8.0 [facility] Urine protein measurement (m ass/volume)Ordered By: Mariana Raphael on 08-21-2022 Protein (U) [Mass/Vol] 10.2 mg/dL 0.0-11.8 [facility] Urine protein/creatinine mas s ratioOrdered By: Mariana Raphael on 08-21-2022 Protein/Creatinine (U) [Mass ratio] 59 mg/g CRE 0-200 [facility] Urine specific gravity measu rementOrdered By: Mariana Raphael on 08-21-2022 Specific gravity (U) [Rel density] 1.020 1.002-1.030 [facility] Urobilinogen Auto test strip Ql (U)Ordered By: Mariana Raphael on 08-21-2022 Urobilinogen Ql (U) Normal mg/dl Normal [facility] Absolute lymphocyte countOrd ered By: Dr. Diaz on 08-16-2022 Lymphocytes Auto (Unsp spec) [#/Vol] 1.79 10*3/uL 0.83-4.51 [facility] Basophil percentageOrdered B y: Dr. Diza on 08-16-2022 Basophils/100 WBC (Bld) 0.6 % 0-1 [facility] Eosinophils/100 WBC (Bld) 2.1 % 0-5 [facility] Neutrophils (Bld) [#/Vol] 2.3 10*3/uL 2.0-7.7 [facility] Neutrophils/100 WBC (Bld) 48.4 % 47-70 [facility] WBC (Bld) [#/Vol] 4.8 10*3/uL 4.4-11.0 [facility] Blood erythrocytes count (nu mber/volume)Ordered By: Dr. Diaz on 08-16-2022 RBC (Bld) [#/Vol] 5.18 10*6/uL 4.2-5.4 [facility] Blood hemoglobin measurement (mass/volume)Ordered By: Dr. Diaz on 08-16-2022 Hemoglobin (Bld) [Mass/Vol] 13.1 g/dL 12.0-15.0 [facility] Blood lymphocytes/100 leukoc ytesOrdered By: Dr. Diaz on 08-16-2022 Lymphocytes/100 WBC (Bld) 37.4 % 19-41 [facility] Blood monocytes/100 leukocyt esOrdered By: Dr. Diaz on 08-16-2022 Monocytes/100 WBC (Bld) 11.3 % 0-10 [facility] Blood platelet mean volumeOr dered By: Dr. Diaz on 08-16-2022 Platelet mean volume (Bld) [Entitic vol] 8.5 fL 6.2-12.0 [facility] Determination of erythrocyte mean corpuscular volume (MCV)Ordered By: Dr. Diaz on 08-16-2022 MCV (RBC) [Entitic vol] 79.7 fL 81-99 [facility] Hematocrit Auto (Bld) [Volum e fraction]Ordered By: Dr. Diaz on 08-16-2022 Hematocrit (Bld) [Volume fraction] 41.3 % 37-47 [facility] - Hematology and Cell countsOrdered By: Dr. Diaz on 08-16-2022 Erythrocyte distribution width (RBC) [Entitic vol] 40.4 fL 35.1-43.9 [facility] Erythrocyte distribution width (RBC) [Ratio] 13.9 % 11.6-14.6 [facility] Immature granulocytes/100 WBC (Bld) 0.200 % 0.0-0.9 [facility] Comment on above: IG% - Immature Granu locytes (promyelocytes, myelocytes and metamyelocytes) > 1% indicates that a LEFT SHIFT is Present. MCH (RBC) [Entitic mass] 25.3 pg 27.0-32.0 [facility] Nucleated RBC/100 WBC (Bld) [Ratio] 0 % 0-5 [facility] MCHC Auto (RBC) [Mass/Vol]Or dered By: Dr. Diaz on 08-16-2022 MCHC (RBC) [Mass/Vol] 31.7 g/dL 32-36 [facility] No Panel InformationOrdered By: Dr. Diaz on 08-16-2022 Troponin I High Sensitivity < 3 pg/mL 3.0-54.0 [facility] Comment on above: Please Note: New Vandana t Units and Gender Specific Reference Ranges. For more information see Policy Stat Procedure [place] High Sensitivity Troponin (TNIH) and attachments. Platelets bldOrdered By: Dr. Diaz on 08-16-2022 Platelets (Bld) [#/Vol] 262 10*3/uL 150-450 [facility] CIRANon 07-30-2022 Dil Baldo Viper Venom 39.4 seconds Normal 30.0-42.0 [facility] ([place]) Comment on above: Performed By: #### D IFF, APTT, CBC, LIPID, ANEU, ADIFF, GFR, TSH, FT4, CMP, MONO, MORPH, ESR, CRP #### [address] [address] #### MCRSO, CIRAN, ADA, FRANCESCA #### [address] [address] [place] Interpretation See Below Normal [facility] ([place]) Comment on above: Result Comment: No e [...] FT4, CMP, MONO, MORPH, ESR, CRP #### [address] [address] #### MCRSO, CIRAN, ADA, FRANCESCA #### [address] [address] Platelet neutraliz. Negative Normal [facility] ([place]) Comment on above: Performed By: #### D IFF, APTT, CBC, LIPID, ANEU, ADIFF, GFR, TSH, FT4, CMP, MONO, MORPH, ESR, CRP #### [address] [address] #### BRENNAN COVINGTON, ADA, FRANCESCA #### [address] [address] .ANATon 07-29-2022 ADA Pattern 1 Speckled Normal [facility] ([place]) Comment on above: Result Comment: At A [facility], an ADA titer of 160 or greater [...] Antibody (CYN) which includes SM Ab (SLE), ROD MILL TENDER Ab (MCTD) and SSA and SSB (Sjogren's Syndrome); Complement C3 C4. Performed By: #### D IFF, APTT, CBC, LIPID, ANEU, ADIFF, GFR, TSH, FT4, CMP, MONO, MORPH, ESR, CRP #### [place] [address] #### BRENNAN COVINGTON, ADA, FRANCESCA #### [address] [address] ADA Titer 1 160 Normal [facility] ([place]) Comment on above: Performed By: #### D IFF, APTT, CBC, LIPID, ANEU, ADIFF, GFR, TSH, FT4, CMP, MONO, MORPH, ESR, CRP #### [address] [address] #### ADRIA, CRAIGAN, ADA, FRANCESCA #### [address] [address] [facility] 07-29-2022 ADA See Titer Normal Neg 40 [facility] ([place]) Comment on above: Result Comment: ADA Screen and Titer methodology is an immunofluorescent technique utilizing Hep2 Substrate. Performed By: #### D IFF, APTT, CBC, LIPID, ANEU, ADIFF, GFR, TSH, FT4, CMP, MONO, MORPH, ESR, CRP #### [address] [address] #### MCRSO, CIRAN, ADA, FRANCESCA #### [address] [address] [id number] 07-29-2022 Beta2 Glycoprotein IgG <9 Normal <20 Au [facility] ([place]) Comment on above: Result Comment: <20 SGU Negative 20-80 SGU Low Positive >80 SGU High Positive These results were obtained with the Hyperoptic QUANTA Lite B2 GPI IgG TYREE. B2 [...] erythematous. Clinical correlation is required. Performed By: [place] [id number] Application Processor: Mil Wilkinson III, M.D. CLIA#: [id number] Performed By: #### D IFF, APTT, CBC, LIPID, ANEU, ADIFF, GFR, TSH, FT4, CMP, MONO, MORPH, ESR, CRP #### [address] [address] #### MCRSO, CIRAN, ADA, FRANCESCA #### [place] [id number] Beta2 Glycoprotein IgM 81 [facility] High <20 Au [facility] ([place]) Comment on above: Result Comment: <20 SMU Negative 20-80 [facility]U Low Positive >80 [facility] High positive These results were obtained with the Hyperoptic QUANTA Lite B2 GPI IgM TYREE. B2 GPI [...] erythematous. Clinical correlation is required. Performed By: [place] [address] Application Processor: Mil Wilkinson III, M.D. CLIA#: [id number] Performed By: #### D IFF, APTT, CBC, LIPID, ANEU, ADIFF, GFR, TSH, FT4, CMP, MONO, MORPH, ESR, CRP #### [address] [address] #### MCRSO, CIRAN, ADA, FRANCESCA #### [place] [id number] CARDIGon 07-29-2022 IgG Cardiolipin Ab <9.0 Normal <15.0 [facility] ([place]) Comment on above: Result Comment: <15 GPL Negative 15-20 GPL Indeterminate >20 GPL Positive The following results were obtained with the Hyperoptic QUANTA Lite BELINDA IgG III TYREE. Cardiolipin [...] others. Clinical correlation is required. Performed By: [facility] [address] [place] [address] Application Processor: Mil Wilkinson III, M.D. CLIA#: [id number] Performed By: #### D IFF, APTT, CBC, LIPID, ANEU, ADIFF, GFR, TSH, FT4, CMP, MONO, MORPH, ESR, CRP #### [address] [address] #### BALJEETSO, CIRAN, ADA, FRANCESCA #### [address] [address] .Auto Diffon 07-27-2022 Basophil, Absolute 0.0 10 3/mcL Normal 0.0-0.2 [facility] ([place]) Comment on above: Performed By: #### D IFF, APTT, CBC, LIPID, ANEU, ADIFF, GFR, TSH, FT4, CMP, MONO, MORPH, ESR, CRP #### [address] [address] #### MCRSO, CIRAN, ADA, FRANCESCA #### [address] [address] Basophils/100 WBC (Bld) 0.7 % Normal 0.0-2.5 [facility] ([place]) Comment on above: Performed By: #### D IFF, APTT, CBC, LIPID, ANEU, ADIFF, GFR, TSH, FT4, CMP, MONO, MORPH, ESR, CRP #### [address] [address] #### MCRSO, CIRAN, ADA, FRANCESCA #### [address] [address] Eosinophil, Absolute 0.1 10 3/mcL Normal 0.0-0.4 [facility] ([place]) Comment on above: Performed By: #### D IFF, APTT, CBC, LIPID, ANEU, ADIFF, GFR, TSH, FT4, CMP, MONO, MORPH, ESR, CRP #### [address] [address] #### MCRSO, CIRAN, ADA, FRANCESCA #### [address] [address] Eosinophils/100 WBC (Bld) 1.8 % Normal 0.0-7.0 [facility] ([place]) Comment on above: Performed By: #### D IFF, APTT, CBC, LIPID, ANEU, ADIFF, GFR, TSH, FT4, CMP, MONO, MORPH, ESR, CRP #### [address] [address] #### MCRSO, CIRAN, ADA, FRANCESCA #### [address] [address] Lymphocyte, Absolute 2.0 10 3/mcL Normal 0.8-3.9 [facility] ([place]) Comment on above: Performed By: #### D IFF, APTT, CBC, LIPID, ANEU, ADIFF, GFR, TSH, FT4, CMP, MONO, MORPH, ESR, CRP #### [address] [address] #### MCRSO, CIRAN, ADA, FRANCESCA #### [address] [address] Lymphocytes/100 WBC (Bld) 40.9 % Normal 10.0-50.0 [facility] ([place]) Comment on above: Performed By: #### D IFF, APTT, CBC, LIPID, ANEU, ADIFF, GFR, TSH, FT4, CMP, MONO, MORPH, ESR, CRP #### [address] [address] #### MCRSO, CIRAN, ADA, FRANCESCA #### [address] [address] Monocyte, Absolute 0.5 10 3/mcL Normal 0.2-1.0 [facility] ([place]) Comment on above: Performed By: #### D IFF, APTT, CBC, LIPID, ANEU, ADIFF, GFR, TSH, FT4, CMP, MONO, MORPH, ESR, CRP #### [address] [address] #### MCRSO, CIRAN, ADA, FRANCESCA #### [address] [address] Monocytes/100 WBC (Bld) 10.2 % Normal 1.7-13.0 [facility] ([place]) Comment on above: Performed By: #### D IFF, APTT, CBC, LIPID, ANEU, ADIFF, GFR, TSH, FT4, CMP, MONO, MORPH, ESR, CRP #### [address] [address] #### MCRSO, CIRAN, ADA, FRANCESCA #### [address] [address] Neutrophils/100 WBC (Bld) 46.4 % Normal 37.0-80.0 [facility] ([place]) Comment on above: Performed By: #### D IFF, APTT, CBC, LIPID, ANEU, ADIFF, GFR, TSH, FT4, CMP, MONO, MORPH, ESR, CRP #### [address] [address] #### BRENNAN COVINGTON ANA, FRANCESCA #### [address] [address] .GFRon 07-27-2022 GFR 100 ml/min/1.73sqm Normal [facility] ([place]) Comment on above: Result Comment: GFR Population [...] FT4, CMP, MONO, MORPH, ESR, CRP #### [address] [address] #### BRENNAN COVINGTON ANA, FRANCESCA #### [address] [address] GFR Non- 82 ml/min/1.73sqm Normal [facility] ([place]) Comment on above: Result Comment: GFR Population [...] FT4, CMP, MONO, MORPH, ESR, CRP #### [address] [address] #### BRENNAN COVINGTON ANA, FRANCESCA #### [address] [address] .Manual Diffon 07-27-2022 Atypical Lymphs 9.0 % High 0.0-5.0 [facility] ([place]) Comment on above: Performed By: #### D IFF, APTT, CBC, LIPID, ANEU, ADIFF, GFR, TSH, FT4, CMP, MONO, MORPH, ESR, CRP #### [address] [address] #### BRENNAN COVINGTON ANA, FRANCESCA #### [address] [address] Bands 1.0 % Normal 0.0-5.0 [facility] ([place]) Comment on above: Performed By: #### D IFF, APTT, CBC, LIPID, ANEU, ADIFF, GFR, TSH, FT4, CMP, MONO, MORPH, ESR, CRP #### [address] [address] #### BRENNAN COVINGTON ANA, FRANCESCA #### [address] [address] Basophil %, Manual 0.0 % Normal 0.0-2.5 [facility] ([place]) Comment on above: Performed By: #### D IFF, APTT, CBC, LIPID, ANEU, ADIFF, GFR, TSH, FT4, CMP, MONO, MORPH, ESR, CRP #### [address] [address] #### BRENNAN COVINGTON ANA, FRANCESCA #### [place] [id number] Basophil, Abs Manual 0.0 10 3/mcL Normal 0.0-0.2 [facility] ([place]) Comment on above: Performed By: #### D IFF, APTT, CBC, LIPID, ANEU, ADIFF, GFR, TSH, FT4, CMP, MONO, MORPH, ESR, CRP #### [address] [address] #### BRENNAN COVINGTON ANA, FRANCESCA #### [address] [address] Eosinophil %, Manual 2.0 % Normal 0.0-7.0 [facility] ([place]) Comment on above: Performed By: #### D IFF, APTT, CBC, LIPID, ANEU, ADIFF, GFR, TSH, FT4, CMP, MONO, MORPH, ESR, CRP #### [address] [address] #### BRENNAN COVINGTON ANA, FRANCSECA #### [address] [address] Eosinophil, Abs Manual 0.1 10 3/mcL Normal 0.0-0.4 [facility] ([place]) Comment on above: Performed By: #### D IFF, APTT, CBC, LIPID, ANEU, ADIFF, GFR, TSH, FT4, CMP, MONO, MORPH, ESR, CRP #### [address] [address] #### BRENNAN COVINGTON ANA, FRANCESCA #### [address] [address] Lymphocyte %, Manual 29.0 % Normal 10.0-50.0 [facility] ([place]) Comment on above: Performed By: #### D IFF, APTT, CBC, LIPID, ANEU, ADIFF, GFR, TSH, FT4, CMP, MONO, MORPH, ESR, CRP #### [address] [address] #### BRENNAN COVINGTON ANA, FRANCESCA #### [address] [address] Lymphocyte, Abs Manual 1.4 10 3/mcL Normal 0.8-3.9 [facility] ([place]) Comment on above: Performed By: #### D IFF, APTT, CBC, LIPID, ANEU, ADIFF, GFR, TSH, FT4, CMP, MONO, MORPH, ESR, CRP #### [address] [address] #### MCRSOBRENNAN, ADA, FRANCESCA #### [address] [address] Monocyte %, Manual 5.0 % Normal 1.7-13.0 [facility] ([place]) Comment on above: Performed By: #### D IFF, APTT, CBC, LIPID, ANEU, ADIFF, GFR, TSH, FT4, CMP, MONO, MORPH, ESR, CRP #### [address] [address] #### BALJEETSO, BRENNAN, ADA, FRANCESCA #### [address] [address] Monocyte, Abs Manual 0.2 10 3/mcL Normal 0.2-1.0 [facility] ([place]) Comment on above: Performed By: #### D IFF, APTT, CBC, LIPID, ANEU, ADIFF, GFR, TSH, FT4, CMP, MONO, MORPH, ESR, CRP #### [address] [address] #### BALJEETSO, BRENNAN, ADA, FRANCESCA #### [address] [address] Neutrophil %, Manual 54.0 % Normal 37.0-80.0 [facility] ([place]) Comment on above: Performed By: #### D IFF, APTT, CBC, LIPID, ANEU, ADIFF, GFR, TSH, FT4, CMP, MONO, MORPH, ESR, CRP #### [address] [address] #### MCRSO, CIRMARTHA, ADA, FRANCESCA #### [address] [address] Neutrophil, Abs Manual 2.6 10 3/mcL Low 2.9-6.2 [facility] ([place]) Comment on above: Performed By: #### D IFF, APTT, CBC, LIPID, ANEU, ADIFF, GFR, TSH, FT4, CMP, MONO, MORPH, ESR, CRP #### [place] [address] #### MCRSO, CIRAN, ADA, FRANCESCA #### [place] [address] Nucleated RBC 0.0 /100 WBC Normal [facility] ([place]) Comment on above: Performed By: #### D IFF, APTT, CBC, LIPID, ANEU, ADIFF, GFR, TSH, FT4, CMP, MONO, MORPH, ESR, CRP #### [place] [address] #### MCRSO, CIRAN, ADA, FRANCESCA #### [place] [address] .Morphon 07-27-2022 Platelet Estimate Normal Normal [facility] ([place]) Comment on above: Performed By: #### D IFF, APTT, CBC, LIPID, ANEU, ADIFF, GFR, TSH, FT4, CMP, MONO, MORPH, ESR, CRP #### [place] [address] #### ADRIA, CIRMARTHA, ADA, FRANCESCA #### [place] [address] .NEUABSon 07-27-2022 Neutrophil, Absolute 2.2 10 3/mcL Low 2.9-6.2 [facility] ([place]) Comment on above: Performed By: #### D IFF, APTT, CBC, LIPID, ANEU, ADIFF, GFR, TSH, FT4, CMP, MONO, MORPH, ESR, CRP #### [place] [address] #### MCRSO, CIRAN, ADA, FRANCESCA #### [place] [address] APTTon 07-27-2022 aPTT Coag (Bld) [Time] 34.5 s Normal 25.0-35.0 [facility] ([place]) Comment on above: Result Comment: For Heparin anticoagulation therapy, the recommended therapeutic range is: 50.6-87.4 seconds. Patients on heparin therapy may have an extreme result. Performed By: #### D IFF, APTT, CBC, LIPID, ANEU, ADIFF, GFR, TSH, FT4, CMP, MONO, MORPH, ESR, CRP #### [address] [address] #### BRENNAN COVINGTON ANA, FRANCESCA #### [address] [address] Heparin dose (APTT) None Normal [facility] ([place]) Comment on above: Performed By: #### D IFF, APTT, CBC, LIPID, ANEU, ADIFF, GFR, TSH, FT4, CMP, MONO, MORPH, ESR, CRP #### [address] [address] #### BRENNAN COVINGTON ANA, ANAT #### [address] [address] CBCon 07-27-2022 Erythrocyte distribution width (RBC) [Ratio] 14.1 % Normal 11.5-14.5 [facility] ([place]) Comment on above: Performed By: #### D IFF, APTT, CBC, LIPID, ANEU, ADIFF, GFR, TSH, FT4, CMP, MONO, MORPH, ESR, CRP #### [address] [address] #### BRENNAN COVINGTON ANA, ANAT #### [address] [address] Hematocrit (Bld) [Volume fraction] 41.0 % Normal 37.0-47.0 [facility] ([place]) Comment on above: Performed By: #### D IFF, APTT, CBC, LIPID, ANEU, ADIFF, GFR, TSH, FT4, CMP, MONO, MORPH, ESR, CRP #### [address] [address] #### BRENNAN COVINGTON ANA, FRANCESCA #### [address] [address] Hgb 13.5 G/dL Normal 12.0-16.0 [facility] ([place]) Comment on above: Performed By: #### D IFF, APTT, CBC, LIPID, ANEU, ADIFF, GFR, TSH, FT4, CMP, MONO, MORPH, ESR, CRP #### [address] [address] #### BRENNAN COVINGTON ANA, FRANCESCA #### [address] [address] MCH (RBC) [Entitic mass] 25.3 pg Low 27.0-31.2 [facility] ([place]) Comment on above: Performed By: #### D IFF, APTT, CBC, LIPID, ANEU, ADIFF, GFR, TSH, FT4, CMP, MONO, MORPH, ESR, CRP #### [address] [address] #### BRENNAN COVINGTON ANA, FRANCESCA #### [address] [address] MCHC 32.9 G/dL Low 33.0-37.0 [facility] ([place]) Comment on above: Performed By: #### D IFF, APTT, CBC, LIPID, ANEU, ADIFF, GFR, TSH, FT4, CMP, MONO, MORPH, ESR, CRP #### [address] [address] #### BRENNAN COVINGTON ANA, FRANCESCA #### [address] [address] MCV (RBC) [Entitic vol] 77.0 fL Low 80.0-94.0 [facility] ([place]) Comment on above: Performed By: #### D IFF, APTT, CBC, LIPID, ANEU, ADIFF, GFR, TSH, FT4, CMP, MONO, MORPH, ESR, CRP #### [address] [address] #### BRENNAN COVINGTON ANA, FRANCESCA #### [address] [address] Platelet 240 10 3/mcL Normal 130-400 [facility] ([place]) Comment on above: Performed By: #### D IFF, APTT, CBC, LIPID, ANEU, ADIFF, GFR, TSH, FT4, CMP, MONO, MORPH, ESR, CRP #### [address] [address] #### MCRSO, BRENNAN, ADA, FRANCESCA #### [address] [address] Platelet mean volume (Bld) [Entitic vol] 6.9 fL Low 7.4-10.4 [facility] ([place]) Comment on above: Performed By: #### D IFF, APTT, CBC, LIPID, ANEU, ADIFF, GFR, TSH, FT4, CMP, MONO, MORPH, ESR, CRP #### [address] [address] #### MCRSO, CIRAN, ADA, FRANCESCA #### [place] [id number] RBC 5.33 10 6/mcL Normal 4.20-5.40 [facility] ([place]) Comment on above: Performed By: #### D IFF, APTT, CBC, LIPID, ANEU, ADIFF, GFR, TSH, FT4, CMP, MONO, MORPH, ESR, CRP #### [address] [address] #### MCRSO, CIRAN, ADA, FRANCESCA #### [place] [id number] WBC 4.8 10 3/mcL Normal 4.6-10.8 [facility] ([place]) Comment on above: Performed By: #### D IFF, APTT, CBC, LIPID, ANEU, ADIFF, GFR, TSH, FT4, CMP, MONO, MORPH, ESR, CRP #### [address] [address] #### MCRSO, CIRAN, ADA, FRANCESCA #### [place] [address] CMPon 07-27-2022 Albumin Level 4.3 G/dL Normal 3.5-5.0 [facility] ([place]) Comment on above: Performed By: #### D IFF, APTT, CBC, LIPID, ANEU, ADIFF, GFR, TSH, FT4, CMP, MONO, MORPH, ESR, CRP #### [address] [address] #### MCRSO, CIRAN, ADA, FRANCESCA #### [address] [address] Albumin/Globulin [Mass ratio] 1.4 {ratio} Normal 1.1-2.5 [facility] ([place]) Comment on above: Performed By: #### D IFF, APTT, CBC, LIPID, ANEU, ADIFF, GFR, TSH, FT4, CMP, MONO, MORPH, ESR, CRP #### [address] [address] #### MCRSO, CIRAN, ADA, FRANCESCA #### [address] [address] ALP [Catalytic activity/Vol] 55 U/L Normal 40-135 [facility] ([place]) Comment on above: Performed By: #### D IFF, APTT, CBC, LIPID, ANEU, ADIFF, GFR, TSH, FT4, CMP, MONO, MORPH, ESR, CRP #### [address] [address] #### MCRSO, CIRAN, ADA, FRANCESCA #### [address] [address] ALT [Catalytic activity/Vol] 21 U/L Normal 14-59 [facility] ([place]) Comment on above: Performed By: #### D IFF, APTT, CBC, LIPID, ANEU, ADIFF, GFR, TSH, FT4, CMP, MONO, MORPH, ESR, CRP #### [address] [address] #### MCRSO, CIRAN, ADA, FRANCESCA #### [address] [address] AST [Catalytic activity/Vol] 16 U/L Normal 10-40 [facility] ([place]) Comment on above: Performed By: #### D IFF, APTT, CBC, LIPID, ANEU, ADIFF, GFR, TSH, FT4, CMP, MONO, MORPH, ESR, CRP #### [place] [phone] #### MCRSO, CIRAN, ADA, FRANCESCA #### [address] [address] Bili Total 0.5 mg/dL Normal 0.2-1.0 [facility] ([place]) Comment on above: Result Comment: Use of this assay is not recommended for patients undergoing treatment with eltrombopag due to the potential for falsely elevated results. Performed By: #### D IFF, APTT, CBC, LIPID, ANEU, ADIFF, GFR, TSH, FT4, CMP, MONO, MORPH, ESR, CRP #### [address] [address] #### BRENNAN COVINGTON ADA, FRANCESCA #### [address] [address] BUN/Creatinine Ratio 15 ratio Normal 7-27 [facility] ([place]) Comment on above: Performed By: #### D IFF, APTT, CBC, LIPID, ANEU, ADIFF, GFR, TSH, FT4, CMP, MONO, MORPH, ESR, CRP #### [place] [address] #### BRENNAN COVINGTON ADA, FRNACESCA #### [address] [address] Calcium [Mass/Vol] 9.1 mg/dL Normal 8.4-10.2 [facility] ([place]) Comment on above: Performed By: #### D IFF, APTT, CBC, LIPID, ANEU, ADIFF, GFR, TSH, FT4, CMP, MONO, MORPH, ESR, CRP #### [address] [address] #### MCRSO, CIRMARTHA, ADA, FRANCESCA #### [address] [address] Chloride [Moles/Vol] 106 mmol/L Normal 98-107 [facility] ([place]) Comment on above: Performed By: #### D IFF, APTT, CBC, LIPID, ANEU, ADIFF, GFR, TSH, FT4, CMP, MONO, MORPH, ESR, CRP #### [address] [address] #### MCRSO, CIRAN, ADA, FRANCESCA #### [address] [address] CO2 [Moles/Vol] 32 mmol/L High 22-29 [facility] ([place]) Comment on above: Performed By: #### D IFF, APTT, CBC, LIPID, ANEU, ADIFF, GFR, TSH, FT4, CMP, MONO, MORPH, ESR, CRP #### [address] [address] #### MCRSO, CIRAN, ADA, FRANCESCA #### [address] [address] Creatinine [Mass/Vol] 0.81 mg/dL Normal 0.55-1.02 [facility] ([place]) Comment on above: Performed By: #### D IFF, APTT, CBC, LIPID, ANEU, ADIFF, GFR, TSH, FT4, CMP, MONO, MORPH, ESR, CRP #### [place] [address] #### MCRSO, CIRAN, ADA, FRANCESCA #### [address] [address] Electrolyte Balance 5.0 mEq/L Normal 4.0-15.0 [facility] ([place]) Comment on above: Performed By: #### D IFF, APTT, CBC, LIPID, ANEU, ADIFF, GFR, TSH, FT4, CMP, MONO, MORPH, ESR, CRP #### [place] [phone] #### MCRSO, CIRAN, ADA, FRANCESCA #### [address] [address] Globulin 3.1 G/dL Normal [facility] ([place]) Comment on above: Performed By: #### D IFF, APTT, CBC, LIPID, ANEU, ADIFF, GFR, TSH, FT4, CMP, MONO, MORPH, ESR, CRP #### [place] [phone] #### MCRSO, CIRAN, ADA, FRANCESCA #### [address] [address] Glucose [Mass/Vol] 103 mg/dL Normal 70-105 [facility] ([place]) Comment on above: Performed By: #### D IFF, APTT, CBC, LIPID, ANEU, ADIFF, GFR, TSH, FT4, CMP, MONO, MORPH, ESR, CRP #### [address] [address] #### BRENNAN COVINGTON, ADA, FRANCESCA #### [address] [address] Potassium [Moles/Vol] 4.6 mmol/L Normal 3.5-5.1 [facility] ([place]) Comment on above: Performed By: #### D IFF, APTT, CBC, LIPID, ANEU, ADIFF, GFR, TSH, FT4, CMP, MONO, MORPH, ESR, CRP #### [address] [address] #### BRENNAN COVINGTON ADA, FRANCESCA #### [address] [address] Sodium [Moles/Vol] 143 mmol/L Normal 136-145 [facility] ([place]) Comment on above: Performed By: #### D IFF, APTT, CBC, LIPID, ANEU, ADIFF, GFR, TSH, FT4, CMP, MONO, MORPH, ESR, CRP #### [address] [address] #### BRENNAN COVINGTON, ADA, FRANCESCA #### [address] [address] Total Protein 7.4 G/dL Normal 6.4-8.2 [facility] ([place]) Comment on above: Performed By: #### D IFF, APTT, CBC, LIPID, ANEU, ADIFF, GFR, TSH, FT4, CMP, MONO, MORPH, ESR, CRP #### [address] [address] #### MCRSO CIRMARTHA, ADA, FRANCESCA #### [address] [address] Urea nitrogen [Mass/Vol] 12 mg/dL Normal 7-18 [facility] ([place]) Comment on above: Performed By: #### D IFF, APTT, CBC, LIPID, ANEU, ADIFF, GFR, TSH, FT4, CMP, MONO, MORPH, ESR, CRP #### [address] [address] #### MCRSO, CIRAN, ADA, FRANCESCA #### [place] [address] CRPon 07-27-2022 CRP [Mass/Vol] mg/L Normal 0.0-0.9 [facility] ([place]) Comment on above: Performed By: #### D IFF, APTT, CBC, LIPID, ANEU, ADIFF, GFR, TSH, FT4, CMP, MONO, MORPH, ESR, CRP #### [address] [address] #### BALJEETSO, CIRAN, ADA, FRANCESCA #### [place] [address] ESRon 07-27-2022 Erythrocyte Sed Rate 4 mm/hr Normal 0-20 [facility] ([place]) Comment on above: Performed By: #### D IFF, APTT, CBC, LIPID, ANEU, ADIFF, GFR, TSH, FT4, CMP, MONO, MORPH, ESR, CRP #### [address] [address] #### MCRSO, CIRAN, ADA, FRANCESCA #### [address] [address] FT3on 07-27-2022 Free T3 [Mass/Vol] 3.06 pg/mL Normal 2.30-4.00 [facility] ([place]) Comment on above: Performed By: #### D IFF, APTT, CBC, LIPID, ANEU, ADIFF, GFR, TSH, FT4, CMP, MONO, MORPH, ESR, CRP #### [address] [address] #### MCRSO, CIRAN, ADA, FRANCESCA #### [address] [address] FT4on 07-27-2022 Free T4 [Mass/Vol] 0.87 ng/dL Normal 0.76-1.46 [facility] ([place]) Comment on above: Performed By: #### D IFF, APTT, CBC, LIPID, ANEU, ADIFF, GFR, TSH, FT4, CMP, MONO, MORPH, ESR, CRP #### [address] [address] #### MCRSO, CIRAN, ADA, FRANCESCA #### [address] [address] LABORATORYOrdered By: SYSTEM SYSTEM on 07-27-2022 Free [...] 07-27-2022 Cholesterol [Mass/Vol] 147 mg/dL Normal 0-200 [facility] ([place]) Comment on above: Result Comment: Chol esterol Reference Interval: Less than 200 Desirable 200-239 Borderline high risk 240 and above High risk Performed By: #### D IFF, APTT, CBC, LIPID, ANEU, ADIFF, GFR, TSH, FT4, CMP, MONO, MORPH, ESR, CRP #### [address] [address] #### BRENNAN COVINGTON ANA, FRANCESCA #### [address] [address] Cholesterol in HDL [Mass/Vol] 56 mg/dL Normal 40-60 [facility] ([place]) Comment on above: Performed By: #### D IFF, APTT, CBC, LIPID, ANEU, ADIFF, GFR, TSH, FT4, CMP, MONO, MORPH, ESR, CRP #### [address] [address] #### BRENNAN COVINGTON ANA, FRANCESCA #### [address] [address] Cholesterol in LDL [Mass/Vol] 81 mg/dL Normal 0-130 [facility] ([place]) Comment on above: Performed By: #### D IFF, APTT, CBC, LIPID, ANEU, ADIFF, GFR, TSH, FT4, CMP, MONO, MORPH, ESR, CRP #### [address] [address] #### BRENNAN COVINGTON ANA, FRANCESCA #### [address] [address] Triglyceride [Mass/Vol] 49 mg/dL Normal 0-150 [facility] ([place]) Comment on above: Result Comment: Trig lyceride Reference Interval: Less than 150 Normal 150-199 Borderline high risk 200-499 High risk 500 or higher Very high risk Performed By: #### D IFF, APTT, CBC, LIPID, ANEU, ADIFF, GFR, TSH, FT4, CMP, MONO, MORPH, ESR, CRP #### [address] [address] #### BRENNAN COVINGTON ANA, FRANCESCA #### [address] [address] MONOon 07-27-2022 Mononucleosis Positive Normal Negative [facility] ([place]) Comment on above: Performed By: #### D IFF, APTT, CBC, LIPID, ANEU, ADIFF, GFR, TSH, FT4, CMP, MONO, MORPH, ESR, CRP #### [address] [address] #### BRENNAN COVINGTON ADA, FRANCESCA #### [address] [address] TSHon 07-27-2022 TSH Qn 2.27 m[IU]/L Normal 0.36-3.74 [facility] ([place]) Comment on above: Performed By: #### D IFF, APTT, CBC, LIPID, ANEU, ADIFF, GFR, TSH, FT4, CMP, MONO, MORPH, ESR, CRP #### [place] [id number] #### BRENNAN COVINGTON, ADA, FRANCESCA #### [place] [address] aTPOon 07-27-2022 anti-Thyroid Peroxidase <28 Normal 0-60 [facility] ([place]) Comment on above: Result Comment: No te - New Reference Range in effect 19 Performed By: #### D IFF, APTT, CBC, LIPID, ANEU, ADIFF, GFR, TSH, FT4, CMP, MONO, MORPH, ESR, CRP #### [address] [address] #### BRENNAN COVINGTON, ADA, FRANCESCA #### [address] [address] Vital Signs Date Time Vital Sign Value Performing Clinician Poweri jeannine 01-04-2025 14:51-0400 Body height 179.[address] Jocelyn Harrell DO Work Phone: [facility] 01-04-2025 14:51-0400 Body mass index (BMI) [Ratio] 25.3 kg/m2 Dr. Jocelyn Harrell DO Work Phone: [facility] 01-04-2025 14:51-0400 Body weight 81.[address] Jocelyn Harrell DO Work Phone: [facility] 01-04-2025 14:51-0400 Diastolic blood pressure 74 mm[Hg] Dr. Jocelyn Harrell DO Work Phone: [facility] 01-04-2025 14:51-0400 Systolic blood pressure 123 mm[Hg] Dr. Jocelyn Harrell DO Work Phone: [facility] 12-07-2024 13:02-0400 Body height 179.[address] Jocelyn Harrell DO Work Phone: [facility] 12-07-2024 13:02-0400 Body mass index (BMI) [Ratio] 24.8 kg/m2 Dr. Jocelyn Harrell DO Work Phone: [facility] 12-07-2024 13:02-0400 Body weight 79.[address] Jocelyn Harrell DO Work Phone: [facility] 12-07-2024 13:02-0400 Diastolic blood pressure 68 mm[Hg] Dr. Joeclyn Harrell DO Work Phone: [facility] 12-07-2024 13:02-0400 Systolic blood pressure 112 mm[Hg] Dr. Jocelyn Hrarell DO Work Phone: [facility] 07-14-2024 14:41-0400 Body height 179.[address] Jocelyn Harrell DO Work Phone: [facility] 07-14-2024 14:40-0400 Body mass index (BMI) [Ratio] 24.3 kg/m2 Dr. Jocelyn Harrell DO Work Phone: [facility] 07-14-2024 14:40-0400 Body weight 78.[address] Jocelyn Harrell DO Work Phone: [facility] 07-14-2024 14:40-0400 Diastolic blood pressure 64 mm[Hg] Dr. Jocelyn Harrell DO Work Phone: [facility] 07-14-2024 14:40-0400 Systolic blood pressure 100 mm[Hg] Dr. Jocelyn Harrell DO Work Phone: [facility] 06-03-2023 11:54-0400 Body temperature 98.2 [degF] Dr. Jocelyn Harrell Work Phone: [facility] 06-03-2023 11:54-0400 Diastolic blood pressure 66 mm[Hg] Dr. Jocelyn Harrell Work Phone: [facility] 06-03-2023 11:54-0400 Heart rate 81 /min Dr. Jocelyn Harrell Work Phone: [facility] 06-03-2023 11:54-0400 Respiratory rate 16 /min Dr. Jocelyn Harrell Work Phone: [facility] 06-03-2023 11:54-0400 SaO2% (BldA) [Mass fraction] 98 % Dr. Jocelyn Harrell Work Phone: [facility] 06-03-2023 11:54-0400 Systolic blood pressure 125 mm[Hg] Dr. Jocelyn Harrell Work Phone: [facility] 06-01-2023 07:11-0400 Body height 179.[address] Jocelyn Harrell Work Phone: [facility] 06-01-2023 07:11-0400 Body mass index (BMI) [Ratio] 27.9 kg/m2 Dr. Jocelyn Harrell Work Phone: [facility] 06-01-2023 07:11-0400 Body weight 89.[address] Jocelyn Harrell Work Phone: [facility] 05-27-2023 16:14-0400 Body mass index (BMI) [Ratio] 28.3 kg/m2 Dr. Jocelyn Harrell Work Phone: [facility] 05-27-2023 16:14-0400 Body weight 89.[address] Jocelyn Harrell Work Phone: [facility] 05-27-2023 16:14-0400 Diastolic blood pressure 75 mm[Hg] Dr. Jocelyn Harrell Work Phone: [facility] 05-27-2023 16:14-0400 Systolic blood pressure 114 mm[Hg] Dr. Jocelyn Harrell Work Phone: [facility] 05-20-2023 13:46-0500 Body mass index (BMI) [Ratio] 27.9 kg/m2 Dr. Jocelyn Harrell Work Phone: [facility] 05-20-2023 13:46-0500 Body weight 88.[address] Jocelyn Harrell Work Phone: [facility] 05-20-2023 13:46-0500 Diastolic blood pressure 71 mm[Hg] Dr. Jocelyn Harrell Work Phone: [facility] 05-20-2023 13:46-0500 Systolic blood pressure 108 mm[Hg] Dr. Jocelyn Harrell Work Phone: [facility] 05-12-2023 13:45-0500 Body height 177.[address] Jocelyn Harrell Work Phone: [facility] 05-12-2023 13:45-0500 Body mass index (BMI) [Ratio] 28.1 kg/m2 Dr. Jocelyn Harrell Work Phone: [facility] 05-12-2023 13:45-0500 Body weight 89.[address] Jocelyn Harrell Work Phone: [facility] 05-12-2023 13:45-0500 Diastolic blood pressure 68 mm[Hg] Dr. Jocelyn Harrell Work Phone: [facility] 05-12-2023 13:45-0500 Systolic blood pressure 112 mm[Hg] Dr. Jocelyn Harrell Work Phone: [facility] 04-29-2023 14:51-0500 Body mass index (BMI) [Ratio] 27.6 kg/m2 Dr. Jocelyn Harrell Work Phone: [facility] 04-29-2023 14:51-0500 Body weight 87.[address] Jocelyn Harrell Work Phone: [facility] 04-29-2023 14:51-0500 Diastolic blood pressure 70 mm[Hg] Dr. Jocelyn Harrell Work Phone: [facility] 04-29-2023 14:51-0500 Systolic blood pressure 105 mm[Hg] Dr. Jocelyn Harrell Work Phone: [facility] 04-23-2023 11:08-0500 Body mass index (BMI) [Ratio] 27.6 kg/m2 Dr. Jocelyn Harrell Work Phone: [facility] 04-23-2023 11:08-0500 Body weight 87.[address] Jocelyn Harrell Work Phone: [facility] 04-23-2023 11:08-0500 Diastolic blood pressure 74 mm[Hg] Dr. Jocelyn Harrell Work Phone: [facility] 04-23-2023 11:08-0500 Systolic blood pressure 122 mm[Hg] Dr. Jocelyn Harrell Work Phone: [facility] 04-17-2023 14:16-0500 Body mass index (BMI) [Ratio] 27.5 kg/m2 Dr. Joeclyn Harrell Work Phone: [facility] 04-17-2023 14:16-0500 Body weight 87.[address] Jocelyn Harrell Work Phone: [facility] 04-17-2023 14:16-0500 Diastolic blood pressure 69 mm[Hg] Dr. Jocelyn Harrell Work Phone: [facility] 04-17-2023 14:16-0500 Systolic blood pressure 101 mm[Hg] Dr. Jocelyn Harrell Work Phone: [facility] 04-02-2023 15:09-0500 Body height 177.[address] Jocelyn Harrell Work Phone: [facility] 04-02-2023 15:09-0500 Body mass index (BMI) [Ratio] 27.3 kg/m2 Dr. Jocelyn Harrell Work Phone: [facility] 04-02-2023 15:09-0500 Body weight 86.[address] Jocelyn Harrell Work Phone: [facility] 04-02-2023 15:09-0500 Diastolic blood pressure 81 mm[Hg] Dr. Jocelyn Harrell Work Phone: [facility] 04-02-2023 15:09-0500 Systolic blood pressure 123 mm[Hg] Dr. Jocelyn Harrell Work Phone: [facility] 03-20-2023 14:22-0500 Body mass index (BMI) [Ratio] 26.8 kg/m2 Dr. Jocelyn Harrell Work Phone: [facility] 03-20-2023 14:22-0500 Body weight 84.[address] Jocelyn Harrell Work Phone: [facility] 03-20-2023 14:22-0500 Diastolic blood pressure 69 mm[Hg] Dr. Jocelyn Harrell Work Phone: [facility] 03-20-2023 14:22-0500 Systolic blood pressure 109 mm[Hg] Dr. Jocelyn Harrell Work Phone: [facility] 03-05-2023 14:05-0500 Body mass index (BMI) [Ratio] 26.7 kg/m2 Dr. Jocelyn Harrell Work Phone: [facility] 03-05-2023 14:05-0500 Body weight 84.[address] Jocelyn Harrell Work Phone: [facility] 03-05-2023 14:05-0500 Diastolic blood pressure 66 mm[Hg] Dr. Jocelyn Harrell Work Phone: [facility] 03-05-2023 14:05-0500 Systolic blood pressure 108 mm[Hg] Dr. Jocelyn Harrell Work Phone: [facility] 02-27-2023 13:11-0500 Body height 177.[address] Jocelyn Harrell Work Phone: [facility] 02-27-2023 13:11-0500 Body mass index (BMI) [Ratio] 26.2 kg/m2 Dr. Jocelyn Harrell Work Phone: [facility] 02-27-2023 13:11-0500 Body weight 83.[address] Jocelyn Harrell Work Phone: [facility] 02-27-2023 13:11-0500 Diastolic blood pressure 66 mm[Hg] Dr. Jocelyn Harrell Work Phone: [facility] 02-27-2023 13:11-0500 Systolic blood pressure 110 mm[Hg] Dr. Jocelyn Harrell Work Phone: [facility] 01-29-2023 14:27-0500 Body mass index (BMI) [Ratio] 26.1 kg/m2 Dr. Jocelyn Harrell Work Phone: [facility] 01-29-2023 14:27-0500 Body weight 82.[address] Jocelyn Harrell Work Phone: [facility] 01-29-2023 14:27-0500 Diastolic blood pressure 71 mm[Hg] Dr. Jocelyn Harrell Work Phone: [facility] 01-29-2023 14:27-0500 Systolic blood pressure 110 mm[Hg] Dr. Jocelyn Harrell Work Phone: [facility] 12-31-2022 15:18-0400 Body mass index (BMI) [Ratio] 25.5 kg/m2 Dr. Jocelyn Harrell Work Phone: [facility] 12-31-2022 15:18-0400 Body weight 80.[address] Jocelyn Harrell Work Phone: [facility] 12-31-2022 15:18-0400 Diastolic blood pressure 74 mm[Hg] Dr. Jocelyn Harrell Work Phone: [facility] 12-31-2022 15:18-0400 Systolic blood pressure 118 mm[Hg] Dr. Jocelyn Harrell Work Phone: [facility] 12-06-2022 14:37-0400 Body mass index (BMI) [Ratio] 24.7 kg/m2 Dr. Jocelyn Harrell Work Phone: [facility] 12-06-2022 14:37-0400 Body weight 78.[address] Jocelyn Harrell Work Phone: [facility] 12-06-2022 14:37-0400 Diastolic blood pressure 72 mm[Hg] Dr. Jocelyn Harrell Work Phone: [facility] 12-06-2022 14:37-0400 Systolic blood pressure 114 mm[Hg] Dr. Jocelyn Harrell Work Phone: [facility] 11-08-2022 10:53-0400 Body height 177.[address] Jocelyn Harrell Work Phone: [facility] 11-08-2022 10:53-0400 Body mass index (BMI) [Ratio] 24.2 kg/m2 Dr. Jocelyn Harrell Work Phone: [facility] 11-08-2022 10:53-0400 Body weight 76.[address] Jocelyn Harrell Work Phone: [facility] 11-08-2022 10:53-0400 Diastolic blood pressure 72 mm[Hg] Dr. Jocelyn Harrell Work Phone: [facility] 11-08-2022 10:53-0400 Systolic blood pressure 112 mm[Hg] Dr. Jocelyn Harrell Work Phone: [facility] 08-16-2022 10:08-0400 Heart rate 68 /min [facility] 08-16-2022 10:08-0400 Respiratory rate 12 /min [facility] 08-16-2022 09:07-0400 Diastolic blood pressure 73 mm[Hg] [facility] 08-16-2022 09:07-0400 Systolic blood pressure 115 mm[Hg] [facility] 08-16-2022 [id number] Body height 177.8 cm [facility] 08-16-2022 09:[id number] Body mass index (BMI) [Ratio] 23.3 kg/m2 [facility] 08-16-2022 09:03-0400 Body temperature 97.6 [degF] [facility] 08-16-2022 [id number] Body weight 73.93 kg [facility] 08-16-2022 09:03-0400 SaO2% (BldA) [Mass fraction] 100 % [facility] Encounters Encounter Date Encounter Type Care Provider Facility Start: 01-04-2025 End: 01-04-[address] Janet Cardoza DO -[facility] Work Phone: Start: 01-04-2025 End: 01-04-2025 ambulatory Janet Cardoza Facility:[facility] [place] Start: 12-27-2024 End: 12-27-[address] Mariana Raphael MD -[facility] Work Phone: Start: 12-27-2024 End: 12-27-2024 ambulatory Mariana Raphael Facility:[facility] Start: 12-08-2024 End: 12-08-[address] Jocelyn Harrell DO Work Phone: -[facility] Start: 12-08-2024 End: 12-08-[address] Mariely Valencia MD -[facility] Start: 12-07-2024 End: 12-07-[address] Mariely Valencia MD -[facility] Work Phone: Start: 12-07-2024 End: 12-08-[address] Jocelyn Harrell DO Work Phone: -[facility] Start: 12-07-2024 End: 12-07-2024 ambulatory Mariely Valencia Facility:[facility] Start: 11-26-2024 End: 11-26-[address] Jocelyn Harrell DO Work Phone: -Ultrasound [facility] Start: 11-26-2024 End: 11-26-2024 Patient encounter procedure Barbara Bartlett [employer] -Ultrasound [facility] Work Phone: Start: 11-26-2024 End: 11-26-2024 ambulatory [facility] Facility:[facility] Start: 11-21-2024 End: 11-21-[address] Jocelyn Harrell DO Work Phone: -Laboratory Start: 11-21-2024 End: 11-21-2024 Patient encounter procedure Barbara VANN -Laboratory Work Phone: Start: 11-21-2024 End: 11-21-2024 ambulatory [facility] Facility:[facility] Start: 11-19-2024 End: 11-19-[address] Jocelyn Harrell DO Work Phone: -Lab [facility] Start: 11-19-2024 End: 11-19-2024 Patient encounter procedure Barbara Bartlett NP-C -Lab [facility] Start: 11-19-2024 End: 11-19-2024 ambulatory [facility] Facility:[facility] Start: 11-12-2024 End: 11-16-2024 ambulatory DR CHATO WYATT DO Facility:[facility] Start: 11-12-2024 End: 11-16-[address] CHATO WYATT DO [facility] Start: 10-01-2024 End: 10-01-[address] Jocelyn Harrell DO Work Phone: -[facility] [place] Start: 10-01-2024 End: 10-01-[address] Mariana Raphael MD -[facility] [place] Work Phone: Start: 10-01-2024 End: 10-01-2024 ambulatory [facility] Facility:[facility] Start: 07-14-2024 End: 07-14-[address] Jocelyn Harrell DO Work Phone: [facility] Work Phone: Start: 07-14-2024 End: 07-14-2024 Patient encounter procedure Barbara VANN -Laboratory, [place] Work Phone: Start: 07-14-2024 End: 07-14-2024 Patient encounter procedure Barbara VANN -[facility] Work Phone: Start: 07-14-2024 End: 07-14-2024 Patient encounter status Barbara Bartlett NP-C [facility] Start: 07-14-2024 End: 07-14-2024 ambulatory [facility] Facility:[facility] Start: 07-14-2024 End: 07-14-2024 ambulatory [facility] Facility:[facility] Start: 07-12-2024 End: 07-12-[address] Mariana Raphael MD -Laboratory, [place] Work Phone: Start: 07-12-2024 End: 07-12-2024 ambulatory [facility] Facility:[facility] Start: 04-21-2024 End: 04-21-[address] Mariana Raphael MD -Laboratory, [place] Work Phone: Start: 04-21-2024 End: 04-21-2024 ambulatory [facility] Facility:[facility] Start: 06-20-2023 End: 06-20-[address] Jocelyn Harrell Work Phone: [facility] Work Phone: Start: 06-20-2023 End: 06-20-[address] Jocelyn Harrell Work Phone: [facility], [place] Work Phone: Start: 06-03-2023 Non-patient / Non-visit Dr. Jocelyn Harrell Work Phone: [facility] Start: 06-02-2023 Non-patient / Non-visit Dr. Jocelyn Harrell Work Phone: [facility] Start: 06-01-2023 Non-patient / Non-visit Dr. Jocelyn Harrell Work Phone: [facility] Start: 06-01-2023 End: 06-03-2023 Evaluation and management of inpatient Dr. Jocelyn Harrell Work Phone: [facility] Work Phone: Start: 05-27-2023 End: 05-27-[address] Jocelyn Harrell Work Phone: [facility] Work Phone: Start: 05-20-2023 End: 05-20-[address] Jocelyn Harrell Work Phone: [facility] Work Phone: Start: 05-12-2023 End: 05-12-[address] Jocelyn Harrell Work Phone: [facility] Work Phone: Start: 05-12-2023 End: 05-12-[address] Jocelyn Harrell Work Phone: [facility] Work Phone: Start: 05-12-2023 End: 05-12-[address] Jocelyn Harrell Work Phone: [facility] Work Phone: Start: 05-06-2023 End: 05-06-2023 ambulatory JOCELYN HARRELL [facility] Start: 04-29-2023 End: 04-29-[address] Jocelyn Harrell Work Phone: [facility] Work Phone: Start: 04-23-2023 End: 04-23-[address] Jocelyn Harrell Work Phone: [facility] Work Phone: Start: 04-17-2023 End: 04-17-[address] Jocelyn Harrell Work Phone: [facility] Work Phone: Start: 04-07-2023 End: 04-07-[address] [facility] Start: 04-07-2023 End: 04-07-[address] [facility] Start: 04-02-2023 End: 04-02-[address] Jocelyn Harrell Work Phone: [facility] Work Phone: Start: 04-02-2023 End: 04-02-[address] Jocelyn Harrell Work Phone: [facility] Work Phone: Start: 04-02-2023 End: 04-02-[address] Jocelyn Harrell Work Phone: [facility] Work Phone: Start: 03-20-2023 End: 03-20-[address] Jocelyn Harrell Work Phone: [facility] Work Phone: Start: 03-13-2023 End: 03-13-2023 [facility] Start: 03-05-2023 End: 03-05-[address] Jocelyn Harrell Work Phone: [facility] Work Phone: Start: 02-27-2023 End: 02-27-[address] Jocelyn Harrell Work Phone: [facility] Work Phone: Start: 02-27-2023 End: 02-27-[address] Jocelyn Harrell Work Phone: [facility] Work Phone: Start: 01-29-2023 End: 01-29-[address] Jocelyn Harrell Work Phone: [facility] Work Phone: Start: 01-23-2023 End: 01-23-2023 ambulatory [facility] Start: 01-07-2023 End: 01-07-2023 ambulatory [facility] Start: 12-31-2022 End: 12-31-[address] Jocelyn Harrell Work Phone: [facility] Work Phone: Start: 12-06-2022 End: 12-06-[address] Jocelyn Harrell Work Phone: [facility] Work Phone: Start: 11-28-2022 End: 11-28-[address] Jocelyn Harrell Work Phone: [facility] [place] Work Phone: Start: 11-08-2022 End: 11-08-[address] Jocelyn Harrell Work Phone: [facility] Work Phone: Start: 11-08-2022 End: 11-08-[address] Jocelyn Harrell Work Phone: [facility] Work Phone: Start: 11-08-2022 End: 11-08-[address] Jocelyn Harrell Work Phone: [facility] Work Phone: Start: 08-21-2022 End: 08-21-[address] Jocelyn Harrell Work Phone: [facility] [place] Work Phone: Start: 08-16-2022 End: 08-16-2022 Emergency department patient visit [facility] Start: 07-27-2022 End: 07-28-2022 ambulatory HOLLY THOMPSON METAPHYSICIST-TECHNICAL SALES REPRESENTATIVES Facility:[facility] Start: 07-27-2022 End: 07-27-2022 Patient encounter procedure HOLLY THOMPSON METAPHYSICIST-TECHNICAL SALES REPRESENTATIVES [facility] Procedures Date Procedure Procedure Detail Performing Clinician Start: 12-08-[address] Jocelyn Harrell DO Work Phone: Comment on above: No lupus anticoagula nt was detected. Start: 12-08-2024 Lupus anticoagulant assay, platelet neutralization method Dr. Jocelyn Harrell DO Work Phone: Start: 12-08-2024 Lupus anticoagulant screening test Dr. Jocelyn Harrell DO Work Phone: Start: 12-08-[address] Araceli Harrell DO Work Phone: Start: 12-08-2024 Serum IgM anticardio lipin measurement Dr. Jocelyn Harrell DO Work Phone: Comment on above: Negative: <13 Indete rminate: 13 - 20 Low-Med Positive: >20 - 80 High Positive: >80Performed at: [address] [id number] Director: Carly Adame MD, Phone: [phone] at: [address] [id number] Director: Joel Box PhD, Phone: [phone] Start: 12-07-[address] Christopher Harrell DO Work Phone: Start: 12-07-[address] Jocelyn Harrell DO Work Phone: Start: 12-07-[address] Jocelyn Harrell DO Work Phone: Start: 12-07-[address] Jocelyn Harrell DO Work Phone: Start: 12-07-2024 Hepatitis C antibody measurement Dr. Jocelyn Harrell DO Work Phone: Comment on above: Reactive: Presumptiv e evidence of antibodies to HCV. Follow CDC recommendations for supplemental testing.Non-Reactive: Antibodies to HCV were not detected; does not exclude the possibility of exposure to HCVReactive Results are presumptive evidence of antibodies to HCV. Follow CDC recommendations for supplemental testing.Order confirmation testing: HCV Quant by PCR testing - HCVPCR #[id number] Non Reactive: < 0.8 Equivocal: >/= 0.8 to < 1.0 Reactive: >/= 1.0The CDC requires that a reactive/equivocal HCV antibody result be sent out for confirmation. HCV Quant by PCR testing. Start: 12-07-[address] Jocelyn Harrell DO Work Phone: Comment on above: Antibody Result: Int erpretationNon-Reactive: Non- ImmuneReactive: ImmuneThe following results were obtained with the [employer] Rubella IgG assay. Results from assays of other manufacturers cannot be used interchangeably. Start: 12-07-2024 Serologic test for syphilis Dr. Jocelyn Harrell DO Work Phone: Start: 11-26-2024 Transvaginal obstetr ic ultrasonography Dr. Jocelyn Harrell DO Work Phone: Start: 07-14-2024 Liquid based cervica l cytology screening Dr. Jocelyn Harrell DO Work Phone: Comment on above: NEGATIVE FOR INTRAEP ITHELIAL LESION OR MALIGNANCY. This liquid based Th inPrep(R) pap test was screened withthe use of an image guided system. Start: 04-21-2024 Measurement of renal function Dr. Jocelyn Harrell DO Work Phone: Comment on above: GFR Calc Start: 05-12-2023 Group B Streptococcu s Culture Dr. Jocelyn Harrell Work Phone: Start: 11-08-[address] Christopher Harrell Work Phone: Start: 08-16-2022 Plain chest X-ray Plan of Treatment Date Care Activity Detail Author Start: 12-08-2024 Patient encounter procedure Registered Clinical -Lab [facility] Start: 12-07-2024 Urine culture Urine Culture [facility] Start: 12-07-2024 [facility] Start: 12-07-2024 End: 12-07-2024 Patient encounter procedure -[facility] Work Phone: Start: 06-03-2023 Patient discharge [facility] Start: 06-01-2023 Administration of medication [facility] Start: 06-01-2023 Application of ice collar, cap or bag [facility] Start: 06-01-2023 Catheterization of vein [facility] Start: 06-01-2023 Introduction of urinary catheter [facility] Start: 06-01-2023 Measuring intake and output [facility] Start: 06-01-2023 Notification of physician [facility] Start: 06-01-2023 Procedure discontinued [facility] Start: 06-01-2023 Provision of activity privileges [facility] Start: 06-01-2023 Vital signs measurements [facility] Start: 06-01-2023 End: 06-01-2023 [facility] Start: 06-01-2023 Documentation procedure [facility] Start: 06-01-2023 [facility] Start: 06-01-2023 Notification of physician [facility] Start: 06-01-2023 [facility] Start: 06-01-2023 Notification of physician [facility] Start: 06-01-2023 [facility] Start: 06-01-2023 Admission procedure [facility] Beta 2 glycoprotein 1 Ab IgA and IgG and IgM panel - Serum [facility] Cardiolipin IgA and IgG and IgM panel - Serum [facility] Cardiolipin IgG and IgM panel - Serum [facility] CBC W Auto Different ial panel - Blood [facility] hemoglobin determination [facility] Hemoglobin A measurement [facility] Hemoglobin A2 measurement [facility] Hemoglobin C measurement [facility] Hemoglobin S [Presen ce] in Blood [facility] Hemoglobin S/Hemoglobin.total in Blood [facility] Hemoglobin variant test [facility] Hepatitis B surface antigen measurement [facility] Hepatitis C antibody measurement [facility] HIV 1+2 Ab+HIV1 p24 Ag [Presence] in Serum or Plasma by Immunoassay [facility] Lipid 1996 panel - S tdod or Plasma [facility] Lupus anticoagulant assay [facility] Patient Education ED Chest Pain, Noncardiac [facility] Work Phone: Patient referral [facility] Work Phone: Rubella IgG measurement [facility] Treponema sp Ab [Pre sence] in Serum [facility] Immunizations Immunization Date Immunization Notes Care Provider Fa [facility] 12-25-2023 influenza virus vaccine, unspecified formulation DR CHATO WYATT DO [facility] 03-20-2023 tetanus toxoid, redu brianda diphtheria toxoid, and acellular pertussis vaccine, adsorbed Dr. Jocelyn Harrell Work Phone: [facility] 12-06-2022 influenza virus vaccine, unspecified formulation DR CHATO WYATT DO [facility] 12-06-2022 influenza, injectabl e, quadrivalent, preservative free Dr. Jocelyn Harrell Work Phone: [facility] 12-28-2021 influenza virus vaccine, unspecified formulation DR CHATO WYATT DO [facility] 01-21-2021 influenza virus vaccine, unspecified formulation DR CHATO WYATT DO [facility] 01-21-2021 tetanus toxoid, redu brianda diphtheria toxoid, and acellular pertussis vaccine, adsorbed DR CHATO WYATT DO [facility] 01-15-2021 Influenza virus vaccine [facility] 01-15-2021 tetanus toxoid, redu brianda diphtheria toxoid, and acellular pertussis vaccine, adsorbed [facility] 12-20-2020 SARS-CoV-2 mRNA (tozinameran) vaccine DR CHATO WYATT DO [facility] Comment on above: Result Comment: 2024: TPVAL 12-06-2020 Covid (Pfizer) [facility] 11-29-2020 SARS-CoV-2 mRNA (tozinameran) vaccine DR CHATO WYATT DO [facility] Comment on above: Result Comment: 2024: TPVAL 11-15-2020 Covid (Pfizer) [facility] 12-30-2019 influenza virus vaccine, unspecified formulation DR CHATO WYATT DO [facility] 01-01-2018 influenza virus vaccine, unspecified formulation DR CHATO WYATT DO [facility] 04-27-2013 tetanus toxoid, redu brianda diphtheria toxoid, and acellular pertussis vaccine, adsorbed DR CHATO WYATT DO [facility] 03-17-2012 tetanus and diphther ia toxoids, adsorbed, preservative free, for adult use (5 Lf of tetanus toxoid and 2 Lf of diphtheria toxoid) DR CHATO WYATT DO [facility] 03-27-2004 hepatitis B pediatri c vaccine DR CHATO WYATT DO [facility] 10-25-2003 hepatitis B pediatri c vaccine DR CHATO WYATT DO [facility] 09-23-2003 hepatitis B pediatri c vaccine DR CAHTO WYATT DO [facility] 09-23-2003 measles/mumps/rubell a virus vaccine DR CHATO WYATT DO [facility] 09-27-1992 haemophilus influenz ae type b vaccine, PRP-T conjugate DR CHATO WYATT DO [facility] 09-27-1992 measles/mumps/rubell a virus vaccine DR CHATO WYATT DO [facility] 1991 haemophilus influenz ae type b vaccine, PRP-T conjugate DR CHATO WYATT DO [facility] 1991 haemophilus influenz ae type b vaccine, PRP-T conjugate DR CHATO WYATT DO [facility] Payers Date Payer Category Payer Private Health Insurance [id number] 2024 Self-pay [id number] 2022 Unknown [id number] 2016 Unknown [facility] [id number] 2016 Unknown [id number] 1991 Unknown [id number] 1991 Unknown [id number] [id number] 1991 Unknown [id number] [id number]9 1991 Unknown [id number] 2.840.1.607606.3.579.2.479 1991 Unknown [id number] 2.16840.1.547161.3.579.2.479 1991 Unknown [id number] 2.840.1.354466.3.579.2.479 1991 Unknown [id number] 2.840.1.248188.3.579.2.479 1991 Unknown [id number] 2.840.1.188741.3.579.2.627 Unknown [id number] 2.840.1.749703.3.579.2.462 Unknown [id number] 2.840.1.503207.3.579.2.462 Unknown [id number] 2.840.1.303786.3.579.2.462 Unknown [id number] 2.840.1.633003.3.579.2.462 Unknown [id number] 2.840.1.742313.3.579.2.462 Unknown [id number] 2.840.1.097410.3.579.2.462 Unknown [id number] 2.16840.1.232046.3.579.2.462 Unknown [id number] 2.16840.1.974205.3.579.2.462 Unknown [id number] 2.840.1.427357.3.579.2.462 Unknown [id number] 2.840.1.601920.3.579.2.462 Unknown [id number] 2.16.840.1.416202.3.579.2.462 Unknown [id number] 2.16.840.1.416041.3.579.2.462 Unknown [id number] 2.16.840.1.080281.3.579.2.462 Social History Date Type Detail Facility Start: 10-28-2018 End: 11-30-2024 Tobacco smoking status Never smoked tobacco (finding) [facility] Start: 1990 Sex Assigned At Female [facility] Start: 08-16-2022 End: 06-01-2023 Tobacco smoking status NHIS Unknown if ever smoked [facility] Sexual Orientation [facility] Start: 03-18-2018 Sex Female (finding) [facility] Sex Female [facility] Goals Date Patient Goal Desired Activity /State Mental Status Date Assessment Result Facility 08-16-2022 Cognitive function Level Of Cons ciousness Awake;Alert;Appropriate;Follow s Commands [facility] Work Phone: Clinical Notes 07-27-2022 to 01-04-2025 Note Date & Type Note Facility 01-04-2025 Progress note [facility] 01-04-2025 Progress note Note Date/Time January 04, 2025 4:21pm [facility] [address], [address] [place] [address] OFFICE VISIT Date of Service: 01/04/25 MR#: [id number] Acct: [id number] Name: KENDALL RICE Rep #: [id number] : 1990 Provider: Dr. 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 Required: No Is patient in pain?: No Allergies amoxicillin trihydrate (From Amoxil) Allergy (Verified 01/04/25 14:50) Rash Medications ?Medication ?Instructions ?Recorded ?Confirmed ?Type hydroxychloroquine 200 mg tablet 200 mg PO DAILY AUTO IMMUNE 11/08/22 01/04/25 History (Plaquenil) aspirin 81 mg tablet,delayed 81 mg PO DAILY 07/14/23 1 History release PNV 153-FA 400 mcg-om3 35 mg-dha tab PO DAILY 11/30/24 01/04/25 History 25 mg-epa 5 mg-fish oil chew tablet enoxaparin 40 mg/0.4 mL 40 mg (0.4 mL) subcut QDAY 0 12/06/24 01/04/25 Rx subcutaneous syringe (Lovenox) PREVENTATIVE 30 days #1 2 mL Last Menstrual Period: 09/22/24 Zika: Zika virus screening: Negative : No PFSH PFSH Medical History Asthma 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 of abnormality in previous , currently Vaginal delivery (spontaneous vaginal delivery) 40 weeks gestation of Surgical History [place] teeth removed Family History Mother Cholelithiasis Social History adopted: No household members: spouse and children housing: house number of children: 4 current occupational status: unemployed current occupation: [employer] current occupational exposures/hazards: No pets and animals: No history of recent travel: No sexually active: Yes Smoking Status: Never smoker alcohol intake: never substance use type: does not use well-balanced diet: daily or most days caffeine: No eating out: rarely or never during the past year weight has: remained stable what type of physical activity do you participate in: walking frequency: 5-6 times per week duration: 15-30 minutes/day greg/christian: [employer] seatbelt use: always do you feel safe at home: Yes additional social history: -[place]- [employer] History 5 Elective abortions Hx Para 4 Spontaneous abortions Hx # Term Pregnancies Ectopic pregnancies Hx # Pregnancies Multiple births # of living children 4 Past Pregnancies Del. Date Name GA/Weeks Outcome Route Bth Weight Infant Gen Labor Lgth Anesthesia Del Locatn Provider FOB 09/27/16 Az[place] 41 live - full term 7lbs 7oz Male epidural [facility] Sharif Delgado 03/30/19 [place] 40 live - full term 7lb 3 oz Male ep idural [facility] Sharif Delgado 02/19/21 [place] 38 live - full term 6lbs 14 oz Male epidural [facility] Sharif -Danny 06/01/23 Shad 39 live - full term 6lbs 15oz Male no ne [facility] Nica Fam HPI 12wk 4d OB *DOC ONLY Details: KENDALL RICE is a 34 year old who presents for routine OB visit. OB Visit LINA Calculator Estimated Delivery Date Method Current WG Current Estimate 07/15/25 Ultrasound #1 12w 4d Expected Delivery Route/Plan Labor Preferences- CB/BF classes: [] labor support person: [] labor intervention preferences: [] pain management options preferred: [] cut cord/dad catch: [] : [] PP control planned: [] discussed possible routes of delivery and associated risks: [] special requests: [] Specific Issue/Plans Covid status: [] Flu vaccine: [] Tdap vaccine: [] Rhogam: [] LARC form signed: [] Problem list reviewed and updated with the most current plan of care details and appropriate orders placed. Relevant counseling for the gestational age provided. Continue routine care and follow up unless otherwise noted in visit notes/problem list details Initial Weight: Not Recorded Date -?-?-?-?-?-?-?-?-?-?-?-?- EGA Weight BP Urine Prot -?-?-?-?-?-?-?-?-?-?-?-?- Glucose FHR FuHt Pres Dilation -?-?-?-?-?-?-?-?-?-?-?-?- Effaced St Visit Note 12/07/24 -?-?-?-?-?-?-?-?-?-?-?-?- 8w 4d 175 lb 9 oz 112/68 -?-?-?-?-?-?-?-?-?-?-?-?- 170 -?-?-?-?-?-?-?-?-?-?-?-?- SM- CRL 1.8 cm c ons with prev US 01/04/25 -?-?-?-?-?-?-?-?-?-?-?-?- 12w 4d 179 lb 3 oz 123/74 Nega tive -?-?-?-?-?-?-?-?-?-?-?-?- Negative 165 -?-?-?-?-?-?-?-?-?-?-?-?- JV- CRL consiste nt with LMP. and prior scan. MFM consult placed. ACOG First Trimester First Trimester: Desire for , Alcohol, Tobacco Cessation, Illicit/Recreational Drug/Substance Use, Intimate Partner Violence, Barriers to care, Unstable Housing, Communication Barriers, Environmental/Work Hazards, Anticipated Course of Care, Toxoplasmosis Precations, Use of Any medications, Sexual activity, Exercise, Dental Care, Sauna/Hot tub use, Seat Belt use, Childbirth classes/Hospital facilities, Travel, Indications for Ultrasound and Screening for Aneuploidy; Discussed Second Trimester Second Trimester: Signs and Symptoms of Labor, Selecting a care provider, Reproductive Life Planning & Contreception, Care Planning, Depression/Anxiety and Intimate Partner Violence; Discussed Tobacco Cessation Third Trimester Third Trimester: Pain Management Plans, Labor support person(s), Immediate Larc, Circumcision preference, Movement Monitoring, Signs and Symptoms of Preeclampsia, Infant Feeding No , [place] Education and Family Medical Leave or Disability Forms Results POC Urinalysis 2 Dip (Clinic) Office Urine Glucose Negative Last Edit by Deb Arora on 01/04/25 14: 58 Office Urine Protein Negative Last Edit by Deb Arora on 01/04/25 14: 58 Coding Level of Care Code OB Routine Diagnoses Antiphospholipid antibody positive R76.0 Supervision of high-risk O09.90 12 weeks gestation of Z3A.12 Weeks of gestation: 12 weeks Lactating mother Z39.1 SLE (systemic lupus erythematosus related syndrome) M32.9 Assessment and Plan Assessment and Plan (1) Antiphospholipid antibody positive: Status: Acute Comment: moderate range positive. no obstetric outcomes in past but due to autoimmune disease and persistent titers recommend treatment with lovenox and baby ASA. plan weekly nsts at 32 weeks and growth US in third trimester, consider delivery by 39 weeks. (2) Supervision of high-risk : Status: Acute Comment: , LINA 07/15/25, Sohan Parr Samson, Shad Sarwat (3) : Status: Acute Qualifiers: Weeks of gestation: 12 weeks Qualified Code(s): Z3A.12 - 12 weeks gestation of Comment: declined NIPT & Carrier testing (4) Lactating mother: Status: Acute Comment: BF 2x/day (5) SLE (systemic lupus erythematosus related syndrome): Status: Acute Comment: RO and LA ordered 04/02/2023 related syndrome-not SLE. rheum following. hydroxychloroquine. anti ro and anti la ordered Orders: Orders POC Urinalysis 2 Dip (Clinic) Today 01/04/25 1521 <Electronically signed by Janet Mathew DO> Date _ Janet Cardoza DO Cosigner Signature: Date (if applicable) CC: ~ [facility] Work Phone: [phone]) 690-338409-23-2025 Progress note Author Mariely Valencia [facility] Note Date/Time December 07, 2024 1:45pm [facility] [address] [place] [address], [address] [place] [address] OFFICE VISIT Date of Service: 12/07/24 MR#: [id number] Acct: [id number] Name: KENDALL RICE Rep #: [id number] : 1990 Provider: Dr. Niko Valencia MD Age/Sex: 34/F [place] [facility] [place]: Signed Intake Vital Signs 07/14/24 14:41 12/07/24 13:02 Height 5 ft 10.5 in 5 ft 10.5 in Weight: 175 lb 9 oz BMI 24.8 BP 112/68 Intake Visit Reasons: *EST* NOB US#1 LINA 07/15 Wax Machine Operator Required: No Is patient in pain?: No Allergies amoxicillin trihydrate (From Amoxil) Allergy (Verified 12/07/24 13:03) Rash Medications ?Medication ?Instructions ?Recorded ?Confirmed ?Type hydroxychloroquine 200 mg tablet 200 mg PO DAILY AUTO IMMUNE 11/08/22 12/07/24 History (Plaquenil) aspirin 81 mg tablet,delayed 81 mg PO DAILY 07/14/23 0 12/07/24 History release PNV 153-FA 400 mcg-om3 35 mg-dha tab PO DAILY 11/30/24 12/07/24 History 25 mg-epa 5 mg-fish oil chew tablet enoxaparin 40 mg/0.4 mL 40 mg (0.4 mL) subcut QDAY 0 12/06/24 12/06/24 Rx subcutaneous syringe (Lovenox) PREVENTATIVE 30 days #1 2 mL Last Menstrual Period: 09/22/24 Zika: Zika virus screening: Negative PFSH PFSH Medical History Asthma 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 of abnormality in previous , currently Vaginal delivery (spontaneous vaginal delivery) 40 weeks gestation of Surgical History [place] teeth removed Family History Mother Cholelithiasis Social History adopted: No household members: spouse and children housing: house number of children: 4 current occupational status: unemployed current occupation: [employer] current occupational exposures/hazards: No pets and animals: No history of recent travel: No sexually active: Yes Smoking Status: Never smoker alcohol intake: never substance use type: does not use well-balanced diet: daily or most days caffeine: No eating out: rarely or never during the past year weight has: remained stable what type of physical activity do you participate in: walking frequency: 5-6 times per week duration: 15-30 minutes/day greg/christian: Baptist seatbelt use: always do you feel safe at home: Yes additional social history: -Sarwat- [employer] History 5 Elective abortions Hx Para 4 Spontaneous abortions Hx # Term Pregnancies Ectopic pregnancies Hx # Pregnancies Multiple births # of living children 4 Past Pregnancies Del. Date Name GA/Weeks Outcome Route Bth Weight Gen Labor Lgth Anesthesia Del Locatn Provider FOB 09/27/16 Azam 41 live - full term 7lbs 7oz Male epidural [facility] Olguin Danny 03/30/19 Sohan 40 live - full term 7lb 3 oz Male ep idural [facility] Olguin Danny 02/19/21 [place] 38 live - full term 6lbs 14 oz [facility] Shad 39 live - full term 6lbs 15oz Male no ne [facility] Nica Fam HPI *EST* NOB US#1 LINA 07/15 Details: KENDALL RICE is a 34 year old who presents for New OB visit. OB Visit LINA Calculator Estimated Delivery Date Method Current WG Current Estimate 07/15/25 Ultrasound #1 8w 4d Comments: HIV: Urine Culture: Sequential Screen: NIPT Screen: Estimated Due Date: 07/15/25 Expected Delivery Route/Plan Labor Preferences- CB/BF classes: [] labor support person: [] labor intervention preferences: [] pain management options preferred: [] cut cord/dad catch: [] : [] PP control planned: [] discussed possible routes of delivery and associated risks: [] special requests: [] Specific Issue/Plans Covid status: [] Flu vaccine: [] Tdap vaccine: [] Rhogam: [] LARC form signed: [] Problem list reviewed and updated with the most current plan of care details and appropriate orders placed. Relevant counseling for the gestational age provided. Continue routine care and follow up unless otherwise noted in visit notes/problem list details Initial Weight: Not Recorded Date -?-?-?-?-?-?-?-?-?-?-?-?- EGA Weight BP Urine Prot -?-?-?-?-?-?-?-?-?-?-?-?- Glucose FHR FuHt Pres Dilation -?-?-?-?-?-?-?-?-?-?-?-?- Effaced St Visit Note 12/07/24 -?-?-?-?-?-?-?-?-?-?-?-?- 8w 4d 175 lb 9 oz 112/68 -?-?-?-?-?-?-?-?-?-?-?-?- 170 -?-?-?-?-?-?-?-?-?-?-?-?- SM- CRL 1.8 cm c ons with prev US Menstrual History Last Menstrual Period: 09/22/24 Reported LMP: approximate (month known) Normal amount/duration: Yes Frequency in days: infrequent menses due to Breast feeding On hormonal BC at conception: No hCG+: 11/16/24 Antepartum Record Genetic Screening: Congenital Heart Defect: Partner (Sister hole in heart), Neural Tube Defect: Other, Hemoglobinopathy Or Carrier: Patient (auto immune SLE), Cystic Fibrosis: Other, Chromosome Abnormality: Other, Mason-Sachs: Other, Hemophilia: Other, Intellectual Disability/Autism: Other, Recurrent Loss/Stillbirth: Other, Other Structural Defect: Other, Other Genetic Disease: Patient (3rd child-CNPAS(breathing difficulty, NICU stay 2 months, had surgery) not likely to see again) and Maternal Metabolic Disorder: Other Infection History: Live with someone with TB or Exposed to TB: No, Patient or Partner has history of Genital Herpes: No, Rash or Viral illness since last mentrual period: No (yeast infection Fulford took diflucan prior to knowing she was ), Prior GBS-Infected child: No, History of STD: No, HIV Infection: No, History of Hepatitis: No, Recent travel outside of [place]: No, Concern for hepatitis exposure: No, Varicella immune: Yes (immune -virus) and Covid Vaccinated: Yes (pfizer, no boosters) Medical History Medical History: Positive: Auto-immune disorder (SLE related syndrome- taking asa 81mg QD), Varicosities/phlebitis (during vulva), Pulmonary (e.g.,TB,Asthma) (childhood asthma), Drug/latex allergies/reactions (amoxicilin), Operations/hospitalizations (wisdom teeth), 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), Relevant family history (See PFSH ) and Other (Pt breast feeding youngest son 2x/day) and Negative: Diabetes, Hypertension, Heart disease, Kidney disease/UTI, Neurologic/epilepsy, Psychiatric, Depression/ depression, Hepatitis/liver disease, Thyroid dysfunction, Trauma/domestic violence, History of blood transfusions, D (Rh) Sensitized, Seasonal allergies, Breast, Wing Commander surgery, History of abnormal pap, Uterine anomaly/tyrone, Infertility and Anti-retroviral treatment ACOG First Trimester First Trimester: Desire for , Alcohol, Tobacco Cessation, Illicit/Recreational Drug/Substance Use, Intimate Partner Violence, Barriers to care, Unstable Housing, Communication Barriers, Environmental/Work Hazards, Anticipated Course of Care, Nurtrition and weight gain, Toxoplasmosis Precations, Use of Any medications, Sexual activity, Exercise, Dental Care, Sauna/Hot tub use, Seat Belt use, Childbirth classes/Hospital facilities, Travel, Indications for Ultrasound and Screening for Aneuploidy Second Trimester Second Trimester: Signs and Symptoms of Labor, Selecting a care provider, Reproductive Life Planning & Contreception, Care Planning, Depression/Anxiety and Intimate Partner Violence; Discussed Tobacco Cessation Third Trimester Third Trimester: Pain Management Plans, Labor support person(s), Immediate Larc, Circumcision preference, Movement Monitoring, Signs and Symptoms of Preeclampsia, Infant Feeding, [place] Education and Family Medical Leave or Disability Forms ROS Const Reports system reviewed and no additional complaints, except as documented, Reports fatigue and Denies fever(s) Eyes Reports system reviewed and no additional complaints, except as documented ENT Reports system reviewed and no additional complaints, except as documented Card Denies chest pain and Denies dyspnea Resp Reports system reviewed and no additional complaints, except as documented, Denies cough and Denies dyspnea GI Denies abdominal pain and Reports nausea Reports system reviewed and no additional complaints, except as documented Musc Reports system reviewed and no additional complaints, except as documented Skin/Breast Reports system reviewed and no additional complaints, except as documented Neuro Yes system reviewed and no additional complaints, except as documented Psych Reports system reviewed and no additional complaints, except as documented Endo Reports system reviewed and no additional complaints, except as documented and Reports fatigue Exam Const General: healthy appearing, comfortable and no acute distress Orientation: alert [facility] Head: normal to inspection, normocephalic and atraumatic Ears: hearing grossly normal bilaterally and external ears normal Nose: external nose normal and nares normal Mouth: oral mucosae normal Teeth and gingiva: dentition normal Eyes General: appearance normal, both eyes and all related structures Neck Neck: normal visual inspection, no lymphadenopathy and supple Thyroid: thyroid normal Chest Chest palpation & inspection: normal inspection of the chest Breast inspection: normal inspection of the breasts and normal inspection of the axillae Breast palpation: normal palpation of the breasts and normal palpation of the axillae Resp Effort & Inspection: normal respiratory effort GI Inspection: normal to inspection Palpation: soft and no hepatosplenomegaly General: bladder normal to palpation External Female Exam: normal external appearance and normal appearance of the urethra Urethra: normal appearance of the urethra Speculum Exam - Vagina: normal appearance of the vagina and normal vaginal discharge Speculum Exam - Cervix: normal appearance of the cervix Bimanual Exam- Vagina & Uterus: normal bimanual exam, bladder normal to palpation, non-tender and other Bimanual Exam- Adnexa, other: non-tender Skin General: no rashes or lesions noted Neuro Motor: muscle tone normal throughout and no movement abnormalities noted Extrem General: normal to inspection and full ROM Supplemental Info ACOG book given and patient encouraged to read about nutrition, exercise, weight gain, and food avoidance in . Coding Level of Care Code OB Routine Diagnoses Supervision of high-risk O09.90 8 weeks gestation of Z3A.08 Weeks of gestation: 8 weeks Lactating mother Z39.1 SLE (systemic lupus erythematosus related syndrome) M32.9 Antiphospholipid antibody positive R76.0 Assessment and Plan Assessment and Plan (1) Supervision of high-risk : Status: Acute Comment: , LINA 07/15/25, Sohan Parr Samson, Shad Sarwat (2) : Status: Acute Qualifiers: Weeks of gestation: 8 weeks Qualified Code(s): Z3A.08 - 8 weeks gestation of Comment: declined NIPT & Carrier testing (3) Lactating mother: Status: Acute Comment: BF 2x/day (4) SLE (systemic lupus erythematosus related syndrome): Status: Acute Comment: RO and LA ordered 04/02/2023 related syndrome-not SLE. rheum following. hydroxychloroquine. anti ro and anti la ordered (5) Antiphospholipid antibody positive: Status: Acute Comment: repeat APL titers today. discussed holding on lovenox until titers drawn. consider mfm consult due to autoimmune syndrome and antibodies Orders: Orders CBC W/Diff, Automated Today O09.90 - Supervision of high risk , unspecified, unspecified trimester Type & Screen Today O09.90 - Supervision of high risk , unspecified, unspecified trimester Rubella IgG Today O09.90 - Supervision of high risk , unspecified, unspecified trimester Hepatitis C Antibody Today O09.90 - Supervision of high risk , unspecified, unspecified trimester Hepatitis B Surface Antigen Today O09.90 - Supervision of high risk , unspecified, unspecified trimester Culture, Urine 11/30/24 O09.90 - Supervision of high risk , unspecified, unspecified trimester Syphilis Antibodies Today O09.90 - Supervision of high risk , unspecified, unspecified trimester Chlamydia/GC EDILMA aptima 11/30/24 O09.90 - Supervision of high risk , unspecified, unspecified trimester HIV Today O09.90 - Supervision of high risk , unspecified, unspecified trimester Hemoglobinopathy Profile Today M32.9 - Systemic lupus erythematosus, unspecified, O09.90 - Supervision of high risk , unspecified, unspecified trimester Lupus Anticoagulant Comp Today N96 - Recurrent loss, R76.0 - Raised antibody titer Anticardiolipin IgG, IgM Today N96 - Recurrent loss, R76.0 - Raised antibody titer Beta-2 Glycoprot IgG, A, M Today N96 - Recurrent loss, R76.0 - Raised antibody titer Medications: Refilled enoxaparin (Lovenox) 40 mg (0.4 mL) subcut QDAY 12 mL 12RF PREVENTATIVE 30 days Plan Patient oriented to practice and discussed care expectations and screenings. ACOG book offered to patient. Discussed routine and specially indicated labs if needed- patient consents to testing. See problem list details for plan information. Optional screening including maternal carrier screenings, neural tube defect screening, genetic screening options including quad screen, nuchal translucency, sequential screening, and NIPT screening offered to patient and patient chose: declined 12/07/24 2892 <Electronically signed by Mariely leong MD> Date _ Mariely Valencia MD [facility] Signature: Date (if applicable) CC: ~ [facility] Work Phone: [phone]) 880-378909-23-2025 Progress [facility] [address] [place] [address], [address] [place] [id number] OFFICE VISIT Date of Service: 12/07/24 MR#: [id number] Acct: [id number] Name: KENDALL RICE Rep #: [id number] : 1990 Provider: Dr. Niko Valencia MD Age/Sex: 34/F [place] [facility] [place]: Signed Intake Vital Signs 07/14/24 14:41 12/07/24 13:02 Height 5 ft 10.5 in 5 ft 10.5 in Weight: 175 lb 9 oz BMI 24.8 BP 112/68 Intake Visit Reasons: *EST* NOB US#1 LINA / Wax Machine Operator Required: No Is patient in pain?: No Allergies amoxicillin trihydrate (From Amoxil) Allergy (Verified 12/07/24 13:03) Rash Medications ?Medication ?Instructions ?Recorded ?Confirmed ?Type hydroxychloroquine 200 mg tablet 200 mg PO DAILY AUTO IMMUNE 11/08/22 12/07/24 History (Plaquenil) aspirin 81 mg tablet,delayed 81 mg PO DAILY 07/14/23 0 12/07/24 History release PNV 153-FA 400 mcg-om3 35 mg-dha tab PO DAILY 11/30/24 12/07/24 History 25 mg-epa 5 mg-fish oil chew tablet enoxaparin 40 mg/0.4 mL 40 mg (0.4 mL) subcut QDAY 0 12/06/24 12/06/24 Rx subcutaneous syringe (Lovenox) PREVENTATIVE 30 days #1 2 mL Last Menstrual Period: 09/22/24 Zika: Zika virus screening: Negative PFSH PFSH Medical History Asthma 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 of abnormality in previous , currently Vaginal delivery (spontaneous vaginal delivery) 40 weeks gestation of Surgical History [place] teeth removed Family History Mother Cholelithiasis Social History adopted: No household members: spouse and children housing: house number of children: 4 current occupational status: unemployed current occupation: [employer] current occupational exposures/hazards: No pets and animals: No history of recent travel: No sexually active: Yes Smoking Status: Never smoker alcohol intake: never substance use type: does not use well-balanced diet: daily or most days caffeine: No eating out: rarely or never during the past year weight has: remained stable what type of physical activity do you participate in: walking frequency: 5-6 times per week duration: 15-30 minutes/day greg/christian: Baptist seatbelt use: always do you feel safe at home: Yes additional social history: -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 Date Name GA/Weeks Outcome Route Bth Weight Infant Gen Labor Lgth Anesthesia Del Locatn Provider FOB 09/27/16 Azam 41 live - full term 7lbs 7oz Male epidural [facility] Olguin Danny 03/30/19 Sohan 40 live - full term 7lb 3 oz Male ep idural [facility] Ol[employer] Danny 02/19/21 Rad 38 live - full term 6lbs 14 oz Male epidural [facility] Olguin -Danny 06/01/23 Shad 39 live - full term 6lbs 15oz Male no ne [facility] Nica Fam HPI *EST* NOB US#1 LINA 07/15 Details: KENDALL RICE is a 34 year old who presents for New OB visit. OB Visit LINA Calculator Estimated Delivery Date Method Current WG Current Estimate 07/15/25 Ultrasound #1 8w 4d Comments: HIV: Urine Culture: Sequential Screen: NIPT Screen: Estimated Due Date: 07/15/25 Expected Delivery Route/Plan Labor Preferences- CB/BF classes: [] labor support person: [] labor intervention preferences: [] pain management options preferred: [] cut cord/dad catch: [] : [] PP control planned: [] discussed possible routes of delivery and associated risks: [] special requests: [] Specific Issue/Plans Covid status: [] Flu vaccine: [] Tdap vaccine: [] Rhogam: [] LARC form signed: [] Problem list reviewed and updated with the most current plan of care details and appropriate ordersplaced. Relevant counseling for the gestational age provided. Continue routine care and follow up unless otherwise noted in visit notes/problem list details Initial Weight: Not Recorded Date -?-?-?-?-?-?-?-?-?-?-?-?- EGA Weight BP Urine Prot -?-?-?-?-?-?-?-?-?-?-?-?- Glucose FHR FuHt Pres Dilation -?-?-?-?-?-?-?-?-?-?-?-?- Effaced St Visit Note 12/07/24 -?-?-?-?-?-?-?-?-?-?-?-?- 8w 4d 175 lb 9 oz 112/68 -?-?-?-?-?-?-?-?-?-?-?-?- 170 -?-?-?-?-?-?-?-?-?-?-?-?- SM- CRL 1.8 cm c ons with prev US Menstrual History Last Menstrual Period: 09/22/24 Reported LMP: approximate (month known) Normal amount/duration: Yes Frequency in days: infrequent menses due to Breast feeding On hormonal BC at conception: No hCG+: 11/16/24 Antepartum Record Genetic Screening: Congenital Heart Defect: Partner (Sister hole in heart), Neural Tube Defect: Other, Hemoglobinopathy Or Carrier: Patient (auto immune SLE), Cystic Fibrosis: Other, Chromosome Abnormality: Other, Mason-Sachs: Other, Hemophilia: Other, Intellectual Disability/Autism: Other, RecurrentPregnancy Loss/Stillbirth: Other, Other Structural Defect: Other, Other Genetic Disease: Patient (3rd child-CNPAS(breathing difficulty, NICU stay 2 months, had surgery) not likely to see again)and Maternal Metabolic Disorder: Other Infection History: Live with someone with TB or Exposed to TB: No, Patient or Partner has history of Genital Herpes: No, Rash or Viral illness since last mentrual period: No (yeast infection [place] took diflucan prior to knowing she was ), Prior GBS-Infected child: No, History of STD: No, HIV Infection: No, History of Hepatitis: No, Recent travel outside of [place]: No, Concern for hepatitis exposure: No, Varicella immune: Yes (immune -virus) and Covid Vaccinated: Yes (pfizer, no boosters) Medical History Medical History: Positive: Auto-immune disorder (SLE related syndrome- taking asa 81mg QD), Varicosities/phlebitis (during vulva), Pulmonary (e.g.,TB,Asthma) (childhood asthma), Drug/latex allergies/reactions (amoxicilin), Operations/hospitalizations (wisdom teeth), 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), Relevant family history (See PFSH ) and Other (Pt breast feeding youngest son 2x/day) and Negative: Diabetes, Hypertension, Heart disease, Kidney disease/UTI,Neurologic/epilepsy, Psychiatric, Depression/ depression, Hepatitis/liver disease, Thyroid dysfunction, Trauma/domestic violence, History of blood transfusions, D (Rh) Sensitized, Seasonal allergies, Breast, Wing Commander surgery, History of abnormal pap, Uterine anomaly/tyrone, Infertility and Anti-retroviral treatment ACOG First Trimester First Trimester: Desire for , Alcohol, Tobacco Cessation, Illicit/Recreational Drug/Substance Use, Intimate Partner Violence, Barriers to care, Unstable Housing, Communication Barriers, Environmental/Work Hazards, Anticipated Course of Care, Nurtrition and weight gain, Toxoplasmosis Precations, Use of Any medications, Sexual activity, Exercise, Dental Care, Sauna/Hot tub use, Seat Belt use, Childbirth classes/Hospital facilities, Travel, Indications for Ultrasound and Screening for Aneuploidy Second Trimester Second Trimester: Signs and Symptoms of Labor, Selecting a care provider, Reproductive Life Planning & Contreception, Care Planning, Depression/Anxiety and Intimate Partner Violence; Discussed Tobacco Cessation Third Trimester Third Trimester: Pain Management Plans, Labor support person(s), Immediate Larc, Circumcision preference, Movement Monitoring, Signs and Symptoms of Preeclampsia, Feeding, Education and Family Medical Leave or Disability Forms ROS Const Reports system reviewed and no additional complaints, except as documented, Reports fatigue and Denies fever(s) Eyes Reports system reviewed and no additional complaints, except as documented ENT Reports system reviewed and no additional complaints, except as documented Card Denies chest pain and Denies dyspnea Resp Reports system reviewed and no additional complaints, except as documented, Denies cough and Deniesdyspnea GI Denies abdominal pain and Reports nausea Reports system reviewed and no additional complaints, except as documented Musc Reports system reviewed and no additional complaints, except as documented Skin/Breast Reports system reviewed and no additional complaints, except as documented Neuro Yes system reviewed and no additional complaints, except as documented Psych Reports system reviewed and no additional complaints, except as documented Endo Reports system reviewed and no additional complaints, except as documented and Reports fatigue Exam Const General: healthy appearing, comfortable and no acute distress Orientation: alert [facility] Head: normal to inspection, normocephalic and atraumatic Ears: hearing grossly normal bilaterally and external ears normal Nose: external nose normal and nares normal Mouth: oral mucosae normal Teeth and gingiva: dentition normal Eyes General: appearance normal, both eyes and all related structures Neck Neck: normal visual inspection, no lymphadenopathy and supple Thyroid: thyroid normal Chest Chest palpation & inspection: normal inspection of the chest Breast inspection: normal inspection of the breasts and normal inspection of the axillae Breast palpation: normal palpation of the breasts and normal palpation of the axillae Resp Effort & Inspection: normal respiratory effort GI Inspection: normal to inspection Palpation: soft and no hepatosplenomegaly General: bladder normal to palpation External Female Exam: normal external appearance and normal appearance of the urethra Urethra: normal appearance of the urethra Speculum Exam - Vagina: normal appearance of the vagina and normal vaginal discharge Speculum Exam - Cervix: normal appearance of the cervix Bimanual Exam- Vagina & Uterus: normal bimanual exam, bladder normal to palpation, non-tender and other Bimanual Exam- Adnexa, other: non-tender Skin General: no rashes or lesions noted Neuro Motor: muscle tone normal throughout and no movement abnormalities noted Extrem General: normal to inspection and full ROM Supplemental Info ACOG book given and patient encouraged to read about nutrition, exercise, weight gain, and food avoidance in . Coding Level of Care Code OB Routine Diagnoses Supervision of high-risk O09.90 8 weeks gestation of Z3A.08 Weeks of gestation: 8 weeks Lactating mother Z39.1 SLE (systemic lupus erythematosus related syndrome) M32.9 Antiphospholipid antibody positive R76.0 Assessment and Plan Assessment and Plan (1) Supervision of high-risk : Status: Acute Comment: , LINA 07/15/25, Sohan Parr Samson, Shad Sarwat (2) : Status: Acute Qualifiers: Weeks of gestation: 8 weeks Qualified Code(s): Z3A.08 - 8 weeks gestation of Comment: declined NIPT & Carrier testing (3) Lactating mother: Status: Acute Comment: BF 2x/day (4) SLE (systemic lupus erythematosus related syndrome): Status: Acute Comment: RO and LA ordered 04/02/2023 related syndrome-not SLE. rheum following. hydroxychloroquine. anti ro and anti la ordered (5) Antiphospholipid antibody positive: Status: Acute Comment: repeat APL titers today. discussed holding on lovenox until titers drawn. consider mfm consult due to autoimmune syndrome and antibodies Orders: Orders CBC W/Diff, Automated Today O09.90 - Supervision of high risk , unspecified, unspecified trimester Type & Screen Today O09.90 - Supervision of high risk , unspecified, unspecified trimester Rubella IgG Today O09.90 - Supervision of high risk , unspecified, unspecified trimester Hepatitis C Antibody Today O09.90 - Supervision of high risk , unspecified, unspecified trimester Hepatitis B Surface Antigen Today O09.90 - Supervision of high risk , unspecified, unspecified trimester Culture, Urine 11/30/24 O09.90 - Supervision of high risk , unspecified, unspecified trimester Syphilis Antibodies Today O09.90 - Supervision of high risk , unspecified, unspecified trimester Chlamydia/GC EDILMA aptima 11/30/24 O09.90 - Supervision of high risk , unspecified, unspecified trimester HIV Today O09.90 - Supervision of high risk , unspecified, unspecified trimester Hemoglobinopathy Profile Today M32.9 - Systemic lupus erythematosus, unspecified, O09.90 - Supervision of high risk , unspecified, unspecified trimester Lupus Anticoagulant Comp Today N96 - Recurrent loss, R76.0 - Raised antibody titer Anticardiolipin IgG, IgM Today N96 - Recurrent loss, R76.0 - Raised antibody titer Beta-2 Glycoprot IgG, A, M Today N96 - Recurrent loss, R76.0 - Raised antibody titer Medications: Refilled enoxaparin (Lovenox) 40 mg (0.4 mL) subcut QDAY 12 mL 12RF PREVENTATIVE 30 days Plan Patient oriented to practice and discussed care expectations and screenings. ACOG book offered to patient. Discussed routine and specially indicated labs if needed- patient consents to testing. See problem list details for plan information. Optional screening including maternal carrier screenings, neural tube defect screening, genetic screening options including quad screen, nuchal translucency, sequential screening, and NIPT screening offered to patient and patient chose: declined 12/07/24 1345 salo GOULD> Date _ Mariely Valencia [facility] Signature: Date (if applicable) CC: ~ [facility]09-15-2025 Radiology Diagnostic study note [facility] Imaging Services [address] [place] [address] Transvaginal w/Preg US MR#: [id number] Acct: [id number] Name: KENDALL RICE Rep #: [id number] : 1990 F 34 From: Jeb Padilla MD PCP: Dr. Jocelyn Harrell, Status: REG CLI Study:Transvaginal w/Preg US Date of Exam: 11/26/24 Exam# [id number] Ordering Dr: Barbara Bartlett [employer] PROCEDURE: TRANSVAGINAL W/PREG US 11/26/2024 REASON FOR EXAM: DATING TECHNIQUE: Procedure Code: USTVAGP Modality: US Procedure: TRANSVAGINAL W/PREG US COMPARISON: None FINDINGS: Comments: LMP: September 22, 2024. Number of Gestational Sacs: 1 Gestational Sac Shape: Normal Number of Fetuses: 1 Heart Rate: 133 beats per minute (average) Yolk Sac: Present and unremarkable. Placenta: Presently not well-visualized Amniotic Fluid Volume: Subjectively normal for gestational age. Uterine Abnormalities: Maternal uterus is unremarkable. Ovaries / Adnexa: Both maternal ovaries are visualized and unremarkable. DIMENSIONS: Parameter Measurement / EGA [place] Rump Length: 9 mm/7 weeks and 0 days. Gestational Sac: 1.9 cm/6 weeks and 6 days Yolk Sac: 3 mm/ ESTIMATED GESTATIONAL AGE: By Ultrasound: 7 weeks and 0 days By LMP: 9 weeks and 2 days ESTIMATED DATE OF DELIVERY: By Ultrasound: July 15, 2025 By LMP: June 29, 2025 US/Transvaginal w/Preg US IMPRESSION: Single live intrauterine gestation with a mean gestational age of 7 weeks. Reading Location: [place] [address] CC: SOO Bartlett; Dr. Jocelyn Harrell, DO ~ Audio Technician: Signed [facility]09-01-2025 Evaluation note* Diagnosis Onset Date Resolution Status Admit Date Antiphospholipid antibody positive November, acute December 07, 2024 12:59pm [facility] 12:59pm acute November 12:59pm SLE (systemic lupus erythematosus related syndrome) acute December 07, 2024 12:59pm Supervision of high-risk acute December 07, 2024 12:59pm [facility] Work Phone: 1(471) 971-696909-01-2025 Evaluation note* Diagnosis Onset Date Resolution Status Admit Date Antiphospholipid antibody positive November, acute December 07, 2024 12:59pm Lactating mother acute 2024 12:59pm acute November 12:59pm SLE (systemic lupus erythematosus related syndrome) acute December 07, 2024 12:59pm Supervision of high-risk acute December 07, 2024 12:59pm Antiphospholipid antibody positive November, acute January 04 2:29pm Lactating mother acute January 04, 2025 2:29pm acute January 04, 2025 2:29pm SLE (systemic lupus erythematosus related syndrome) acute January 04 2:29pm Supervision of high-risk acute January 04 2:29pm [facility] Work Phone: 1(358) 302-522004-30-2025 Evaluation note* Diagnosis Onset Date Resolution Status Admit Date Encounter for routine gynecological examination noneactive July 14, 2024 2:34pm [facility] Work Phone: 1(428) 594-106303-19-2024 Progress note Author Yovana Fonseca [facility] June 03, 2023 8:02am Note Date/Time June 03, 2023 8:0 2am [facility] Medical Records Department [address] [place] [address] Progress Note - OBGYN 06/03/23 0801 MR#: [id number] Acct: [id number] Name: KENDALL RICE Rep #:[id number] : 1990 33 From: Yovana Fonseca CNM PCP: Dr. Jocelyn Harrell, DO Status:ADM IN Location: [place] [address]-1 Subjective Subjective Patient doing well without complaints. [...] Cosigner Signature (if applicable): CC: ~ Signed [facility] Work Phone: 1(317) 848-777003-18-2024 Progress note Author Julio Cesar Wong [facility] June 02, 2023 9:03am Note Date/Time June 02, 2023 9:0 3am [facility] Medical Records Department [address] [place] [address] Progress Note - OBGYN 06/02/23 0900 MR#: [id number] Acct: [id number] Name: KENDALL RICE Rep #:[id number] : 1990 33 From: Julio Cesar Wong CNM PCP: Dr. Jocelyn Harrell, DO Status:ADM IN [facility] Subject[facility] Subjective Patient doing well without complaints. Tolerating PO. Ambulating and voiding without difficulty. Feeding well, with lip tie, but latching well. Denieschest [...] defect)- causedrespiratory distress after , went to [facility], had surgery. (3) SLE (systemic lupus erythematosus related syndrome): COMMENT: RO and LA ordered 04/02/2023 related syndrome-not SLE. rheum following. hydroxychloroquine. anti ro and anti la ordered PLAN: Plan s/p PPD # 1 1. routine post delivery care 2. breast feeding- support given 3. rh positive 4. rubella immune 5. plan d/c tomorrow, under bili lights. 6. has lovenox at home with refills, discussed continuing until 6 weeks pp. 06/02/23 0903 <Electronically signed by Julio Cesar Wong CNM> Cosigner Signature (if applicable): CC: ~ Signed [facility] Work Phone: 1(264) 645-170903-17-2024 Discharge summary Author Janet Davis [facility] June 01, 2023 4:27pm Note Date/Time June 01, 2023 4:2 7pm [facility] Medical Records Department [address] [place] [address] Instructions for Home/Discharge Instructions 06/01/23 1627 MR#: [id number] Acct: [id number] Name: LISAKENDALL Nicola Rep #:[id number] : 1990 33 From: Janet Cardoza DO PCP: Dr. Jocelyn Harrell DO Status:ADM IN Discharge Instructions Diet Discharge [...] Up With: Janet Cardoza DO When: Call [phone] to make an appointment with your doctor [...] Provider: Janet Cardoza Primary Care Provider: Jocelyn Harrell Discharge Orders/Prescriptions Prescriptions: Continued hydroxychloroquine [Plaquenil] 200 mg tablet 200 mg PO DAILY pyridoxine (vitamin B6) 25 mg tablet 25 mg PO DAILY enoxaparin [Lovenox] 40 mg/0.4 mL syringe 40 mg subcut QDAY 30 Days Qty: 12 12RF Prenatabs FA 1 TABLET tablet 1 tab PO DAILY Discontinued aspirin 81 mg tablet,delayed release (DR/EC) 81 mg PO DAILY Referrals / Follow Up: Jocelyn Harrell DO [Primary Care Provider] - Disposition Disposition (needs filled in before D/C Order can be placed): Home, Self Care 06/01/23 1627<Electronically signed by Janet Cardoza DO>Janet Cardoza DO CC: Dr. Jocelyn Harrell DO ~ Signed [facility] Work Phone: 1(557) 187-679203-17-2024 Procedure [facility] 06-01-2023 Progress note Author Janet Davis [facility] June 01, 2023 12:53pm Note Date/Time June 01, 2023 12: 53pm [facility] Medical Records Department [address] [place] [address] Progress Note 06/01/23 1250 MR#: [id number] Acct: [id number] Name: KENDALL RICE Rep #:[id number] : 1990 33 From: Janet Cardoza DO PCP: Dr. Jocelyn Harrell, DO Status:ADM IN Location: GA516-9 Progress Note patient consents to AROM. Her cox has been out now for almost 2 hours. current tracing: FHT: 140 Moderate variability reactive no decelerations category I tracing [place]: q 2-3 min Contractions cx: 5/80/-1, membranes ruptured and clear fluid returned. 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 Jocelyn Harrell, DO Status:ADM IN Location: KL549-3 HPI - General General Date of Admission: [...] Amoxil] Family History Other Cholelithiasis Surgical History [place] teeth removed Social History (Updated 06/01/23 @ 07:38 by Sindy Elliott) adopted: No household members: spouse and children number of children: 3 current occupational status: unemployed current occupation: [employer] current occupational exposures/hazards: No pets and animals: No history of recent travel: No sexually active: Yes Smoking Status: Never smoker alcohol intake: never substance use type: does not use caffeine: No seatbelt use: always do you feel safe at home: Yes additional social history: -Sarwat- [employer] History 4 Elective abortions Hx Para 3 Spontaneous abortions Hx # Term Pregnancies Ectopic pregnancies Hx # Pregnancies Multiple births # of living children 3 Past Pregnancies Del. Date Name GA/Weeks Outcome Route Bth Weight Infant Gen Labor Lgth Anesthesia Del Locatn Provider FOB 09/27/16 [place] 41 live - full term 7lbs 7oz Male epidural [facility] Sharif Delgado 03/30/19 [place] 40 live - full term 7lb 3 oz Male ep idural [facility] Sharif Delgado 02/19/21 [place] 38 live - full term 6lbs 14 oz Male [facility] Sharif Delgado Visit Details Expected Delivery Route/Plan Labor Preferences- [...] 118/74 Nega tive -?-?-?-?-?-?-?-?-?-?-?-?- Negative 151 -?-?-?-?-?-?-?-?-?-?-?-?- -No VB, crampi ng. Some nausea persists. Eager [...] we can know more. message sent to [facility]. Rpt scan at 28 weeks 02/27/23 -?-?-?-?-?-?-?-?-?-?-?-?- 25w 4d 183 lb 4 oz 110/66 Nega tive -?-?-?-?-?-?-?-?-?-?-?-?- Negative 136 -?-?-?-?-?-?-?-?-?-?-?-?- MH-No VB, LOF. G ood FM. Patient w covid last week, will start 81mg asa daily. Grainger questionable audible PVC and Sm confirms. Will recheck 1 week. Reviewed kick cts. 03/05/23 -?-?-?-?-?-?-?-?-?-?-?-?- 26w 3d 186 lb [...] defect)-caused respiratory distress after , went to [facility], had surgery. (4) : QUALIFIERS: Weeks of gestation: 38 weeks Qualified Code(s): Z3A.38 - 38 weeks gestation of COMMENT: IOL scheduled for 05/31 @ 7am with JV, GBS neg, DOC ONLY. denies NIPT, carrier, and ntd screen. nl anatomy. (5) Supervision of high risk , antepartum: COMMENT: [id number] LINA 06/08/23 boy Sohan Parr Sampson. Spouse Sarwat (6) SLE (systemic lupus erythematosus related syndrome): COMMENT: RO and LA ordered 04/02/2023 related syndrome-not SLE. rheum following. hydroxychloroquine. anti ro and anti la ordered PLAN: Plan Patient presents IOL, plan management for with cox/pitocin/AROM. Pain management: plans epidural. GBS negative. Management of any complications: APL I have reviewed the [facility] and made any clinically relevant updates. 06/01/23 1010 <Electronically signed by Janet Cardoza DO> Cosigner Signature (if applicable): CC: Dr. Janet Cardoza DO; Dr. Jocelyn Harrell DO~ Signed [facility] Work Phone: 1(744) 163-975705-13-2023 Evaluation + Plan note Diagnostic Tests Pending * Circulating Anticoagulants - Panel 07/27/22 * Antinuclear Antibody Screen, Serum 07/27/22 * Cardiolipin IgG Antibodies 07/27/22 * Beta 2 Glycoprot IgG and IgM 07/27/22 [facility] Discharge summary Author Dr. Diaz [facility] August 16, 2022 10:02am Note Date/Time August 16, 2022 9:23a m [facility] Medical Records Department [address] [place] [address] Emergency Department Summary 08/16/22 MR#: [id number] Acct: [id number] Name: KENDALL RICE Rep #:[id number] : 1990 32 From: Bryson Diaz MD PCP: Dr. Jocelyn Harrell DO Status:REG ER Location: ED HPI History [...] Marfan's Syndrome, Hypertension or Family History PFSH PFS Home Medications vits,calcium no.78-iron fumarate-folic acid 29 mg-1 mg tablet (Prenatabs FA) 1 tab PO DAILY 09/26/16 [History Last Taken 02/18/21 06:00] Allergy/AdvReac Type Severity Reaction Status Date / Time amoxicillin trihydrate Allergy Rash Verified 08/16/22 09:05 [From Amoxil] Family History (Updated 08/16/22 @ 09:[address] Bryson Diaz MD) Other Cholelithiasis Surgical History [place] teeth removed Social History (Updated 08/16/22 @ [...] % (Auto) 48.4 Lymph % (Auto) 37.4 [place] % (Auto) 11.3 H Eos % (Auto) [...] is 63 and the EKG is normal. AR interval is 102 ms. Cures duration 82 ms. QT duration 394 ms. 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 Call [facility] ([phone]) or report to the closest Emergency Room. Call 911 if necessary. 08/16/22 1002 <Electronically signed by Bryson Diaz MD> Cosigner Signature (if applicable): CC: Dr. Jocelyn Harrell, DO ~ Signed [facility] Work Phone: Evaluation noteNo assessment information available [facility] Work Phone: Evaluation note* Diagnosis Onset Date Resolution Status acute SLE (systemic lupus erythematosus related syndrome) acute Supervision of high risk , antepartum acute [facility] Work Phone: evaluation note* Diagnosis Onset Date Resolution Status acute [...] Supervision of high risk , antepartum acute [facility] Work Phone: Evaluation note* Diagnosis Onset [...] Supervision of high risk , antepartum acute [facility] Work Phone: Evaluation note* Diagnosis Onset [...] Supervision of high risk , antepartum acute [facility] Work Phone: Evaluation note* Diagnosis Onset [...] Supervision of high risk , antepartum resolved [facility] Work Phone: Evaluation note* Diagnosis Onset [...] Supervision of high risk , antepartum resolved [facility] Work Phone: Hospital course Narrative No data available for this section [facility] Hospital Discharge instructions No data available for this section [facility] Progress note No data available for this section [facility] Reason for referral (narrative)No reason for referral information availableWParkwood [facility] Work Phone: Summary Purpose Family History Relationship Condition Age at Onset Recorded Date/T gabe Not Specified Cholelithiasis Unknown Relationship Condition Age at Onset Recorded Date/T gabe mother Cholelithiasis Unknown Advance Directives Advance Directive Response Recorded Date/ Time Advance Directives No March 26, 2016 7:52pm Living Will No August 16, 2022 9 :13am Power of Olive Picker No August 16, 2022 9:13am Advance Directive Response Recorded Date/ Time Advance Directives No March 26, 2016 6:52pm Living Will No August 16, 2022 8 :13am Power of Olive Picker No August 16, 2022 8:13am Advance Directive Response Recorded Date/ Time Advance Directives No March 26, 2016 7:52pm Living Will No June 01, 2023 7:24am Power of Olive Picker No May 31 7:24am Advance Directive Response Recorded Date/ Time Advance Directives No March 26, 2016 7:52pm Advance Directive Response Recorded Date/ Time Advance Directives No March 26, 2016 6:52pm Chief Complaint and Reason for Visit Chief Complaint Admit Date PAIN- COPY PCP July 12, 2024 9:3 1am 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, 2024 2:3 4pm Reason for [...] PCP July 12, 2024 9:3 1am 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, 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 2:3 4pm Chief Complaint Admit Date BLOOD DRAW November 21, 2024 2:38pm Encounter for screening for un certain da November 26, 2024 4:31pm Chief Complaint Admit Date BLOOD DRAW November 21, 2024 2:38pm Encounter for screening for un certain da November 26, 2024 4:31pm *EST* NOB US#1 LINA 07/15December 07, 2 025 12:59pm Reason for Visit Admit Date Antiphospholipid antibody positive Shahzad davis 2024 12:59pm Lactating mother December 07, 2024 12:59pm December 07, 2024 12:59pm SLE (systemic lupus erythematosus relate d syndrome) December 07, 2024 12:59pm Supervision of high-risk Shahzad davis 2024 12:59pm Chief Complaint Admit Date BLOOD DRAW November 21, 2024 2:38pm Encounter for screening for un certain da November 26, 2024 4:31pm *EST* NOB US#1 LINA 07/15December 07, 2 025 12:59pm PAIN- COPY PCP December 27, 2024 8 :45am 12wk 4d OB *DOC ONLY January 04, 2025 2:29pm Reason for Visit Admit Date Antiphospholipid antibody positive Shahzad rogers 2024 12:59pm Lactating mother December 07, 2024 12:59pm December 07, 2024 12:59pm SLE (systemic lupus erythematosus relate d syndrome) December 07, 2024 12:59pm Supervision of high-risk Shahzad davisbrenda 2024 12:59pm Antiphospholipid antibody positive Octob er 2024 2:29pm Lactating mother January 04, 2025 2 :29pm January 04, 2025 2 :29pm SLE (systemic lupus erythematosus relate d syndrome) January 04, 2025 2:29pm Supervision of high-risk Octob er 2024 2:29pm Additional Source Comments Patient Care team informatio n (unrecognized section and content) Team Status: Active Member Role Status Dates Dr. Jocleyn Harrell DO Family Provider Active Dr. Jocelyn Harrell DO Primary Care Provider Active Team Status: Inactive Member Role Status Dates Dr. Jocelyn Harrell DO Primary Care Provider Active Dr. Bryson Diaz MD Emergency Provider Active Team Status: Inactive Member Role Status Dates Dr. Jcoelyn Harrell DO Primary Care Provider, Referri ng Provider Active Yovana Fonseca CNM Attending Provider Active Team Status: Inactive Member Role Status Dates Dr. Jocelyn Harrell DO Primary Care Provider Active Dr. Bryson Diaz MD Attending Provider, Emergency Provi jamie Active Team Status: Inactive Member Role Status Dates Dr. Jocelyn Harrell DO Primary Care Provider Active Dr. Mariana Raphael MD Attending Provider, Referring Provider Active Team Status: Inactive Member Role Status Dates Dr. Jocelyn Harrell DO Primary Care Provider Active Yovana Fonseca CNM Attending Provider, Referring Pro vider Active Team Status: Inactive Member Role Status Dates Dr. Jocelyn Harrell DO Primary Care Provider, Referri ng Provider Active Julio Cesar Wong CNM Attending Provider Active Team Status: Inactive Member Role Status Dates Dr. Jocelyn Harrell DO Primary Care Provider, Referri ng Provider Active Paige Solorzano [employer]USEUM, CURATOR [employer]IC[employer] MUSEUM-C Attending Provider Active Team Status: Inactive Member Role Status Dates Dr. Jocelyn Harrell DO Primary Care Provider, Referri ng Provider Active Dr. Janet Cardoza DO Attending Provider Activ e Team Status: Inactive Member Role Status Dates Dr. Jocelyn Harrell DO Primary Care Provider Active Dr. Janet Cardoza DO Attending Provider, Refe rring Provider Active Team Status: Inactive Member Role Status Dates Dr. Jocelyn Harrell DO Primary Care Provider Active Dr. Mariana Raphael MD Attending Provider Active Julio Cesar Wong CNM Other Provider Active Team Status: Inactive Member Role Status Dates Dr. Jocelyn Harrell DO Primary Care Provider, Referri ng Provider Active Dr. Mariely Valencia MD Attending Provider Active Team Status: Inactive Member Role Status Dates Dr. Jocelyn Harrell DO Primary Care Provider Active Dr. aMriely Valencia MD Attending Provider, Referr ing Provider Active Team Status: Inactive Member Role Status Dates Dr. Jocelyn Harrell DO Primary Care Provider Active Dr. Janet Cardoza DO Attending Provider Activ e Team Status: Active Member Role Status Dates Dr. Jocelyn Harrell DO Primary Care Provider Active Dr. Janet Cardoza DO Admit Prov ider, Attending Provider, Other Provider Active Team Status: Active Member Role Status Dates Dr. Jocelyn Harrell DO Primary Care Provider Active Dr. Janet Cardoza DO Admit Provider, Other Pr ovider Active Julio Cesar Wong CNM Attending Provider Active Team Status: Active Member Role Status Dates Dr. Jocelyn Harrell DO Primary Care Provider Active Dr. Janet Cardoza DO Admit Provider, Other Pr ovider Active Yovana Fonseca CNM Attending Provider Active Team Status: Inactive Member Role Status Dates Dr. Jocelyn Harrell DO Primary Care Provider Active Dr. Janet Cardoza DO Admit Provider, Attendin g Provider Active Team Status: Active Member Role Status Dates Dr. Jocelyn Harrell DO Primary Care Provider Active Team Status: Inactive Member Role Status Dates Dr. Jocelyn Harrell DO Primary Care Provider Active Start: April 21, 2024 End: April 21, 2024 Dr. Mariana Raphael MD Attending Provider Active Start: April 21, 2024 End: April 21, 2024 Dr. Mariana Raphael MD Referring Provider Active Start: April 21, 2024 End: April 21, 2024 Team Status: Inactive Member Role Status Dates Dr. Jocelyn Harrell DO Primary Care Provider Active Start: July 12, 2024 End: July 12, 2024 Dr. Mariana Raphael MD Attending Provider Active Start: July 12, 2024 End: July 12, 2024 Dr. Mariana Raphael MD Referring Provider Active Start: July 12, 2024 End: July 12, 2024 Team Status: Inactive Member Role Status Dates Dr. Jocelyn Harrell DO Primary Care Provider Active Start: July 14, 2024 End: July 14, 2024 Dr. Jocelyn Harrell DO Referring Provider Active Start: July 14, 2024 End: July 14, 2024 SOO Gonzales Attending Provider Active Start: July 14, 2024 End: July 14, 2024 Team Status: Inactive Member Role Status Dates Dr. Jocelyn Harrell DO Primary Care Provider Active Start: July 14, 2024 End: July 14, 2024 SOO Gonzales Attending Provider Active Start: July 14, 2024 End: July 14, 2024 SOO Gonzales Referring Provider Active Start: July 14, 2024 End: July 14, 2024 Team Status: Active Member Role/Relationship Status Dates Dr. Jocelyn Harrell DO Primary Care Provider Active Team Status: Inactive Member Role/Relationship Status Dates Dr. Jocelyn Harrell DO Primary Care Provider Active Start: July 12, 2024 End: July 12, 2024 Dr. Mariana Raphael MD Attending Provider Active Start: July 12, 2024 End: July 12, 2024 Dr. Mariana Raphael MD Referring Provider Active Start: July 12, 2024 End: July 12, 2024 Team Status: Inactive Member Role/Relationship Status Dates Dr. Jocelyn Harrell DO Primary Care Provider Active Start: July 14, 2024 End: July 14, 2024 Dr. Jocelyn Harrell DO Referring Provider Active Start: July 14, 2024 End: July 14, 2024 SOO Gonzales Attending Provider Active Start: July 14, 2024 End: July 14, 2024 Team Status: Inactive Member Role/Relationship Status Dates Dr. Jocelyn Harrell DO Primary Care Provider Active Start: July 14, 2024 End: July 14, 2024 SOO Gonzales Attending Provider Active Start: July 14, 2024 End: July 14, 2024 SOO Gonzales Referring Provider Active Start: July 14, 2024 End: July 14, 2024 Team Status: Inactive Member Role/Relationship Status Dates Dr. Jocelyn Harrell DO Primary Care Provider Active Start: October 01, 2024 End: October 01, 2024 Dr. Mariana Raphael MD Attending Provider Active Start: October 01, 2024 End: October 01, 2024 Dr. Mariana Raphael MD Referring Provider Active Start: October 01, 2024 End: October 01, 2024 Team Status: Inactive Member Role/Relationship Status Dates Dr. Jocelyn Harrell DO Primary Care Provider Active Start: October 01, 2024 End: October 01, 2024 Dr. Mariana Raphael MD Attending Provider Active Start: October 01, 2024 End: October 01, 2024 Dr. Mariana Raphael MD Referring Provider Active Start: October 01, 2024 End: October 01, 2024 Team Status: Active Member Role/Relationship Status Dates Dr. Jocelyn Harrell DO Primary Care Provider Active Start: November 19, 2024 SOO Gonzales Attending Provider Active Start: November 19, 2024 SOO Gonzales Referring Provider Active Start: November 19, 2024 Team Status: Inactive Member Role/Relationship Status Dates Dr. Jocelyn Harrell DO Primary Care Provider Active Start: November 21, 2024 End: November 21, 2024 SOO Gonzales Attending Provider Active Start: November 21, 2024 End: November 21, 2024 Team Status: Active Member Role/Relationship Status Dates Dr. Jocelyn Harrell DO Primary Care Provider Active Start: November 26, 2024 SOO Gonzales Attending Provider Active Start: November 26, 2024 SOO Gonzales Referring Provider Active Start: November 26, 2024 Team Status: Active Member Role/Relationship Status Dates Dr. Jocelyn Harrell DO Primary care physician Active Team Status: Inactive Member Role/Relationship Status Dates Dr. Jocelyn Harrell DO Primary care physician Active Start: October 01, 2024 End: October 01, 2024 Dr. Mariana Raphael MD Attending physician Active Start: October 01, 2024 End: October 01, 2024 Dr. Mariana Raphael MD Referring Provider Active Start: October 01, 2024 End: October 01, 2024 Team Status: Inactive Member Role/Relationship Status Dates Dr. Jocelyn Harrell DO Primary care physician Active Start: November 19, 2024 End: November 19, 2024 CHASITY GonzalesC Attending physician Active Start: November 19, 2024 End: November 19, 2024 CHASITY GonzalesC Referring Provider Active Start: November 19, 2024 End: November 19, 2024 Team Status: Inactive Member Role/Relationship Status Dates Dr. Jocelyn Harrell DO Primary care physician Active Start: November 21, 2024 End: November 21, 2024 CHASITY GonzalesC Attending physician Active Start: November 21, 2024 End: November 21, 2024 Team Status: Inactive Member Role/Relationship Status Dates Dr. Jocelyn Harrell DO Primary care physician Active Start: November 26, 2024 End: November 26, 2024 SOO Gonzales Attending physician Active Start: November 26, 2024 End: November 26, 2024 SOO Gonzales Referring Provider Active Start: November 26, 2024 End: November 26, 2024 Team Status: Inactive Member Role/Relationship Status Dates Dr. Jocelyn Harrell DO Primary care physician Active Start: December 07, 2024 End: December 07, 2024 Dr. Jocelyn Harrell DO Referring Provider Active Start: December 07, 2024 End: December 07, 2024 Dr. Mariely Valencia MD Attending physician Active Start: December 07, 2024 End: December 07, 2024 Team Status: Active Member Role/Relationship Status Dates Dr. Jocelyn Harrell DO Primary care physician Active Start: December 07, 2024 Dr. Mariely Valencia MD Attending physician Active Start: December 07, 2024 Team Status: Active Member Role/Relationship Status Dates Dr. Jocelyn Harrell DO Primary care physician Active Start: December 08, 2024 Dr. Mariely Valencia MD Attending physician Active Start: December 08, 2024 Dr. Mariely Valencia MD Referring Provider Active Start: December 08, 2024 Team Status: Inactive Member Role/Relationship Status Dates Dr. Jocelyn Harrell DO Primary care physician Active Start: December 07, 2024 End: December 07, 2024 Dr. Mariely Valencia MD Attending physician Active Start: December 07, 2024 End: December 07, 2024 Team Status: Inactive Member Role/Relationship Status Dates Dr. Jocelyn Harrell DO Primary care physician Active Start: December 08, 2024 End: December 08, 2024 Dr. Mariely Valencia MD Attending physician Active Start: December 08, 2024 End: December 08, 2024 Dr. Mariely Valencia MD Referring Provider Active Start: December 08, 2024 End: December 08, 2024 Team Status: Inactive Member Role/Relationship Status Dates Dr. Jocelyn Harrell DO Primary care physician Active Start: December 27, 2024 End: December 27, 2024 Dr. Mariana Raphael MD Attending physician Active Start: December 27, 2024 End: December 27, 2024 Dr. Mariana Raphael MD Referring Provider Active Start: December 27, 2024 End: December 27, 2024 Team Status: Inactive Member Role/Relationship Status Dates Dr. Jocelyn Harrell DO Primary care physician Active Start: January 04, 2025 End: January 04, 2025 Dr. Jocelyn Harrell DO Referring Provider Active Start: January 04, 2025 End: January 04, 2025 Dr. Janet Cardoza DO Attending physician Acti ve Start: January 04, 2025 End: January 04, 2025 INFORMATION SOURCE (unrecogn ized section and content) DATE CREATED AUTHOR 07/31/2022 [facility] ([place]) DATE CREATED AUTHOR AUTHOR'S ORGANIZ ATION 05/13/2023 [facility] DATE CREATED AUTHOR AUTHOR'S ORGANIZ ATION 11/17/2024 [facility] DATE CREATED AUTHOR AUTHOR'S ORGANIZ ATION 01/13/2025 [facility] Goals (unrecognized section and content) Type Care Experience Labor Preferences-CB /BF classes: nolabor support person: Jonathanlabor intervention preferences: []pain management options preferred: Limited intervention but ok with epiduralcut cord/dad catch: yesbreastfeeding: yesPP control planned: discusseddiscussed possible routes of delivery and associated risks: []special requests: [] Care Experience Labor Preferences-CB /BF classes: []labor support person: []labor intervention preferences: []pain management options preferred: []cut cord/dad catch: []: []PP control planned: []discussed possible routes of delivery and associated risks: []special requests: [] Goals may be documented in an alternate section FOR RECORDS PERTAINING TO PATIENTS [...] BE BASED ON THE PRIMARY CLINICAL RECORDS. [employer] provides no warranty or guarantee of the accuracy or completeness of information in this document.
[2025-03-11 17:18] LABS: Hematocrit 36.6 % (37-47); Hemoglobin 11.8 g/dL (12.0-15.0); Immature Granulocytes Count 0.060 X10^3/uL (0.0-0.0); Mean Corp Hgb Conc 32.2 g/dL (32-36); Mean Corpuscular Volume 81.7 fL (81-99); Mean Platelet Vol. 9.6 fl (6.2-12.0); NRBC Flagged by Analyzer 0 % (0-5); Platelet Count 248 K/mm3 (150-450); RBC Distribution Width CV 14.0 % (11.6-14.6); RBC Distribution Width SD 41.1 fl (35.1-43.9); Red Blood Count 4.48 M/mm3 (4.2-5.4); White Blood Count 9.7 K/mm3 (4.4-11.0)
[2025-03-11 17:36] LABS: Glucose, Dipstick Normal (Normal); Ketone-Dipstick Negative (Negative); Leukocyte Esterase-Dipstick 500 /ul (Negative); Nitrite-Dipstick Negative (Negative); Occult Blood-Urine 10 /ul (Negative); Protein-Dipstick 15 mg/dl (Negative); Specific Gravity, Urine 1.025 (1.002-1.030); Urine Bilirubin Dipstick Negative (Negative)
[2025-03-11 17:38] LABS: Color, Urine Yellow (Yellow)
[2025-03-11 17:42] LABS: Creatinine, Urine (random) 106.00 mg/dL (28.00-217.00); Protein, Urine (Random) 10.8 mg/dL (0.0-12.0); Protein:Creat Ratio 102 mg/g CRE (0-200)
[2025-03-11 17:45] LABS: AST(SGOT) 19 U/L (<=31); Alanine Aminotransfer ALT/SGPT 16 U/L (<=34); Albumin, Serum 3.8 g/dL (3.5-5.0); Alkaline Phosphatase 47 U/L (35-104); Anion Gap 8 (7-18); BUN 9 mg/dL (4-19); BUN/Creat Ratio 16.0 RATIO (10-20); Calcium,Total 9.3 mg/dL (7.6-11.0); Carbon Dioxide 24.0 mmol/L (20.0-29.0); Chloride 104 mmol/L (96-106); Globulin 2.9 g/dL (2.2-4.2); Glucose 78 mg/dL (70-99); Potassium 4.0 mmol/L (3.5-5.1)
== END | disposition home or self-care (01) ==
LOC: MTLAB 13:48
PROVIDERS: PCP Preventive Medicine Occupational Medicine; Referring Provider Internal Medicine Rheumatology; Visit Provider Internal Medicine Rheumatology
DX: M06.4 Inflammatory polyarthropathy (principal); Z79.899 Other long term (current) drug therapy
CPT/HCPCS: 36415; 80053; 81002; 82570; 84156; 85025; 86160; 86225